=== PATIENT | female | born 1960 | race Caucasian/White ===

== ENCOUNTER 2018-11-21 12:00 | Outpatient (RCR) | payer OTHER, SELFPAY ==
[2018-11-08 09:42] VITALS: BP 115/72; PULSE 67; RESP 20; TEMP 36.6; BMI 47.3
--- NOTE | 2018-11-08 10:34 | PCM.WC.HP ---
(1) Surgical wound dehiscence Status: Chronic Current Visit: Yes Qualifiers: Encounter type: initial encounter Qualified Code(s): T81.31XA - Disruption of external operation (surgical) wound, not elsewhere classified, initial encounter Code(s): T81.31XA - Disruption of external operation (surgical) wound, not elsewhere classified, initial encounter (2) Surgical wound, non healing Status: Chronic Current Visit: Yes Qualifiers: Encounter type: initial encounter Qualified Code(s): T81.89XA - Other complications of procedures, not elsewhere classified, initial encounter Code(s): T81.89XA - Other complications of procedures, not elsewhere classified, initial encounter (3) Morbid obesity Status: Chronic Current Visit: Yes Code(s): E66.01 - Morbid (severe) obesity due to excess calories (4) CAD (coronary artery disease) Status: Chronic Current Visit: No Qualifiers: Coronary Disease-Associated Artery/Lesion type: [place] artery Code(s): I25.10 - Atherosclerotic heart disease of [place] coronary artery without angina pectoris (5) Left carotid bruit Status: Chronic Current Visit: Yes Code(s): R09.89 - Other specified symptoms and signs involving the circulatory and respiratory systems (6) Hypertension Status: Chronic Current Visit: No Code(s): I10 - Essential (primary) hypertension (7) Hyperlipidemia Status: Chronic Current Visit: No Code(s): E78.5 - Hyperlipidemia, unspecified (8) Chronic bronchitis Status: Chronic Current Visit: No Code(s): J42 - Unspecified chronic bronchitis (9) Smoking history Status: Chronic Current Visit: No Code(s): Z87.891 - Personal history of nicotine dependence (10) Alcoholism in remission Status: Chronic Current Visit: Yes Code(s): F10.21 - Alcohol dependence, in remission History of Present Illness Date of Service: 11/08/18 Chief Complaint: Chronic, nonhealing surgical wound of the right Achilles area/posterior heel History of Wound: This is a 58-year-old obese female who underwent right Achilles tendon debridement, resection of a retrocalcaneal spur, and tendon transfer on September 27, 2018, in [facility]. Since that time, she has been followed clinically by Dr. Thiago Vidal, her podiatric surgeon at the [facility]. The inferior portion of her surgical incision has failed to heal. She has had several courses of oral antibiotics. Offloading measures were implemented. Patient is using a Cam walker and surgical boot. Collagenase Santyl has been used topically in recent days. She has been referred to our wound care facility for consultation and management relative to the nonhealing portion of her incision. It appears as though the surgical sutures were removed approximately 10 days postoperatively, at which time they became evident that the inferior portion of the surgical incision was not healing appropriately, and as expected. 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 She has previously undergone placement of coronary artery stents in 1999, a procedure in which she suffered complications, requiring sternotomy and repair of a ventricular injury. Her history is negative for diabetes mellitus, myocardial infarction, congestive heart failure, cerebrovascular accident, renal disease, and thyroid disease. Surgical History: - - Patient underwent emergency cardiac surgery in 1999, in association with placement of coronary artery stents x2. She underwent cholecystectomy in 2000. She is also undergone tonsillectomy. A right carpal tunnel release was also performed in the past. Home Medications: Ambulatory Orders Medication Instructions Recorded Albuterol Inhaler [Ventolin Hfa 2 puff INHALATION Q4H PRN PRN 11/08/18 (SP)] Ascorbic Acid [Vitamin C] 1,000 mg PO DAILY 11/08/18 Aspirin 81 mg PO DAILY 11/08/18 Atorvastatin Calcium [Lipitor] 40 mg PO QHS 11/08/18 Ibuprofen [Motrin] 800 PO 4X/DAY PRN PRN 11/08/18 Lisinopril [Zestril] 10 mg PO DAILY 11/08/18 Meloxicam 15 mg PO DAILY 11/08/18 Multivitamins,Therapeutic 1 tablet PO DAILY 11/08/18 [Multivitamin] Omeprazole [Prilosec] 20 mg PO DAILY 11/08/18 Ranolazine [Ranexa] 500 mg PO BID 11/08/18 Sertraline HCl [Zoloft] 100 mg PO DAILY 11/08/18 buPROPion tablets [Wellbutrin 50 mg PO BID 11/08/18 tablets] - Family History Paternal - - Patient's father at the age of 83 with a history of coronary artery disease and cerebrovascular accident. Maternal - - The patient's mother at the age of 82 with a history of myocardial infarction. Social History: The patient is single. 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 She is a former smoker. She is also a recovering alcoholic. Smoking Status: Former smoker Tobacco Use: Non-smoker Alcohol: None Drugs: None Review of Systems Constitutional: Denies: Chills, Fever, Weight Change Eyes: Denies: Pain, Vision Change HEENT: Denies: Difficulty Hearing, Difficulty Swallowing, Sinus Congestion Cardiovascular: Denies: Chest Pain, Palpitations Respiratory: Denies: Cough, Shortness of Breath Gastrointestinal: Denies: Diarrhea, Nausea, Vomiting Genitourinary: Denies: Dysuria, Hematuria Endocrine: Denies: Heat/ Cold Intolerance, Polydipsia, Polyuria Hematologic/ Lymphatic: Denies: Easy Bruising, Easy Bleeding - Physical Exam Vital Signs Temp Pulse Resp BP 97.8 F 67 20 H 115/72 11/08/18 09:42 11/08/18 09:42 11/08/18 09:42 11/08/18 09:42 General: Alert, Oriented x3, Cooperative, No apparent distress, Well developed, Well nourished, - - The patient is obese. HEENT: Atraumatic, PERRLA, EOMI, Normocephalic Oral: Moist Mucosa, No Gingival or Mucosal Lesions/ Ulcerations Neck: Supple, No JVD, Negative Hepatojugular Reflux, No Nodes, No Nuchal Rigidity, Trachea Midline, Carotid Bruit, Left Lungs: Clear to auscultation, Normal air movement, No rhonchi, No wheeze, No rales Cardiovascular: Regular rate, Normal S1, Normal S2, No murmurs Abdomen: Soft, Non Tender, Non-Distended, Obese Extremities: No clubbing, No cyanosis, No edema, No Calf Tenderness, - - A vertical incision is noted in the left Achilles and left posterior heel area. The superior and midportion of the incision is well approximated and healing appropriately. The inferior portion of the incision is open and not approximated. There is an open wound at this site, the dimensions of which are documented elsewhere. The base of the open wound is frankly necrotic with evidence of nonviable tissue. There is no obvious sign of infection or cellulitis. There is a moderate amount of bioburden. Swab cultures have been obtained, for both aerobic and anaerobic bacterial growth. Skin: No rashes Wound Measurements and Assessment WC - Nurse 1 - General Ulcer Measurement Start: 11/08/18 09:42 Freq: Status: Active Protocol: Activity Type Activity Date Activity User E-Sign Co-Sign Detail Recorded Client Recorded Date Recorded By Document 11/08/18 09:42 MW [id number] 11/08/18 09:50 MW 11/08/18 09:42 Wound Center Nurse 1 [Ulcer Assessment] #1 RIGHT HEEL -Combined with other wound No -Current Size (cm) - Length 1.2 -Current Size (cm) - Width 1.5 -Current Size (cm) - Depth 0.2 -Total Square Cm 1.80 -Date of Last Picture (Recall this 11/08/18 field) -Photo Taken Yes -Epithelialization None Present -Tunneling No -Undermining/Tunneling No -Circular Undermining No -Exudate Amt Small (1-33%) -Exudate Type Serosanguineous -Wound Margin Distinct, Outline Attached -Granulation Amt None Present (0 %) -Granulation Quality N/A -Slough/Fibrin Yes -Necrosis Amt Large (67-100%) -Necrotic Tissue Type Adherent Slough -Structure Exposed N/A -Texture (Lynda-wound Skin Appearance) Assessed Localized Edema Scarring -Moisture (Lynda-wound Skin Appearance No Abnormality ) Assessed -Color (Lynda-wound Skin Appearance) No Abnormality Assessed -Temperature (Lynda-wound Skin No Abnormality Appearance) (Pt Warm) -Tenderness on Palpation (Lynda-wound No Skin Appearance) -Ulcer Cleansing Rinsed/ Irrigated with Saline -Foul Odor after Cleansing No -Anesthetic Used 5% Lidocaine Gel [Edema Assessment] -Lower Limb Edema Present Yes -Right Calf (cm) 45.0 -Right Ankle (cm) 23.5 -Left Calf (cm) 46.5 -Left Ankle (cm) 24.0 Musculoskeletal: No Muscle Wasting Neurological: Cranial nerves II-XII grossly intact, Neuro grossly intact Psych/Mental Status: Normal Affect, Appropriate, Alert and oriented to time, place, person, mood and affect Debridement Note Laterality: Left - Posterior heel Type of Debridement: Excisional debridement Anesthesia Used: 5% Lidocaine Gel Depth: Down to and including healthy tissue, in the subcutaneous layer Percentage of wound debrided: 100 Instrument Used: 7mm curette Severity: Fat Layer Exposed Amount of bleeding with debridement: Mild Bleeding Controlled with: Compression and gauze Patient tolerated procedure well Assessment/Plan Active Problems Surgical wound dehiscence (Chronic) Surgical wound, non healing (Chronic) Morbid obesity (Chronic) Left carotid bruit (Chronic) 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 The inferior portion of her surgical wound has failed to heal appropriately. Patient suffers from multiple other pre-existing medical problems, including coronary artery disease, hypertension, hyperlipidemia, chronic bronchitis, etc. By physical examination, she is also noted to have a left carotid artery bruit. Plan: Offloading measures have been recommended. It appears as though these measures have already been implemented. This issue has been discussed at length with the patient. Collagenase Santyl has been initiated topically only several days ago, and is to be continued. An excisional debridement was performed today, and will be continued on a serial basis, as the patient returns for weekly appointments. Swab cultures have been obtained for both aerobic and anaerobic growth, and we will await results. The patient is to return on a weekly basis, though the upcoming holidays may dictate otherwise. We are to request the results of an arterial study, which the patient indicates was performed recently at the [facility]. It should be ascertained that arterial perfusion is adequate for healing in the right lower extremity. If results cannot be obtained, it is anticipated that a noninvasive lower extremity arterial study will be scheduled. Routine laboratory studies will also be obtained, including a CBC, comprehensive metabolic profile, hemoglobin A1c, and a serum prealbumin. The patient has been made aware of the finding of left carotid artery bruit. She indicates that she will be seeing her circus performer, Dr. Onofre Landeros, this afternoon. She has been advised to mention this to Dr. Landeros, and that the recommendation has been made that she undergo carotid duplex examination. The patient is not a smoker. Influenza vaccine was not administered today. The patient weighs 280 pounds. She stands 5 feet 4 inches tall. Her BMI is 47.3. This places her in a class III obesity category. Weight loss has been recommended, in collaboration with her primary care physician has been advised.
[2018-11-08 16:59] LABS: M R Staph aureus DNA By PCR Negative (Negative); Probe Check PASS; Specimen Processing Control PASS; Staph aureus DNA By PCR NEGATIVE (Negative)
[2018-11-21 12:24] VITALS: BP 129/57; PULSE 76; RESP 18; TEMP 36.6; BMI 47.3
--- NOTE | 2018-11-21 12:44 | PCM.WC.HP ---
(1) Surgical wound dehiscence Status: Chronic Current Visit: Yes Qualifiers: Encounter type: subsequent encounter Qualified Code(s): T81.31XD - Disruption of external operation (surgical) wound, not elsewhere classified, subsequent encounter Code(s): T81.31XA - Disruption of external operation (surgical) wound, not elsewhere classified, initial encounter (2) Surgical wound, non healing Status: Chronic Current Visit: Yes Qualifiers: Encounter type: subsequent encounter Qualified Code(s): T81.89XD - Other complications of procedures, not elsewhere classified, subsequent encounter Code(s): T81.89XA - Other complications of procedures, not elsewhere classified, initial encounter (3) Morbid obesity Status: Chronic Current Visit: Yes Code(s): E66.01 - Morbid (severe) obesity due to excess calories (4) CAD (coronary artery disease) Status: Chronic Current Visit: No Qualifiers: Coronary Disease-Associated Artery/Lesion type: [place] artery Code(s): I25.10 - Atherosclerotic heart disease of [place] coronary artery without angina pectoris (5) Left carotid bruit Status: Chronic Current Visit: Yes Code(s): R09.89 - Other specified symptoms and signs involving the circulatory and respiratory systems (6) Hypertension Status: Chronic Current Visit: No Code(s): I10 - Essential (primary) hypertension (7) Hyperlipidemia Status: Chronic Current Visit: No Code(s): E78.5 - Hyperlipidemia, unspecified (8) Chronic bronchitis Status: Chronic Current Visit: No Code(s): J42 - Unspecified chronic bronchitis (9) Smoking history Status: Chronic Current Visit: No Code(s): Z87.891 - Personal history of nicotine dependence (10) Alcoholism in remission Status: Chronic Current Visit: Yes Code(s): F10.21 - Alcohol dependence, in remission History of Present Illness Chief Complaint: Chronic, nonhealing surgical wound of the right Achilles area/posterior heel History of Wound: This is a 58-year-old obese female who underwent right Achilles tendon debridement, resection of a retrocalcaneal spur, and tendon transfer on September 27, 2018, in [facility]. Since that time, she has been followed clinically by Dr. Thiago Vidal, her podiatric surgeon at the [facility]. The inferior portion of her surgical incision has failed to heal. She has had several courses of oral antibiotics. Offloading measures were implemented. Patient is using a Cam walker and surgical boot. Collagenase Santyl has been used topically in recent days. She has been referred to our wound care facility for consultation and management relative to the nonhealing portion of her incision. It appears as though the surgical sutures were removed approximately 10 days postoperatively, at which time they became evident that the inferior portion of the surgical incision was not healing appropriately, and as expected. Past Medical History Past Medical History: Chronic Problems Surgical wound dehiscence (Chronic) Surgical wound, non healing (Chronic) Morbid obesity (Chronic) CAD (coronary artery disease) (Chronic) Left carotid bruit (Chronic) Hypertension (Chronic) Hyperlipidemia (Chronic) Chronic bronchitis (Chronic) Smoking history (Chronic) Alcoholism in remission (Chronic) Surgical History: - - Patient underwent emergency cardiac surgery in 1999, in association with placement of coronary artery stents x2. She underwent cholecystectomy in 2000. She is also undergone tonsillectomy. A right carpal tunnel release was also performed in the past. Home Medications: Ambulatory Orders Medication Instructions Recorded Albuterol Inhaler [Ventolin Hfa 2 puff INHALATION Q4H PRN PRN 11/08/18 (SP)] Ascorbic Acid [Vitamin C] 1,000 mg PO DAILY 11/08/18 Aspirin 81 mg PO DAILY 11/08/18 Atorvastatin Calcium [Lipitor] 40 mg PO QHS 11/08/18 Ibuprofen [Motrin] 800 PO 4X/DAY PRN PRN 11/08/18 Lisinopril [Zestril] 10 mg PO DAILY 11/08/18 Meloxicam 15 mg PO DAILY 11/08/18 Multivitamins,Therapeutic 1 tablet PO DAILY 11/08/18 [Multivitamin] Omeprazole [Prilosec] 20 mg PO DAILY 11/08/18 Ranolazine [Ranexa] 500 mg PO BID 11/08/18 Sertraline HCl [Zoloft] 100 mg PO DAILY 11/08/18 buPROPion tablets [Wellbutrin 50 mg PO BID 11/08/18 tablets] - Family History Paternal - - Patient's father at the age of 83 with a history of coronary artery disease and cerebrovascular accident. Maternal - - The patient's mother at the age of 82 with a history of myocardial infarction. Smoking Status: Former smoker Tobacco Use: Non-smoker Alcohol: None Drugs: None Review of Systems Constitutional: Denies: Chills, Fever, Weight Change Eyes: Denies: Pain, Vision Change HEENT: Denies: Difficulty Hearing, Difficulty Swallowing, Sinus Congestion Cardiovascular: Denies: Chest Pain, Palpitations Respiratory: Denies: Cough, Shortness of Breath Gastrointestinal: Denies: Diarrhea, Nausea, Vomiting Genitourinary: Denies: Dysuria, Hematuria Endocrine: Denies: Heat/ Cold Intolerance, Polydipsia, Polyuria Hematologic/ Lymphatic: Denies: Easy Bruising, Easy Bleeding - Physical Exam Vital Signs Temp Pulse Resp BP 98 F 76 18 129/57 H 11/21/18 12:24 11/21/18 12:24 11/21/18 12:24 11/21/18 12:24 General: Alert, Oriented x3, Cooperative, No apparent distress, Well developed, Well nourished HEENT: Atraumatic, PERRLA, EOMI, Normocephalic Oral: Moist Mucosa Neck: No JVD Lungs: Normal air movement Abdomen: Non-Distended Extremities: No clubbing, No cyanosis, No edema, No Calf Tenderness, - - The wound on the right posterior heel/Achilles area appears slightly improved. There is no sign of infection or cellulitis. Dimensions are documented elsewhere. There is a small amount of bioburden. Skin: No rashes Wound Measurements and Assessment WC - Nurse 1 - General Ulcer Measurement Start: 11/08/18 09:42 Freq: Status: Active Protocol: Activity Type Activity Date Activity User E-Sign Co-Sign Detail Recorded Client Recorded Date Recorded By Document 11/21/18 12:24 [id number] 11/21/18 12:30 RB 11/21/18 12:24 Wound Center Nurse 1 [Ulcer Assessment] #1 RIGHT HEEL -Combined with other wound No -Current Size (cm) - Length 1 -Current Size (cm) - Width 0.7 -Current Size (cm) - Depth 0.1 -Total Square Cm 0.7 -Photo Taken No -Tunneling No -Undermining/Tunneling No -Circular Undermining No -Exudate Amt Small (1-33%) -Exudate Type Serosanguineous -Wound Margin Distinct, Outline Attached -Granulation Amt Medium (34-66%) -Granulation Quality [place] -Slough/Fibrin Yes -Necrosis Amt Small (1-33%) -Necrotic Tissue Type Adherent Slough -Structure Exposed N/A -Texture (Lynda-wound Skin Appearance) Assessed Scarring -Moisture (Lynda-wound Skin Appearance Assessed ) -Color (Lynda-wound Skin Appearance) Assessed -Temperature (Lynda-wound Skin No Abnormality Appearance) (Pt Warm) -Tenderness on Palpation (Lynda-wound No Skin Appearance) -Ulcer Cleansing Rinsed/ Irrigated with Saline -Foul Odor after Cleansing No -Anesthetic Used 5% Lidocaine Gel - Nurse 2 - General Ulcer CM Notes Start: 11/08/18 09:42 Freq: Status: Active Protocol: Activity Type Activity Date Activity User E-Sign Co-Sign Detail Recorded Client Recorded Date Recorded By Document 11/21/18 12:36 [email or web address] 11/21/18 12:40 [email or web address] 11/21/18 12:36 Wound Center Nurse 2 [Procedure/Treatment] -Time 12:36 -Correct Patient Yes -Correct Side, Site, Position Yes -Correct Procedure Yes -Procedure Performed Yes -Type of Procedure Debridement -Clinical Debridement Subcutaneous -Post Debridement Size (cm) - Length 1.2 -Post Debridement Size (cm) - Width 1.0 -Post Debridement Size (cm) - Depth 0.1 -Total Square Cm 1.20 -Wound/Ulcer Outcome Not Healed -Ulcer Cleansing Rinsed/ Irrigated with Saline -Foul Odor after Cleansing No -Bioengineered Tissue No -Topical Lidocaine (%) 4 -Lidocaine (ml) 5 -Bleeding Controlled with NA -Treatment Response Procedure Tolerated Well [See Physician Procedure note for Specifics] Pain Scale: 0-10 Numeric [Pain] -Is Patient Pain Free? Yes Musculoskeletal: No Muscle Wasting Neurological: Cranial nerves II-XII grossly intact, Neuro grossly intact Psych/Mental Status: Normal Affect, Appropriate, Alert and oriented to time, place, person, mood and affect Debridement Note Post-Debridement Measurements/Treatment WC - Nurse 2 - General Ulcer CM Notes Start: 11/08/18 09:42 Freq: Status: Active Protocol: Activity Type Activity Date Activity User E-Sign Co-Sign Detail Recorded Client Recorded Date Recorded By Document 11/08/18 10:13 DV [email or web address] 11/08/18 10:33 DV Document 11/21/18 12:36 [id number] 11/21/18 12:40 JS 11/08/18 11/21/18 10:13 12:36 Wound Center Nurse 2 #1 RIGHT HEEL -Time 10:17 12:36 -Correct Patient Yes Yes -Correct Side, Site, Position Yes Yes -Correct Procedure Yes Yes -Procedure Performed Yes Yes -Type of Procedure Debridement Debridement -Clinical Debridement Subcutaneous Subcutaneous -Post Debridement Size (cm) - Length 1.5 1.2 -Post Debridement Size (cm) - Width 1.8 1.0 -Post Debridement Size (cm) - Depth 0.3 0.1 -Total Square Cm 2.70 1.20 -Wound/Ulcer Outcome Not Healed Not Healed -Ulcer Cleansing Rinsed/ Rinsed/ Irrigated with Irrigated with Saline Saline -Foul Odor after Cleansing No No -Bioengineered Tissue No No -Topical Lidocaine (%) 4 -Lidocaine (ml) 5 -Bleeding Controlled with Pressure NA -Offloading No -Type of Offloading Knee Walker -Treatment Response Procedure Procedure Tolerated Well Tolerated Well Pain Scale: 0-10 Numeric Is Patient Pain Free? Yes Yes Laterality: Right - Heel Type of Debridement: Excisional debridement Anesthesia Used: 5% Lidocaine Gel Depth: Down to and including healthy tissue, in the subcutaneous layer Percentage of wound debrided: 100 Instrument Used: 3mm curette Severity: Fat Layer Exposed Amount of bleeding with debridement: Mild Bleeding Controlled with: Compression and gauze Patient tolerated procedure well Assessment/Plan Active Problems Surgical wound dehiscence (Chronic) Surgical wound, non healing (Chronic) Morbid obesity (Chronic) Left carotid bruit (Chronic) 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 The inferior portion of her surgical wound has failed to heal appropriately. Patient suffers from multiple other pre-existing medical problems, including coronary artery disease, hypertension, hyperlipidemia, chronic bronchitis, etc. By physical examination, she is also noted to have a left carotid artery bruit. Laboratory studies were ordered, but the patient has failed to submit. As result, laboratory results are not available. These are yet to be obtained. We have not yet received the results of the patient's lower extremity arterial study which was performed at the [facility]. We will make another request. The patient states that she underwent a carotid duplex examination as ordered by Dr. Landeros, though we do not yet have those results either. Results will be requested. According to the patient, her carotid study did not reveal any significant carotid artery disease. Plan: Offloading measures have been recommended. It appears as though these measures have already been implemented. This issue has been discussed at length with the patient. Collagenase Santyl has been initiated topically, and is to be continued. An excisional debridement was performed today, and will be continued on a serial basis, as the patient returns for weekly appointments. Swab cultures have been obtained for both aerobic and anaerobic growth, and results are negative. We are to again request the results of an arterial study, which the patient indicates was performed recently at the [facility]. It should be ascertained that arterial perfusion is adequate for healing in the right lower extremity. If results cannot be obtained, it is anticipated that a noninvasive lower extremity arterial study will be scheduled. Routine laboratory studies will also be obtained, including a CBC, comprehensive metabolic profile, hemoglobin A1c, and a serum prealbumin. The patient is not a smoker. Influenza vaccine was not administered today. The patient weighs 280 pounds. She stands 5 feet 4 inches tall. Her BMI is 47.3. This places her in a class III obesity category. Weight loss has been recommended, in collaboration with her primary care physician has been advised.
--- NOTE | 2018-11-21 12:49 | HP.PCM_ITS ---
(1) Surgical wound dehiscence Status: Chronic Current Visit: Yes Qualifiers: Encounter type: subsequent encounter Qualified Code(s): T81.31XD - Disruption of external operation (surgical) wound, not elsewhere classified, subsequent encounter Code(s): T81.31XA - Disruption of external operation (surgical) wound, not elsewhere classified, initial encounter (2) Surgical wound, non healing Status: Chronic Current Visit: Yes Qualifiers: Encounter type: subsequent encounter Qualified Code(s): T81.89XD - Other complications of procedures, not elsewhere classified, subsequent encounter Code(s): T81.89XA - Other complications of procedures, not elsewhere classified, initial encounter (3) Morbid obesity Status: Chronic Current Visit: Yes Code(s): E66.01 - Morbid (severe) obesity due to excess calories (4) CAD (coronary artery disease) Status: Chronic Current Visit: No Qualifiers: Coronary Disease-Associated Artery/Lesion type: [place] artery Code(s): I25.10 - Atherosclerotic heart disease of [place] coronary artery without angina pectoris (5) Left carotid bruit Status: Chronic Current Visit: Yes Code(s): R09.89 - Other specified symptoms and signs involving the circulatory and respiratory systems (6) Hypertension Status: Chronic Current Visit: No Code(s): I10 - Essential (primary) hypertension (7) Hyperlipidemia Status: Chronic Current Visit: No Code(s): E78.5 - Hyperlipidemia, unspecified (8) Chronic bronchitis Status: Chronic Current Visit: No Code(s): J42 - Unspecified chronic bronchitis (9) Smoking history Status: Chronic Current Visit: No Code(s): Z87.891 - Personal history of nicotine dependence (10) Alcoholism in remission Status: Chronic Current Visit: Yes Code(s): F10.21 - Alcohol dependence, in remission History of Present Illness Chief Complaint: Chronic, nonhealing surgical wound of the right Achilles area /posterior heel History of Wound: This is a 58-year-old obese female who underwent right Achilles tendon debridement, resection of a retrocalcaneal spur, and tendon transfer on September 27, 2018, in [facility]. Since that time, she has been followed clinically by Dr. Thiago Vidal, her podiatric surgeon at the [facility]. The inferior portion of her surgical incision has failed to heal. She has had several courses of oral antibiotics. Offloading measures were implemented. Patient is using a Cam walker and surgical boot. Collagenase Santyl has been used topically in recent days. She has been referred to our wound care facility for consultation and management relative to the nonhealing portion of her incision. It appears as though the surgical sutures were removed approximately 10 days postoperatively, at which time they became evident that the inferior portion of the surgical incision was not healing appropriately, and as expected. Past Medical History Past Medical History: Chronic Problems Surgical wound dehiscence (Chronic) Surgical wound, non healing (Chronic) Morbid obesity (Chronic) CAD (coronary artery disease) (Chronic) Left carotid bruit (Chronic) Hypertension (Chronic) Hyperlipidemia (Chronic) Chronic bronchitis (Chronic) Smoking history (Chronic) Alcoholism in remission (Chronic) Surgical History: - - Patient underwent emergency cardiac surgery in 1999, in association with placement of coronary artery stents x2. She underwent cholecystectomy in 2000. She is also undergone tonsillectomy. A right carpal tunnel release was also performed in the past. Home Medications: Ambulatory Orders Medication Instructions Recorded Albuterol Inhaler [Ventolin Hfa 2 puff INHALATION Q4H PRN PRN 11/08/18 (SP)] Ascorbic Acid [Vitamin C] 1,000 mg PO DAILY 11/08/18 Aspirin 81 mg PO DAILY 11/08/18 Atorvastatin Calcium [Lipitor] 40 mg PO QHS 11/08/18 Ibuprofen [Motrin] 800 PO 4X/DAY PRN PRN 11/08/18 Lisinopril [Zestril] 10 mg PO DAILY 11/08/18 Meloxicam 15 mg PO DAILY 11/08/18 Multivitamins,Therapeutic 1 tablet PO DAILY 11/08/18 [Multivitamin] Omeprazole [Prilosec] 20 mg PO DAILY 11/08/18 Ranolazine [Ranexa] 500 mg PO BID 11/08/18 Sertraline HCl [Zoloft] 100 mg PO DAILY 11/08/18 buPROPion tablets [Wellbutrin 50 mg PO BID 11/08/18 tablets] - Family History Paternal - - Patient's father at the age of 83 with a history of coronary artery disease and cerebrovascular accident. Maternal - - The patient's mother at the age of 82 with a history of myocardial infarction. Smoking Status: Former smoker Tobacco Use: Non-smoker Alcohol: None Drugs: None Review of Systems Constitutional: Denies: Chills, Fever, Weight Change Eyes: Denies: Pain, Vision Change HEENT: Denies: Difficulty Hearing, Difficulty Swallowing, Sinus Congestion Cardiovascular: Denies: Chest Pain, Palpitations Respiratory: Denies: Cough, Shortness of Breath Gastrointestinal: Denies: Diarrhea, Nausea, Vomiting Genitourinary: Denies: Dysuria, Hematuria Endocrine: Denies: Heat/ Cold Intolerance, Polydipsia, Polyuria Hematologic/ Lymphatic: Denies: Easy Bruising, Easy Bleeding - Physical Exam Vital Signs Temp Pulse Resp BP 98 F 76 18 129/57 H 11/21/18 12:24 11/21/18 12:24 11/21/18 12:24 11/21/18 12:24 General: Alert, Oriented x3, Cooperative, No apparent distress, Well developed, Well nourished HEENT: Atraumatic, PERRLA, EOMI, Normocephalic Oral: Moist Mucosa Neck: No JVD Lungs: Normal air movement Abdomen: Non-Distended Extremities: No clubbing, No cyanosis, No edema, No Calf Tenderness, - - The wound on the right posterior heel/Achilles area appears slightly improved. There is no sign of infection or cellulitis. Dimensions are documented elsewhere. There is a small amount of bioburden. Skin: No rashes Wound Measurements and Assessment WC - Nurse 1 - General Ulcer Measurement Start: 11/08/18 09:42 Freq: Status: Active Protocol: Activity Type Activity Date Activity User E-Sign Co-Sign Detail Recorded Client Recorded Date Recorded By Document 11/21/18 12:24 [id number] 11/21/18 12:30 RB 11/21/18 12:24 Wound Center Nurse 1 [Ulcer Assessment] #1 RIGHT HEEL -Combined with other wound No -Current Size (cm) - Length 1 -Current Size (cm) - Width 0.7 -Current Size (cm) - Depth 0.1 -Total Square Cm 0.7 -Photo Taken No -Tunneling No -Undermining/Tunneling No -Circular Undermining No -Exudate Amt Small (1-33%) -Exudate Type Serosanguineous -Wound Margin Distinct, Outline Attached -Granulation Amt Medium (34-66%) -Granulation Quality [place] -Slough/Fibrin Yes -Necrosis Amt Small (1-33%) -Necrotic Tissue Type Adherent Slough -Structure Exposed N/A -Texture (Lynda-wound Skin Appearance) Assessed Scarring -Moisture (Lynda-wound Skin Appearance Assessed ) -Color (Lynda-wound Skin Appearance) Assessed -Temperature (Lynda-wound Skin No Abnormality Appearance) (Pt Warm) -Tenderness on Palpation (Lynda-wound No Skin Appearance) -Ulcer Cleansing Rinsed/ Irrigated with Saline -Foul Odor after Cleansing No -Anesthetic Used 5% Lidocaine Gel - Nurse 2 - General Ulcer CM Notes Start: 11/08/18 09:42 Freq: Status: Active Protocol: Activity Type Activity Date Activity User E-Sign Co-Sign Detail Recorded Client Recorded Date Recorded By Document 11/21/18 12:36 [email or web address] [id number] 11/21/18 12:40 [email or web address] 11/21/18 12:36 Wound Center Nurse 2 [Procedure/Treatment] -Time 12:36 -Correct Patient Yes -Correct Side, Site, Position Yes -Correct Procedure Yes -Procedure Performed Yes -Type of Procedure Debridement -Clinical Debridement Subcutaneous -Post Debridement Size (cm) - Length 1.2 -Post Debridement Size (cm) - Width 1.0 -Post Debridement Size (cm) - Depth 0.1 -Total Square Cm 1.20 -Wound/Ulcer Outcome Not Healed -Ulcer Cleansing Rinsed/ Irrigated with Saline -Foul Odor after Cleansing No -Bioengineered Tissue No -Topical Lidocaine (%) 4 -Lidocaine (ml) 5 -Bleeding Controlled with NA -Treatment Response Procedure Tolerated Well [See Physician Procedure note for Specifics] Pain Scale: 0-10 Numeric [Pain] -Is Patient Pain Free? Yes Musculoskeletal: No Muscle Wasting Neurological: Cranial nerves II-XII grossly intact, Neuro grossly intact Psych/Mental Status: Normal Affect, Appropriate, Alert and oriented to time, place, person, mood and affect Debridement Note Post-Debridement Measurements/Treatment WC - Nurse 2 - General Ulcer CM Notes Start: 11/08/18 09:42 Freq: Status: Active Protocol: Activity Type Activity Date Activity User E-Sign Co-Sign Detail Recorded Client Recorded Date Recorded By Document 11/08/18 10:13 DV [id number] 11/08/18 10:33 DV Document 11/21/18 12:36 [email or web address] [id number] 11/21/18 12:40 JS 11/08/18 11/21/18 10:13 12:36 Wound Center Nurse 2 #1 RIGHT HEEL -Time 10:17 12:36 -Correct Patient Yes Yes -Correct Side, Site, Position Yes Yes -Correct Procedure Yes Yes -Procedure Performed Yes Yes -Type of Procedure Debridement Debridement -Clinical Debridement Subcutaneous Subcutaneous -Post Debridement Size (cm) - Length 1.5 1.2 -Post Debridement Size (cm) - Width 1.8 1.0 -Post Debridement Size (cm) - Depth 0.3 0.1 -Total Square Cm 2.70 1.20 -Wound/Ulcer Outcome Not Healed Not Healed -Ulcer Cleansing Rinsed/ Rinsed/ Irrigated with Irrigated with Saline Saline -Foul Odor after Cleansing No No -Bioengineered Tissue No No -Topical Lidocaine (%) 4 -Lidocaine (ml) 5 -Bleeding Controlled with Pressure NA -Offloading No -Type of Offloading Knee Walker -Treatment Response Procedure Procedure Tolerated Well Tolerated Well Pain Scale: 0-10 Numeric Is Patient Pain Free? Yes Yes Laterality: Right - Heel Type of Debridement: Excisional debridement Anesthesia Used: 5% Lidocaine Gel Depth: Down to and including healthy tissue, in the subcutaneous layer Percentage of wound debrided: 100 Instrument Used: 3mm curette Severity: Fat Layer Exposed Amount of bleeding with debridement: Mild Bleeding Controlled with: Compression and gauze Patient tolerated procedure well Assessment/Plan Active Problems Surgical wound dehiscence (Chronic) Surgical wound, non healing (Chronic) Morbid obesity (Chronic) Left carotid bruit (Chronic) 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 The inferior portion of her surgical wound has failed to heal appropriately. Patient suffers from multiple other pre-existing medical problems, including coronary artery disease, hypertension, hyperlipidemia, chronic bronchitis, etc. By physical examination, she is also noted to have a left carotid artery bruit. Laboratory studies were ordered, but the patient has failed to submit. As result, laboratory results are not available. These are yet to be obtained. We have not yet received the results of the patient's lower extremity arterial study which was performed at the [facility]. We will make another request. The patient states that she underwent a carotid duplex examination as ordered by Dr. Landeros, though we do not yet have those results either. Results will be requested. According to the patient, her carotid study did not reveal any significant carotid artery disease. Plan: Offloading measures have been recommended. It appears as though these measures have already been implemented. This issue has been discussed at length with the patient. Collagenase Santyl has been initiated topically, and is to be continued. An excisional debridement was performed today, and will be continued on a serial basis, as the patient returns for weekly appointments. Swab cultures have been obtained for both aerobic and anaerobic growth, and results are negative. We are to again request the results of an arterial study, which the patient indicates was performed recently at the [facility]. It should be ascertained that arterial perfusion is adequate for healing in the right lower extremity. If results cannot be obtained, it is anticipated that a noninvasive lower extremity arterial study will be scheduled. Routine laborat ory studies will also be obtained, including a CBC, comprehensive metabolic profile, hemoglobin A1c, and a serum prealbumin. The patient is not a smoker. Influenza vaccine was not administered today. The patient weighs 280 pounds. She stands 5 feet 4 inches tall. Her BMI is 47.3. This places her in a class III obesity category. Weight loss has been recommended, in collaboration with her primary care physician has been advised.
[2018-11-21 16:08] LABS: Hematocrit 39.9 % (37-47); Hemoglobin 13.2 g/dl (12.0-15.0); Mean Corp Hgb Conc 33.1 g/gl (32-36); Mean Corpuscular Volume 96.6 fL (81-99); Mean Platelet Vol. 11.4 fl (6.2-12.0); Platelet Count 277 K/mm3 (150-450); RBC Distribution Width CV 12.9 % (11.6-14.6); RBC Distribution Width SD 44.5 fl (35.1-43.9); Red Blood Count 4.13 M/mm3 (4.2-5.4); White Blood Count 5.8 K/mm3 (4.4-11.0)
[2018-11-21 16:11] LABS: Scan Indicated on CBC? Y/N NO
[2018-11-21 16:28] LABS: Anion Gap 12 (5-15); BUN 17 mg/dL (7-18); BUN/Creat Ratio 16.2 RATIO (10-20); Calcium,Total 9.1 mg/dL (8.5-10.1); Chloride 106 mmol/L (98-107); Creatinine, Serum 1.05 mg/dL (0.55-1.02); EST Glomerular Filtration Rate 57 mL/min (>60); Est Glom Filt Rate - Afr Amer 69 mL/min (>60); Estimated Creatinine Clearance 51.05 ml/min; Glucose 116 mg/dL (74-106); Sodium Level 142 mmol/L (136-145)
[2018-11-21 16:50] LABS: Hemoglobin A1c 5.5 % (4.2-6.3)
--- OUTSIDE RECORDS SUMMARY | 2019-02-09 16:01 | XMS RPT_ITS ---
:1960 Author Organization OHIP Care Team Providers Name Role Phone Dwain Stanley Attending Unavailable [facility] Unavailable Dwain Stanley Attending Unavailable [facility] Unavailable TESTRAKE, INDIA Attending Unavailable TESTRAKE, INDIA Referring Unavailable TESTRAKE, INDIA Referring Unavailable TESTRAKE, INDIA Attending Unavailable TESTRAKE, INDIA Referring Unavailable TESTRAKE, INDIA Referring Unavailable ANGELIKA VARMA (LIZBETH) Referring Unavailable RUSS, OWEN Cervantes Referring Unavailable RUSS, OWEN Cervantes Attending Unavailable RUSSOWEN Referring Unavailable RUSS, OWEN Cervantes Referring Unavailable TESTRAKE, INDIA Attending Unavailable TESTRAKE, INDIA Referring Unavailable RUSS, OWEN Cervantes Referring Unavailable RUSSOWEN Referring Unavailable TESTRAKE, INDIA Attending Unavailable LEANDRA GLEASON Attending Unavailable Zelalem RENO (PAChristianoC) Attending Unavailable LEANDRA GLEASON Referring Unavailable ANGELIKA VARMA (LIZBETH) Referring Unavailable TESTRAKE, INDIA Attending Unavailable LEANDRA GLEASON Referring Unavailable TESTRAKE, INDIA Referring Unavailable TESTRAKE, INDIA Attending Unavailable TESTRAKE, INDIA Referring Unavailable TESTRAKE, INDIA Attending Unavailable TESTRAKE, INDIA Referring Unavailable TESTRAKE, INDIA Referring Unavailable TESTRAKE, INDIA Attending Unavailable TESTRAKE, INDIA Referring Unavailable TESTRAKE, INDIA Attending Unavailable TESTRAKE, INDIA Referring Unavailable TESTRAKE, INDIA Referring Unavailable TESTRAKE, INDIA Attending Unavailable TESTRAKE, INDIA Referring Unavailable EDUARD ANDREWS E Attending Unavailable DARRYL, EDUARD E Referring Unavailable DARRYLEDUARD E Referring Unavailable TESTRAKE, INDIA Attending Unavailable TESTRAKE, INDIA Referring Unavailable TESTRAKE, INDIA Referring Unavailable LEMON, ANNA (PT) Attending Unavailable TESTRAKE, INDIA Referring Unavailable TESTRAKE, INDIA Admitting Unavailable TESTRAKE, INDIA Attending Unavailable LEANDRA GLEASON Admitting Unavailable LEANDRA GLEASON Attending Unavailable PROBLEMS PROBLEMS DATE TYPE CONDITION / CODE ATTENDING STATUS SOURCE 12/02/2018 Active Calcaneal spur, right NA Active [facility] foot / M77.31(ICD-10) [facility] [place] Repository 11/16/2018 Active Atherosclerotic heart NA Active [facility] disease of [place] [facility] coronary artery [place] without angina Repository pectoris / I25.10(ICD-10) 11/16/2018 Active Essential (primary) NA Active [facility] hypertension / [facility] I10(ICD-10) [place] Rep[facility] 11/16/2018 Active Dizziness and NA Active [facility] giddiness / [facility] R42(ICD-10) [place] Repository 09/29/2018 Active Other specified NA Active [facility] postprocedural states [facility] / Z98.890(ICD-10) [place] Rep[facility] 09/29/2018 Active Effusion, unspecified NA Active [facility] knee / [facility] M25.469(ICD-10) [place] Rep[facility] 09/29/2018 Active Pain in right lower NA Active [facility] leg / M79.661(ICD-10) [facility] [place] [facility] 07/13/2018 Active Achilles tendinitis, NA Active [facility] right leg / [facility] M76.61(ICD-10) [place] Rep[facility] 07/06/2018 Active Encounter for NA Active [facility] screening mammogram [facility] for malignant [place] neoplasm of breast / Repository Z12.31(ICD-10) 05/03/2018 Active Unspecified chronic NA Active [facility] bronchitis / [facility] J42(ICD-10) [place] [facility] 06/27/2018 Active Pure NA Active [facility] hypercholesterolemia, [facility] unspecified / [place] E78.00(ICD-10) Repository 05/11/2018 Active Disorder of kidney NA Active [facility] and ureter, [facility] Main unspecified / [place] N28.9(ICD-10) Repository 03/11/2018 Active Ganglion, left ankle [place]KE, Active [facility] foot / [place] [facility] Other M67.472(ICD-10) [place] Repository 05/02/2018 Active Encounter for other NA Active [facility] preprocedural [facility] examination / [place] Z01.818(ICD-10) Repository 01/24/2018 Active Ganglion, unspecified NA Active [facility] site / M67.40(ICD-10) Clinic Main [place] Repository PROCEDURES PROCEDURES No Procedure Records FoundRESULTS RESULTS WOUND CTR HISTORY Observed: 12/13/2018 Status: F Source: [facility] PHYSICAL 12:25 PM [facility] REPOSITORY [facility] [address] [place] [address] Wound Ctr History AND Physical 12/13/18 1221 MR#: [id number] Acct: [id number] Name: SHIRA CASTRO Rep #: [id number] : 1960 58 From: Dwain Stanley MD PCP: Owen Solano Status: REG RCR Y Location: (1) Surgical wound dehiscence Status: Chronic Current Visit: Yes Qualifiers: Encounter type: subsequent encounter Code(s): T81.31XA - Disruption of external operation (surgical) wound, not elsewhere classified, initial encounter (2) Surgical wound, non healing Status: Chronic Current Visit: Yes Qualifiers: Encounter type: subsequent encounter Code(s): T81.89XA - Other complications of procedures, not elsewhere classified, initial encounter (3) Morbid obesity Status: Chronic Current Visit: Yes Code(s): E66.01 - Morbid (severe) obesity due to excess calories (4) CAD (coronary artery disease) Status: Chronic Current Visit: No Qualifiers: Coronary Disease-Associated Artery/Lesion type: [place] artery [place] vs. transplanted heart: [place] heart Code(s): I25.10 - Atherosclerotic heart disease of [place] coronary artery without angina pectoris (5) Left carotid bruit Status: Chronic Current Visit: No Code(s): R09.89 - Other specified symptoms and signs involving the circulatory and respiratory systems (6) Hypertension Status: Chronic Current Visit: No Code(s): I10 - Essential (primary) hypertension (7) Hyperlipidemia Status: Chronic Current Visit: No Code(s): E78.5 - Hyperlipidemia, unspecified (8) Chronic bronchitis Status: Chronic Current Visit: No Code(s): J42 - Unspecified chronic bronchitis (9) Smoking history Status: Chronic Current Visit: No Code(s): Z87.891 - Personal history of nicotine dependence (10) Alcoholism in remission Status: Chronic Current Visit: No Code(s): F10.21 - Alcohol dependence, in remission History of Present Illness Chief Complaint: Chronic, nonhealing surgical wound of the right Achilles area/posterior heel History of Wound: This is a 58-year-old obese female who underwent right Achilles tendon debridement, resection of a retrocalcaneal spur, and tendon transfer on September 27, 2018, in [facility]. Since that time, she has been followed clinically by Dr. India Vidal, her podiatric surgeon at the [facility]. The inferior portion of her surgical incision has failed to heal. She has had several courses of oral antibiotics. Offloading measures were implemented. Patient is using a Cam walker and surgical boot. Collagenase Santyl has been used topically. She has been referred to our wound care facility for consultation and management relative to the nonhealing portion of her incision. The surgical sutures were removed approximately 10 days postoperatively, at which time it became evident that the inferior portion of the surgical incision was not healing appropriately, and as expected. Past Medical History Past Medical History: Chronic Problems Surgical wound dehiscence (Chronic) Surgical wound, non healing (Chronic) Morbid obesity (Chronic) CAD (coronary artery disease) (Chronic) Left carotid bruit (Chronic) Hypertension (Chronic) Hyperlipidemia (Chronic) Chronic bronchitis (Chronic) Smoking history (Chronic) Alcoholism in remission (Chronic) Surgical History: - - Patient underwent emergency cardiac surgery in 1999, in association with placement of coronary artery stents x2. She underwent cholecystectomy in 2000. She is also undergone tonsillectomy. A right carpal tunnel release was also performed in the past. Home Medications: Ambulatory Orders Medication Instructions Recorded Albuterol Inhaler [Ventolin Hfa 2 puff INHALATION Q4H PRN PRN 11/08/18 - Family History Paternal - - Patient's father at the age of 83 with a history of coronary artery disease and cerebrovascular accident. Maternal - - The patient's mother at the age of 82 with a history of myocardial infarction. Smoking Status: Former smoker Tobacco Use: Non-smoker Review of Systems Constitutional: Denies: Chills, Fever, Weight Change Eyes: Denies: Pain, Vision Change HEENT: Denies: Difficulty Hearing, Difficulty Swallowing, Sinus Congestion Cardiovascular: Denies: Chest Pain, Palpitations Respiratory: Denies: Cough, Shortness of Breath Gastrointestinal: Denies: Diarrhea, Nausea, Vomiting Genitourinary: Denies: Dysuria, Hematuria Endocrine: Denies: Heat/ Cold Intolerance, Polydipsia, Polyuria Hematologic/ Lymphatic: Denies: Easy Bruising, Easy Bleeding - Physical Exam Vital Signs Temp Pulse Resp BP 97.5 F L 70 18 118/77 12/13/18 11:08 12/13/18 11:08 12/13/18 11:08 12/13/18 11:08 General: Alert, Oriented x3, Cooperative, No apparent distress, Well developed, Well nourished HEENT: Atraumatic, PERRLA, EOMI, Normocephalic Oral: Moist Mucosa Neck: No JVD Lungs: Normal air movement Abdomen: Non-Distended Extremities: No clubbing, No cyanosis, No edema, No Calf Tenderness, - - The surgical wound on the right posterior heel/Achilles area is now completely healed and epithelialized. There is no sign of infection or cellulitis. Skin: No rashes, No breakdown Wound Measurements and Assessment WC - Nurse 1 - General Ulcer Measurement Start: 11/28/18 12:35 Freq: Status: Active Protocol: Activity Type Activity Date Activity User E-Sign Co-Sign Detail Recorded Client Recorded Date Recorded By Document 12/13/18 11:08 AN [id number] 12/13/18 11:12 AN Wound Center Nurse 1 [Ulcer Assessment] #1 RIGHT HEEL WC - Nurse 2 - General Ulcer CM Notes Start: 11/28/18 12:35 Freq: Status: Active Protocol: Activity Type Activity Date Activity User E-Sign Co-Sign Detail Recorded Client Recorded Date Recorded By Document 12/13/18 12:08 DV [id number] 12/13/18 12:10 DV Wound Center Nurse 2 [Procedure/Treatment] -Time 12:08 -Correct Patient Yes Musculoskeletal: No Muscle Wasting Neurological: Cranial nerves II-XII grossly intact, Neuro grossly intact Psych/Mental Status: Normal Affect, Appropriate, Alert and oriented to time, place, person, mood and affect Debridement Note Post-Debridement Measurements/Treatment WC - Nurse 2 - General Ulcer CM Notes Start: 11/28/18 12:35 Freq: Status: Active Protocol: Activity Type Activity Date Activity User E-Sign Co-Sign Detail Recorded Client Recorded Date Recorded By Wound Center Nurse 2 #1 RIGHT HEEL -Time 13:16 11:44 12:08 -Correct Patient Yes Yes Yes -Correct Side, Site, Position Yes Yes Yes No debridement was completed today Assessment/Plan Active Problems Surgical wound dehiscence (Chronic) Surgical wound, non healing (Chronic) Morbid obesity (Chronic) Assessment: This is a 58-year-old female who underwent a right Achilles tendon transfer with removal of bone spur on September 27, 2018. The inferior portion of her surgical wound has failed to heal appropriately. Conservative treatment measures have been implemented, and the patient's surgical wound continues to heal progressively. Patient suffers from multiple other pre-existing medical problems, including coronary artery disease, hypertension, hyperlipidemia, chronic bronchitis, etc. By physical examination, she was also noted to have a left carotid artery bruit. She underwent a carotid duplex examination as ordered by Dr. Landeros, which revealed mild bilateral carotid plaque, with no significant blockage. Plan: The patient is now completely healed and epithelialized. She is to be discharged from the Wound Center, with follow-up in the future as needed. She remains under the care of Dr. India Vidal, podiatric specialist. The patient is not a smoker. Influenza vaccine was not administered today. The patient weighs 280 pounds. She stands 5 feet 4 inches tall. Her BMI is 47.3. This places her in a class III obesity category. Weight loss has been recommended, in collaboration with her primary care physician has been advised. 12/13/18 1225 <Electronically signed by Dwain Stanley MD> Date Dwain Stanley MD CC: Signed WOUND CTR HISTORY Observed: 12/06/2018 Status: F Source: [facility] AND PHYSICAL 11:56 AM [facility] REPOSITORY [facility] [address] [place] [address] Wound Ctr History AND Physical 12/06/18 1151 MR#: [id number] Acct: [id number] Name: SHIRA CASTRO Rep #: [id number] : 1960 58 From: Dwain Stanley MD PCP: Owen Solano Status: REG RCR Y Location: (1) Surgical wound dehiscence Status: Chronic Current Visit: Yes Qualifiers: Encounter type: subsequent encounter Code(s): T81.31XA - Disruption of external operation (surgical) wound, not elsewhere classified, initial encounter (2) Surgical wound, non healing Status: Chronic Current Visit: Yes Qualifiers: Encounter type: subsequent encounter Code(s): T81.89XA - Other complications of procedures, not elsewhere classified, initial encounter (3) Morbid obesity Status: Chronic Current Visit: Yes Code(s): E66.01 - Morbid (severe) obesity due to excess calories (4) CAD (coronary artery disease) Status: Chronic Current Visit: No Qualifiers: Coronary Disease-Associated Artery/Lesion type: [place] artery [place] vs. transplanted heart: [place] heart Code(s): I25.10 - Atherosclerotic heart disease of [place] coronary artery without angina pectoris (5) Left carotid bruit Status: Chronic Current Visit: No Code(s): R09.89 - Other specified symptoms and signs involving the circulatory and respiratory systems (6) Hypertension Status: Chronic Current Visit: No Code(s): I10 - Essential (primary) hypertension (7) Hyperlipidemia Status: Chronic Current Visit: No Code(s): E78.5 - Hyperlipidemia, unspecified (8) Chronic bronchitis Status: Chronic Current Visit: No Code(s): J42 - Unspecified chronic bronchitis (9) Smoking history Status: Chronic Current Visit: No Code(s): Z87.891 - Personal history of nicotine dependence (10) Alcoholism in remission Status: Chronic Current Visit: No Code(s): F10.21 - Alcohol dependence, in remission History of Present Illness Chief Complaint: Chronic, nonhealing surgical wound of the right Achilles area/posterior heel History of Wound: This is a 58-year-old obese female who underwent right Achilles tendon debridement, resection of a retrocalcaneal spur, and tendon transfer on September 27, 2018, in [facility]. Since that time, she has been followed clinically by Dr. India Vidal, her podiatric surgeon at the [facility]. The inferior portion of her surgical incision has failed to heal. She has had several courses of oral antibiotics. Offloading measures were implemented. Patient is using a Cam walker and surgical boot. Collagenase Santyl has been used topically. She has been referred to our wound care facility for consultation and management relative to the nonhealing portion of her incision. The surgical sutures were removed approximately 10 days postoperatively, at which time it became evident that the inferior portion of the surgical incision was not healing appropriately, and as expected. Past Medical History Past Medical History: Chronic Problems Surgical wound dehiscence (Chronic) Surgical wound, non healing (Chronic) Morbid obesity (Chronic) CAD (coronary artery disease) (Chronic) Left carotid bruit (Chronic) Hypertension (Chronic) Hyperlipidemia (Chronic) Chronic bronchitis (Chronic) Smoking history (Chronic) Alcoholism in remission (Chronic) Surgical History: - - Patient underwent emergency cardiac surgery in 1999, in association with placement of coronary artery stents x2. She underwent cholecystectomy in 2000. She is also undergone tonsillectomy. A right carpal tunnel release was also performed in the past. Home Medications: Ambulatory Orders Medication Instructions Recorded Albuterol Inhaler [Ventolin Hfa 2 puff INHALATION Q4H PRN PRN 11/08/18 - Family History Paternal - - Patient's father at the age of 83 with a history of coronary artery disease and cerebrovascular accident. Maternal - - The patient's mother at the age of 82 with a history of myocardial infarction. Smoking Status: Former smoker Tobacco Use: Non-smoker Review of Systems Constitutional: Denies: Chills, Fever, Weight Change Eyes: Denies: Pain, Vision Change HEENT: Denies: Difficulty Hearing, Difficulty Swallowing, Sinus Congestion Cardiovascular: Denies: Chest Pain, Palpitations Respiratory: Denies: Cough, Shortness of Breath Gastrointestinal: Denies: Diarrhea, Nausea, Vomiting Genitourinary: Denies: Dysuria, Hematuria Endocrine: Denies: Heat/ Cold Intolerance, Polydipsia, Polyuria Hematologic/ Lymphatic: Denies: Easy Bruising, Easy Bleeding - Physical Exam Vital Signs Temp Pulse Resp BP 97.7 F L 58 L 18 122/67 H 12/06/18 11:07 12/06/18 11:07 12/06/18 11:07 12/06/18 11:07 General: Alert, Oriented x3, Cooperative, No apparent distress, Well developed, Well nourished HEENT: Atraumatic, PERRLA, EOMI, Normocephalic Oral: Moist Mucosa Neck: No JVD Lungs: Normal air movement Abdomen: Non-Distended Extremities: No clubbing, No cyanosis, No edema, No Calf Tenderness, - - There is no significant swelling or edema in the patient's lower extremities bilaterally. The surgical wound on the right posterior heel/Achilles area continues to decrease in size. Dimensions are documented elsewhere. There is no sign of infection or cellulitis. The surgical incision is otherwise healing appropriately. There is a small amount of bioburden. Skin: No rashes Wound Measurements and Assessment WC - Nurse 1 - General Ulcer Measurement Start: 11/28/18 12:35 Freq: Status: Active Protocol: Activity Type Activity Date Activity User E-Sign Co-Sign Detail Recorded Client Recorded Date Recorded By Document 12/06/18 11:07 AN [id number] 12/06/18 11:19 AN Wound Center Nurse 1 [Ulcer Assessment] #1 RIGHT HEEL -Current Size (cm) - Length 0.5 -Current Size (cm) - Width 0.2 -Current Size (cm) - Depth 0.1 -Total Square Cm 0.10 WC - Nurse 2 - General Ulcer CM Notes Start: 11/28/18 12:35 Freq: Status: Active Protocol: Activity Type Activity Date Activity User E-Sign Co-Sign Detail Recorded Client Recorded Date Recorded By Document 12/06/18 11:44 DV [id number] 12/06/18 11:50 DV Wound Center Nurse 2 Musculoskeletal: No Muscle Wasting Neurological: Cranial nerves II-XII grossly intact, Neuro grossly intact Psych/Mental Status: Normal Affect, Appropriate, Alert and oriented to time, place, person, mood and affect Debridement Note Post-Debridement Measurements/Treatment WC - Nurse 2 - General Ulcer CM Notes Start: 11/28/18 12:35 Freq: Status: Active Protocol: Activity Type Activity Date Activity User E-Sign Co-Sign Detail Wound Center Nurse 2 #1 RIGHT HEEL -Time 13:16 11:44 -Correct Patient Yes Yes Laterality: Right - Posterior heel Type of Debridement: Excisional debridement Anesthesia Used: 5% Lidocaine Gel Depth: Down to and including healthy tissue, in the subcutaneous layer Percentage of wound debrided: 100 Instrument Used: 3mm curette Severity: Fat Layer Exposed Amount of bleeding with debridement: Mild Bleeding Controlled with: Compression and gauze Patient tolerated procedure well Assessment/Plan Active Problems Surgical wound dehiscence (Chronic) Surgical wound, non healing (Chronic) Morbid obesity (Chronic) Assessment: This is a 58-year-old female who underwent a right Achilles tendon transfer with removal of bone spur on September 27, 2018. The inferior portion of her surgical wound has failed to heal appropriately. Conservative treatment measures have been implemented, and the patient's surgical wound continues to heal progressively. Patient suffers from multiple other pre-existing medical problems, including coronary artery disease, hypertension, hyperlipidemia, chronic bronchitis, etc. By physical examination, she was also noted to have a left carotid artery bruit. She underwent a carotid duplex examination as ordered by Dr. Landeros, which revealed mild bilateral carotid plaque, with no significant blockage. Plan: Offloading measures have been recommended. It appears as though these measures have already been implemented. This issue has been discussed at length with the patient. Collagenase Santyl has been initiated topically, though we are now to transition to the use of Promogran topically, which will be changed every other day. An excisional debridement was performed today, and will be continued on a serial basis, as the patient returns for weekly appointments. Swab cultures have been obtained for both aerobic and anaerobic growth, and results are negative. Recent laboratory studies have been reviewed, revealing no significant abnormalities. The patient is not a smoker. Influenza vaccine was not administered today. The patient weighs 280 pounds. She stands 5 feet 4 inches tall. Her BMI is 47.3. This places her in a class III obesity category. Weight loss has been recommended, in collaboration with her primary care physician has been advised. 12/06/18 1156 <Electronically signed by Dwain Stanley MD> Date Dwain Stanley MD CC: Signed PROGRESS Observed: 12/02/2018 Status: COMPLETED Source: [place] 11:02 AM [facility] REPOSITORY HNO ID: [id number] Author: Anna (Pt) Juvencio Service: (none) Author Type: Physical Therapist Type: Progress Notes Filed: 12/02/2018 3:47 PM Note Text: Episode Visit Count: 1 Therapist That Will Oversee The Plan Of Care: Anna Henning Start of Care Date: 12/02/18 Patient Identified by Name and Date of : Yes [facility]ER[facility] PHYSICAL THERAPY EVALUATION PLAN OF CARE: Assessment: Shira Castro presents with the diagnosis of R Achilles Tendonitis, calcaneal spur, s/p debridement and fhl tendon transfer. She presents with impairments of decreased AROM, weakness and abnormal gait. She may benefit from skilled therapy services to improve R ankle AROM and strength, and progression of gait and gait training when full weight bearing is prescribed including weaning from appropriate assistive device.. Prognosis: Excellent Excellent due to: current objective clinical presentation;good overall health status;within-session changes at evaluation;good support system/ coping skills Goals for Episode of Care: created on 12/02/18 through 01/30/19 [place] in home exercise program. Patient will decrease pain rating by 2 points to meet minimal clinical important difference for numeric pain rating scale. Patient will increase active ROM of R ankle to symmetrical for all planes to allow pt to to achieve neutral postural alignment, improved performance of ADLs and to normalize gait mechanics / gait pattern . Patient will increase strength of R LE to 5/5 to allow for return to prior functional status and normalized gait mechanics. Perform ambulation, stair negotiation and functional mobility to return to work with decreased report of symptoms/pain in 4-8 weeks. Demonstrate improvement on functional score: Patient will increase his/her score on the Lower Extremity Functional Scale by at least 9 points to indicate a Minimal Clinical Important Difference. Normal gait. Planned Interventions, Frequency, and Duration: Current Frequency: 1x/week (x 2 weeks then increase to 2x per week) Duration: 8 weeks Total Number of Visits Planned: 12 Planned Treatment Interventions: Therapeutic exercise;Neuromuscular re-education;Manual therapy;Gait Training;Patient/Family/Caregiver Education PLAN FOR NEXT VISIT: Assess symptom response to initial treatment and HEP. Review HEP to insure correct performance. Assess ankle AROM and gait. May address stairs with walker. Patient demonstrates good understanding of plan of care and treatment. The above goals and plan of care were discussed and agreed upon by patient/family. SUBJECTIVE: Shira Castro is a 58 year old female seen today for Pt reports undergoing surgery as noted above with difficulty healing of incision site. She was treated in wound healing and now is able to start therapy. She notes she has not achieved complete closure of incision, yet. She is currently ambulating with a kneeling scooter, and states her walker is ordered and she should recieve today (standard). She has stairs to enter home, but has been using a ramp and the kneeling scooter. Patient Goals: Return to normal and community ambulation, return to treadmill and elliptical use for exercise. Functional Limitations: walking;stair negotiation;weight bearing Prior Level of Function: Independent with restrictions Independent with the following restrictions: stairs d/t pain Intake Information: Prescription present Previous Treatment: Surgery? Pain Score: 12/01 (0/10 yesterday) Pain Location: Ankle - Right Description: (boot irritates the incision a little bit, increased activity) Frequency: Intermittent Post Treatment Pain Score: No Change OBJECTIVE MEASURES WITH LEVEL OF FUNCTION: Posture / Alignment LE Observations: Vertical incision line posterior Achilles tendon region with 1/4 diameter scab at inferior aspect. Ankle Observations Weight Bearing Status: PWB (50% R LE) R Ankle Presents with: Swelling;Incision R Incision: see Observations above R Ankle Girth - Figure 8 (cm): (2above mall24.5, B mall29, heel32, griiqlb09.5, MTP23.5(cm)) L Ankle Girth - Figure 8 (cm): (2above mall24.5, B mall28, heel32, qqrqtor37, MTP23 (cm)) LE AROM R Knee Extension: 0 Degrees R Knee Flexion: 130 Degrees R Ankle Dorsiflexion: 10 Degrees R Ankle Plantar Flexion: 52 Degrees R Ankle Inversion: 42 R Ankle Eversion: 12 L Knee Extension: 0 Degrees L Knee Flexion: 130 Degrees L Ankle Dorsiflexion: 13 Degrees L Ankle Plantar Flexion: 60 Degrees L Ankle Inversion: 46 L Ankle Eversion: 22 LE Strength R Ankle Dorsiflexion (L4): 4+/5 R Ankle Plantar Flexion: 3+/5 R Ankle Inversion: 4+/5 R Ankle Eversion: 4/5 L Ankle Dorsiflexion (L4): 5/5 L Ankle Plantar Flexion: 5/5 L Ankle Inversion: 5/5 L Ankle Eversion: 5/5 Gait Weight Bearing Status: PWB (50% R LE) Gait: Independent Gait Device: (kneeling scooter, states she is getting her walker today) Education: Education Learning Preferences: Demonstration;Explanation Barriers: None Learning/educational needs: Home exercise program;Plan of Care;Gait Training Education Provided: Yes, see treatment interventions for education provided Education Provided To: Patient Education Mode/Type: Demonstration;Explanation/Discussion;Literature/Printed Materials;Performance Response to Education/Teach Back: States/Identifies;Return Demonstration TREATMENT: Evaluation Therapeutic Exercise: 1: *R ankle DF with orange band resistance 3 x 10 reps 2: *R ankle PF with orange band resistance 3 x 10 reps 3: *R ankle inversion with orange band resistance 3 x 10 reps 4: * R ankle eversion with orange band resistance 3 x 10 reps 5: *ankle alphabet A-Z x 1 Skilled Intervention: Patient was educated in proper exercise technique and purpose for exercises. Skilled judgment was provided in selection of appropriate interventions. Provided written instruction for home exercise program to facilitate proper performance and compliance. Correct performance of therapeutic exercises was facilitated with verbal and visual cuing. Patient education as noted. Gait Trainin: Instructed in ambulation with standard walker 50% weight bearing R LE. Educated pt in sit to stand transfers, ambulation, turning and discussed particular strategies for maneuvering in her home. Pt verbalized good understanding and performed return demonstrations with correct form and technique. Skilled Intervention: Patient was provided stand by assist, supervision, independence during pre-gait/gait training to prevent falls and insure safety. Facilitated proper gait cycle with the use of verbal and visual cues for correction of gait deviations identified in the objective section above. Skilled judgment used to assess proper sizing and proper use of assistive device. Education provided to patient regarding the proper sequence for incline/decline and obstacle negotiation. Billing: [facility]: Evaluation - Low Complexity (36326) Therapeutic Exercise (97080): 1:1 time: 20 minutes (1 unit: 8-22 mins) Gait Training (95557): 1:1 time: 15 minutes (1 unit: 8-22 mins) Total time: 50 minutes Anna Henning PT CNTHERAPY Observed: 12/02/2018 Status: COMPLETED Source: [place] 11:00 AM [facility] REPOSITORY OT/PT/Speech Visit (PTWS) MATTHEWSHIRA Kimberley ([id number]) 1960 F Date Time Provider Department 12/02/18 11:00 AM ANNA HENNING (PT) PTWS Date Time Provider Department Center 12/02/2018 11:00 AM [id number] HENNING (PT) PTWS [facility] Reason for Visit: PT Eval [747] Primary Visit Diagnosis:Tendonitis, Achilles, right [M76.61] Other Visit Diagnosis:Calcaneal spur of right foot [M77.31] Allergies As of Date: 12/02/2018 (No Known Allergies) Date Reviewed: 12/01/2018 Reviewed by: Audra Fritz Ma - Fully Assessed Prescriptions as of 12/02/2018 Sig: SERTRALINE 100 MG TABLET Take 1 tablet by mouth once d* COLLAGENASE CLOSTRIDIUM HISTO* Apply 1 application to affect* CEPHALEXIN 500 MG CAPSULE Take 1 capsule by mouth four * Patient not taking: Reported on 11/08/2018 IBUPROFEN 800 MG TABLET Take 1 tablet by mouth every * RANOLAZINE ER 1,000 MG TABLET* Take 1 tablet by mouth twice * BUPROPION HCL 100 MG TABLET TAKE 0.5 TABLETS BY MOUTH TWI* OMEPRAZOLE 20 MG CAPSULE,ABHINAV* TAKE 1 CAPSULE BY MOUTH EVERY* LISINOPRIL 10 MG TABLET TAKE 1 TABLET BY MOUTH EVERY * ALBUTEROL SULFATE HFA 90 MCG/* Inhale 2 Puffs as instructed * ATORVASTATIN 40 MG TABLET TAKE 1 TABLET BY MOUTH DAILY * MELOXICAM 15 MG TABLET Take 1 tablet by mouth once d* ASCORBIC ACID (VITAMIN C) 1,0* Take 1,000 mg by mouth once d* MULTIVITAMIN CAPSULE Take 1 capsule by mouth once * ASPIRIN 81 MG TABLET Take 81 mg by mouth. Progress Notes: Annaelo Henning, PT 12/02/2018 3:47 PM Signed Episode Visit Count: 1 Therapist That Will Oversee The Plan Of Care: Anna Henning Start of Care Date: 12/02/18 Patient Identified by Name and Date of : Yes REHABIL[facility] SPORTS THERAPY PHYSICAL THERAPY EVALUATION PLAN OF CARE: Assessment: Shira Kimberley Castro presents with the diagnosis of R Achilles Tendonitis, calcaneal spur, s/p debridement and fhl tendon transfer. She presents with impairments of decreased AROM, weakness and abnormal gait. She may benefit from skilled therapy services to improve R ankle AROM and strength, and progression of gait and gait training when full weight bearing is prescribed including weaning from appropriate assistive device.. Prognosis: Excellent Excellent due to: current objective clinical presentation;good overall health status;within-session changes at evaluation;good support system/ coping skills Goals for Episode of Care: created on 12/02/18 through 01/30/19 [place] in home exercise program. Patient will decrease pain rating by 2 points to meet minimal clinical important difference for numeric pain rating scale. Patient will increase active ROM of R ankle to symmetrical for all planes to allow pt to to achieve neutral postural alignment, improved performance of ADLs and to normalize gait mechanics / gait pattern . Patient will increase strength of R LE to 5/5 to allow for return to prior functional status and normalized gait mechanics. Perform ambulation, stair negotiation and functional mobility to return to work with decreased report of symptoms/pain in 4-8 weeks. Demonstrate improvement on functional score: Patient will increase his/her score on the Lower Extremity Functional Scale by at least 9 points to indicate a Minimal Clinical Important Difference. Normal gait. Planned Interventions, Frequency, and Duration: Current Frequency: 1x/week (x 2 weeks then increase to 2x per week) Duration: 8 weeks Total Number of Visits Planned: 12 Planned Treatment Interventions: Therapeutic exercise;Neuromuscular re-education;Manual therapy;Gait Training;Patient/Family/Caregiver Education PLAN FOR NEXT VISIT: Assess symptom response to initial treatment and HEP. Review HEP to insure correct performance. Assess ankle AROM and gait. May address stairs with walker. Patient demonstrates good understanding of plan of care and treatment. The above goals and plan of care were discussed and agreed upon by patient/family. SUBJECTIVE: Shira Castro is a 58 year old female seen today for Pt reports undergoing surgery as noted above with difficulty healing of incision site. She was treated in wound healing and now is able to start therapy. She notes she has not achieved complete closure of incision, yet. She is currently ambulating with a kneeling scooter, and states her walker is ordered and she should recieve today (standard). She has stairs to enter home, but has been using a ramp and the kneeling scooter. Patient Goals: Return to normal and community ambulation, return to treadmill and elliptical use for exercise. Functional Limitations: walking;stair negotiation;weight bearing Prior Level of Function: Independent with restrictions Independent with the following restrictions: stairs d/t pain Intake Information: Prescription present Previous Treatment: Surgery? Pain Score: 10 (0/10 yesterday) Pain Location: Ankle - Right Description: (boot irritates the incision a little bit, increased activity) Frequency: Intermittent Post Treatment Pain Score: No Change OBJECTIVE MEASURES WITH LEVEL OF FUNCTION: Posture / Alignment LE Observations: Vertical incision line posterior Achilles tendon region with 1/4 diameter scab at inferior aspect. Ankle Observations Weight Bearing Status: PWB (50% R LE) R Ankle Presents with: Swelling;Incision R Incision: see Observations above R Ankle Girth - Figure 8 (cm): (2above mall24.5, B mall29, heel32, jtcexzd66.5, MTP23.5(cm)) L Ankle Girth - Figure 8 (cm): (2above mall24.5, B mall28, heel32, otcvbfp90, MTP23 (cm)) LE AROM R Knee Extension: 0 Degrees R Knee Flexion: 130 Degrees R Ankle Dorsiflexion: 10 Degrees R Ankle Plantar Flexion: 52 Degrees R Ankle Inversion: 42 R Ankle Eversion: 12 L Knee Extension: 0 Degrees L Knee Flexion: 130 Degrees L Ankle Dorsiflexion: 13 Degrees L Ankle Plantar Flexion: 60 Degrees L Ankle Inversion: 46 L Ankle Eversion: 22 LE Strength R Ankle Dorsiflexion (L4): 4+/5 R Ankle Plantar Flexion: 3+/5 R Ankle Inversion: 4+/5 R Ankle Eversion: 4/5 L Ankle Dorsiflexion (L4): 5/5 L Ankle Plantar Flexion: 5/5 L Ankle Inversion: 5/5 L Ankle Eversion: 5/5 Gait Weight Bearing Status: PWB (50% R LE) Gait: Independent Gait Device: (kneeling scooter, states she is getting her walker today) Education: Education Learning Preferences: Demonstration;Explanation Barriers: None Learning/educational needs: Home exercise program;Plan of Care;Gait Training Education Provided: Yes, see treatment interventions for education provided Education Provided To: Patient Education Mode/Type: Demonstration;Explanation/Discussion;Literature/Printed Materials;Performance Response to Education/Teach Back: States/Identifies;Return Demonstration TREATMENT: Evaluation Therapeutic Exercise: 1: *R ankle DF with orange band resistance 3 x 10 reps 2: *R ankle PF with orange band resistance 3 x 10 reps 3: *R ankle inversion with orange band resistance 3 x 10 reps 4: * R ankle eversion with orange band resistance 3 x 10 reps 5: *ankle alphabet A-Z x 1 Skilled Intervention: Patient was educated in proper exercise technique and purpose for exercises. Skilled judgment was provided in selection of appropriate interventions. Provided written instruction for home exercise program to facilitate proper performance and compliance. Correct performance of therapeutic exercises was facilitated with verbal and visual cuing. Patient education as noted. Gait Trainin: Instructed in ambulation with standard walker 50% weight bearing R LE. Educated pt in sit to stand transfers, ambulation, turning and discussed particular strategies for maneuvering in her home. Pt verbalized good understanding and performed return demonstrations with correct form and technique. Skilled Intervention: Patient was provided stand by assist, supervision, independence during pre-gait/gait training to prevent falls and insure safety. Facilitated proper gait cycle with the use of verbal and visual cues for correction of gait deviations identified in the objective section above. Skilled judgment used to assess proper sizing and proper use of assistive device. Education provided to patient regarding the proper sequence for incline/decline and obstacle negotiation. Billing: [facility]: Evaluation - Low Complexity (23449) Therapeutic Exercise (79642): 1:1 time: 20 minutes (1 unit: 8-22 mins) Gait Training (11484): 1:1 time: 15 minutes (1 unit: 8-22 mins) Total time: 50 minutes Anna Henning PT XR FOOT 3V AP/LAT/OBL Observed: 12/02/2018 Status: F Source: [facility] 10:11 AM [facility] REPOSITORY * * *Final Report* * * DATE OF EXAM: Dec 02 2018 10:11AM WRX [id number] - XR FOOT 3V AP/LAT/OBL RT / PROCEDURE REASON: multiple diagnoses * * * * Physician Interpretation * * * * HISTORY: 58-YEAR-OLD FEMALE WITH Tendonitis, Achilles, right Calcaneal spur of right foot . post - op recheck right achilles tendon repair TECHNIQUE: XR FOOT 3V AP/LAT/OBL RT Laterality: RIGHT Number of different views (projections): 3 COMPARISON: 11/01/2018 RESULT: Enthesophyte on the calcaneus at the insertion plantar fascia. Status post resection of the dorsal tubercle of the calcaneus with a phantom track from surgery in the calcaneus. Small amount of calcification Achilles tendon at the site of the surgery. Edema in Kager's fat pad IMPRESSION: POSTSURGICAL CHANGES IN THE CALCANEUS UNCHANGED COMPARED TO PREVIOUS EXAM. Uc Architect: MYAH Transcribe Date/Time: Dec 02 2018 5:26P Dictated by : TRAVIS LOPEZ MD This examination was interpreted and the report reviewed and electronically signed by: TRAVIS LOPEZ MD on Dec 02 2018 5:29PM EST [id number] [id number] Observed: 12/02/2018 Status: COMPLETED Source: [place] 10:02 AM [facility] REPOSITORY HNO ID: [id number] Author: Yvette Barron Service: (none) Author Type: (none) Type: Progress Notes Filed: 12/02/2018 10:12 AM Note Text: Radiology Service Progress Note PATIENT NAME: Shira Castro DATE OF SERVICE: December 02, 2018 TIME: 10:02 AM PATIENT IDENTITY VERIFICATION COMPLETED USING TWO (2) METHODS: Patient confirmed name verbally and Date of . PATIENT GENDER DATA: Female. status: : No status: NO. PATIENT RELEVANT IMPLANT DATA REVIEWED: Not Applicable RADIOLOGY DEPARTMENT: General X-ray: Exam(s) Completed: Lower Extremity X-Ray(s): Foot, Right and Wt. Bearing: PERIPHERAL IV DATA: Not applicable SIGNED BY: Yvette Barron December 02, 2018 10:02 AM PROGRESS Observed: 12/01/2018 Status: COMPLETED Source: [place] 8:19 PM [facility] REPOSITORY HNO ID: [id number] Author: India Vidal Service: (none) Author Type: Physician Type: Progress Notes Filed: 12/01/2018 8:25 PM Note Text: Follow up podiatric office visit for: Chief Complaint: This 58 year old who presents for follow up:right foot s/p achilles tendon debridement and fhl tendon transfer. Patient is just over 9 weeks s/p right ankle surgery. She is doing very well. She did experience slower wound healing and wound dehiscence for which she is applying santyl to her right heel. She is being followed by [facility]. Wound cultures have been performed and there was no bacterial growth. She states her wound is almost healed and she is doing quite well. She has no pain to her right heel. She denies n/v/f/c. She is very satisfied with progress. She is here to discuss transition to therapy. PAIN EVALUATION No data found. Hemoglobin A1C Date Value Ref Range Status 11/21/2018 5.5 Final PCP: Owen Solano MD PAST MEDICAL HISTORY Diagnosis Date - Adrenal adenoma repeat ct in 07/07 - Anxiety - Arthritis fingers - CAD (coronary artery disease) Dr. Schultz - Chronic bronchitis (HCC) 05/03/2018 - Depression - Heartburn - HTN (hypertension) - Hyperlipidemia - Migraine - Morbid obesity (HCC) 05/03/2018 - Seasonal allergies - Sleep apnea Current Outpatient Prescriptions: sertraline (ZOLOFT) 100 mg tablet Take 1 tablet by mouth once daily. collagenase (SANTYL) ointment Apply 1 application to affected area once daily. APPLY TO AFFECTED AREA ibuprofen (MOTRIN) 800 mg tablet Take 1 tablet by mouth every 6 hours as needed for Pain. Take with food. ranolazine SR (RANEXA) 1,000 mg Tb12 Take 1 tablet by mouth twice daily. buPROPion (WELLBUTRIN) 100 mg tablet TAKE 0.5 TABLETS BY MOUTH TWICE DAILY. omeprazole (PRILOSEC) 20 mg capsule TAKE 1 CAPSULE BY MOUTH EVERY DAY lisinopril (ZESTRIL, PRINIVIL) 10 mg tablet TAKE 1 TABLET BY MOUTH EVERY DAY albuterol HFA (VENTOLIN HFA) 90 mcg/actuation inhaler Inhale 2 Puffs as instructed every 4 hours as needed for Wheezing/Shortness of Breath. atorvastatin (LIPITOR) 40 mg tablet TAKE 1 TABLET BY MOUTH DAILY AT BEDTIME. FOR CHOLESTEROL. meloxicam (MOBIC) 15 mg tablet Take 1 tablet by mouth once daily. With food. Ascorbic Acid (VITAMIN C) 1,000 mg tablet Take 1,000 mg by mouth once daily. Multivitamin capsule Take 1 capsule by mouth once daily. Aspirin 81 mg Tab Take 81 mg by mouth. cephALEXin (KEFLEX) 500 mg capsule Take 1 capsule by mouth four times daily. (Patient not taking: Reported on 11/08/2018 ) No current facility-administered medications for this visit. ALLERGIES No Known Allergies PAST SURGICAL HISTORY Procedure Laterality Date - ACHILLES TENDON SURGERY HX Right 09/27/2018 - CABG (1) VEIN GRAFT AND ARTERIAL GRAFT 1999 - EXCIS TENDON SHEATH LESN,HAND/FINGR 07/04/2014 Right index finger digital muscous cyst excision - FOOT SURGERY HX Left excision ganglion cyst - REMOVAL GALLBLADDER 2000 Cholecystectomy - REMOVAL OF TONSILS,<12 Y/O 1965 Tonsillectomy alone - REVISE MEDIAN N/CARPAL TUNNEL SURG 07/04/2014 Carpal tunnel decomp right Physical Exam: Constitutional: Pt is a well developed 58 year old female who is alert, oriented, cooperative and in no apparent distress. OBJECTIVE: NVSI unchanged from previous visit. Dermatological: Nails 1-5 right are normal. Webspaces clean and dry 1-4 right. Skin appears well hydrated and supple. good color, texture, turgor. Right posterior heel has very superficial wound that does not appear to be infected. Wound is granular with less than 1 mm depth. No visible bone exposed. No tendon exposed. No drainage. Wound is less than 5 mm diameter. Musculoskeletal/Orthopaedic: Patient has no pain to palpation of right heel Fabian test produces plantarflexion to right lower extremity No calf pain present. ASSESSMENT: (M77.31) Calcaneal spur of right foot (primary encounter diagnosis) (Z98.890) Post-operative state (M76.61) Tendonitis, Achilles, right PLAN: 1. History and physical examination completed today. 2. Patient was examined and informed of current findings 3. Discussed right heel s/p achilles tendon debridement and fhl tendon transfer. At this time, she is greater than 9 weeks post- op. She has no pain and she has progressed well with strength. Further, her wound is very superficial and does not appear clinically infected. I want her to continue with karol and she can keep her appointments at wound center. 4. I am going to refer patient for physical therapy. She can begin appying ~50% weight to her right heel but is not to propulse at this time. I will have therapy increase her strength of right ankle with rom exercises. 5. F/u in 3 weeks. At 12 week post-op she can begin full weightbearing if asymptomatic. 6. As long as wound heals and she continues to progress, I expect return to work mid December. 7. While her wound does not appear infected, I discussed the risk of underlying bone infection given chronic nature of wound. Xray could be of benefit to assure no underlying osseous pathology. I suspect low risk of this as her wound does not appear infected, it appears to be healing and past wound culture was negative. Nevetheless, xrays were ordered today. 8. F/u in 3 weeks. Patient satisfied with care. India Vidal DPM PROGRESS Observed: 12/01/2018 Status: COMPLETED Source: [place] 11:44 AM [facility] REPOSITORY HNO ID: [id number] Author: Marely Valerio RN Service: (none) Author Type: (none) Type: Progress Notes Filed: 12/01/2018 8:25 PM Note Text: Santyl applied to R posterior heel. Covered with nonadherent dressing and ovidio. PROGRESS Observed: 12/01/2018 Status: COMPLETED Source: [place] 10:59 AM [facility] REPOSITORY HNO ID: [id number] Author: Audra Fritz Ma Service: (none) Author Type: (none) Type: Progress Notes Filed: 12/01/2018 8:25 PM Note Text: AMB ROOMING INTAKE FLOWSHEET DATA Risk Screening Do you have concerns about personal safety or safety in the home?: No Patient here for post op appointment. States she has no pain. CNOV Observed: 12/01/2018 Status: COMPLETED Source: [place] 10:40 AM [facility] REPOSITORY Office Visit (PODIWS) SHIRA CASTRO ([id number]) 1960 F Date Time Provider Department 12/01/18 10:40 AM [place] During your visit today, we recorded the following information about you: Audra Fritz Sascha 12/01/2018 8:25 PM Signed AMB ROOMING INTAKE FLOWSHEET DATA Risk Screening Do you have concerns about personal safety or safety in the home?: No Patient here for post op appointment. States she has no pain. Marely Valerio RN 12/01/2018 11:35 AM Signed Continue Santyl Marely Valerio RN 12/01/2018 8:25 PM Signed Santyl applied to R posterior heel. Covered with nonadherent dressing and ovidio. India Vidal DPM 12/01/2018 8:25 PM Signed Follow up podiatric office visit for: Chief Complaint: This 58 year old who presents for follow up:right foot s/p achilles tendon debridement and fhl tendon transfer. Patient is just over 9 weeks s/p right ankle surgery. She is doing very well. She did experience slower wound healing and wound dehiscence for which she is applying santyl to her right heel. She is being followed by [facility]. Wound cultures have been performed and there was no bacterial growth. She states her wound is almost healed and she is doing quite well. She has no pain to her right heel. She denies n/v/f/c. She is very satisfied with progress. She is here to discuss transition to therapy. PAIN EVALUATION No data found. Hemoglobin A1C Date Value Ref Range Status 11/21/2018 5.5 Final PCP: Owen Solano MD PAST MEDICAL HISTORY Diagnosis Date - Adrenal adenoma repeat ct in 07/07 - Anxiety - Arthritis fingers - CAD (coronary artery disease) Dr. Schultz - Chronic bronchitis (HCC) 05/03/2018 - Depression - Heartburn - HTN (hypertension) - Hyperlipidemia - Migraine - Morbid obesity (HCC) 05/03/2018 - Seasonal allergies - Sleep apnea Current Outpatient Prescriptions: sertraline (ZOLOFT) 100 mg tablet Take 1 tablet by mouth once daily. collagenase (SANTYL) ointment Apply 1 application to affected area once daily. APPLY TO AFFECTED AREA ibuprofen (MOTRIN) 800 mg tablet Take 1 tablet by mouth every 6 hours as needed for Pain. Take with food. ranolazine SR (RANEXA) 1,000 mg Tb12 Take 1 tablet by mouth twice daily. buPROPion (WELLBUTRIN) 100 mg tablet TAKE 0.5 TABLETS BY MOUTH TWICE DAILY. omeprazole (PRILOSEC) 20 mg capsule TAKE 1 CAPSULE BY MOUTH EVERY DAY lisinopril (ZESTRIL, PRINIVIL) 10 mg tablet TAKE 1 TABLET BY MOUTH EVERY DAY albuterol HFA (VENTOLIN HFA) 90 mcg/actuation inhaler Inhale 2 Puffs as instructed every 4 hours as needed for Wheezing/Shortness of Breath. atorvastatin (LIPITOR) 40 mg tablet TAKE 1 TABLET BY MOUTH DAILY AT BEDTIME. FOR CHOLESTEROL. meloxicam (MOBIC) 15 mg tablet Take 1 tablet by mouth once daily. With food. Ascorbic Acid (VITAMIN C) 1,000 mg tablet Take 1,000 mg by mouth once daily. Multivitamin capsule Take 1 capsule by mouth once daily. Aspirin 81 mg Tab Take 81 mg by mouth. cephALEXin (KEFLEX) 500 mg capsule Take 1 capsule by mouth four times daily. (Patient not taking: Reported on 11/08/2018 ) No current facility-administered medications for this visit. ALLERGIES No Known Allergies PAST SURGICAL HISTORY Procedure Laterality Date - ACHILLES TENDON SURGERY HX Right 09/27/2018 - CABG (1) VEIN GRAFT AND ARTERIAL GRAFT 1999 - EXCIS TENDON SHEATH VICTORIAHAND/FINGR 07/04/2014 Right index finger digital muscous cyst excision - FOOT SURGERY HX Left excision ganglion cyst - REMOVAL GALLBLADDER 2000 Cholecystectomy - REMOVAL OF TONSILS,<13 Y/O 1966 Tonsillectomy alone - REVISE MEDIAN N/CARPAL TUNNEL SURG 07/04/2014 Carpal tunnel decomp right Physical Exam: Constitutional: Pt is a well developed 58 year old female who is alert, oriented, cooperative and in no apparent distress. OBJECTIVE: NVSI unchanged from previous visit. Dermatological: Nails 1-5 right are normal. Webspaces clean and dry 1-4 right. Skin appears well hydrated and supple. good color, texture, turgor. Right posterior heel has very superficial wound that does not appear to be infected. Wound is granular with less than 1 mm depth. No visible bone exposed. No tendon exposed. No drainage. Wound is less than 5 mm diameter. Musculoskeletal/Orthopaedic: Patient has no pain to palpation of right heel Fabian test produces plantarflexion to right lower extremity No calf pain present. ASSESSMENT: (M77.31) Calcaneal spur of right foot (primary encounter diagnosis) (Z98.890) Post-operative state (M76.61) Tendonitis, Achilles, right PLAN: 1. History and physical examination completed today. 2. Patient was examined and informed of current findings 3. Discussed right heel s/p achilles tendon debridement and fhl tendon transfer. At this time, she is greater than 9 weeks post- op. She has no pain and she has progressed well with strength. Further, her wound is very superficial and does not appear clinically infected. I want her to continue with santyl and she can keep her appointments at wound center. 4. I am going to refer patient for physical therapy. She can begin appying ~50% weight to her right heel but is not to propulse at this time. I will have therapy increase her strength of right ankle with rom exercises. 5. F/u in 3 weeks. At 12 week post-op she can begin full weightbearing if asymptomatic. 6. As long as wound heals and she continues to progress, I expect return to work mid December. 7. While her wound does not appear infected, I discussed the risk of underlying bone infection given chronic nature of wound. Xray could be of benefit to assure no underlying osseous pathology. I suspect low risk of this as her wound does not appear infected, it appears to be healing and past wound culture was negative. Nevetheless, xrays were ordered today. 8. F/u in 3 weeks. Patient satisfied with care. India Vidal DPM Referring Provider: INDIA VIDAL [[id number]] Allergies As of Date: 12/01/2018 (No Known Allergies) Date Reviewed: 12/01/2018 Reviewed by: Audra Fritz Ma - Fully Assessed Reason for Visit: Established Patient [175] Primary Visit Diagnosis:Calcaneal spur of right foot [M77.31] Other Visit Diagnoses:Post-operative state [Z98.890] Tendonitis, Achilles, right [M76.61] Order(s):CONSULT TO PHYSICAL THERAPY [9032] Order #: [id number]: 1 XR FOOT GENERAL 3V AP/LAT/OBL RT [4362136] Order #: [id number] FUTURE Prescriptions as of 12/01/2018 Sig: SERTRALINE 100 MG TABLET Take 1 tablet by mouth once d* COLLAGENASE CLOSTRIDIUM HISTO* Apply 1 application to affect* IBUPROFEN 800 MG TABLET Take 1 tablet by mouth every * RANOLAZINE ER 1,000 MG TABLET* Take 1 tablet by mouth twice * BUPROPION HCL 100 MG TABLET TAKE 0.5 TABLETS BY MOUTH TWI* OMEPRAZOLE 20 MG CAPSULE,ABHINAV* TAKE 1 CAPSULE BY MOUTH EVERY* LISINOPRIL 10 MG TABLET TAKE 1 TABLET BY MOUTH EVERY * ALBUTEROL SULFATE HFA 90 MCG/* Inhale 2 Puffs as instructed * ATORVASTATIN 40 MG TABLET TAKE 1 TABLET BY MOUTH DAILY * MELOXICAM 15 MG TABLET Take 1 tablet by mouth once d* ASCORBIC ACID (VITAMIN C) 1,0* Take 1,000 mg by mouth once d* MULTIVITAMIN CAPSULE Take 1 capsule by mouth once * ASPIRIN 81 MG TABLET Take 81 mg by mouth. CEPHALEXIN 500 MG CAPSULE Take 1 capsule by mouth four * Patient not taking: Reported on 11/08/2018 Problem List As Of Date 12/01/2018 Noted Resolved Hyperlipidemia [E78.5] HTN (hypertension) [I10] Anxiety [F41.9] Depression [F32.9] Sleep apnea [G47.30] Carpal tunnel syndrome, right [G56.01] INVALID FOR*12/21/2016 Digital mucous cyst [M67.449] INVALID FOR*12/21/2016 Ganglion cyst of left foot [M67.472] INVALID FOR*09/23/2018 More... CAD (coronary artery disease) [I25.10] INVALID FOR* More... Heartburn [R12] INVALID FOR* Arthritis [M19.90] INVALID FOR* More... Chronic bronchitis (HCC) [J42] INVALID FOR* Morbid obesity (HCC) [E66.01] INVALID FOR* Achilles tendinitis of right lower extremity [M*INVALID FOR*09/27/2018 Calcaneal spur, right [M77.31] INVALID FOR*09/27/2018 Obesity, Class III, BMI >= 40 [E66.01] INVALID FOR* Other instructions from your clinician: Continue Santyl Letter Text Department of Podiatry Dr. India Glez [place], [place] [address] 12/01/2018 TO WHOM IT MAY CONCERN: This is to confirm that Shira Castro had an appointment and was seen at the [facility] in the Department of Podiatry by Dr. India Vidal on 12/01/2018 and may return to work on 01/09/19. Sincerely yours, Dr. India Vidal Encounter Status:Closed by INDIA VIDAL DPZelalem on 12/01/18 WOUND CTR HISTORY Observed: 11/28/2018 Status: F Source: ROSSI AND PHYSICAL 1:36 PM [facility] REPOSITORY [facility] [address] [place] [address] Wound Ctr History AND Physical 11/28/18 1326 MR#: [id number] Acct: [id number] Name: SHIRA CASTRO Rep #: [id number] : 1960 58 From: Dwain Stanley MD PCP: Owen Solano Status: REG RCR Y Location: (1) Surgical wound dehiscence Status: Chronic Current Visit: Yes Qualifiers: Encounter type: subsequent encounter Code(s): T81.31XA - Disruption of external operation (surgical) wound, not elsewhere classified, initial encounter (2) Surgical wound, non healing Status: Chronic Current Visit: Yes Qualifiers: Encounter type: subsequent encounter Code(s): T81.89XA - Other complications of procedures, not elsewhere classified, initial encounter (3) Morbid obesity Status: Chronic Current Visit: Yes Code(s): E66.01 - Morbid (severe) obesity due to excess calories (4) CAD (coronary artery disease) Status: Chronic Current Visit: No Qualifiers: Coronary Disease-Associated Artery/Lesion type: [place] artery [place] vs. transplanted heart: [place] heart Code(s): I25.10 - Atherosclerotic heart disease of [place] coronary artery without angina pectoris (5) Left carotid bruit Status: Chronic Current Visit: No Code(s): R09.89 - Other specified symptoms and signs involving the circulatory and respiratory systems (6) Hypertension Status: Chronic Current Visit: No Code(s): I10 - Essential (primary) hypertension (7) Hyperlipidemia Status: Chronic Current Visit: No Code(s): E78.5 - Hyperlipidemia, unspecified (8) Chronic bronchitis Status: Chronic Current Visit: No Code(s): J42 - Unspecified chronic bronchitis (9) Smoking history Status: Chronic Current Visit: No Code(s): Z87.891 - Personal history of nicotine dependence (10) Alcoholism in remission Status: Chronic Current Visit: No Code(s): F10.21 - Alcohol dependence, in remission History of Present Illness Chief Complaint: Chronic, nonhealing surgical wound of the right Achilles area/posterior heel History of Wound: This is a 58-year-old obese female who underwent right Achilles tendon debridement, resection of a retrocalcaneal spur, and tendon transfer on September 27, 2018, in [facility]. Since that time, she has been followed clinically by Dr. India Vidal, her podiatric surgeon at the [facility]. The inferior portion of her surgical incision has failed to heal. She has had several courses of oral antibiotics. Offloading measures were implemented. Patient is using a Cam walker and surgical boot. Collagenase Santyl has been used topically. She has been referred to our wound care facility for consultation and management relative to the nonhealing portion of her incision. The surgical sutures were removed approximately 10 days postoperatively, at which time it became evident that the inferior portion of the surgical incision was not healing appropriately, and as expected. Past Medical History Past Medical History: Chronic Problems Surgical wound dehiscence (Chronic) Surgical wound, non healing (Chronic) Morbid obesity (Chronic) CAD (coronary artery disease) (Chronic) Left carotid bruit (Chronic) Hypertension (Chronic) Hyperlipidemia (Chronic) Chronic bronchitis (Chronic) Smoking history (Chronic) Alcoholism in remission (Chronic) Surgical History: - - Patient underwent emergency cardiac surgery in 1999, in association with placement of coronary artery stents x2. She underwent cholecystectomy in 2000. She is also undergone tonsillectomy. A right carpal tunnel release was also performed in the past. Home Medications: Ambulatory Orders Medication Instructions Recorded Albuterol Inhaler [Ventolin Hfa 2 puff INHALATION Q4H PRN PRN 11/08/18 - Family History Paternal - - Patient's father at the age of 83 with a history of coronary artery disease and cerebrovascular accident. Maternal - - The patient's mother at the age of 82 with a history of myocardial infarction. Smoking Status: Former smoker Tobacco Use: Non-smoker Review of Systems Constitutional: Denies: Chills, Fever, Weight Change Eyes: Denies: Pain, Vision Change HEENT: Denies: Difficulty Hearing, Difficulty Swallowing, Sinus Congestion Cardiovascular: Denies: Chest Pain, Palpitations Respiratory: Denies: Cough, Shortness of Breath Gastrointestinal: Denies: Diarrhea, Nausea, Vomiting Genitourinary: Denies: Dysuria, Hematuria Endocrine: Denies: Heat/ Cold Intolerance, Polydipsia, Polyuria Hematologic/ Lymphatic: Denies: Easy Bruising, Easy Bleeding - Physical Exam Vital Signs Temp Pulse Resp BP 98 F 69 16 124/67 H 11/28/18 12:38 11/28/18 12:38 11/28/18 12:38 11/28/18 12:38 General: Alert, Oriented x3, Cooperative, No apparent distress, Well developed, Well nourished HEENT: Atraumatic, PERRLA, EOMI, Normocephalic Oral: Moist Mucosa Neck: No JVD Lungs: Normal air movement Abdomen: Non-Distended, Obese Extremities: No clubbing, No cyanosis, No edema, No Calf Tenderness, - - The surgical wound on the posterior right heel persists, but is smaller in size. Dimensions are documented elsewhere. There is no sign of infection or cellulitis. There is a small amount of bioburden. The base of the wound is generally pink and healthy in appearance. Skin: No rashes Wound Measurements and Assessment WC - Nurse 1 - General Ulcer Measurement Start: 11/28/18 12:35 Freq: Status: Active Protocol: Activity Type Activity Date Activity User E-Sign Co-Sign Detail Recorded Client Recorded Date Recorded By Document 11/28/18 12:38 [id number] 11/28/18 12:39 Wound Center Nurse 1 [Ulcer Assessment] #1 RIGHT HEEL -Combined with other wound No WC - Nurse 2 - General Ulcer CM Notes Start: 11/28/18 12:35 Freq: Status: Active Protocol: Activity Type Activity Date Activity User E-Sign Co-Sign Detail Recorded Client Recorded Date Recorded By Document 11/28/18 13:16 JS [id number] 11/28/18 13:24 JS Wound Center Nurse 2 Musculoskeletal: No Muscle Wasting Neurological: Cranial nerves II-XII grossly intact, Neuro grossly intact Psych/Mental Status: Normal Affect, Appropriate, Alert and oriented to time, place, person, mood and affect Debridement Note Post-Debridement Measurements/Treatment WC - Nurse 2 - General Ulcer CM Notes Start: 11/28/18 12:35 Freq: Status: Active Protocol: Activity Type Activity Date Activity User E-Sign Co-Sign Detail Recorded Client Recorded Date Recorded By Document 11/28/18 13:16 AKOSUA [id number] 11/28/18 13:24 AKOSUA Wound Center Nurse 2 #1 RIGHT HEEL -Time 13:16 -Correct Patient Yes -Correct Side, Site, Position Yes Laterality: Right - Heel Type of Debridement: Excisional debridement Anesthesia Used: 5% Lidocaine Gel Depth: Down to and including healthy tissue, in the subcutaneous layer Percentage of wound debrided: 100 Instrument Used: 3mm curette Severity: Fat Layer Exposed Amount of bleeding with debridement: Mild Bleeding Controlled with: Compression and gauze Patient tolerated procedure well Assessment/Plan Active Problems Surgical wound dehiscence (Chronic) Surgical wound, non healing (Chronic) Morbid obesity (Chronic) Assessment: This is a 58-year-old female who underwent a right Achilles tendon transfer with removal of bone spur on September 27, 2018. The inferior portion of her surgical wound has failed to heal appropriately. Patient suffers from multiple other pre-existing medical problems, including coronary artery disease, hypertension, hyperlipidemia, chronic bronchitis, etc. By physical examination, she was also noted to have a left carotid artery bruit. She underwent a carotid duplex examination as ordered by Dr. Landeros, which revealed mild bilateral carotid plaque, with no significant blockage. Plan: Offloading measures have been recommended. It appears as though these measures have already been implemented. This issue has been discussed at length with the patient. Collagenase Santyl has been initiated topically, and is to be continued. An excisional debridement was performed today, and will be continued on a serial basis, as the patient returns for weekly appointments. Swab cultures have been obtained for both aerobic and anaerobic growth, and results are negative. Recent laboratory studies have been reviewed, revealing no significant abnormalities. We have yet to receive the results of the patient's lower extremity arterial study, which was reportedly performed at the [facility]. The patient is not a smoker. Influenza vaccine was not administered today. The patient weighs 280 pounds. She stands 5 feet 4 inches tall. Her BMI is 47.3. This places her in a class III obesity category. Weight loss has been recommended, in collaboration with her primary care physician has been advised. 11/28/18 1336 <Electronically signed by Dwain Stanley MD> Date Dwain Stanley MD CC: Signed CNPN Observed: 11/28/2018 Status: COMPLETED Source: [place] 12:00 AM [facility] REPOSITORY Telephone (PODIWS) SHIRA CASTRO ([id number]) 1960 F Date Time Provider Department 11/28/18 INDIA VIDAL During your visit today, we recorded the following information about you: India Vidal DPM 11/28/2018 4:32 PM Signed Patient contacted me via text. States ankle is doing very well. She has been seen by wound clinic and her wound is progressing nicely. I would like to have her come in this week for evaluation and to possibly discuss referral to therapy. Can we get her in Wednesday or . She contacted the scheduling department and was given a 15th date. I would like to see her this week. Can you call her tomorrow to arrange follow-up. Thanks BRETT Narvaez RN 11/28/2018 4:46 PM Signed Called pt and scheduled her for , 12/01/18. Allergies As of Date: 11/28/2018 (No Known Allergies) Date Reviewed: 11/08/2018 Reviewed by: Anna Clifton MA - Fully Assessed Reason for Visit: Appointment [186] Prescriptions as of 11/28/2018 Sig: SERTRALINE 100 MG TABLET Take 1 tablet by mouth once d* COLLAGENASE CLOSTRIDIUM HISTO* Apply 1 application to affect* CEPHALEXIN 500 MG CAPSULE Take 1 capsule by mouth four * Patient not taking: Reported on 11/08/2018 IBUPROFEN 800 MG TABLET Take 1 tablet by mouth every * RANOLAZINE ER 1,000 MG TABLET* Take 1 tablet by mouth twice * BUPROPION HCL 100 MG TABLET TAKE 0.5 TABLETS BY MOUTH TWI* OMEPRAZOLE 20 MG CAPSULE,ABHINAV* TAKE 1 CAPSULE BY MOUTH EVERY* LISINOPRIL 10 MG TABLET TAKE 1 TABLET BY MOUTH EVERY * ALBUTEROL SULFATE HFA 90 MCG/* Inhale 2 Puffs as instructed * ATORVASTATIN 40 MG TABLET TAKE 1 TABLET BY MOUTH DAILY * MELOXICAM 15 MG TABLET Take 1 tablet by mouth once d* ASCORBIC ACID (VITAMIN C) 1,0* Take 1,000 mg by mouth once d* MULTIVITAMIN CAPSULE Take 1 capsule by mouth once * ASPIRIN 81 MG TABLET Take 81 mg by mouth. Problem List As Of Date 11/28/2018 Noted Resolved Hyperlipidemia [E78.5] HTN (hypertension) [I10] Anxiety [F41.9] Depression [F32.9] Sleep apnea [G47.30] Carpal tunnel syndrome, right [G56.01] INVALID FOR*12/21/2016 Digital mucous cyst [M67.449] INVALID FOR*12/21/2016 Ganglion cyst of left foot [M67.472] INVALID FOR*09/23/2018 More... CAD (coronary artery disease) [I25.10] INVALID FOR* More... Heartburn [R12] INVALID FOR* Arthritis [M19.90] INVALID FOR* More... Chronic bronchitis (HCC) [J42] INVALID FOR* Morbid obesity (HCC) [E66.01] INVALID FOR* Achilles tendinitis of right lower extremity [M*INVALID FOR*09/27/2018 Calcaneal spur, right [M77.31] INVALID FOR*09/27/2018 Obesity, Class III, BMI >= 40 [E66.01] INVALID FOR* Encounter Status:Closed by INDIA IVDAL DPM on 11/28/18 CBC-COMPLETE BLOOD CNT Collected: 11/21/2018 Status: F Source: ROSSI NO DIFF 1:00 PM [facility] REPOSITORY TYPE CODE TESTS RESULT OUT OF RANGE REFERENCE UNITS LAB L100.1000 4.4-11.0 K/mm3 Normal WBC 5.8 LAB L100.1200 4.2-5.4 M/mm3 Low RBC 4.13 LAB L100.1300 12.0-15.0 g/dl Normal HGB 13.2 LAB L100.1400 37-47 % Normal HCT 39.9 LAB L100.1500 81-99 fL Normal MCV 96.6 LAB L100.1600 27.0-32.0 pg Normal MCH 32.0 LAB L100.1700 32-36 g/gl Normal MCHC 33.1 LAB L100.1810 11.6-14.6 % Normal RDW CV 12.9 LAB L100.1820 35.1-43.9 fl High RDW SD 44.5 LAB L100.1900 150-450 K/mm3 Normal PLT 277 LAB L100.2000 6.2-12.0 fl Normal MPV 11.4 Performed By: #### L100.0500 #### [facility] [address] [place], [address] BASIC METABOLIC Collected: 11/21/2018 Status: F Source: RINGGOLD PROFILE (BMP) 1:00 PM [facility] REPOSITORY TYPE CODE TESTS RESULT OUT OF RANGE REFERENCE UNITS LAB L501.0100 74-106 mg/dL High GLU 116 Result Comment: Fasting Glucose result from 100 to 125 mg/dL suggests IMPAIRED HOMEOSTASIS per A.D.A. criteria. Please note revised GLUCOSE reference range effective 2017. LAB L501.1000 7-18 mg/dL Normal BUN 17 LAB L501.1100 0.55-1.02 mg/dL High CREAT,SERUM 1.05 Result Comment: The validity of the calculated GFR AND GFRAA in patients over 70 years has not been determined. Clinical correlation is essential. LAB L501.1110 >60 mL/min Low EST GFR 57 Result Comment: Non- GFR Calc LAB L501.1115 >60 mL/min Normal EST GFR - AA 69 Result Comment: GFR Calc LAB L501.1255 ml/min Normal Estimated CRCL 51.05 LAB L501.1300 10-20 RATIO Normal BUN/CRE 16.2 LAB L501.2200 8.5-10 mg/dL Normal .1 CA 9.1 LAB L501.5300 136-14 mmol/L Normal 5 NA 142 LAB L501.5600 3.5-5. mmol/L Normal 1 K 4.0 LAB L501.5900 98-107 mmol/L Normal CL 106 LAB L501.6100 21.0-3 mmol/L Normal 2.0 CO2 24.0 LAB L501.6200 5-15 Normal GAP 12 Performed By: #### L500.2500 #### [facility] [address] [place], [address] HEMOGLOBIN A1C Collected: 11/21/2018 Status: F Source: ROSSI 1:00 PM [facility] REPOSITORY TYPE CODE TESTS RESULT OUT OF RANGE REFERENCE UNITS LAB L501.9985 4.2-6.3 % Normal HGB A1C 5.5 Performed By: #### L501.9985 #### [facility] [address] [place], [address] WOUND CTR HISTORY Observed: 11/21/2018 Status: F Source: ROSSI AND PHYSICAL 12:52 PM [facility] REPOSITORY [facility] [address] [place] [address] Wound Ctr History AND Physical 11/21/18 1244 MR#: [id number] Acct: [id number] Name: SHIRA CASTRO Rep #: [id number] : 1960 58 From: Dwain Stanley MD PCP: Owen Solano Status: REG RCR Y Location: WC (1) Surgical wound dehiscence Status: Chronic Current Visit: Yes Qualifiers: Encounter type: subsequent encounter Qualified Code(s): T81.31XD - Disruption of external operation (surgical) wound, not elsewhere classified, subsequent encounter Code(s): T81.31XA - Disruption of external operation (surgical) wound, not elsewhere classified, initial encounter (2) Surgical wound, non healing Status: Chronic Current Visit: Yes Qualifiers: Encounter type: subsequent encounter Qualified Code(s): T81.89XD - Other complications of procedures, not elsewhere classified, subsequent encounter Code(s): T81.89XA - Other complications of procedures, not elsewhere classified, initial encounter (3) Morbid obesity Status: Chronic Current Visit: Yes Code(s): E66.01 - Morbid (severe) obesity due to excess calories (4) CAD (coronary artery disease) Status: Chronic Current Visit: No Qualifiers: Coronary Disease-Associated Artery/Lesion type: [place] artery Code(s): I25.10 - Atherosclerotic heart disease of [place] coronary artery without angina pectoris (5) Left carotid bruit Status: Chronic Current Visit: Yes Code(s): R09.89 - Other specified symptoms and signs involving the circulatory and respiratory systems (6) Hypertension Status: Chronic Current Visit: No Code(s): I10 - Essential (primary) hypertension (7) Hyperlipidemia Status: Chronic Current Visit: No Code(s): E78.5 - Hyperlipidemia, unspecified (8) Chronic bronchitis Status: Chronic Current Visit: No Code(s): J42 - Unspecified chronic bronchitis (9) Smoking history Status: Chronic Current Visit: No Code(s): Z87.891 - Personal history of nicotine dependence (10) Alcoholism in remission Status: Chronic Current Visit: Yes Code(s): F10.21 - Alcohol dependence, in remission History of Present Illness Chief Complaint: Chronic, nonhealing surgical wound of the right Achilles area/posterior heel History of Wound: This is a 58-year-old obese female who underwent right Achilles tendon debridement, resection of a retrocalcaneal spur, and tendon transfer on September 27, 2018, in [facility]. Since that time, she has been followed clinically by Dr. India Vidal, her podiatric surgeon at the [facility]. The inferior portion of her surgical incision has failed to heal. She has had several courses of oral antibiotics. Offloading measures were implemented. Patient is using a Cam walker and surgical boot. Collagenase Santyl has been used topically in recent days. She has been referred to our wound care facility for consultation and management relative to the nonhealing portion of her incision. It appears as though the surgical sutures were removed approximately 10 days postoperatively, at which time they became evident that the inferior portion of the surgical incision was not healing appropriately, and as expected. Past Medical History Past Medical History: Chronic Problems Surgical wound dehiscence (Chronic) Surgical wound, non healing (Chronic) Morbid obesity (Chronic) CAD (coronary artery disease) (Chronic) Left carotid bruit (Chronic) Hypertension (Chronic) Hyperlipidemia (Chronic) Chronic bronchitis (Chronic) Smoking history (Chronic) Alcoholism in remission (Chronic) Surgical History: - - Patient underwent emergency cardiac surgery in 1999, in association with placement of coronary artery stents x2. She underwent cholecystectomy in 2000. She is also undergone tonsillectomy. A right carpal tunnel release was also performed in the past. Home Medications: Ambulatory Orders Medication Instructions Recorded Albuterol Inhaler [Ventolin Hfa 2 puff INHALATION Q4H PRN PRN 11/08/18 - Family History Paternal - - Patient's father at the age of 83 with a history of coronary artery disease and cerebrovascular accident. Maternal - - The patient's mother at the age of 82 with a history of myocardial infarction. Smoking Status: Former smoker Tobacco Use: Non-smoker Alcohol: None Drugs: None Review of Systems Constitutional: Denies: Chills, Fever, Weight Change Eyes: Denies: Pain, Vision Change HEENT: Denies: Difficulty Hearing, Difficulty Swallowing, Sinus Congestion Cardiovascular: Denies: Chest Pain, Palpitations Respiratory: Denies: Cough, Shortness of Breath Gastrointestinal: Denies: Diarrhea, Nausea, Vomiting Genitourinary: Denies: Dysuria, Hematuria Endocrine: Denies: Heat/ Cold Intolerance, Polydipsia, Polyuria Hematologic/ Lymphatic: Denies: Easy Bruising, Easy Bleeding - Physical Exam Vital Signs Temp Pulse Resp BP 98 F 76 18 129/57 H 11/21/18 12:24 11/21/18 12:24 11/21/18 12:24 11/21/18 12:24 General: Alert, Oriented x3, Cooperative, No apparent distress, Well developed, Well nourished HEENT: Atraumatic, PERRLA, EOMI, Normocephalic Oral: Moist Mucosa Neck: No JVD Lungs: Normal air movement Abdomen: Non-Distended Extremities: No clubbing, No cyanosis, No edema, No Calf Tenderness, - - The wound on the right posterior heel/Achilles area appears slightly improved. There is no sign of infection or cellulitis. Dimensions are documented elsewhere. There is a small amount of bioburden. Skin: No rashes Wound Measurements and Assessment WC - Nurse 1 - General Ulcer Measurement Start: 11/08/18 09:42 Freq: Status: Active Protocol: Activity Type Activity Date Activity User E-Sign Co-Sign Detail Recorded Client Recorded Date Recorded By Document 11/21/18 12:24 RB [id number] 11/21/18 12:30 RB Wound Center Nurse 1 [Ulcer Assessment] #1 RIGHT HEEL WC - Nurse 2 - General Ulcer CM Notes Start: 11/08/18 09:42 Freq: Status: Active Protocol: Activity Type Activity Date Activity User E-Sign Co-Sign Detail Recorded Client Recorded Date Recorded By Document 11/21/18 12:36 [id number] 11/21/18 12:40 [facility] Wound Center Nurse 2 Musculoskeletal: No Muscle Wasting Neurological: Cranial nerves II-XII grossly intact, Neuro grossly intact Psych/Mental Status: Normal Affect, Appropriate, Alert and oriented to time, place, person, mood and affect Debridement Note Post-Debridement Measurements/Treatment WC - Nurse 2 - General Ulcer CM Notes Start: 11/08/18 09:42 Freq: Status: Active Protocol: Activity Type Activity Date Activity User E-Sign Co-Sign Detail Wound Center Nurse 2 #1 RIGHT HEEL -Time 10:17 12:36 -Correct Patient Yes Yes -Correct Side, Site, Position Yes Yes -Correct Procedure Yes Yes Laterality: Right - Heel Type of Debridement: Excisional debridement Anesthesia Used: 5% Lidocaine Gel Depth: Down to and including healthy tissue, in the subcutaneous layer Percentage of wound debrided: 100 Instrument Used: 3mm curette Severity: Fat Layer Exposed Amount of bleeding with debridement: Mild Bleeding Controlled with: Compression and gauze Patient tolerated procedure well Assessment/Plan Active Problems Surgical wound dehiscence (Chronic) Surgical wound, non healing (Chronic) Morbid obesity (Chronic) Left carotid bruit (Chronic) 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 The inferior portion of her surgical wound has failed to heal appropriately. Patient suffers from multiple other pre-existing medical problems, including coronary artery disease, hypertension, hyperlipidemia, chronic bronchitis, etc. By physical examination, she is also noted to have a left carotid artery bruit. Laboratory studies were ordered, but the patient has failed to submit. As result, laboratory results are not available. These are yet to be obtained. We have not yet received the results of the patient's lower extremity arterial study which was performed at the [facility]. We will make another request. The patient states that she underwent a carotid duplex examination as ordered by Dr. Landeros, though we do not yet have those results either. Results will be requested. According to the patient, her carotid study did not reveal any significant carotid artery disease. Plan: Offloading measures have been recommended. It appears as though these measures have already been implemented. This issue has been discussed at length with the patient. Collagenase Santyl has been initiated topically, and is to be continued. An excisional debridement was performed today, and will be continued on a serial basis, as the patient returns for weekly appointments. Swab cultures have been obtained for both aerobic and anaerobic growth, and results are negative. We are to again request the results of an arterial study, which the patient indicates was performed recently at the [facility]. It should be ascertained that arterial perfusion is adequate for healing in the right lower extremity. If results cannot be obtained, it is anticipated that a noninvasive lower extremity arterial study will be scheduled. Routine laboratory studies will also be obtained, including a CBC, comprehensive metabolic profile, hemoglobin A1c, and a serum prealbumin. The patient is not a smoker. Influenza vaccine was not administered today. The patient weighs 280 pounds. She stands 5 feet 4 inches tall. Her BMI is 47.3. This places her in a class III obesity category. Weight loss has been recommended, in collaboration with her primary care physician has been advised. 11/21/18 1252 <Electronically signed by Dwain Stanley MD> Date Dwain Stanley MD CC: Signed MRSA WOUND DNA BY Collected: 11/08/2018 Status: F Source: ROSSI PCR 4:00 PM [facility] REPOSITORY Order Comment: Comments: R HEEL ULCER Specimen Source? R HEEL ULCER TYPE CODE TESTS RESULT OUT OF RANGE REFERENCE UNITS LAB [id number] Negative Normal MRSA Negative RESULT LAB [id number] Negative Normal SA RESULT NEGATIVE Performed By: #### [id number] #### [facility] [address] [place], [place], [address] Observed: 11/08/2018 Status: F Source: ROSSI CULTURE, DEEP WOUND 4:00 PM [facility] REPOSITORY Comments: R HEEL ULCER Gram Stain Gram Stain No White Blood Cells No organisms seen Wound Culture No growth aerobically. Cult, Anaerobic No growth in 5 days. Performed By: #### M100.1500 #### [facility] [address] [place], [address] PROGRESS Observed: 11/08/2018 Status: COMPLETED Source: [place] 11:40 AM [facility] [place] REPOSITORY [facility] ID: [id number] Author: Eduard Andrews Service: (none) Author Type: Physician Type: Progress Notes Filed: 11/08/2018 6:11 PM Note Text: PERTINENT CARDIAC HISTORY ASHD - PCI with perforation RCA, emergency CABGx1 (SVG-RCA) 1999, patent on cath 2011 with normal left system and normal LVEF HTN HL Tobaccoism Palpitations - APDs TERESA - CPAP ADHERENCE TO GUIDELINES DAMION-I or ARB for HF with prior LVEF<40 (NQF 0081) - N/A ASA or Plavix for ASHD (NQF 0067) - met Beta fredy for ASHD with prior [place] or prior LVEF<40 (NQF 0070) - N/A Beta fredy for HF with prior LVEF<40 (NQF 0083) - N/A DAMION-I or ARB for ASHD with DM or prior LVEF<40 (NQF 0066) - N/A Statin therapy for ASHD or FHL or DM - met BMI documented and plan if >25 (NQF 0421) - lifestyle recommendation form Tobacco use screening and referral (NQF 0028) - lifestyle recommendation form Recommendation for whole food, plant based diet - lifestyle recommendation form CLINICAL IMPRESSION/PLAN: Shira Castro is doing well. Her coronary disease is stable. Lifestyle changes were reinforced. She will continue ranolazine for the time being. If she has difficulty getting this, I would switch to a combination of nitrates and beta fredy. She will have carotid Doppler examination done for evaluation of her carotid bruit. Blood pressure is adequately controlled at this time. I recommend that she be seen in 12 months or as needed. Written and verbal health teaching given to patient, patient verbalizes understanding and agrees with treatment plan. DIAGNOSIS FOR VISIT: ASHD Hypertension HISTORY OF PRESENT ILLNESS Shira Castro returns for follow-up of her coronary disease and hypertension. She reports stable exercise tolerance. She's had no recent chest discomfort and has used no nitroglycerin. She's had no orthopnea. She denies edema, syncope, palpitations, TIAs, amaurosis and claudication. ALLERGIES: ALLERGIES No Known Allergies CURRENT OUTPATIENT MEDICATIONS: albuterol HFA (VENTOLIN HFA) 90 mcg/actuation inhaler Inhale 2 Puffs as instructed every 4 hours as needed for Wheezing/Shortness of Breath. amoxicillin-clavulanic acid (AUGMENTIN) 875-125 mg per tablet Take 1 tablet by mouth twice daily for 7 days. FOR 7 DAYS. Ascorbic Acid (VITAMIN C) 1,000 mg tablet Take 1,000 mg by mouth once daily. Aspirin 81 mg Tab Take 81 mg by mouth. atorvastatin (LIPITOR) 40 mg tablet TAKE 1 TABLET BY MOUTH DAILY AT BEDTIME. FOR CHOLESTEROL. buPROPion (WELLBUTRIN) 100 mg tablet TAKE 0.5 TABLETS BY MOUTH TWICE DAILY. collagenase (SANTYL) ointment Apply 1 application to affected area once daily. APPLY TO AFFECTED AREA ibuprofen (MOTRIN) 800 mg tablet Take 1 tablet by mouth every 6 hours as needed for Pain. Take with food. lisinopril (ZESTRIL, PRINIVIL) 10 mg tablet TAKE 1 TABLET BY MOUTH EVERY DAY meloxicam (MOBIC) 15 mg tablet Take 1 tablet by mouth once daily. With food. Multivitamin capsule Take 1 capsule by mouth once daily. omeprazole (PRILOSEC) 20 mg capsule TAKE 1 CAPSULE BY MOUTH EVERY DAY ranolazine SR (RANEXA) 1,000 mg Tb12 Take 1 tablet by mouth twice daily. sertraline (ZOLOFT) 100 mg tablet TAKE 1 TABLET BY MOUTH EVERY DAY cephALEXin (KEFLEX) 500 mg capsule Take 1 capsule by mouth four times daily. PHYSICAL EXAMINATION: VITAL SIGNS: BP 95/64 Pulse 62 Ht 5' 4 (1.63m) Wt 286 lb (129.7kg) BMI 49.07 kg/(m2). Chest: Clear to auscultation. Trachea is midline. Air entry is equal. Cardiac: Regular rhythm. S1 and S2 are normal. PMI is nondisplaced. There is a soft systolic ejection murmur. Carotids are brisk with soft bilateral bruits. JVP is less than 10 cm. Abdomen: Soft and nontender. There are no pulsatile masses or bruits. No liver enlargement. Bowel sounds are active. Extremities: No edema. Pulses are intact and symmetrical. Recent labs were reviewed. Renal function is normal. LDL was 48. Electronically Signed: Eduard Andrews MD November 08, 2018 11:40 AM CC: Owen Solano MD CNOV Observed: 11/08/2018 Status: COMPLETED Source: [place] [address]:15 AM [facility] REPOSITORY Office Visit (CAWSTR) SHIRA CASTRO ([id number]) 1960 F Date Time Provider Department 11/08/18 11:15 AM EDUARD ANDREWS CAWSTR During your visit today, we recorded the following information about you: Pulse Blood pressure Weight Height 62/minute 95/64 129.7 kg 1.626 m Eduard Andrews MD 11/08/2018 6:11 PM Signed PERTINENT CARDIAC HISTORY ASHD - PCI with perforation RCA, emergency CABGx1 (SVG-RCA) 1999, patent on cath 2011 with normal left system and normal LVEF HTN HL Tobaccoism Palpitations - APDs TERESA - CPAP ADHERENCE TO GUIDELINES DAMION-I or ARB for HF with prior LVEF<40 (NQF 0081) - N/A ASA or Plavix for ASHD (NQF 0067) - met Beta fredy for ASHD with prior [place] or prior LVEF<40 (NQF 0070) - N/A Beta fredy for HF with prior LVEF<40 (NQF 0083) - N/A DAMION-I or ARB for ASHD with DM or prior LVEF<40 (NQF 0066) - N/A Statin therapy for ASHD or FHL or DM - met BMI documented and plan if >25 (NQF 0421) - lifestyle recommendation form Tobacco use screening and referral (NQF 0028) - lifestyle recommendation form Recommendation for whole food, plant based diet - lifestyle recommendation form CLINICAL IMPRESSION/PLAN: Shira Castro is doing well. Her coronary disease is stable. Lifestyle changes were reinforced. She will continue ranolazine for the time being. If she has difficulty getting this, I would switch to a combination of nitrates and beta fredy. She will have carotid Doppler examination done for evaluation of her carotid bruit. Blood pressure is adequately controlled at this time. I recommend that she be seen in 12 months or as needed. Written and verbal health teaching given to patient, patient verbalizes understanding and agrees with treatment plan. DIAGNOSIS FOR VISIT: ASHD Hypertension HISTORY OF PRESENT ILLNESS Shira Castro returns for follow-up of her coronary disease and hypertension. She reports stable exercise tolerance. She's had no recent chest discomfort and has used no nitroglycerin. She's had no orthopnea. She denies edema, syncope, palpitations, TIAs, amaurosis and claudication. ALLERGIES: ALLERGIES No Known Allergies CURRENT OUTPATIENT MEDICATIONS: albuterol HFA (VENTOLIN HFA) 90 mcg/actuation inhaler Inhale 2 Puffs as instructed every 4 hours as needed for Wheezing/Shortness of Breath. amoxicillin-clavulanic acid (AUGMENTIN) 875-125 mg per tablet Take 1 tablet by mouth twice daily for 7 days. FOR 7 DAYS. Ascorbic Acid (VITAMIN C) 1,000 mg tablet Take 1,000 mg by mouth once daily. Aspirin 81 mg Tab Take 81 mg by mouth. atorvastatin (LIPITOR) 40 mg tablet TAKE 1 TABLET BY MOUTH DAILY AT BEDTIME. FOR CHOLESTEROL. buPROPion (WELLBUTRIN) 100 mg tablet TAKE 0.5 TABLETS BY MOUTH TWICE DAILY. collagenase (SANTYL) ointment Apply 1 application to affected area once daily. APPLY TO AFFECTED AREA ibuprofen (MOTRIN) 800 mg tablet Take 1 tablet by mouth every 6 hours as needed for Pain. Take with food. lisinopril (ZESTRIL, PRINIVIL) 10 mg tablet TAKE 1 TABLET BY MOUTH EVERY DAY meloxicam (MOBIC) 15 mg tablet Take 1 tablet by mouth once daily. With food. Multivitamin capsule Take 1 capsule by mouth once daily. omeprazole (PRILOSEC) 20 mg capsule TAKE 1 CAPSULE BY MOUTH EVERY DAY ranolazine SR (RANEXA) 1,000 mg Tb12 Take 1 tablet by mouth twice daily. sertraline (ZOLOFT) 100 mg tablet TAKE 1 TABLET BY MOUTH EVERY DAY cephALEXin (KEFLEX) 500 mg capsule Take 1 capsule by mouth four times daily. PHYSICAL EXAMINATION: VITAL SIGNS: BP 95/64 Pulse 62 Ht 5' 4 (1.63m) Wt 286 lb (129.7kg) BMI 49.07 kg/(m2). Chest: Clear to auscultation. Trachea is midline. Air entry is equal. Cardiac: Regular rhythm. S1 and S2 are normal. PMI is nondisplaced. There is a soft systolic ejection murmur. Carotids are brisk with soft bilateral bruits. JVP is less than 10 cm. Abdomen: Soft and nontender. There are no pulsatile masses or bruits. No liver enlargement. Bowel sounds are active. Extremities: No edema. Pulses are intact and symmetrical. Recent labs were reviewed. Renal function is normal. LDL was 48. Electronically Signed: Eduard Andrews MD November 08, 2018 11:40 AM CC: MD Eduard Gill MD 11/08/2018 11:40 AM Signed LIFESTYLE CHANGE A healthy lifestyle is the most important component of your overall treatment plan. Please give serious thought to the following areas and commit to making seat cover cutter changes. EAT A WHOLE FOOD, PLANT BASED DIET The nutrition your body gets is more important than the medicine you take. What matters most is the overall way you eat. We encourage you to minimize the use of animal products (which include dairy and all meats except fatty fish) and use whole, unprocessed plant foods to provide your protein, vitamins and other nutrients. We have a lot of information to share with you on this topic. This is not a diet. It is a way of life that you will keep with you. EXERCISE REGULARLY It is not important to spend hours in the gym, lifting weights and perspiring heavily. A total of 2-3 hours per week of aerobic (causing you to be moderately short of breath) exercise is sufficient to improve your health. Talk to us before you begin a new exercise program, if you have heart disease or experience shortness of breath or chest pain. REDUCE STRESS Chronic emotional and physical stress leads to disease. Ways of reducing stress include meditation, visualization, prayer, yoga and other forms of relaxation therapy. Consistency is the gonzalez. Find a technique that works for you and do it every day. CULTIVATE RELATIONSHIPS Loneliness and isolation have a major negative impact on health. Seek out others who can love, care for and nurture you. Avoid hurtful relationships. MAINTAIN IDEAL BODY WEIGHT The best way to do this is to do all the things above. Our bodies naturally find the right weight if we keep moving and feed ourselves the right food. If your BMI is greater than 25, we strongly recommend a referral to a weight management program. Please speak to us or your family physician about available programs. AVOID NICOTINE IN ALL FORMS This includes all tobacco products, whether chewed, smoked, vaped, or rubbed on the skin. Smoking cessation programs, which can make use of tobacco substitutes, medications to suppress cravings and behavior management, are available. Please contact your family physician about programs in your area. Referring Provider: EDUARD ANDREWS [[id number]] Allergies As of Date: 11/08/2018 (No Known Allergies) Date Reviewed: 11/08/2018 Reviewed by: Anna Clifton MA - Fully Assessed Reason for Visit: Established Patient [175] Primary Visit Diagnosis:ASHD (arteriosclerotic heart disease) [I25.10] Other Visit Diagnoses:Essential hypertension [I10] Dizziness and giddiness [R42] Order(s): CAROTID ARTERIES [facility] [[id number]] Order #: [id number] FUTURE Prescriptions as of 11/08/2018 Sig: ALBUTEROL SULFATE HFA 90 MCG/* Inhale 2 Puffs as instructed * AMOXICILLIN 875 MG-POTASSIUM * Take 1 tablet by mouth twice * ASCORBIC ACID (VITAMIN C) 1,0* Take 1,000 mg by mouth once d* ASPIRIN 81 MG TABLET Take 81 mg by mouth. ATORVASTATIN 40 MG TABLET TAKE 1 TABLET BY MOUTH DAILY * BUPROPION HCL 100 MG TABLET TAKE 0.5 TABLETS BY MOUTH TWI* COLLAGENASE CLOSTRIDIUM HISTO* Apply 1 application to affect* IBUPROFEN 800 MG TABLET Take 1 tablet by mouth every * LISINOPRIL 10 MG TABLET TAKE 1 TABLET BY MOUTH EVERY * MELOXICAM 15 MG TABLET Take 1 tablet by mouth once d* MULTIVITAMIN CAPSULE Take 1 capsule by mouth once * OMEPRAZOLE 20 MG CAPSULE,ABHINAV* TAKE 1 CAPSULE BY MOUTH EVERY* RANOLAZINE ER 1,000 MG TABLET* Take 1 tablet by mouth twice * SERTRALINE 100 MG TABLET TAKE 1 TABLET BY MOUTH EVERY * CEPHALEXIN 500 MG CAPSULE Take 1 capsule by mouth four * Patient not taking: Reported on 11/08/2018 Problem List As Of Date 11/08/2018 Noted Resolved Hyperlipidemia [E78.5] HTN (hypertension) [I10] Anxiety [F41.9] Depression [F32.9] Sleep apnea [G47.30] Carpal tunnel syndrome, right [G56.01] INVALID FOR*12/21/2016 Digital mucous cyst [M67.449] INVALID FOR*12/21/2016 Ganglion cyst of left foot [M67.472] INVALID FOR*09/23/2018 More... CAD (coronary artery disease) [I25.10] INVALID FOR* More... Heartburn [R12] INVALID FOR* Arthritis [M19.90] INVALID FOR* More... Chronic bronchitis (HCC) [J42] INVALID FOR* Morbid obesity (HCC) [E66.01] INVALID FOR* Achilles tendinitis of right lower extremity [M*INVALID FOR*09/27/2018 Calcaneal spur, right [M77.31] INVALID FOR*09/27/2018 Obesity, Class III, BMI >= 40 [E66.01] INVALID FOR* Other instructions from your clinician: LIFESTYLE CHANGE A healthy lifestyle is the most important component of your overall treatment plan. Please give serious thought to the following areas and commit to making seat cover cutter changes. EAT A WHOLE FOOD, PLANT BASED DIET The nutrition your body gets is more important than the medicine you take. What matters most is the overall way you eat. We encourage you to minimize the use of animal products (which include dairy and all meats except fatty fish) and use whole, unprocessed plant foods to provide your protein, vitamins and other nutrients. We have a lot of information to share with you on this topic. This is not a diet. It is a way of life that you will keep with you. EXERCISE REGULARLY It is not important to spend hours in the gym, lifting weights and perspiring heavily. A total of 2-3 hours per week of aerobic (causing you to be moderately short of breath) exercise is sufficient to improve your health. Talk to us before you begin a new exercise program, if you have heart disease or experience shortness of breath or chest pain. REDUCE STRESS Chronic emotional and physical stress leads to disease. Ways of reducing stress include meditation, visualization, prayer, yoga and other forms of relaxation therapy. Consistency is the gonzalez. Find a technique that works for you and do it every day. CULTIVATE RELATIONSHIPS Loneliness and isolation have a major negative impact on health. Seek out others who can love, care for and nurture you. Avoid hurtful relationships. MAINTAIN IDEAL BODY WEIGHT The best way to do this is to do all the things above. Our bodies naturally find the right weight if we keep moving and feed ourselves the right food. If your BMI is greater than 25, we strongly recommend a referral to a weight management program. Please speak to us or your family physician about available programs. AVOID NICOTINE IN ALL FORMS This includes all tobacco products, whether chewed, smoked, vaped, or rubbed on the skin. Smoking cessation programs, which can make use of tobacco substitutes, medications to suppress cravings and behavior management, are available. Please contact your family physician about programs in your area. Encounter Status:Closed by EDUARD ANDREWS MD on 11/08/18 WOUND CTR HISTORY Observed: 11/08/2018 Status: F Source: ROSSI AND PHYSICAL 10:56 AM [facility] REPOSITORY [facility] [address] [place] [address] Wound Ctr History AND Physical 11/08/18 1034 MR#: [id number] Acct: [id number] Name: SHIRA CASTRO Rep #: [id number] : 1960 58 From: Dwain Stanley MD PCP: Owen Solano Status: REG RCR Y Location: WC (1) Surgical wound dehiscence Status: Chronic Current Visit: Yes Qualifiers: Encounter type: initial encounter Qualified Code(s): T81.31XA - Disruption of external operation (surgical) wound, not elsewhere classified, initial encounter Code(s): T81.31XA - Disruption of external operation (surgical) wound, not elsewhere classified, initial encounter (2) Surgical wound, non healing Status: Chronic Current Visit: Yes Qualifiers: Encounter type: initial encounter Qualified Code(s): T81.89XA - Other complications of procedures, not elsewhere classified, initial encounter Code(s): T81.89XA - Other complications of procedures, not elsewhere classified, initial encounter (3) Morbid obesity Status: Chronic Current Visit: Yes Code(s): E66.01 - Morbid (severe) obesity due to excess calories (4) CAD (coronary artery disease) Status: Chronic Current Visit: No Qualifiers: Coronary Disease-Associated Artery/Lesion type: [place] artery Code(s): I25.10 - Atherosclerotic heart disease of [place] coronary artery without angina pectoris (5) Left carotid bruit Status: Chronic Current Visit: Yes Code(s): R09.89 - Other specified symptoms and signs involving the circulatory and respiratory systems (6) Hypertension Status: Chronic Current Visit: No Code(s): I10 - Essential (primary) hypertension (7) Hyperlipidemia Status: Chronic Current Visit: No Code(s): E78.5 - Hyperlipidemia, unspecified (8) Chronic bronchitis Status: Chronic Current Visit: No Code(s): J42 - Unspecified chronic bronchitis (9) Smoking history Status: Chronic Current Visit: No Code(s): Z87.891 - Personal history of nicotine dependence (10) Alcoholism in remission Status: Chronic Current Visit: Yes Code(s): F10.21 - Alcohol dependence, in remission History of Present Illness Date of Service: 11/08/18 Chief Complaint: Chronic, nonhealing surgical wound of the right Achilles area/posterior heel History of Wound: This is a 58-year-old obese female who underwent right Achilles tendon debridement, resection of a retrocalcaneal spur, and tendon transfer on September 27, 2018, in [facility]. Since that time, she has been followed clinically by Dr. India Vidal, her podiatric surgeon at the [facility]. The inferior portion of her surgical incision has failed to heal. She has had several courses of oral antibiotics. Offloading measures were implemented. Patient is using a Cam walker and surgical boot. Collagenase Santyl has been used topically in recent days. She has been referred to our wound care facility for consultation and management relative to the nonhealing portion of her incision. It appears as though the surgical sutures were removed approximately 10 days postoperatively, at which time they became evident that the inferior portion of the surgical incision was not healing appropriately, and as expected. 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 She has previously undergone placement of coronary artery stents in 1999, a procedure in which she suffered complications, requiring sternotomy and repair of a ventricular injury. Her history is negative for diabetes mellitus, myocardial infarction, congestive heart failure, cerebrovascular accident, renal disease, and thyroid disease. Surgical History: - - Patient underwent emergency cardiac surgery in 1999, in association with placement of coronary artery stents x2. She underwent cholecystectomy in 2000. She is also undergone tonsillectomy. A right carpal tunnel release was also performed in the past. Home Medications: Ambulatory Orders Medication Instructions Recorded Albuterol Inhaler [Ventolin Hfa 2 puff INHALATION Q4H PRN PRN 11/08/18 - Family History Paternal - - Patient's father at the age of 83 with a history of coronary artery disease and cerebrovascular accident. Maternal - - The patient's mother at the age of 82 with a history of myocardial infarction. Social History: The patient is single. 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 She is a former smoker. She is also a recovering alcoholic. Smoking Status: Former smoker Tobacco Use: Non-smoker Alcohol: None Drugs: None Review of Systems Constitutional: Denies: Chills, Fever, Weight Change Eyes: Denies: Pain, Vision Change HEENT: Denies: Difficulty Hearing, Difficulty Swallowing, Sinus Congestion Cardiovascular: Denies: Chest Pain, Palpitations Respiratory: Denies: Cough, Shortness of Breath Gastrointestinal: Denies: Diarrhea, Nausea, Vomiting Genitourinary: Denies: Dysuria, Hematuria Endocrine: Denies: Heat/ Cold Intolerance, Polydipsia, Polyuria Hematologic/ Lymphatic: Denies: Easy Bruising, Easy Bleeding - Physical Exam Vital Signs Temp Pulse Resp BP 97.8 F 67 20 H 115/72 11/08/18 09:42 11/08/18 09:42 11/08/18 09:42 11/08/18 09:42 General: Alert, Oriented x3, Cooperative, No apparent distress, Well developed, Well nourished, - - The patient is obese. HEENT: Atraumatic, PERRLA, EOMI, Normocephalic Oral: Moist Mucosa, No Gingival or Mucosal Lesions/ Ulcerations Neck: Supple, No JVD, Negative Hepatojugular Reflux, No Nodes, No Nuchal Rigidity, Trachea Midline, Carotid Bruit, Left Lungs: Clear to auscultation, Normal air movement, No rhonchi, No wheeze, No rales Cardiovascular: Regular rate, Normal S1, Normal S2, No murmurs Abdomen: Soft, Non Tender, Non-Distended, Obese Extremities: No clubbing, No cyanosis, No edema, No Calf Tenderness, - - A vertical incision is noted in the left Achilles and left posterior heel area. The superior and midportion of the incision is well approximated and healing appropriately. The inferior portion of the incision is open and not approximated. There is an open wound at this site, the dimensions of which are documented elsewhere. The base of the open wound is frankly necrotic with evidence of nonviable tissue. There is no obvious sign of infection or cellulitis. There is a moderate amount of bioburden. Swab cultures have been obtained, for both aerobic and anaerobic bacterial growth. Skin: No rashes Wound Measurements and Assessment WC - Nurse 1 - General Ulcer Measurement Start: 11/08/18 09:42 Freq: Status: Active Protocol: Activity Type Activity Date Activity User E-Sign Co-Sign Detail Recorded Client Recorded Date Recorded By Document 11/08/18 09:42 MW [id number] 11/08/18 09:50 MW Wound Center Nurse 1 [Ulcer Assessment] #1 RIGHT HEEL -Combined with other wound No -Current Size (cm) - Length 1.2 -Current Size (cm) - Width 1.5 Musculoskeletal: No Muscle Wasting Neurological: Cranial nerves II-XII grossly intact, Neuro grossly intact Psych/Mental Status: Normal Affect, Appropriate, Alert and oriented to time, place, person, mood and affect Debridement Note Laterality: Left - Posterior heel Type of Debridement: Excisional debridement Anesthesia Used: 5% Lidocaine Gel Depth: Down to and including healthy tissue, in the subcutaneous layer Percentage of wound debrided: 100 Instrument Used: 7mm curette Severity: Fat Layer Exposed Amount of bleeding with debridement: Mild Bleeding Controlled with: Compression and gauze Patient tolerated procedure well Assessment/Plan Active Problems Surgical wound dehiscence (Chronic) Surgical wound, non healing (Chronic) Morbid obesity (Chronic) Left carotid bruit (Chronic) 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 The inferior portion of her surgical wound has failed to heal appropriately. Patient suffers from multiple other pre-existing medical problems, including coronary artery disease, hypertension, hyperlipidemia, chronic bronchitis, etc. By physical examination, she is also noted to have a left carotid artery bruit. Plan: Offloading measures have been recommended. It appears as though these measures have already been implemented. This issue has been discussed at length with the patient. Collagenase Santyl has been initiated topically only several days ago, and is to be continued. An excisional debridement was performed today, and will be continued on a serial basis, as the patient returns for weekly appointments. Swab cultures have been obtained for both aerobic and anaerobic growth, and we will await results. The patient is to return on a weekly basis, though the upcoming holidays may dictate otherwise. We are to request the results of an arterial study, which the patient indicates was performed recently at the [facility]. It should be ascertained that arterial perfusion is adequate for healing in the right lower extremity. If results cannot be obtained, it is anticipated that a noninvasive lower extremity arterial study will be scheduled. Routine laboratory studies will also be obtained, including a CBC, comprehensive metabolic profile, hemoglobin A1c, and a serum prealbumin. The patient has been made aware of the finding of left carotid artery bruit. She indicates that she will be seeing her fuel pilot engineer, Dr. Onofre Landeros, this afternoon. She has been advised to mention this to Dr. Landeros, and that the recommendation has been made that she undergo carotid duplex examination. The patient is not a smoker. Influenza vaccine was not administered today. The patient weighs 280 pounds. She stands 5 feet 4 inches tall. Her BMI is 47.3. This places her in a class III obesity category. Weight loss has been recommended, in collaboration with her primary care physician has been advised. 11/08/18 1056 <Electronically signed by Dwain Stanley MD> Date Dwain Stanley MD CC: Signed PROGRESS Observed: 11/03/2018 Status: COMPLETED Source: [place] 12:03 PM [facility] REPOSITORY HNO ID: [id number] Author: India Vidal Service: (none) Author Type: Physician Type: Progress Notes Filed: 11/03/2018 12:10 PM Note Text: Follow up podiatric office visit for: Chief Complaint: This 58 year old who presents for follow up:right lower extremity s/p achiles tendon debridement and fhl tendon transfer. Patient is doing well. She is nwb with boot. She has been applying betadine to her foot and she feels foot is doing very well. She had an appointment with wound clinic for opinion regarding slow healing but she had elected to cancel this as she felt she was doing well and that appointment was not necessary. PAIN EVALUATION No data found. No results found for: HBA1C PCP: Owen Solano MD PAST MEDICAL HISTORY Diagnosis Date - Adrenal adenoma repeat ct in 07/07 - Anxiety - Arthritis fingers - CAD (coronary artery disease) Dr. Schultz - Chronic bronchitis (HCC) 05/03/2018 - Depression - Heartburn - HTN (hypertension) - Hyperlipidemia - Migraine - Morbid obesity (HCC) 05/03/2018 - Seasonal allergies - Sleep apnea Current Outpatient Prescriptions: albuterol HFA (VENTOLIN HFA) 90 mcg/actuation inhaler Inhale 2 Puffs as instructed every 4 hours as needed for Wheezing/Shortness of Breath. Ascorbic Acid (VITAMIN C) 1,000 mg tablet Take 1,000 mg by mouth once daily. Aspirin 81 mg Tab Take 81 mg by mouth. atorvastatin (LIPITOR) 40 mg tablet TAKE 1 TABLET BY MOUTH DAILY AT BEDTIME. FOR CHOLESTEROL. buPROPion (WELLBUTRIN) 100 mg tablet TAKE 0.5 TABLETS BY MOUTH TWICE DAILY. cephALEXin (KEFLEX) 500 mg capsule Take 1 capsule by mouth four times daily. ibuprofen (MOTRIN) 800 mg tablet Take 1 tablet by mouth every 6 hours as needed for Pain. Take with food. lisinopril (ZESTRIL, PRINIVIL) 10 mg tablet TAKE 1 TABLET BY MOUTH EVERY DAY meloxicam (MOBIC) 15 mg tablet Take 1 tablet by mouth once daily. With food. Multivitamin capsule Take 1 capsule by mouth once daily. omeprazole (PRILOSEC) 20 mg capsule TAKE 1 CAPSULE BY MOUTH EVERY DAY ranolazine SR (RANEXA) 1,000 mg Tb12 Take 1 tablet by mouth twice daily. sertraline (ZOLOFT) 100 mg tablet TAKE 1 TABLET BY MOUTH EVERY DAY amoxicillin-clavulanic acid (AUGMENTIN) 875-125 mg per tablet Take 1 tablet by mouth twice daily for 7 days. FOR 7 DAYS. collagenase (SANTYL) ointment Apply 1 application to affected area once daily. APPLY TO AFFECTED AREA No current facility-administered medications for this visit. ALLERGIES No Known Allergies PAST SURGICAL HISTORY Procedure Laterality Date - ACHILLES TENDON SURGERY HX Right 09/27/2018 - CABG (1) VEIN GRAFT AND ARTERIAL GRAFT 1999 - EXCIS TENDON SHEATH VICTORIA,HAND/FINGR 07/04/2014 Right index finger digital muscous cyst excision - FOOT SURGERY HX Left excision ganglion cyst - REMOVAL GALLBLADDER 2000 Cholecystectomy - REMOVAL OF TONSILS,<12 Y/O 1966 Tonsillectomy alone - REVISE MEDIAN N/CARPAL TUNNEL SURG 07/04/2014 Carpal tunnel decomp right Physical Exam: Constitutional: Pt is a well developed 58 year old female who is alert, oriented, cooperative and in no apparent distress. OBJECTIVE: NVSI unchanged from previous visit. Dermatological: Posterior aspect of right heel has black eschar to lateral incision. There is no deep ulceration. There is no drainage, no redness or signs of infection. There is no pain or fluctuance noted Musculoskeletal/Orthopaedic: Patient has no pain to palpation of right heel Fabian test produces plantarflexion ASSESSMENT: (Z98.890) Post-operative state (primary encounter diagnosis) PLAN: 1. History and physical examination completed today. 2. Patient was examined and informed of current findings 3. Discussed appearance of foot today. The incision is completely healed with exception to slow healing to distal incision where there is black eschar. Informed patient that slow wound healing is potential risk of this procedure. There does not appear to be any signs of infection. Informed her that slow wound healing could be due to any rubbing in boot which she does not feel to be the case. 4. Today, I debrided the periphery of this eschar that was found to be very hyperkeratotic. Informed patient that healing may take several more weeks. 5. I am going to place her on augmentin as precaution although I do not suspect any infection present. 6. Reviewed xrays. xrays appear stable. 7. At this time, I want her to get an opinion from wound center regarding the appearance of this wound. She was informed that this is only for the sake of opinion due to slow healing and that she will likely f/u with us going forward. For now, I want her to apply light amounts of santyl to posterior Heel and continue with boot. 8. At 8 week post-op, I will allow her to start walking 50% in boot and will begin formal therapy. She can continue with light rom exercises at home. India Vidal DPM PROGRESS Observed: 11/03/2018 Status: COMPLETED Source: [place] 10:59 AM [facility] REPOSITORY HNO ID: [id number] Author: Mame Mosley Service: (none) Author Type: (none) Type: Progress Notes Filed: 11/03/2018 12:10 PM Note Text: AMB ROOMING INTAKE FLOWSHEET DATA Risk Screening Do you have concerns about personal safety or safety in the home?: No Patient presents for follow up for R achilles tendon debridement and FHL tendon transfer. No pain noted. Mame Melany CNOV Observed: 11/03/2018 Status: COMPLETED Source: [place] 10:55 AM [facility] REPOSITORY Office Visit (PODIWS) SHIRA CASTRO ([id number]) 1960 F Date Time Provider Department 11/03/18 10:55 AM [place] VIDAL PODIWS During your visit today, we recorded the following information about you: Mame Melany 11/03/2018 12:10 PM Signed AMB ROOMING INTAKE FLOWSHEET DATA Risk Screening Do you have concerns about personal safety or safety in the home?: No Patient presents for follow up for R achilles tendon debridement and FHL tendon transfer. No pain noted. Mame Valerio RN 11/03/2018 11:34 AM Signed Call [phone] to reschedule your appointment at [facility] Wound Center with Dr. Stanley. India Vidal DPM 11/03/2018 12:10 PM Signed Follow up podiatric office visit for: Chief Complaint: This 58 year old who presents for follow up:right lower extremity s/p achiles tendon debridement and fhl tendon transfer. Patient is doing well. She is nwb with boot. She has been applying betadine to her foot and she feels foot is doing very well. She had an appointment with wound clinic for opinion regarding slow healing but she had elected to cancel this as she felt she was doing well and that appointment was not necessary. PAIN EVALUATION No data found. No results found for: HBA1C PCP: Owen Solano MD PAST MEDICAL HISTORY Diagnosis Date - Adrenal adenoma repeat ct in 07/07 - Anxiety - Arthritis fingers - CAD (coronary artery disease) Dr. Schultz - Chronic bronchitis (HCC) 05/03/2018 - Depression - Heartburn - HTN (hypertension) - Hyperlipidemia - Migraine - Morbid obesity (HCC) 05/03/2018 - Seasonal allergies - Sleep apnea Current Outpatient Prescriptions: albuterol HFA (VENTOLIN HFA) 90 mcg/actuation inhaler Inhale 2 Puffs as instructed every 4 hours as needed for Wheezing/Shortness of Breath. Ascorbic Acid (VITAMIN C) 1,000 mg tablet Take 1,000 mg by mouth once daily. Aspirin 81 mg Tab Take 81 mg by mouth. atorvastatin (LIPITOR) 40 mg tablet TAKE 1 TABLET BY MOUTH DAILY AT BEDTIME. FOR CHOLESTEROL. buPROPion (WELLBUTRIN) 100 mg tablet TAKE 0.5 TABLETS BY MOUTH TWICE DAILY. cephALEXin (KEFLEX) 500 mg capsule Take 1 capsule by mouth four times daily. ibuprofen (MOTRIN) 800 mg tablet Take 1 tablet by mouth every 6 hours as needed for Pain. Take with food. lisinopril (ZESTRIL, PRINIVIL) 10 mg tablet TAKE 1 TABLET BY MOUTH EVERY DAY meloxicam (MOBIC) 15 mg tablet Take 1 tablet by mouth once daily. With food. Multivitamin capsule Take 1 capsule by mouth once daily. omeprazole (PRILOSEC) 20 mg capsule TAKE 1 CAPSULE BY MOUTH EVERY DAY ranolazine SR (RANEXA) 1,000 mg Tb12 Take 1 tablet by mouth twice daily. sertraline (ZOLOFT) 100 mg tablet TAKE 1 TABLET BY MOUTH EVERY DAY amoxicillin-clavulanic acid (AUGMENTIN) 875-125 mg per tablet Take 1 tablet by mouth twice daily for 7 days. FOR 7 DAYS. collagenase (SANTYL) ointment Apply 1 application to affected area once daily. APPLY TO AFFECTED AREA No current facility-administered medications for this visit. ALLERGIES No Known Allergies PAST SURGICAL HISTORY Procedure Laterality Date - ACHILLES TENDON SURGERY HX Right 09/27/2018 - CABG (1) VEIN GRAFT AND ARTERIAL GRAFT 1999 - EXCIS TENDON SHEATH VICTORIAHAND/FINGR 07/04/2014 Right index finger digital muscous cyst excision - FOOT SURGERY HX Left excision ganglion cyst - REMOVAL GALLBLADDER 2000 Cholecystectomy - REMOVAL OF TONSILS,<12 Y/O 1966 Tonsillectomy alone - REVISE MEDIAN N/CARPAL TUNNEL SURG 07/04/2014 Carpal tunnel decomp right Physical Exam: Constitutional: Pt is a well developed 58 year old female who is alert, oriented, cooperative and in no apparent distress. OBJECTIVE: NVSI unchanged from previous visit. Dermatological: Posterior aspect of right heel has black eschar to lateral incision. There is no deep ulceration. There is no drainage, no redness or signs of infection. There is no pain or fluctuance noted Musculoskeletal/Orthopaedic: Patient has no pain to palpation of right heel Fabian test produces plantarflexion ASSESSMENT: (Z98.890) Post-operative state (primary encounter diagnosis) PLAN: 1. History and physical examination completed today. 2. Patient was examined and informed of current findings 3. Discussed appearance of foot today. The incision is completely healed with exception to slow healing to distal incision where there is black eschar. Informed patient that slow wound healing is potential risk of this procedure. There does not appear to be any signs of infection. Informed her that slow wound healing could be due to any rubbing in boot which she does not feel to be the case. 4. Today, I debrided the periphery of this eschar that was found to be very hyperkeratotic. Informed patient that healing may take several more weeks. 5. I am going to place her on augmentin as precaution although I do not suspect any infection present. 6. Reviewed xrays. xrays appear stable. 7. At this time, I want her to get an opinion from wound center regarding the appearance of this wound. She was informed that this is only for the sake of opinion due to slow healing and that she will likely f/u with us going forward. For now, I want her to apply light amounts of santyl to posterior Heel and continue with boot. 8. At 8 week post-op, I will allow her to start walking 50% in boot and will begin formal therapy. She can continue with light rom exercises at home. India Vidal DPM Referring Provider: IND[place] VIDAL [[id number]] Allergies As of Date: 11/03/2018 (No Known Allergies) Date Reviewed: 11/03/2018 Reviewed by: Mame Mosley - Fully Assessed Reason for Visit: Recheck [92] Cmt: R achilles tendon debridement and FHL tendon transfer Primary Visit Diagnosis:Post-operative state [Z98.890] Order(s):amoxicillin-clavulanic acid (AUGMENTIN) 875-125 mg per tabletTake 1 tablet by mouth twice daily for 7 days. FOR 7 DAYS.Disp: 14 tabletRfl: 0 collagenase (SANTYL) ointmentApply 1 application to affected area once daily. APPLY TO AFFECTED AREADisp: 30 gRfl: 0 Prescriptions as of 11/03/2018 Sig: ALBUTEROL SULFATE HFA 90 MCG/* Inhale 2 Puffs as instructed * ASCORBIC ACID (VITAMIN C) 1,0* Take 1,000 mg by mouth once d* ASPIRIN 81 MG TABLET Take 81 mg by mouth. ATORVASTATIN 40 MG TABLET TAKE 1 TABLET BY MOUTH DAILY * BUPROPION HCL 100 MG TABLET TAKE 0.5 TABLETS BY MOUTH TWI* CEPHALEXIN 500 MG CAPSULE Take 1 capsule by mouth four * IBUPROFEN 800 MG TABLET Take 1 tablet by mouth every * LISINOPRIL 10 MG TABLET TAKE 1 TABLET BY MOUTH EVERY * MELOXICAM 15 MG TABLET Take 1 tablet by mouth once d* MULTIVITAMIN CAPSULE Take 1 capsule by mouth once * OMEPRAZOLE 20 MG CAPSULE,ABHINAV* TAKE 1 CAPSULE BY MOUTH EVERY* RANOLAZINE ER 1,000 MG TABLET* Take 1 tablet by mouth twice * SERTRALINE 100 MG TABLET TAKE 1 TABLET BY MOUTH EVERY * AMOXICILLIN 875 MG-POTASSIUM * Take 1 tablet by mouth twice * COLLAGENASE CLOSTRIDIUM HISTO* Apply 1 application to affect* Problem List As Of Date 11/03/2018 Noted Resolved Hyperlipidemia [E78.5] HTN (hypertension) [I10] Anxiety [F41.9] Depression [F32.9] Sleep apnea [G47.30] Carpal tunnel syndrome, right [G56.01] INVALID FOR*12/21/2016 Digital mucous cyst [M67.449] INVALID FOR*12/21/2016 Ganglion cyst of left foot [M67.472] INVALID FOR*09/23/2018 More... CAD (coronary artery disease) [I25.10] INVALID FOR* More... Heartburn [R12] INVALID FOR* Arthritis [M19.90] INVALID FOR* More... Chronic bronchitis (HCC) [J42] INVALID FOR* Morbid obesity (HCC) [E66.01] INVALID FOR* Achilles tendinitis of right lower extremity [M*INVALID FOR*09/27/2018 Calcaneal spur, right [M77.31] INVALID FOR*09/27/2018 Obesity, Class III, BMI >= 40 [E66.01] INVALID FOR* Other instructions from your clinician: Call [phone] to reschedule your appointment at [facility] Wound Center with Dr. Stanley. Prescriptions ordered this encounter Disp Refills Start End AMOXICILLIN 875 MG-POTASSIUM CLAVULA* 14 t* 0 11/03/2018 11/10/2018 Route: ORAL Sig: Take 1 tablet by mouth twice daily for 7 days. FOR 7 DAYS. COLLAGENASE CLOSTRIDIUM HISTOLYTICUM* 30 g 0 11/03/2018 12/03/2018 Route: TOPICAL Sig: Apply 1 application to affected area once daily. APPLY TO AFFECTED AREA Encounter Status:Closed by [place] V[place]AL DPM on 11/03/18 XR FOOT 3V AP/LAT/OBL Observed: 11/01/2018 Status: F Source: [facility] 12:48 PM [facility] REPOSITORY * * *Final Report* * * DATE OF EXAM: Nov 01 2018 12:48PM WRX [id number] - XR FOOT 3V AP/LAT/OBL RT / PROCEDURE REASON: Post-operative state * * * * Physician Interpretation * * * * HISTORY: 58-YEAR-OLD FEMALE WITH Post-operative state . pt states 5 week post op for achilles reroute and bone spurs TECHNIQUE: XR FOOT 3V AP/LAT/OBL RT Laterality: RIGHT Number of different views (projections): 3 COMPARISON: 10/11/2018 RESULT: Calcaneal enthesophyte insertion plantar fascia. Healed calcaneal osteotomy and there appears to been resection of the dorsal tubercle of the calcaneus. Calcification in the distal Achilles tendon and edema in Kager's fat pad. No acute fracture. IMPRESSION: HEALED CALCANEAL OSTEOTOMY. LARGE CALCANEAL SPUR. EVIDENCE FOR REMOTE ACHILLES TENDON INJURY Uc Architect: PSCB Transcribe Date/Time: Nov 01 2018 8:04P Dictated by : TRAVIS LOPEZ MD This examination was interpreted and the report reviewed and electronically signed by: TRAVIS LOPEZ MD on Nov 01 2018 8:07PM EST [id number] Observed: 11/01/2018 Status: COMPLETED Source: [place] 12:39 PM [facility] REPOSITORY HNO ID: [id number] Author: Kenya Gold (Rt) Ashly Mckee Service: (none) Author Type: Date Night Caregiver Type: Progress Notes Filed: 11/01/2018 12:47 PM Note Text: Radiology Service Progress Note PATIENT NAME: Shira Castro DATE OF SERVICE: November 01, 2018 TIME: 12:39 PM PATIENT IDENTITY VERIFICATION COMPLETED USING TWO (2) METHODS: Patient confirmed name verbally and Date of . PATIENT GENDER DATA: Female. status: : No status: NO. PATIENT RELEVANT IMPLANT DATA REVIEWED: Not Applicable RADIOLOGY DEPARTMENT: General X-ray: Exam(s) Completed: Lower Extremity X-Ray(s): Foot, Right: PERIPHERAL IV DATA: Not applicable SIGNED BY: RT Alex November 01, 2018 12:39 PM PROGRESS Observed: 10/26/2018 Status: COMPLETED Source: [place] 12:02 PM [facility] REPOSITORY HNO ID: [id number] Author: India Vidal Service: (none) Author Type: Physician Type: Progress Notes Filed: 10/26/2018 12:10 PM Note Text: This 58 year old presents post op right achilles tendon debridement with spur resection and fhl tendon transfer. Patient is 29 days post-op. She is wearing boot and is nwb. She has been applying betadine to her posterior heel incision. She feels that her foot is improving. She has no other complaints. Pain level: 0/10 Vomiting, fever, chills, shortness of breath: no Pain Control: n/a Weightbearing status: nwb with boot and knee scooter Objective: Incision site is healed proximally. Distally incision is approximated with very small area of eschar. No necrosis is noted. No signs of infection. There is significant julia-wound hyperkeratosis that was debrided. no evidence of dehiscence. No drainage. No lymphadenopathy. No lymphangitis. No surrounding cellulitis. Patient has no pain to palpation of right calf. Fabian test produces plantarflexion Assessment: (Z98.890) Post-operative state (primary encounter diagnosis) Plan: Patient was examined and informed of current findings She is 29 days post-op. Her proximal incision is healed. Distally there is small black eschar that appears stable and noninfected. I suspect this may be due to her rubbing in boot. Will continue to pad her so that she does not rub. Currently, the wound is approximated and mostly healed. I am going to have her apply betadine to the black eschar and she can lightly cleanse the periphery of her foot and apply lotion. Her incision does appear stable. I have informed patient risks of slow healing. I am going to have her referred to wound center for 2nd opinion and evaluation of posterior eschar. For now, I am going to have her apply betadine but alternative could be santyl. Patient will have post-op xray today. Will refer to wound center for evaluation. I am going to have patient remain nwb in boot. She can perform gentle dorsiflexion and plantarflexion exercises. F/u in 1 week with me. BRETT Narvaez DPM PROGRESS Observed: 10/26/2018 Status: COMPLETED Source: [place] 11:21 AM [facility] REPOSITORY HNO ID: [id number] Author: Mame Mosley Service: (none) Author Type: (none) Type: Progress Notes Filed: 10/26/2018 12:10 PM Note Text: AMB ROOMING INTAKE FLOWSHEET DATA Risk Screening Do you have concerns about personal safety or safety in the home?: No Patient presents for 29 days s/p R achilles tendon debridement + FHL tendon transfer. Mame Mosley CNOV Observed: 10/26/2018 Status: COMPLETED Source: [place] 11:10 AM [facility] REPOSITORY Office Visit (PODIWS) SHIRA CASTRO ([id number]) 1960 F Date Time Provider Department 10/26/18 11:10 AM [place] V[place] PODTHIERNO During your visit today, we recorded the following information about you: Mame Mosley 10/26/2018 12:10 PM Signed AMB ROOMING INTAKE FLOWSHEET DATA Risk Screening Do you have concerns about personal safety or safety in the home?: No Patient presents for 29 days s/p R achilles tendon debridement + FHL tendon transfer. Mame Valerio RN 10/26/2018 11:55 AM Signed Apply betadine and 4x4 to R heel. You have been referred to [facility]. They're office will contact you to schedule your appointment. [place] BRETT Vidal 10/26/2018 12:10 PM Signed This 58 year old presents post op right achilles tendon debridement with spur resection and fhl tendon transfer. Patient is 29 days post- op. She is wearing boot and is nwb. She has been applying betadine to her posterior heel incision. She feels that her foot is improving. She has no other complaints. Pain level: 0/10 Vomiting, fever, chills, shortness of breath: no Pain Control: n/a Weightbearing status: nwb with boot and knee scooter Objective: Incision site is healed proximally. Distally incision is approximated with very small area of eschar. No necrosis is noted. No signs of infection. There is significant julia-wound hyperkeratosis that was debrided. no evidence of dehiscence. No drainage. No lymphadenopathy. No lymphangitis. No surrounding cellulitis. Patient has no pain to palpation of right calf. Fabian test produces plantarflexion Assessment: (Z98.890) Post-operative state (primary encounter diagnosis) Plan: Patient was examined and informed of current findings She is 29 days post-op. Her proximal incision is healed. Distally there is small black eschar that appears stable and noninfected. I suspect this may be due to her rubbing in boot. Will continue to pad her so that she does not rub. Currently, the wound is approximated and mostly healed. I am going to have her apply betadine to the black eschar and she can lightly cleanse the periphery of her foot and apply lotion. Her incision does appear stable. I have informed patient risks of slow healing. I am going to have her referred to wound center for 2nd opinion and evaluation of posterior eschar. For now, I am going to have her apply betadine but alternative could be santyl. Patient will have post-op xray today. Will refer to wound center for evaluation. I am going to have patient remain nwb in boot. She can perform gentle dorsiflexion and plantarflexion exercises. F/u in 1 week with me. BRETT Narvaez DPM Referring Provider: [place] VIDAL [[id number]] Allergies As of Date: 10/26/2018 (No Known Allergies) Date Reviewed: 10/26/2018 Reviewed by: [place] Vidal - Fully Assessed Reason for Visit: Surgical Followup [104] Cmt: 29 days s/p R achilles tendon debridement + FHL tendon transfer Primary Visit Diagnosis:Post-operative state [Z98.890] Order(s):XR FOOT GENERAL 3V AP/LAT/OBL RT [[id number]] Order #: [id number] FUTURE Prescriptions as of 10/26/2018 Sig: ENOXAPARIN 40 MG/0.4 ML SUBCU* Inject 0.4 mL subcutaneously * IBUPROFEN 800 MG TABLET Take 1 tablet by mouth every * RANOLAZINE ER 1,000 MG TABLET* Take 1 tablet by mouth twice * BUPROPION HCL 100 MG TABLET TAKE 0.5 TABLETS BY MOUTH TWI* OMEPRAZOLE 20 MG CAPSULE,ABHINAV* TAKE 1 CAPSULE BY MOUTH EVERY* LISINOPRIL 10 MG TABLET TAKE 1 TABLET BY MOUTH EVERY * ALBUTEROL SULFATE HFA 90 MCG/* Inhale 2 Puffs as instructed * ATORVASTATIN 40 MG TABLET TAKE 1 TABLET BY MOUTH DAILY * SERTRALINE 100 MG TABLET TAKE 1 TABLET BY MOUTH EVERY * MELOXICAM 15 MG TABLET Take 1 tablet by mouth once d* ASCORBIC ACID (VITAMIN C) 1,0* Take 1,000 mg by mouth once d* MULTIVITAMIN CAPSULE Take 1 capsule by mouth once * ASPIRIN 81 MG TABLET Take 81 mg by mouth. CEPHALEXIN 500 MG CAPSULE Take 1 capsule by mouth four * Patient not taking: Reported on 10/26/2018 Problem List As Of Date 10/26/2018 Noted Resolved Hyperlipidemia [E78.5] HTN (hypertension) [I10] Anxiety [F41.9] Depression [F32.9] Sleep apnea [G47.30] Carpal tunnel syndrome, right [G56.01] INVALID FOR*12/21/2016 Digital mucous cyst [M67.449] INVALID FOR*12/21/2016 Ganglion cyst of left foot [M67.472] INVALID FOR*09/23/2018 More... CAD (coronary artery disease) [I25.10] INVALID FOR* More... Heartburn [R12] INVALID FOR* Arthritis [M19.90] INVALID FOR* More... Chronic bronchitis (HCC) [J42] INVALID FOR* Morbid obesity (HCC) [E66.01] INVALID FOR* Achilles tendinitis of right lower extremity [M*INVALID FOR*09/27/2018 Calcaneal spur, right [M77.31] INVALID FOR*09/27/2018 Obesity, Class III, BMI >= 40 [E66.01] INVALID FOR* Other instructions from your clinician: Apply betadine and 4x4 to R heel. You have been referred to [facility]. They're office will contact you to schedule your appointment. Encounter Status:Closed by [place] V[place] DPM on 10/26/18 PROGRESS Observed: 10/20/2018 Status: COMPLETED Source: [place] 10:59 PM [facility] [place] REPOSITORY HNO ID: [id number] Author: [place] Vidal Service: (none) Author Type: Physician Type: Progress Notes Filed: 10/20/2018 11:11 PM Note Text: This 58 year old presents post op right achilles tendon debridement and fhl tendon transfer. Pain level: 0/10 Vomiting, fever, chills, shortness of breath: no Pain Control: n/a Weightbearing status: nwb Patient reports that she has been doing well. Recently, she has noticed that the posterior heel has been rubbing. She states that she just noticed some bruising develop over the Past few days. She feels it is getting better. She is unsure if the heel is rubbing on her dressing. Objective: Incision site is well coapted with no evidence of dehiscence proximally . Distally the incision is approximated with superficial fissuring. There is no erythema. There is no drainage noted. there is blistering of lateral heel but beneath blister appears intact epithelium. Fabian test produces plantarflexion to right lower extremity. No calf pain is noted. Patient has no pain to palpation of right calf. Negative Fabian's test. Assessment: (Z98.890) Post-operative state (primary encounter diagnosis) Plan: Patients incision appears healed proximally. Suture removed without incident Distally, the incision is approximated with superficial fissuring. Just lateral to incision, there appears to be peeling epithelium from healed blister. Beneath blister, there is intact epithelium. I suspect patient is rubbing on dressing which is causing blistering. Recommend she protect her skin with either adaptic vs gel padding to prevent rubbing. The incision is mostly healed without signs of infection. Recommend she apply betadine to her posterior heel and steres strips. She can cleanse the skin with moist rag but she is not to bathe until fissure is completely healed. Patient questioning if she still needs lovenox. Discussed risks/benefits of lovenox. Patient would like to just monitor for now. She can take 325 mg of aspirin. If she develops any calf pain, she is to present to ed. F/u in 1 week [place] Vidal DPM PROGRESS Observed: 10/19/2018 Status: COMPLETED Source: [place] 10:32 AM [facility] REPOSITORY HNO ID: [id number] Author: Christine Mckoy RN Service: (none) Author Type: (none) Type: Progress Notes Filed: 10/20/2018 11:11 PM Note Text: This note was created using Microsaicriter. Subjective Shira Chu Matthew is a 58 year old female. Review of Systems Objective There were no vitals taken for this visit. Physical Exam Assessment and Plan AMB ROOMING INTAKE FLOWSHEET DATA Risk Screening Do you have concerns about personal safety or safety in the home?: No Wearing boot AND using lovenox - would like to know when she could stop this med. Using betadine bid. Admits to irritation to right side of heel from boot. Denies pain. Christine Mckoy RN CNOV Observed: 10/19/2018 Status: COMPLETED Source: [place] 10:25 AM [facility] REPOSITORY Office Visit (PODIWS) SHIRA CASTRO ([id number]) 1960 F Date Time Provider Department 10/19/18 10:25 AM [place] V[place] During your visit today, we recorded the following information about you: Christine Mckoy RN 10/20/2018 11:11 PM Signed This note was created using [employer]sa[employer]. Subjective Shira Castro is a 58 year old female. Review of Systems Objective There were no vitals taken for this visit. Physical Exam Assessment and Plan AMB ROOMING INTAKE FLOWSHEET DATA Risk Screening Do you have concerns about personal safety or safety in the home?: No Wearing boot AND using lovenox - would like to know when she could stop this med. Using betadine bid. Admits to irritation to right side of heel from boot. Denies pain. Christine Valerio RN 10/19/2018 11:08 AM Signed Continue boot Apply betadine daily to L heel. Leave steri strip in place. Cover with Adaptic or another nonadherent dressing. [place] Vidal DPM 10/20/2018 11:11 PM Signed This 58 year old presents post op right achilles tendon debridement and fhl tendon transfer. Pain level: 0/10 Vomiting, fever, chills, shortness of breath: no Pain Control: n/a Weightbearing status: nwb Patient reports that she has been doing well. Recently, she has noticed that the posterior heel has been rubbing. She states that she just noticed some bruising develop over the Past few days. She feels it is getting better. She is unsure if the heel is rubbing on her dressing. Objective: Incision site is well coapted with no evidence of dehiscence proximally . Distally the incision is approximated with superficial fissuring. There is no erythema. There is no drainage noted. there is blistering of lateral heel but beneath blister appears intact epithelium. Fabian test produces plantarflexion to right lower extremity. No calf pain is noted. Patient has no pain to palpation of right calf. Negative Fabian's test. Assessment: (Z98.890) Post-operative state (primary encounter diagnosis) Plan: Patients incision appears healed proximally. Suture removed without incident Distally, the incision is approximated with superficial fissuring. Just lateral to incision, there appears to be peeling epithelium from healed blister. Beneath blister, there is intact epithelium. I suspect patient is rubbing on dressing which is causing blistering. Recommend she protect her skin with either adaptic vs gel padding to prevent rubbing. The incision is mostly healed without signs of infection. Recommend she apply betadine to her posterior heel and steres strips. She can cleanse the skin with moist rag but she is not to bathe until fissure is completely healed. Patient questioning if she still needs lovenox. Discussed risks/benefits of lovenox. Patient would like to just monitor for now. She can take 325 mg of aspirin. If she develops any calf pain, she is to present to ed. F/u in 1 week [place] Vidal DPM Referring Provider: [place] V[place]AL [[id number]] Allergies As of Date: 10/19/2018 (No Known Allergies) Date Reviewed: 10/19/2018 Reviewed by: Chritsine Mckoy RN - Fully Assessed Reason for Visit: Established Patient [175] Cmt: 22 days s/p right achilles tendon debridement/FHL transfer with spur resection Primary Visit Diagnosis:Post-operative state [Z98.890] Prescriptions as of 10/19/2018 Sig: DOXYCYCLINE MONOHYDRATE 100 M* Take 1 capsule by mouth twice* ENOXAPARIN 40 MG/0.4 ML SUBCU* Inject 0.4 mL subcutaneously * CEPHALEXIN 500 MG CAPSULE Take 1 capsule by mouth four * IBUPROFEN 800 MG TABLET Take 1 tablet by mouth every * RANOLAZINE ER 1,000 MG TABLET* Take 1 tablet by mouth twice * BUPROPION HCL 100 MG TABLET TAKE 0.5 TABLETS BY MOUTH TWI* OMEPRAZOLE 20 MG CAPSULE,ABHINAV* TAKE 1 CAPSULE BY MOUTH EVERY* LISINOPRIL 10 MG TABLET TAKE 1 TABLET BY MOUTH EVERY * ALBUTEROL SULFATE HFA 90 MCG/* Inhale 2 Puffs as instructed * ATORVASTATIN 40 MG TABLET TAKE 1 TABLET BY MOUTH DAILY * SERTRALINE 100 MG TABLET TAKE 1 TABLET BY MOUTH EVERY * MELOXICAM 15 MG TABLET Take 1 tablet by mouth once d* ASCORBIC ACID (VITAMIN C) 1,0* Take 1,000 mg by mouth once d* MULTIVITAMIN CAPSULE Take 1 capsule by mouth once * ASPIRIN 81 MG TABLET Take 81 mg by mouth. Problem List As Of Date 10/19/2018 Noted Resolved Hyperlipidemia [E78.5] HTN (hypertension) [I10] Anxiety [F41.9] Depression [F32.9] Sleep apnea [G47.30] Carpal tunnel syndrome, right [G56.01] INVALID FOR*12/21/2016 Digital mucous cyst [M67.449] INVALID FOR*12/21/2016 Ganglion cyst of left foot [M67.472] INVALID FOR*09/23/2018 More... CAD (coronary artery disease) [I25.10] INVALID FOR* More... Heartburn [R12] INVALID FOR* Arthritis [M19.90] INVALID FOR* More... Chronic bronchitis (HCC) [J42] INVALID FOR* Morbid obesity (HCC) [E66.01] INVALID FOR* Achilles tendinitis of right lower extremity [M*INVALID FOR*09/27/2018 Calcaneal spur, right [M77.31] INVALID FOR*09/27/2018 Obesity, Class III, BMI >= 40 [E66.01] INVALID FOR* Other instructions from your clinician: Continue boot Apply betadine daily to L heel. Leave steri strip in place. Cover with Adaptic or another nonadherent dressing. Encounter Status:Closed by [place] V[place]AL DPM on 10/20/18 PROGRESS Observed: 10/11/2018 Status: COMPLETED Source: [place] 9:16 PM [facility] [place] REPOSITORY O ID: [id number] Author: [place] Vidal Service: (none) Author Type: Physician Type: Progress Notes Filed: 10/11/2018 9:21 PM Note Text: DOS: 09/27/18 POD: 14 Surgical side: right This 58 year old presents post op right achilles tendon debridement and fhl transfer with spur resection Pain level: 0/10 Vomiting, fever, chills, shortness of breath: no Weightbearing status: nwb Patient reports darkening of incision has improved. She does report increased moisture due to sweating. She denies any other issues Objective: Incision site is well coapted with no evidence of dehiscence. No erythema is present. No drainage is present. No local signs of infection. Posterior skin is slightly macerated. The prior darkening of incision appears to be improving. Fabian test produces plantarflexion to b/l lower extremity Patient has no pain to palpation of right calf. Assessment: (Z98.890) Post-operative state (primary encounter diagnosis) Plan: Patient was examined and informed of current findings On exam, the incision appears to be healing nicely without dehiscence. The prior darkening of incision appears to be improving. There are no signs of infection. There is slight maceration and this is likely because of her sweating. She has not been applying the betadine recently and I recommend she keep up with this. I am pleased with how her foot is looking. She will continue with boot and betadine daily. I am going to hold on cast as I do not want her to be in cast and have moisture risk wound complication. I am going to order post-op xray. Offered doxycline as prophylaxis but she would like to hold on antibiotics due to potential for upset stomach. She will continue with lovenox. F/u in1 Week [place] Vidal DPM XR ANKLE 3V AP/LAT/OBL Observed: 10/11/2018 Status: F Source: [facility] 12:55 PM [facility] REPOSITORY * * *Final Report* * * DATE OF EXAM: Oct 11 2018 12:55PM [id number] - XR ANKLE 3V AP/LAT/OBL RT / PROCEDURE REASON: Post-operative state * * * * Physician Interpretation * * * * RIGHT Ankle and foot HISTORY: 58 years old Clinical information: Post-operative state TECHNIQUE: Images: XR FOOT 3V AP/LAT/OBL RT, XR ANKLE 3V AP/LAT/OBL RT Comparison: None. RESULT: Findings: Ankle: Extremely large anterior heel spur No fractures or dislocations are seen. Foot: Mild narrowing of the interphalangeal joints. No fractures or dislocations are seen. IMPRESSION: Large anterior heel spur. Uc Architect: MYAH Transcribe Date/Time: Oct 11 2018 2:46P Dictated by : BONIFACIO GONZALEZ DO This examination was interpreted and the report reviewed and electronically signed by: BONIFACIO GONZALEZ DO on Oct 11 2018 2:50PM EST [id number] XR FOOT 3V AP/LAT/OBL Observed: 10/11/2018 Status: F Source: [place] 12:55 PM [facility] REPOSITORY * * *Final Report* * * DATE OF EXAM: Oct 11 2018 12:55PM [id number] - XR FOOT 3V AP/LAT/OBL RT / PROCEDURE REASON: Post-operative state * * * * Physician Interpretation * * * * RIGHT Ankle and foot HISTORY: 58 years old Clinical information: Post-operative state TECHNIQUE: Images: XR FOOT 3V AP/LAT/OBL RT, XR ANKLE 3V AP/LAT/OBL RT Comparison: None. RESULT: Findings: Ankle: Extremely large anterior heel spur No fractures or dislocations are seen. Foot: Mild narrowing of the interphalangeal joints. No fractures or dislocations are seen. IMPRESSION: Large anterior heel spur. Uc Architect: PSCB Transcribe Date/Time: Oct 11 2018 2:46P Dictated by : BONIFACIO GONZALEZ DO This examination was interpreted and the report reviewed and electronically signed by: BONIFACIO GONZALEZ DO on Oct 11 2018 2:50PM EST [id number] PROGRESS Observed: 10/11/2018 Status: COMPLETED Source: [place] 12:30 PM [facility] REPOSITORY HNO ID: [id number] Author: Radha Chu (Ashly) Ashly Almodovar Service: (none) Author Type: Date Night Caregiver Type: Progress Notes Filed: 10/11/2018 12:41 PM Note Text: Radiology Service Progress Note PATIENT NAME: Shira Castro DATE OF SERVICE: October 11, 2018 TIME: 12:30 PM PATIENT IDENTITY VERIFICATION COMPLETED USING TWO (2) METHODS: Patient confirmed name verbally and Date of . PATIENT GENDER DATA: Female. status: : No status: NO. PATIENT RELEVANT IMPLANT DATA REVIEWED: Not Applicable RADIOLOGY DEPARTMENT: General X-ray: Exam(s) Completed: Lower Extremity X-Ray(s): Ankle, Right and Foot, Right: PERIPHERAL IV DATA: Not applicable SIGNED BY: Ashly Mac October 11, 2018 12:30 PM CNOV Observed: 10/11/2018 Status: COMPLETED Source: [place] 11:25 AM [facility] REPOSITORY Office Visit (PODIWS) VENKATESHSHIRA Mason ([id number]) 1960 F Date Time Provider Department 10/11/18 11:25 AM [place] VIDAL During your visit today, we recorded the following information about you: [place] Vidal DPM 10/11/2018 9:21 PM Signed DOS: 09/27/18 POD: 14 Surgical side: right This 58 year old presents post op right achilles tendon debridement and fhl transfer with spur resection Pain level: 0/10 Vomiting, fever, chills, shortness of breath: no Weightbearing status: nwb Patient reports darkening of incision has improved. She does report increased moisture due to sweating. She denies any other issues Objective: Incision site is well coapted with no evidence of dehiscence. No erythema is present. No drainage is present. No local signs of infection. Posterior skin is slightly macerated. The prior darkening of incision appears to be improving. Fabian test produces plantarflexion to b/l lower extremity Patient has no pain to palpation of right calf. Assessment: (Z98.890) Post-operative state (primary encounter diagnosis) Plan: Patient was examined and informed of current findings On exam, the incision appears to be healing nicely without dehiscence. The prior darkening of incision appears to be improving. There are no signs of infection. There is slight maceration and this is likely because of her sweating. She has not been applying the betadine recently and I recommend she keep up with this. I am pleased with how her foot is looking. She will continue with boot and betadine daily. I am going to hold on cast as I do not want her to be in cast and have moisture risk wound complication. I am going to order post-op xray. Offered doxycline as prophylaxis but she would like to hold on antibiotics due to potential for upset stomach. She will continue with lovenox. F/u in1 Week [place] Vidal DPM Referring Provider: [place] V[place]AL [[id number]] Allergies As of Date: 10/11/2018 (No Known Allergies) Date Reviewed: 10/11/2018 Reviewed by: Shahrzad Fry LPN - Fully Assessed Reason for Visit: Surgical Followup [104] Primary Visit Diagnosis:Post-operative state [Z98.890] Order(s):XR FOOT GENERAL 3V AP/LAT/OBL RT [[id number]] Order #: [id number] FUTURE XR ANKLE GENERAL 3V AP/LAT/OBL RT [[id number]] Order #: [id number] FUTURE Prescriptions as of 10/11/2018 Sig: DOXYCYCLINE MONOHYDRATE 100 M* Take 1 capsule by mouth twice* ENOXAPARIN 40 MG/0.4 ML SUBCU* Inject 0.4 mL subcutaneously * CEPHALEXIN 500 MG CAPSULE Take 1 capsule by mouth four * IBUPROFEN 800 MG TABLET Take 1 tablet by mouth every * RANOLAZINE ER 1,000 MG TABLET* Take 1 tablet by mouth twice * BUPROPION HCL 100 MG TABLET TAKE 0.5 TABLETS BY MOUTH TWI* OMEPRAZOLE 20 MG CAPSULE,ABHINAV* TAKE 1 CAPSULE BY MOUTH EVERY* LISINOPRIL 10 MG TABLET TAKE 1 TABLET BY MOUTH EVERY * ALBUTEROL SULFATE HFA 90 MCG/* Inhale 2 Puffs as instructed * ATORVASTATIN 40 MG TABLET TAKE 1 TABLET BY MOUTH DAILY * SERTRALINE 100 MG TABLET TAKE 1 TABLET BY MOUTH EVERY * MELOXICAM 15 MG TABLET Take 1 tablet by mouth once d* ASCORBIC ACID (VITAMIN C) 1,0* Take 1,000 mg by mouth once d* MULTIVITAMIN CAPSULE Take 1 capsule by mouth once * ASPIRIN 81 MG TABLET Take 81 mg by mouth. Problem List As Of Date 10/11/2018 Noted Resolved Hyperlipidemia [E78.5] HTN (hypertension) [I10] Anxiety [F41.9] Depression [F32.9] Sleep apnea [G47.30] Carpal tunnel syndrome, right [G56.01] INVALID FOR*12/21/2016 Digital mucous cyst [M67.449] INVALID FOR*12/21/2016 Ganglion cyst of left foot [M67.472] INVALID FOR*09/23/2018 More... CAD (coronary artery disease) [I25.10] INVALID FOR* More... Heartburn [R12] INVALID FOR* Arthritis [M19.90] INVALID FOR* More... Chronic bronchitis (HCC) [J42] INVALID FOR* Morbid obesity (HCC) [E66.01] INVALID FOR* Achilles tendinitis of right lower extremity [M*INVALID FOR*09/27/2018 Calcaneal spur, right [M77.31] INVALID FOR*09/27/2018 Obesity, Class III, BMI >= 40 [E66.01] INVALID FOR* Encounter Status:Closed by [place] V[place]AL DPM on 10/11/18 PROGRESS Observed: 10/05/2018 Status: COMPLETED Source: [place] 10:04 PM [facility] [place] REPOSITORY HNO ID: [id number] Author: [place] Testpatria Service: (none) Author Type: Physician Type: Progress Notes Filed: 10/05/2018 10:12 PM Note Text: DOS: 09/27/18 POD: 8 POV: 2 Surgical side: right This 58 year old presents post op right achilles tendon debridement with fhl tendon transfer and spur resection Pain level: 0/10 Vomiting, fever, chills, shortness of breath: no Pain Control: No longer taking medication Weightbearing status: nwb Patient states she has no pain but at times, has been moving her foot up and down. Objective: Incision site is well coapted with no evidence of dehiscence. Good Color is noted to proximal and central incision. The distal incision has very small darkening but no necrosis is noted. No evidence of fluctuance or retained hematoma. No erythema is present to right foot. No drainage. No lymphadenopathy. No lymphangitis. No surrounding cellulitis. Pulses are palpable and audible to right lower extremity Patient has no pain to palpation of right calf. Fabian test produces plantarflexion to right lower extremity Assessment: (Z98.890) Post-operative state (primary encounter diagnosis) Plan: Patient was examined and informed of current findings On exam, her incision is healing nicely with no signs of infection . The distal incision shows very little darkening but no necrosis. I am going to watch this closely. Patient does have audible and palpable pulses. Informed patient this is certainly risk of this procedure especially given this area of skin and history of smoking. She does have palpable and audible pulses. Offered pvr but she declined. The incision is approximated but informed patient this could be area of slow healing. Will keep close watch on this. Offered wound center referral but she declined. Lastly, discussed treating temporarily with antibiotic given underlying hardware. Will place her on doxycline for one week. We could have her seen by ID but she elected to monitor. Today, applied betadine to area of incision. Will have her return to well padded splint. Informed patient to refrain from moving her foot up and down. Informed her that moving her foot up and down in splint could be causing this discoloration. I am going to have patient change dressing on Wednesday. She will apply betadine to incision and will be placed in boot. She is to keep boot on at all times. She will report to me on progress. She will return next week. Patient is satisfied with care. India Vidal DPM PROGRESS Observed: 10/05/2018 Status: COMPLETED Source: [place] 3:57 PM [facility] REPOSITORY HNO ID: [id number] Author: Marely Valerio RN Service: (none) Author Type: (none) Type: Progress Notes Filed: 10/05/2018 10:12 PM Note Text: Betadine and Adaptic applied to sutures of R posterior heel. Secured with 4x4, ovidio, kerlix. PT ASSESSMENT - CASTING ROOM Shira presents for Re-application of splint. Same splint that was applied at [facility] was used. Applied splint: to Right leg non-weight bearing Patient has been instructed in The patient and/or family member have been instructed in the following: Do not get splint wet, or place/stick anything inside the splint. The patient was instructed to be NWB. Instruction included keeping all pressure off the heel, and to place nothing under the heel.. Marely Valerio RN PROGRESS Observed: 10/05/2018 Status: COMPLETED Source: [place] 2:48 PM [facility] REPOSITORY HNO ID: [id number] Author: Marely Valerio RN Service: (none) Author Type: (none) Type: Progress Notes Filed: 10/05/2018 10:12 PM Note Text: AMB ROOMING INTAKE FLOWSHEET DATA Risk Screening Do you have concerns about personal safety or safety in the home?: No Patient presents 8 days s/p R achilles tendon debridement, FHL tendon transfer and sari resection. She presents with knee walker in splint. Exterior of splint appears clean, dry and intact. Upon removal of splint, no open wounds or visible skin irritation is noted. She denies any complaints regarding splint. She has not had pain and stopped taking Percocet on Wednesday. CNOV Observed: 10/05/2018 Status: COMPLETED Source: [place] 12:40 PM [facility] REPOSITORY Office Visit (PODIWS) LOISGEORGESHIRA Mason ([id number]) 1960 F Date Time Provider Department 10/05/18 12:40 PM [place] VIDAL During your visit today, we recorded the following information about you: Marely Valerio RN 10/05/2018 10:12 PM Signed AMB ROOMING INTAKE FLOWSHEET DATA Risk Screening Do you have concerns about personal safety or safety in the home?: No Patient presents 8 days s/p R achilles tendon debridement, FHL tendon transfer and sari resection. She presents with knee walker in splint. Exterior of splint appears clean, dry and intact. Upon removal of splint, no open wounds or visible skin irritation is noted. She denies any complaints regarding splint. She has not had pain and stopped taking Percocet on Wednesday. Marely Valerio RN 10/05/2018 3:44 PM Addendum Change dressing every other day starting on Wednesday. Apply betadine and Adaptic to sutures. Cover with 4x4, ovidio and kerlix. Begin to wear boot on Wednesday. Marely Valerio RN 10/05/2018 10:12 PM Signed Betadine and Adaptic applied to sutures of R posterior heel. Secured with 4x4, ovidio, kerlix. PT ASSESSMENT - CASTING ROOM Shira presents for Re-application of splint. Same splint that was applied at [facility] was used. Applied splint: to Right leg non-weight bearing Patient has been instructed in The patient and/or family member have been instructed in the following: Do not get splint wet, or place/stick anything inside the splint. The patient was instructed to be NWB. Instruction included keeping all pressure off the heel, and to place nothing under the heel.. Marely Vidal DPM 10/05/2018 10:12 PM Signed DOS: 09/27/18 POD: 8 POV: 2 Surgical side: right This 58 year old presents post op right achilles tendon debridement with fhl tendon transfer and spur resection Pain level: 0/10 Vomiting, fever, chills, shortness of breath: no Pain Control: No longer taking medication Weightbearing status: nwb Patient states she has no pain but at times, has been moving her foot up and down. Objective: Incision site is well coapted with no evidence of dehiscence. Good Color is noted to proximal and central incision. The distal incision has very small darkening but no necrosis is noted. No evidence of fluctuance or retained hematoma. No erythema is present to right foot. No drainage. No lymphadenopathy. No lymphangitis. No surrounding cellulitis. Pulses are palpable and audible to right lower extremity Patient has no pain to palpation of right calf. Fabian test produces plantarflexion to right lower extremity Assessment: (Z98.890) Post-operative state (primary encounter diagnosis) Plan: Patient was examined and informed of current findings On exam, her incision is healing nicely with no signs of infection . The distal incision shows very little darkening but no necrosis. I am going to watch this closely. Patient does have audible and palpable pulses. Informed patient this is certainly risk of this procedure especially given this area of skin and history of smoking. She does have palpable and audible pulses. Offered pvr but she declined. The incision is approximated but informed patient this could be area of slow healing. Will keep close watch on this. Offered wound center referral but she declined. Lastly, discussed treating temporarily with antibiotic given underlying hardware. Will place her on doxycline for one week. We could have her seen by ID but she elected to monitor. Today, applied betadine to area of incision. Will have her return to well padded splint. Informed patient to refrain from moving her foot up and down. Informed her that moving her foot up and down in splint could be causing this discoloration. I am going to have patient change dressing on Wednesday. She will apply betadine to incision and will be placed in boot. She is to keep boot on at all times. She will report to me on progress. She will return next week. Patient is satisfied with care. India Vidal DPM Referring Provider: INDIA VIDAL [[id number]] Allergies As of Date: 10/05/2018 (No Known Allergies) Date Reviewed: 10/05/2018 Reviewed by: Marely Valerio RN - Fully Assessed Reason for Visit: Surgical Followup [104] Primary Visit Diagnosis:Post-operative state [Z98.890] Order(s):doxycycline monohydrate (MONODOX) 100 mg capsuleTake 1 capsule by mouth twice daily for 7 days.Disp: 14 capsuleRfl: 0 Prescriptions as of 10/05/2018 Sig: ENOXAPARIN 40 MG/0.4 ML SUBCU* Inject 0.4 mL subcutaneously * CEPHALEXIN 500 MG CAPSULE Take 1 capsule by mouth four * IBUPROFEN 800 MG TABLET Take 1 tablet by mouth every * RANOLAZINE ER 1,000 MG TABLET* Take 1 tablet by mouth twice * BUPROPION HCL 100 MG TABLET TAKE 0.5 TABLETS BY MOUTH TWI* OMEPRAZOLE 20 MG CAPSULE,ABHINAV* TAKE 1 CAPSULE BY MOUTH EVERY* LISINOPRIL 10 MG TABLET TAKE 1 TABLET BY MOUTH EVERY * ALBUTEROL SULFATE HFA 90 MCG/* Inhale 2 Puffs as instructed * ATORVASTATIN 40 MG TABLET TAKE 1 TABLET BY MOUTH DAILY * SERTRALINE 100 MG TABLET TAKE 1 TABLET BY MOUTH EVERY * MELOXICAM 15 MG TABLET Take 1 tablet by mouth once d* ASCORBIC ACID (VITAMIN C) 1,0* Take 1,000 mg by mouth once d* MULTIVITAMIN CAPSULE Take 1 capsule by mouth once * ASPIRIN 81 MG TABLET Take 81 mg by mouth. DOXYCYCLINE MONOHYDRATE 100 M* Take 1 capsule by mouth twice* OXYCODONE-ACETAMINOPHEN 5 MG-* Take 1 tablet by mouth every * Patient not taking: Reported on 10/05/2018 Problem List As Of Date 10/05/2018 Noted Resolved Hyperlipidemia [E78.5] HTN (hypertension) [I10] Anxiety [F41.9] Depression [F32.9] Sleep apnea [G47.30] Carpal tunnel syndrome, right [G56.01] INVALID FOR*12/21/2016 Digital mucous cyst [M67.449] INVALID FOR*12/21/2016 Ganglion cyst of left foot [M67.472] INVALID FOR*09/23/2018 More... CAD (coronary artery disease) [I25.10] INVALID FOR* More... Heartburn [R12] INVALID FOR* Arthritis [M19.90] INVALID FOR* More... Chronic bronchitis (HCC) [J42] INVALID FOR* Morbid obesity (HCC) [E66.01] INVALID FOR* Achilles tendinitis of right lower extremity [M*INVALID FOR*09/27/2018 Calcaneal spur, right [M77.31] INVALID FOR*09/27/2018 Obesity, Class III, BMI >= 40 [E66.01] INVALID FOR* Other instructions from your clinician: Change dressing every other day starting on Wednesday. Apply betadine and Adaptic to sutures. Cover with 4x4, ovidio and kerlix. Begin to wear boot on Wednesday. Prescriptions ordered this encounter Disp Refills Start End DOXYCYCLINE MONOHYDRATE 100 MG CAPSU* 14 c* 0 10/05/2018 10/12/2018 Route: ORAL Sig: Take 1 capsule by mouth twice daily for 7 days. Encounter Status:Closed by INDIA VIDAL DPM on 10/05/18 PROGRESS Observed: 09/30/2018 Status: COMPLETED Source: [place] 9:37 PM [facility] REPOSITORY HNO ID: [id number] Author: India Vidal Service: (none) Author Type: Physician Type: Progress Notes Filed: 09/30/2018 9:41 PM Note Text: DOS: 09/27/18 POD: 2 POV: 1 Surgical side: right This 58 year old presents post op right achilles tendon debridement, fhl tendon transfer and sari resection Pain level: 8/10 Vomiting, fever, chills, shortness of breath: no Pain Control: percocet Weightbearing status: nwb Objective: Incision site is well coapted with no evidence of dehiscence. No erythema is noted. mild edema surrounding surgical site. No drainage. No lymphadenopathy. No lymphangitis. No surrounding cellulitis. Patient has pain to palpation of right calf. Fabian test reproduces plantarflexion Assessment: (Z98.890) Post-operative state (primary encounter diagnosis) (M25.469) Swelling of joint of lower leg (M79.661) Right calf pain Plan: Patient was examined and discussion regarding surgical findings was done We discussed risks associated with dvt following surgery. Initially discussed lovenox with family and patient but this was declined. Today, we again discussed risks of dvt. Discussed prophylaxis for dvt given patient weight, nwb and cast/splint immobilization. She is in agreement. lovenox prescribed Duplex doppler ordered and negative for acute dvt. F/u in 1 week for cast application Splint applied today. India Vidal DPM PROGRESS Observed: 09/29/2018 Status: COMPLETED Source: [place] 11:49 AM [facility] REPOSITORY HNO ID: [id number] Author: Marely Valerio RN Service: (none) Author Type: (none) Type: Progress Notes Filed: 09/30/2018 9:41 PM Note Text: PT ASSESSMENT - CASTING ROOM Shira presents for Application of splint. Applied splint: to Right leg non-weight bearing Patient has been instructed in The patient and/or family member have been instructed in the following: Do not get splint wet, or place/stick anything inside the splint. The patient was instructed to be NWB. Instruction included keeping all pressure off the heel, and to place nothing under the heel. Patient given both written and verbal instructions regarding care of splint. She verbalized understanding. LEARNING RESPONSE - SURVIVAL SKILLS PROCEDURE / SURGERY: Post-op Teaching: Med Administration EDUCATION TOPIC/TEACHING POINTS SURVIVAL SKILLS: Medication Administration: LOVENOX METHOD OF INSTRUCTION: Individual instruction, Written instruction - handouts and Verbal instruction PATIENT/FAMILY RESPONSE: Verbalizes understanding of: The importance of following prescribed medical regimen., The correct action to take if medication dose is missed, The side effects associated with the medication that warrant a call to the physician and The correct route for administration of the prescribed medication FOLLOW-UP PLAN: Patient instructed to call with any further issues SUPPLEMENTAL MATERIAL PROVIDED: Medication instruction material (LOVENOX KIT) Electronically Signed By: Marely Valerio RN. CNOV Observed: 09/29/2018 Status: COMPLETED Source: [place] 11:15 AM [facility] REPOSITORY Office Visit (PODIWS) SHIRA CASTRO ([id number]) 1960 F Date Time Provider Department 09/29/18 11:15 AM [place] [facility] PODIWS During your visit today, we recorded the following information about you: Amena Donnie JEAN 09/30/2018 9:41 PM Signed AMB ROOMING INTAKE FLOWSHEET DATA Risk Screening Do you have concerns about personal safety or safety in the home?: No Pain Pain Score: 9/10 Pain Location: Foot-Right Description: Burning, Sharp, Throbbing, Shooting, Numbness, Sore, Tingling Duration Amount of Time: 24 Duration Units: Hours Frequency: Continuous Patient is here for 2 day s/p achilles tendon repair. R foot. Patient states that she was in a lot of pain last night 08/01. Patient states the percocet is not working. Patient states she is icing and elevating foot and that is not helping. Marely Valerio RN 09/29/2018 11:35 AM Signed Cast Care Instructions Your New Cast It will take about 12-24 hours for the fiberglass cast to fully ?cure?. Do not rest your leg on any sharp surfaces that may dent the fiberglass and in turn put increased pressure on your skin. Elevate Some swelling is normal after an injury. This can make your cast feel tighter. Swelling is best relieved by elevating the cast above the level of your heart. Generally, you should lay down and use enough pillows to prop your leg higher than your heart. Keep the Cast Dry It is EXTREMELY important to keep your cast dry. Itching DO NOT INSERT ANY OBJECT INTO YOUR CAST! If you experience any itching, you can try taking a hair boiler operator and blow cool air into your cast. Do not pick at the padding on the edges. This will result in sharp edges that will irritate your skin. SEVERAL SIGNS THAT MAY REQUIRE IMMEDIATE MEDICAL ATTENTION, YOU SHOULD CALL THE OFFICE IMMEDIATELY IF YOU DEVELOP: - Severe pain not relieved by pain medication - Numbness/tingling not relieved by 15-30 minutes or proper elevation - Persistent burning or stinging underneath the cast - Excessive swelling - Loss of active movement of toes If you have any questions/concerns, please contact [phone] and ask for podiatry and a nurse. Marely Valerio RN 09/30/2018 9:41 PM Signed PT ASSESSMENT - CASTING ROOM Shira presents for Application of splint. Applied splint: to Right leg non-weight bearing Patient has been instructed in The patient and/or family member have been instructed in the following: Do not get splint wet, or place/stick anything inside the splint. The patient was instructed to be NWB. Instruction included keeping all pressure off the heel, and to place nothing under the heel. Patient given both written and verbal instructions regarding care of splint. She verbalized understanding. LEARNING RESPONSE - SURVIVAL SKILLS PROCEDURE / SURGERY: Post-op Teaching: Med Administration EDUCATION TOPIC/TEACHING POINTS SURVIVAL SKILLS: Medication Administration: LOVENOX METHOD OF INSTRUCTION: Individual instruction, Written instruction - handouts and Verbal instruction PATIENT/FAMILY RESPONSE: Verbalizes understanding of: The importance of following prescribed medical regimen., The correct action to take if medication dose is missed, The side effects associated with the medication that warrant a call to the physician and The correct route for administration of the prescribed medication FOLLOW-UP PLAN: Patient instructed to call with any further issues SUPPLEMENTAL MATERIAL PROVIDED: Medication instruction material (LOVENOX KIT) Electronically Signed By: Marely Valerio RN. [place] Vidal DPM 09/30/2018 9:41 PM Signed DOS: 09/27/18 POD: 2 POV: 1 Surgical side: right This 58 year old presents post op right achilles tendon debridement, fhl tendon transfer and sari resection Pain level: 8/10 Vomiting, fever, chills, shortness of breath: no Pain Control: percocet Weightbearing status: nwb Objective: Incision site is well coapted with no evidence of dehiscence. No erythema is noted. mild edema surrounding surgical site. No drainage. No lymphadenopathy. No lymphangitis. No surrounding cellulitis. Patient has pain to palpation of right calf. Fabian test reproduces plantarflexion Assessment: (Z98.890) Post-operative state (primary encounter diagnosis) (M25.469) Swelling of joint of lower leg (M79.661) Right calf pain Plan: Patient was examined and discussion regarding surgical findings was done We discussed risks associated with dvt following surgery. Initially discussed lovenox with family and patient but this was declined. Today, we again discussed risks of dvt. Discussed prophylaxis for dvt given patient weight, nwb and cast/splint immobilization. She is in agreement. lovenox prescribed Duplex doppler ordered and negative for acute dvt. F/u in 1 week for cast application Splint applied today. [place] Vidal DPM Referring Provider: LEANDRA GLEASON [[id number]] Allergies As of Date: 09/29/2018 (No Known Allergies) Date Reviewed: 09/29/2018 Reviewed by: Amena Fields MA - Fully Assessed Reason for Visit: Follow Up [171] Primary Visit Diagnosis:Post-operative state [Z98.890] Other Visit Diagnoses:Swelling of joint of lower leg [M25.469] Right calf pain [M79.661] Order(s):US LEG VEIN DVT [facility] [[id number]] Order #: [id number] FUTURE enoxaparin (LOVENOX) 40 mg/0.4 mL syrgInject 0.4 mL subcutaneously every 24 hours.Disp: 30 SyringeRfl: 1 [START ON 10/01/2018] oxyCODONE-acetaminophen (PERCOCET) 5-325 mg tabletTake 1 tablet by mouth every 4 hours as needed for up to 7 days. Earliest Fill Date: 10/01/18Disp: 28 tabletRfl: 0 Prescriptions as of 09/29/2018 Sig: OXYCODONE-ACETAMINOPHEN 5 MG-* Take 1 tablet by mouth every * CEPHALEXIN 500 MG CAPSULE Take 1 capsule by mouth four * IBUPROFEN 800 MG TABLET Take 1 tablet by mouth every * RANOLAZINE ER 1,000 MG TABLET* Take 1 tablet by mouth twice * BUPROPION HCL 100 MG TABLET TAKE 0.5 TABLETS BY MOUTH TWI* OMEPRAZOLE 20 MG CAPSULE,ABHINAV* TAKE 1 CAPSULE BY MOUTH EVERY* LISINOPRIL 10 MG TABLET TAKE 1 TABLET BY MOUTH EVERY * ALBUTEROL SULFATE HFA 90 MCG/* Inhale 2 Puffs as instructed * ATORVASTATIN 40 MG TABLET TAKE 1 TABLET BY MOUTH DAILY * SERTRALINE 100 MG TABLET TAKE 1 TABLET BY MOUTH EVERY * MELOXICAM 15 MG TABLET Take 1 tablet by mouth once d* ASCORBIC ACID (VITAMIN C) 1,0* Take 1,000 mg by mouth once d* MULTIVITAMIN CAPSULE Take 1 capsule by mouth once * ASPIRIN 81 MG TABLET Take 81 mg by mouth. ENOXAPARIN 40 MG/0.4 ML SUBCU* Inject 0.4 mL subcutaneously * OXYCODONE-ACETAMINOPHEN 5 MG-* Take 1 tablet by mouth every * Problem List As Of Date 09/29/2018 Noted Resolved Hyperlipidemia [E78.5] HTN (hypertension) [I10] Anxiety [F41.9] Depression [F32.9] Sleep apnea [G47.30] Carpal tunnel syndrome, right [G56.01] INVALID FOR*12/21/2016 Digital mucous cyst [M67.449] INVALID FOR*12/21/2016 Ganglion cyst of left foot [M67.472] INVALID FOR*09/23/2018 More... CAD (coronary artery disease) [I25.10] INVALID FOR* More... Heartburn [R12] INVALID FOR* Arthritis [M19.90] INVALID FOR* More... Chronic bronchitis (HCC) [J42] INVALID FOR* Morbid obesity (HCC) [E66.01] INVALID FOR* Achilles tendinitis of right lower extremity [M*INVALID FOR*09/27/2018 Calcaneal spur, right [M77.31] INVALID FOR*09/27/2018 Obesity, Class III, BMI >= 40 [E66.01] INVALID FOR* Other instructions from your clinician: Cast Care Instructions Your New Cast It will take about 12-24 hours for the fiberglass cast to fully ?cure?. Do not rest your leg on any sharp surfaces that may dent the fiberglass and in turn put increased pressure on your skin. Elevate Some swelling is normal after an injury. This can make your cast feel tighter. Swelling is best relieved by elevating the cast above the level of your heart. Generally, you should lay down and use enough pillows to prop your leg higher than your heart. Keep the Cast Dry It is EXTREMELY important to keep your cast dry. Itching DO NOT INSERT ANY OBJECT INTO YOUR CAST! If you experience any itching, you can try taking a hair boiler operator and blow cool air into your cast. Do not pick at the padding on the edges. This will result in sharp edges that will irritate your skin. SEVERAL SIGNS THAT MAY REQUIRE IMMEDIATE MEDICAL ATTENTION, YOU SHOULD CALL THE OFFICE IMMEDIATELY IF YOU DEVELOP: - Severe pain not relieved by pain medication - Numbness/tingling not relieved by 15-30 minutes or proper elevation - Persistent burning or stinging underneath the cast - Excessive swelling - Loss of active movement of toes If you have any questions/concerns, please contact [phone] and ask for podiatry and a nurse. Prescriptions ordered this encounter Disp Refills Start End ENOXAPARIN 40 MG/0.4 ML SUBCUTANEOUS* 30 S* 1 09/29/2018 10/29/2018 Route: SUBCUTANEOUS Sig: Inject 0.4 mL subcutaneously every 24 hours. OXYCODONE-ACETAMINOPHEN 5 MG-325 MG * 28 t* 0 10/01/2018 10/08/2018 Class: Print RX Cmt: Post-op pain Route: ORAL Sig: Take 1 tablet by mouth every 4 hours as needed for up to 7 days. Earliest Fill Date: 10/01/18 Encounter Status:Closed by [place] VIDAL DPM on 09/30/18 PROGRESS Observed: 09/29/2018 Status: COMPLETED Source: [place] 10:03 AM [facility] REPOSITORY HNO ID: [id number] Author: Amena Fields MA Service: (none) Author Type: (none) Type: Progress Notes Filed: 09/30/2018 9:41 PM Note Text: AMB ROOMING INTAKE FLOWSHEET DATA Risk Screening Do you have concerns about personal safety or safety in the home?: No Pain Pain Score: 08/01 Pain Location: Foot-Right Description: Burning, Sharp, Throbbing, Shooting, Numbness, Sore, Tingling Duration Amount of Time: 24 Duration Units: Hours Frequency: Continuous Patient is here for 2 day s/p achilles tendon repair. R foot. Patient states that she was in a lot of pain last night 08/01. Patient states the percocet is not working. Patient states she is icing and elevating foot and that is not helping. NURSING PROG Observed: 09/27/2018 Status: COMPLETED Source: [place] 3:12 PM [facility] REPOSITORY HNO ID: [id number] Author: Selena Barker (Rn) VANIA Serna Service: (none) Author Type: Registered Nurse Type: Nursing Progress Note Filed: 09/27/2018 4:13 PM Note Text: 1500 Carroting Machine Operator Juan Vidal stated to cancel home sequential stockings. Call placed to Dr. Gleason to clarify if needed home sequential stockings. Spoke with office. 1530 Orders cancelled for home stockings per Dr. Juan Eduardo. Spoke with patient. 1600 Dangled at bedside prior to getting up in wheelchair. Able to pivot into chair. Denies pain or nausea. Awake and oriented x3. Dr. Leblanc spoke with patient also. ANES POST Observed: 09/27/2018 Status: COMPLETED Source: [place] 3:11 PM [facility] REPOSITORY HNO ID: [id number] Author: Jet Leblanc Service: Anesthesiology Author Type: Anesthesiologist Type: Anesthesia PostOp Filed: 09/27/2018 3:12 PM Note Text: POST ANESTHESIA EVALUATION NOTE SERVICE DATE: 09/27/2018 SERVICE TIME: 1510 : 1960 Vitals: 09/27/18 1120 09/27/18 1445 Temp: 37.3 ?C (99.1 ?F) 36.8 ?C (98.2 ?F) 09/27/18 1120 09/27/18 1445 09/27/18 1500 BP: 105/62 140/64 140/64 09/27/18 1120 09/27/18 1445 09/27/18 1500 Pulse: 66 85 73 09/27/18 1120 09/27/18 1445 09/27/18 1500 Resp: 18 16 16 09/27/18 1120 09/27/18 1445 09/27/18 1500 SpO2: 99% 100% 98% Validated Vital Signs: Yes POST ANES STATUS: No apparent anesthetic complications. The patient is appropriately hydrated with stable respiratory and cardiovascular status. Patient has safe and adequate airway control. The patient has appropriate pain relief and no significant post operative nausea or vomiting. The patient has achieved baseline mental status. Intra-Operative Events: No Significant Anesthesia Events Further assessment by Anesthesia Service: None Other Remarks: SIGNATURE: Jet Leblanc MD PATIENT NAME: Shira Castro DATE: September 27, 2018 TIME: 3:11 PM PAGER/CONTACT #: OPERATIVE NO Observed: 09/27/2018 Status: COMPLETED Source: [place] 3:06 PM [facility] REPOSITORY O ID: [id number] Author: India Vidal Service: Podiatry Author Type: Physician Type: Operative Report Filed: 09/29/2018 7:27 AM Note Text: OPERATIVE/PROCEDURE REPORT LOG ID: [id number] SURGERY/PROCEDURE DATE: 09/27/2018 INCISION/PROCEDURE START TIME: 12:52 PM INCISION CLOSE/PROCEDURE END TIME: 2:29 PM SURGEON(S)/PROCEDURALIST(S) AND PSYCH TECH(S): India Vidal DPM (Primary) MD Himanshu Kendall MD SURGERY/PROCEDURE(S): Achilles tendon debridement right lower extremity Retrocalcaneal spur spur/sari resection FHL tendon transfer right Injection of flow graft ANESTHESIA: General SURGERY/PROCEDURE DETAILS: Patient is a very pleasant 58 year old female who complains of painful spurring and swelling of right posterior ankle. Patient complains that pain has been present for considerable duration. This patient has tried conservative care not limited to stretching, heel lifts, nsaids, and therapy. Despite conservative care, this patient continues to complain of pain. Xrays and MRI have been performed and they indicate posterior heel spur and thickening of right achilles tendon. We have discussed surgical options to include achilles tendon debridement, spur resection and possible tendon augmentation with fhl transfer. We have discussed risks of this procedure not limited to infection, pain, swelling, bleeding, hematoma, wound dehiscence, wound scarring, deep soft-tissue infection, bone infection, loss of leg, rupture of tendon, failure of implant, rsd, dvt, . We have discussed increased risks due to obesity. We have discussed continued conservative care vs surgical debridement. Patient wishes to pursue surgery. She has palpable and audible pulses. We have discussed post-op care to include nwb. Any weight to the lower extremity prematurely can result in complications noted above. All questions have been answered prior to surgery. No guarantees expressed. Consent has been signed by patient. ? ?Prior to operating room presentation, a popliteal block was administered to right lower extremity. She was identified by name and procedure at sign in. Patient was then transferred to operating room and placed under general anesthesia. Thigh tourniquent was applied and set for 350 mm hg. She was then carefully rotated to prone position and she was adequately protected to all bony prominences. Iv antibiotic had been given prior to incision. The right lower extremity was prepped and draped in usual aseptic technique. Timeout was perfomed making noted of procedure to be performed on right foot. The right lower extremity was then elevated and the tourniquet was inflated. A longitudinal incision was placed medial to achilles tendon. I carefully debrided thru subcutaneous tissue where all neurovascular structures were identified and retracted. The paratendon was incised and carefully retracted for planned closure later. The achilles tendon was inspected. The achilles was found to be degenerative just proximal to the insertion on the calcaneus. At this time, the achilles tendon was debrided with sharp instrumentation. The achilles tendon was freed laterally exposing the prominent sari and retrocalcaneal spur and bursitis. Debridement of prominent posterior calcaneal osteophyte and sari deformity was performed. Inflammatory tissue and bursitis was also debrided. The posterior and superior aspect of calcaneus was then smoothed with power rasp. The wound was then irrigated. xrays confirmed adequate resection. Dissection was then performed thru the posterior intermuscular septum. The fhl was identified by plantarflexing and dorsiflexing the great toe. We followed this distally beneath the sustentaculum. Once we had a good 3 cm of tendon identified it was incised and harvested appropriately. We then placed a 2-0 Maxon in the tendon. We sized it at a 7 mm. I then made a 7.5 mm mm socket in the calcaneus that was just longer than the length of our tendinous portion of the tendon. The FHL tendon transfer was then placed in the socket and fixed with appropriate tension with the foot and ankle in plantar flexion equal to the other side and fixed with a 7 x 23 mm Arthrex biointerference screw. We then also placed a 4.75 swivel lock anchor in the calcaneus. we then repaired the Achilles tendon to the posterior calcaneus tying down to these anchors. Following reattacment of achilles and fhl, a fabian test produced plantarflexion. The wound was then irrigated. Closure of paratenon was performed followed by subcutaneous tissue followed by skin. Flow graft was injected beneath paratenon at time of closure by way of 18 gauge needle. ? A post-op dressing was then applied consisting of xeroform,, 4x4, ovidio, olivier compression with posterior splint with foot in plantarflexed position.. Patient was awakened and found to be in stable condition. Patient was transferred to pacu in stable condition. Patient was given percocet for pain control post-op. She was given keflex for antibiotic prophylaxis. She was informed of risk of dvt following surgery. I suggested to patient the use of lovenox but she declined. She will take aspirin daily. Family was informed of risk of dvt but elected to hold on lovenox. PRE-OP/PRE-PROCEDURE DIAGNOSIS: sari/achilles tendonitis, right lower extremity POST-OP/POST-PROCEDURE DIAGNOSIS: Achilles tendinitis of right lower extremity [M76.61] ESTIMATED BLOOD LOSS: less than 5 mls mls SPECIMENS: None IMPLANTABLE DEVICES: 7 mm x 23 mm interference screw. 4.75 swivel lock anchor DRAINS: None COMPLICATIONS: None PARTICIPATION IN SURGERY/PROCEDURE: I performed the procedure with assistance. SIGNATURE: India Vidal DPM PATIENT NAME: Shira Castro DATE: September 27, 2018 TIME: 3:06 PM PAGER/CONTACT #: BRIEF OP NOT Observed: 09/27/2018 Status: COMPLETED Source: [place] 2:54 PM [facility] REPOSITORY HNO ID: [id number] Author: India Vidal Service: Podiatry Author Type: Physician Type: Brief Op Note Filed: 09/27/2018 2:57 PM Note Text: BRIEF OP NOTE LOG ID: [id number] Surgery/Procedure Date: 09/27/2018 Incision/Procedure Start Time: 12:52 PM Incision Close/Procedure End Time: 2:29 PM Surgeon(s)/Proceduralist(s) and Overhead Distribution Engineer(s): BRETT Bonner MD Prem Ramkuma, MD Procedure(s): 1. Achilles tendon debridement with resection of sari deformity and retrocalcaneal spur 2. FHL tendon transfer, right 3. Injection of flow graft Anesthesia: General Findings: moderate spur/sari to right heel. Moderate thickening of right achilles tendon Estimated Blood Loss: less than 5 mls mls Specimens: None Complications: None Pre-Op/Pre-Procedure Diagnosis: Achilles tendonitis of right lower extremity with sari deformity Post-Op/Post-Procedure Diagnosis: Achilles tendinitis of right lower extremity [M76.61] SIGNATURE: India Vidal DPM PATIENT NAME: Shira Castro DATE: September 27, 2018 TIME: 2:55 PM PAGER/CONTACT #: ANES PREOP Observed: 09/27/2018 Status: COMPLETED Source: [place] 12:32 PM [facility] REPOSITORY HNO ID: [id number] Author: Jet Leblanc Service: Anesthesiology Author Type: Anesthesiologist Type: Anesthesia PreOp Filed: 09/27/2018 12:33 PM Note Text: REGIONAL ANESTHESIOLOGY PREOPERATIVE ASSESSMENT Surgeon(s): Leandra Downs (Res) Getachew Procedure(s) (LRB): REPAIR ACHILLES TENDON SECONDARY (Right) OSTECTOMY CALCANEUS SPUR W/ OR W/O PLANTAR FASCIAL RELEASE (Right) TRANSFER TENDON EXTREMITY LOWER (Right) Vitals: 09/27/18 1120 BP: 105/62 Pulse: 66 Resp: 18 Temp: 37.3 ?C (99.1 ?F) TempSrc: Temporal Artery SpO2: 99% ACTIVE PROBLEM LIST Hyperlipidemia Htn (Hypertension) Anxiety Depression Sleep Apnea Cad (Coronary Artery Disease) Heartburn Arthritis Chronic Bronchitis (Hcc) Morbid Obesity (Hcc) Achilles Tendinitis of Right Lower Extremity Calcaneal Spur, Right Obesity, Class III, BMI >= 40 PAST MEDICAL HISTORY Diagnosis Date - Adrenal adenoma repeat ct in 07/07 - Anxiety - Arthritis fingers - CAD (coronary artery disease) Dr. Schultz - Chronic bronchitis (HCC) 05/03/2018 - Depression - Heartburn - HTN (hypertension) - Hyperlipidemia - Migraine - Morbid obesity (HCC) 05/03/2018 - Seasonal allergies - Sleep apnea PAST SURGICAL HISTORY Procedure Laterality Date - CABG (1) VEIN GRAFT AND ARTERIAL GRAFT 1999 - EXCIS TENDON SHEATH LESIsraHAND/FINGR 07/04/2014 Right index finger digital muscous cyst excision - FOOT SURGERY HX Left excision ganglion cyst - REMOVAL GALLBLADDER 2000 Cholecystectomy - REMOVAL OF TONSILS,<12 Y/O 1966 Tonsillectomy alone - REVISE MEDIAN N/CARPAL TUNNEL SURG 07/04/2014 Carpal tunnel decomp right FAMILY HISTORY Problem Relation Age of Onset - Alzheimer's Disease Mother heart attack, galcoma, htn - Glaucoma Mother - Ischemic Heart Disease Mother - Diabetes Father cad, prostate cancer - Stroke Father - Ischemic Heart Disease Father - Cervical Cancer Sister 35 cervical cancer, blood disease - other (Other) Sister 53 hemochromatosis Social History: Social History Substance Use Topics - Smoking status: Former Smoker Packs/day: 1.00 Years: 30.00 Types: Cigarettes Quit date: 09/07/2017 - Smokeless tobacco: Former User - Alcohol use No Comment: 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 Current Outpatient Prescriptions on File Prior to Encounter: ranolazine SR (RANEXA) 1,000 mg Tb12 Take 1 tablet by mouth twice daily. omeprazole (PRILOSEC) 20 mg capsule TAKE 1 CAPSULE BY MOUTH EVERY DAY lisinopril (ZESTRIL, PRINIVIL) 10 mg tablet TAKE 1 TABLET BY MOUTH EVERY DAY sertraline (ZOLOFT) 100 mg tablet TAKE 1 TABLET BY MOUTH EVERY DAY Aspirin 81 mg Tab Take 81 mg by mouth. buPROPion (WELLBUTRIN) 100 mg tablet TAKE 0.5 TABLETS BY MOUTH TWICE DAILY. albuterol HFA (VENTOLIN HFA) 90 mcg/actuation inhaler Inhale 2 Puffs as instructed every 4 hours as needed for Wheezing/Shortness of Breath. atorvastatin (LIPITOR) 40 mg tablet TAKE 1 TABLET BY MOUTH DAILY AT BEDTIME. FOR CHOLESTEROL. meloxicam (MOBIC) 15 mg tablet Take 1 tablet by mouth once daily. With food. Ascorbic Acid (VITAMIN C) 1,000 mg tablet Take 1,000 mg by mouth once daily. Multivitamin capsule Take 1 capsule by mouth once daily. Current Facility-Administered Medications: lactated ringers infusion 30 mL/hr INTRAVENOUS CONTINUOUS Jaun Garcia Last Rate: 30 mL/hr at 09/27/18 1132 30 mL/hr at 09/27/18 1132 lidocaine 10 mg/mL (1 %) 1-2 mg injection (XYLOCAINE) 0.1- 0.2 mL INTRADERMAL PRN Himanshu (Res) Getachew lactated ringers infusion 5-30 mL/hr INTRAVENOUS CONTINUOUS Himanshu (Res) Getachew Last Rate: 30 mL/hr at 09/27/18 1132 30 mL/hr at 09/27/18 1132 lidocaine 10 mg/mL (1 %) 1-2 mg injection (XYLOCAINE) 0.1- 0.2 mL INTRADERMAL PRN Leandra Gleason lactated ringers infusion 5-30 mL/hr INTRAVENOUS CONTINUOUS Leandra Gleason Last Rate: 30 mL/hr at 09/27/18 1132 30 mL/hr at 09/27/18 1132 ceFAZolin 3 g in D5W 100 mL (ANCEF) 3 g INTRAVENOUS Pre-Op Once Leandra Gleason Allergies: ALLERGIES No Known Allergies REVIEW OF SYSTEMS: As stated in Active Problem List/ Past Medical History Hemoglobin 13.8 12/21/2016 Hematocrit 41.1 12/21/2016 Sodium 140 05/11/2018 Glucose 91 05/11/2018 Potassium 4.5 05/11/2018 Platelet Count 263 12/21/2016 PT Sec 12.4 10/27/2011 PT INR 1.0 10/27/2011 Creatinine 0.92 05/11/2018 EKG RESULTS: NORMAL SINUS RHYTHM RSR' PATTERN IN V1 SUGGESTS INCOMPLETE RIGHT BUNDLE BRANCH BLOCK ANESTHESIOLOGY REVIEW: Airway Assessment: MP 1; Neck ROM: Full ROM without neurologic symptoms; Airway Evaluation: Thick neck Symptoms of Sleep Apnea: yes on CPAP Intubation History: No previous history of difficult intubation Dentition: Teeth intact ADVERSE ANESTHESIA EVENT: No history of adverse event FAMILY HIISTORY OF ANESTHESIA: No known issues Blood Products: Not anticipated for this procedure Other Medical Problems: None Additional Physical Exam: Lungs: Lungs clear to auscultation. Good diaphragmatic excursion. Cardiac: normal S1 and S2; no rubs, no murmurs, and no gallops Additional pertinent findings: N/A I have interviewed and examined the patient. I have reviewed the medical record and/or the pre-anesthesia evaluation, pertinent labs, and test results. Significant changes in the patient's condition since the History and Physical, not otherwise documented in primary service progress notes: No Anesthetic risks, benefits, alternatives, personnel and consent discussed. Yes ASA 3 NPO >8 hours PLAN: GETA, popliteal and saphenous nerve blocks for postop. Pain control R/B/A D/W patient and agreed to proceed This contains updated information obtained within 48 hours of Surgery/Procedure. SIGNATURE: Jet Leblanc MD PATIENT NAME: Shira Castro DATE: September 27, 2018 TIME: 12:32 PM PAGER/CONTACT #: HISTORY PHYSICAL Observed: 09/27/2018 Status: COMPLETED Source: [place] 10:47 AM [facility] REPOSITORY O ID: [id number] Author: India Vidal Service: Podiatry Author Type: Physician Type: HANDP Filed: 09/27/2018 11:50 AM Note Text: HISTORY AND PHYSICAL EXAMINATION SERVICE DATE: 09/27/2018 SERVICE TIME: 10:48 PRIMARY CARE PHYSICIAN: Owen Solano MD Subjective CHIEF COMPLAINT: right ankle pain HPI: This is a 58 year old female who presents with chronic right achilles tendon pain. Patient has tried stretching, icing, nsaids and therapy. Despite conservative care, she continues to have pain. MRI and xrays confirm presence of large posterior heel spur and presence of achilles tendinosis. Patient now interested in surgical intervention. She has been evaluated by pat and is cleared for right ankle surgery. FUNCTIONAL STATUS: Totally dependent PAST MEDICAL HISTORY Diagnosis Date - Adrenal adenoma repeat ct in 07/07 - Anxiety - Arthritis fingers - CAD (coronary artery disease) Dr. Schultz - Chronic bronchitis (HCC) 05/03/2018 - Depression - Heartburn - HTN (hypertension) - Hyperlipidemia - Migraine - Morbid obesity (HCC) 05/03/2018 - Seasonal allergies - Sleep apnea PAST SURGICAL HISTORY Procedure Laterality Date - CABG (1) VEIN GRAFT AND ARTERIAL GRAFT 1999 - EXCIS TENDON SHEATH LESN,HAND/FINGR 07/04/2014 Right index finger digital muscous cyst excision - FOOT SURGERY HX Left excision ganglion cyst - REMOVAL GALLBLADDER 2000 Cholecystectomy - REMOVAL OF TONSILS,<12 Y/O 1966 Tonsillectomy alone - REVISE MEDIAN N/CARPAL TUNNEL SURG 07/04/2014 Carpal tunnel decomp right FAMILY HISTORY Problem Relation Age of Onset - Alzheimer's Disease Mother heart attack, galcoma, htn - Glaucoma Mother - Ischemic Heart Disease Mother - Diabetes Father cad, prostate cancer - Stroke Father - Ischemic Heart Disease Father - Cervical Cancer Sister 35 cervical cancer, blood disease - other (Other) Sister 53 hemochromatosis Social History Substance Use Topics - Smoking status: Former Smoker Packs/day: 1.00 Years: 30.00 Types: Cigarettes Quit date: 09/07/2017 - Smokeless tobacco: Former User - Alcohol use No Comment: 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 ALLERGIES No Known Allergies COMPLETE REVIEW OF SYSTEMS: GENERAL: No weight loss, malaise or fevers RESPIRATORY: Negative for cough, hemoptysis, wheezing, COPD, dyspnea or shortness of breath CARDIOVASCULAR: Negative for chest pain, leg swelling, hypertension, CHF or palpitations MUSCULOSKELETAL: muscle pain Objective PHYSICAL EXAM: Patient is alert and orientated x 3 She has intact vascular supply to right lower extremity. Dorsalis pedis and posterior tibial pulses are palpable. cft is brisk. Skin temperature is warm to warm. Pulses are triphasic with doppler. There is pain to right posterior heel with palpable spurring and thickening of right achilles tendon. xrays and MRI reviewed. Moderate posterior heel spur and sari deformity with achilles tendinosis. There were no vitals taken for this visit. DATA: Assessment/Plan Active Problems: Achilles tendinitis of right lower extremity POA: Unknown Calcaneal spur, right POA: Unknown Obesity, Class III, BMI >= 40 POA: Unknown Resolved Problems: * No resolved hospital problems. * Patient scheduled for achilles tendon debridement with spur resection and possible tendon transfer. Reviewed all risks and benefits and alternatives to procedure. Patient agreeable and consents to proceed. SIGNATURE: India Vidal DPM PATIENT NAME: Shira Castro DATE: September 27, 2018 TIME: 10:48 AM PAGER/CONTACT #: [phone] NURSING PROG Observed: 09/26/2018 Status: COMPLETED Source: [place] 11:10 AM [facility] REPOSITORY HNO ID: [id number] Author: Chris (Rn) VANIA Pastor Service: (none) Author Type: Registered Nurse Type: Nursing Progress Note Filed: 09/26/2018 11:13 AM Note Text: PACC Nurse Progress Note History AND Physical: PACC Visit Date: 09/23 Original HANDP Date: N/A ED visit Date: N/A Outside HANDP Scanned Date: N/A Labs Within Last 6 Months: CBC: Date 05/02 BMP/CMP: Date 05/02 OTHER TEST: hepatic function panel, Date 06/27 All results within acceptable limits Imaging Within Last 12 Months: N/A Cardiac Testing: EKG in last 12 Months: Yes: Date: 09/23, Comment: needs confirmation Last Menstrual Period: LMP Date: unknown Postmenopausal >1yr: Yes, S/P Hysterectomy: N/A BMI Percentile (PEDS): N/A Risk Assessment: N/A Anesthesia Review: N/A Narrative: N/A Pre-op Considerations: N/A Chart Check: COMPLETED Chris Pastor RN September 26, 2018 11:10 AM ECG COMPLETE W Observed: 09/23/2018 Status: F Source: [place] INTERPRETATION 8:17 AM [facility] REPOSITORY NAME : SHIRA CASTRO PID : [id number] : 1960 Gender : Female Race : ORD : [id number] Procedure Date : Sep 23 2018 08:17:42 Edit Date : Sep 30 2018 15:22:41 Diagnosis:NORMAL SINUS RHYTHM RSR' PATTERN IN V1 SUGGESTS INCOMPLETE RIGHT BUNDLE BRANCH BLOCK NONSPECIFIC T WAVE ABNORMALITY ABNORMAL ECG Confirmed by DAVID DENIS D.O. ([id number]) on 09/30/2018 3:22:36 PM Ventricular Rate : 60 BPM Atrial Rate : 60 BPM P-R Interval : 150 ms QRS Duration : 88 ms Q-T Interval : 428 ms QTC Calculation(Bezet) : 428 ms P Quincy : 18 degrees R Quincy : 10 degrees T Quincy : 55 degrees Test Reason : pre op Location : 189 : [facility] Overread By : DAVID DENIS D.O. Edited By : DAVID DENIS D.O. Referred By : ANGELIKA VARMA Acquired by : dmitri, HISTORY PHYSICAL Observed: 09/23/2018 Status: COMPLETED Source: [place] 8:13 AM [facility] [place] REPOSITORY HNO ID: [id number] Author: Angelika Cole) Yefri Service: (none) Author Type: Physician Overhead Distribution Engineer Type: HANDP Filed: 09/23/2018 8:36 AM Note Text: HISTORY AND PHYSICAL EXAMINATION SERVICE DATE: 09/23/2018 SERVICE TIME: 8:13 AM PRIMARY CARE PHYSICIAN: Owen Solano MD REASON FOR VISIT: Shira Castro is a 58 year old female who is scheduled for repair right achilles tendon at the request of Dr. Leandra Gleason for consultation. My final recommendation will be communicated back to the requesting physician by way of shared medical record or letter. The patient has the following: ACTIVE PROBLEM LIST Hyperlipidemia Htn (Hypertension) Anxiety Depression Sleep Apnea Cad (Coronary Artery Disease) Heartburn Arthritis Chronic Bronchitis (Hcc) Morbid Obesity (Hcc) Achilles Tendinitis of Right Lower Extremity Calcaneal Spur, Right Subjective CHIEF COMPLAINT: right ankle pain HPI: Shira Castro is a 58 year old female that presents c/o a 1 year history of right ankle pain that has worsened with time. No injury and no previous surgery on right ankle. Pain is intermitttent and described as burning and shooting. in nature. Pain does not radiate. Aggravating factors include stairs and a lot of walking. Alleviated by rest. Previous treatments include icing, NSAID, brace. Scheduled for right achilles tendon repair on 09/27. Denies recent fever or chills. PAST MEDICAL HISTORY Diagnosis Date - Adrenal adenoma repeat ct in 07/07 - Anxiety - Arthritis fingers - CAD (coronary artery disease) Dr. Schultz - Chronic bronchitis (HCC) 05/03/2018 - Depression - Heartburn - HTN (hypertension) - Hyperlipidemia - Migraine - Morbid obesity (HCC) 05/03/2018 - Seasonal allergies - Sleep apnea PAST SURGICAL HISTORY Procedure Laterality Date - CABG (1) VEIN GRAFT AND ARTERIAL GRAFT 1999 - EXCIS TENDON SHEATH VICTORIAHAND/FINGR 07/04/2014 Right index finger digital muscous cyst excision - FOOT SURGERY HX Left excision ganglion cyst - REMOVAL GALLBLADDER 2000 Cholecystectomy - REMOVAL OF TONSILS,<12 Y/O 1966 Tonsillectomy alone - REVISE MEDIAN N/CARPAL TUNNEL SURG 07/04/2014 Carpal tunnel decomp right FAMILY HISTORY Problem Relation Age of Onset - Alzheimer's Disease Mother heart attack, galcoma, htn - Glaucoma Mother - Ischemic Heart Disease Mother - Diabetes Father cad, prostate cancer - Stroke Father - Ischemic Heart Disease Father - Cervical Cancer Sister 35 cervical cancer, blood disease - other (Other) Sister 53 hemochromatosis SOCIAL HISTORY: Social History Marital status: Single Spouse name: Years of education: Number of children: Social History Main Topics Smoking status: Former Smoker Packs/day: 1.00 Years: 30.00 Types: Cigarettes Quit date: 09/07/2017 Smokeless tobacco: Former User Alcohol use: No Comment: 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 Take with food. Yes ranolazine SR (RANEXA) 1,000 mg Tb12 Take 1 tablet by mouth twice daily. Yes buPROPion (WELLBUTRIN) 100 mg tablet TAKE 0.5 TABLETS BY MOUTH TWICE DAILY. Yes omeprazole (PRILOSEC) 20 mg capsule TAKE 1 CAPSULE BY MOUTH EVERY DAY Yes lisinopril (ZESTRIL, PRINIVIL) 10 mg tablet TAKE 1 TABLET BY MOUTH EVERY DAY Yes albuterol HFA (VENTOLIN HFA) 90 mcg/actuation inhaler Inhale 2 Puffs as instructed every 4 hours as needed for Wheezing/Shortness of Breath. Yes atorvastatin (LIPITOR) 40 mg tablet TAKE 1 TABLET BY MOUTH DAILY AT BEDTIME. FOR CHOLESTEROL. Yes sertraline (ZOLOFT) 100 mg tablet TAKE 1 TABLET BY MOUTH EVERY DAY Yes meloxicam (MOBIC) 15 mg tablet Take 1 tablet by mouth once daily. With food. Yes Ascorbic Acid (VITAMIN C) 1,000 mg tablet Take 1,000 mg by mouth once daily. Yes Multivitamin capsule Take 1 capsule by mouth once daily. Yes Aspirin 81 mg Tab Take 81 mg by mouth. Yes No medication comments found. ALLERGIES No Known Allergies REVIEW OF SYSTEMS: PAIN ASSESSMENT: General: No weight loss, malaise or fevers. Neuro: No history of TIA's, stroke, DORMITORY COUNSELOR tumor, impaired sensorium, hemiplegia, paraplegia or quadraplegia. No neurological symptoms or problems. Respiratory: Cough 6 weeks ago that has resolved. Former Smoker- quit 1 year. Has been dx'ed with chronic bronchitis and use inhaler when she is ill. TERESA on CPAP. No history of current cough, dyspnea, bronchitis or pneumonia in the last 6 weeks. Cardiovascular: HTN-treated; HLD-treated; Angina-uses Ranexa; +palpitations when she is tired; CAD s/p CABG x 1 vessel AND 1 stent in 1999; Followed by Dr. Andrews; OK to hold ASA. Negative for orthopnea, PND, dizziness, lightheadedness or syncope. Negative for heart murmur. Negative for h/o DVT/PE. Negative for LE edema. No [place]. GI: GERD on Omeprazole; No PUD or liver disease. 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 : Denies, No LMP recorded. Patient is postmenopausal. Endocrine: No history of diabetes. Has not taken steroids within the past 30 days. No history of endocrinological symptoms or problems. Hematology: Chronic anti-coagulation / platelet meds (Aspirin) Oncology: No history of CA metastasis, chemo within 30 days, or radiotherapy within 90 days. Has not lost 10% of body wt in 6 months. No history of oncological symptoms or problems. Psych: Anxiety, Depression-treated Musculoskeletal: Joint pain; No back pain Skin: Negative for lesions, rash and itching. Objective PHYSICAL EXAM: VITALS: BP 126/55 Pulse 61 Temp (Src) 97 (Temporal Artery) Ht 5' 4 (1.63m) Wt 281 lb 6.4 oz (127.6kg) SpO2 95% BMI 48.28 kg/(m2). General: Alert and oriented, No acute distress, Morbidly obese Skin: Normal color, no rash, no lesions. HEENT: EOM, pupils equal, round and reactive., No carotid bruits Cardiovascular: Normal S1 AND S2, no rubs, murmurs or gallops. No JVD. Pulse regular. Lungs: Normal breath sounds, no wheezes or crackles., No chest deformities or chest wall tenderness. Abdomen: Soft, non-tender, no rigidity., No masses or organomegaly. Extremities: BLE trace non-pitting edema Neurological: Normal cognition and motor skills. Gait normal. No weakness or sensory deficit. Pulses: Carotid and radial pulses normal +2. Diagnostic tests reviewed for today's visit: Lab Value Units Date High Low HB No results within date range. HCT No results within date range. WBC No results within date range. PLT No results within date range. NA 140 mmol/L 05/11/2018 144 136 K 4.5 mmol/L 05/11/2018 5.1 3.7 GLUC 91 mg/dL 05/11/2018 99 74 BUN 13 mg/dL 05/11/2018 21 7 CREAT 0.92 mg/dL 05/11/2018 0.96 0.58 PTSEC No results within date range. INR No results within date range. APTT No results within date range. ALT 19 U/L 06/27/2018 38 7 AST 24 U/L 06/27/2018 35 13 TBILI 0.5 mg/dL 06/27/2018 1.3 0.2 TSH No results within date range. Lab Value Units Date High Low HCGQT No results within date range. UHCG No results within date range. HCG, BODY* No results within date range. Lab Value Units Date High Low ABORHD No results within date range. ABSCREEN No results within date range. No results found for: HBA1C Most recent labs Most recent imaging Most recent EKG: Diagnosis:NORMAL SINUS RHYTHM POSSIBLE LEFT ATRIAL ENLARGEMENT INCOMPLETE RIGHT BUNDLE BRANCH BLOCK NON-SPECIFIC ST AND T WAVE CHANGES ABNORMAL ECG NO SIGNIFICANT CHANGE FROM PREVIOUS ECG , reviewed by fuel pilot engineer. All in Epic Assessment ASSESSMENT Patient has the following medical conditions: ? CAD s/p CABG x 1 vessel and stent to RCA (1999) on ASA-OK'ed to hold ASA by Dr. Andrews Morbidly obese-BMI 48.28 Slow Emergence Sleep Apnea on CPAP HTN-treated HLD-treated Angina controlled with Ranexa GERD-Omeprazole Chronic bronchitis-rare inhaler use Former Smoker Anxiety/Depression-RXs METS: Climb a flight of stairs or walk up a hill (5.50 METs) Patient denies any chest pain or undue shortness of breath with the above physical activity. ASA Class: 3 ANESTHESIA FINDINGS: Intubation History: No history of difficult intubation Significant Anesthesia Considerations: Slow emergence and Difficult IV/Vein Access: yes Airway Exam: General: Morbid obesity Mallampati Score is CLASS I ULBT: Class I - Lower incisors can bite the upper lip above the codi line Neck: Normal appearance and function, Distance from hyoid to mentum during neck extension is at least 3 finger breaths Mouth: Normal tongue size and Mouth opening greater than 2 finger breaths Dentition: Caps/crowns Airway History: No history of difficult intubation STOP BANG Score: TERESA uses CPAP/BiPAP PLAN This patient is optimally prepared for surgery pending EKG. CONSULTS: Patient does not require consults for optimization at this time. The Following Tests/Procedures Have Been Initiated: Orders Placed This Encounter EKG Planned Anesthetic: General Instructions Given to Patient: Patient given verbal and written preop instructions and voices comprehension and compliance. SIGNATURE: Angelika Varma PA-C PATIENT NAME: Shira Castro DATE: September 23, 2018 TIME: 8:13 AM PAGER/CONTACT #: [email or web address] Observed: 09/20/2018 Status: COMPLETED Source: [place] 12:00 AM [facility] REPOSITORY Telephone (PODIWS) VENKATESHSHIRA Mason ([id number]) 1960 F Date Time Provider Department 09/20/18 [place] PODIWS During your visit today, we recorded the following information about you: Nury Marquez Ma 09/20/2018 4:21 PM Signed Patient requesting handicap placecard for scheduled surgery. Nury Marquez Ma 09/21/2018 7:[address] Vidal, order pended for handicap place card. Please review and sign. Nury Vidal DPM 09/21/2018 7:52 AM Signed Parking for handicapped signed BRETT Narvaez RN 09/21/2018 8:43 AM Signed Left pt VM to contact office to inform that order for handicap is ready and signed by Dr. Vidal. It will be at Pul/General Surgery PSR desk for patient to hand picker. Allergies As of Date: 09/20/2018 (No Known Allergies) Date Reviewed: 08/23/2018 Reviewed by: Millie Marsh LPN - Fully Assessed Reason for Visit: handicap [Other] Primary Visit Diagnosis:Achilles tendinitis of right lower extremity [M76.61] Order(s):PARKING FOR HANDICAPPED [[id number]] Order #: [id number] Prescriptions as of 09/20/2018 Sig: IBUPROFEN 800 MG TABLET Take 1 tablet by mouth every * PREDNISONE 20 MG TABLET Take 2 tablets by mouth once * RANOLAZINE ER 1,000 MG TABLET* Take 1 tablet by mouth twice * BUPROPION HCL 100 MG TABLET TAKE 0.5 TABLETS BY MOUTH TWI* OMEPRAZOLE 20 MG CAPSULE,ABHINAV* TAKE 1 CAPSULE BY MOUTH EVERY* LISINOPRIL 10 MG TABLET TAKE 1 TABLET BY MOUTH EVERY * ALBUTEROL SULFATE HFA 90 MCG/* Inhale 2 Puffs as instructed * ATORVASTATIN 40 MG TABLET TAKE 1 TABLET BY MOUTH DAILY * SERTRALINE 100 MG TABLET TAKE 1 TABLET BY MOUTH EVERY * AMMONIUM LACTATE 12 % LOTION Apply 1 application to affect* MELOXICAM 15 MG TABLET Take 1 tablet by mouth once d* ASCORBIC ACID (VITAMIN C) 1,0* Take 1,000 mg by mouth once d* MULTIVITAMIN CAPSULE Take 1 capsule by mouth once * ASPIRIN 81 MG TABLET Take 81 mg by mouth. Problem List As Of Date 09/20/2018 Noted Resolved Hyperlipidemia [E78.5] HTN (hypertension) [I10] Anxiety [F41.9] Depression [F32.9] Sleep apnea [G47.30] Carpal tunnel syndrome, right [G56.01] INVALID FOR*12/21/2016 Digital mucous cyst [M67.449] INVALID FOR*12/21/2016 Ganglion cyst of left foot [M67.472] INVALID FOR* More... CAD (coronary artery disease) [I25.10] INVALID FOR* More... Heartburn [R12] INVALID FOR* Arthritis [M19.90] INVALID FOR* More... Chronic bronchitis (HCC) [J42] INVALID FOR* Morbid obesity (HCC) [E66.01] INVALID FOR* Achilles tendinitis of right lower extremity [M*INVALID FOR* Calcaneal spur, right [M77.31] INVALID FOR* Encounter Status:Closed by [place] V[place]AL DPM on 09/21/18 CNCO Observed: 09/19/2018 Status: COMPLETED Source: [place] 12:00 AM [facility] REPOSITORY Letter Text [facility] [place] [address] [address] 09/20/2018 To Whom it May Concern, My patient, Shira Castro, is scheduled for surgery on 09/27/18. She will need to remain off work for approximately 3 months (estimated RTW 12/2018). If you have any questions, please feel free to contact my office. Sincerely, India Vidal D.P.M. PROGRESS Observed: 08/23/2018 Status: COMPLETED Source: [place] 3:25 PM [facility] REPOSITORY HNO ID: [id number] Author: Zelalem Weston (Keegan) Rowdy Service: (none) Author Type: Physician Overhead Distribution Engineer Type: Progress Notes Filed: 08/23/2018 3:42 PM Note Text: 58 year old female with c/o URI sx with hoarseness, dry cough, feeling SOB. Occasional thick green sputum. No sinus congestion or headache. Advil cold and sinus this morning helped with cough. Wheezing. Hx seasonal allergies, bronchitis. Quit smoking a year ago. HISTORIES FAMILY HISTORY Problem Relation Age of Onset - Alzheimer's Disease Mother heart attack, galcoma, htn - Glaucoma Mother - Ischemic Heart Disease Mother - Diabetes Father cad, prostate cancer - Stroke Father - Ischemic Heart Disease Father - Cervical Cancer Sister 35 cervical cancer, blood disease - other (Other) Sister 53 hemochromatosis PAST MEDICAL HISTORY Diagnosis Date - Adrenal adenoma repeat ct in 07/07 - Anxiety - Arthritis fingers - CAD (coronary artery disease) Dr. Schultz - Chronic bronchitis (HCC) 05/03/2018 - Depression - Heartburn - HTN (hypertension) - Hyperlipidemia - Migraine - Morbid obesity (HCC) 05/03/2018 - Seasonal allergies - Sleep apnea PAST SURGICAL HISTORY Procedure Laterality Date - CABG (1) VEIN GRAFT AND ARTERIAL GRAFT 1999 - EXCIS TENDON SHEATH LESN,HAND/FINGR 07/04/2014 Right index finger digital muscous cyst excision - REMOVAL GALLBLADDER 2000 Cholecystectomy - REMOVAL OF TONSILS,<12 Y/O 1966 Tonsillectomy alone - REVISE MEDIAN N/CARPAL TUNNEL SURG 07/04/2014 Carpal tunnel decomp right Social History Marital status: Single Spouse name: Years of education: Number of children: Social History Main Topics Smoking status: Former Smoker Packs/day: 1.00 Years: 30.00 Types: Cigarettes Quit date: 09/07/2017 Smokeless tobacco: Former User Alcohol use: No Comment: 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 Disp: 60 tablet Rfl: 11 buPROPion (WELLBUTRIN) 100 mg tablet TAKE 0.5 TABLETS BY MOUTH TWICE DAILY. Disp: 30 tablet Rfl: 5 omeprazole (PRILOSEC) 20 mg capsule TAKE 1 CAPSULE BY MOUTH EVERY DAY Disp: 30 capsule Rfl: 11 lisinopril (ZESTRIL, PRINIVIL) 10 mg tablet TAKE 1 TABLET BY MOUTH EVERY DAY Disp: 30 tablet Rfl: 11 albuterol HFA (VENTOLIN HFA) 90 mcg/actuation inhaler Inhale 2 Puffs as instructed every 4 hours as needed for Wheezing/Shortness of Breath. Disp: 1 Inhaler Rfl: 0 atorvastatin (LIPITOR) 40 mg tablet TAKE 1 TABLET BY MOUTH DAILY AT BEDTIME. FOR CHOLESTEROL. Disp: 30 tablet Rfl: 10 sertraline (ZOLOFT) 100 mg tablet TAKE 1 TABLET BY MOUTH EVERY DAY Disp: 90 tablet Rfl: 3 ammonium lactate (AMLACTIN) 12 % lotion Apply 1 application to affected area twice daily as needed. Disp: 1 Bottle Rfl: 5 meloxicam (MOBIC) 15 mg tablet Take 1 tablet by mouth once daily. With food. Disp: 20 tablet Rfl: 0 ibuprofen (MOTRIN) 800 mg tablet Take 1 tablet by mouth every 6 hours as needed for Pain. Take with food. Disp: 40 tablet Rfl: 1 Ascorbic Acid (VITAMIN C) 1,000 mg tablet Take 1,000 mg by mouth once daily. Disp: Rfl: Multivitamin capsule Take 1 capsule by mouth once daily. Disp: Rfl: Aspirin 81 mg Tab Take 81 mg by mouth. Disp: Rfl: No current facility-administered medications for this visit. HEPATITIS C SCREENING due on 2005 PAP EVERY 5 YEARS due on 11/24/2017 HPV EVERY 5 YEARS due on 11/24/2017 INFLUENZA(1) due on 07/23/2018 EXAM: OBJECTIVE: BP 104/72 Pulse 64 Temp (!) 35.1 ?C (95.1 ?F) (Tympanic) Resp 16 Wt 129.3 kg (285 lb) BMI 47.43 kg/m? General appearance: Pleasant obese adult woman wiht hoarse voice and a rattly cough. Respirations: regular, unlabored Color: pink to lips and nailbeds, normal turgor Skin: warm, dry, no unusual rashes or lesions Head: Normocephalic Eyes: sclerae and conjunctivae without injection or exudate, PERRLA, EOMI, corneal light reflex symmetric bilaterally Ears: TM's are clear/ go bilaterally with normal landmarks, no swelling or deformity ear canal or external ear Nose/Sinuses: Nose patent. No turbinate swelling. Active exudate: non. Maxillary and frontal sinuses nontender to percussion. Oropharynx: oral membranes are moist. Lips, mucosa, and tongue free from lesions. Gums without inflammation. Posterior pharynx no injection, no exudate, no tonsillar hypertrophy. Neck: Neck supple, no lymphadenopathy; thyroid without mass or tenderness. Chest: normally shaped, equal expansion with breaths. Lungs: Lungs clear to auscultation and percussion. No crackles or wheezes. Heart: RRR without murmur, gallop, or rubs. S1 and S2 normal. ASSESSMENT/PLAN: 1. Tendonitis, Achilles, right - ICD9: 726.71, ICD10: M76.61 (primary diagnosis) Refill ibprofen 2. Tracheobronchitis - ICD9: 490, ICD10: J40 - Prednisone 20-40mg daily x 5 days for chest tightness and wheezing - Albuterol MDI prn - If fever, worse: Z-pack (printed): not to use unless fever, pneumonia sx. Zelalem Reno PA-C CNOV Observed: 08/23/2018 Status: COMPLETED Source: [place] 3:20 PM [facility] REPOSITORY Office Visit (FAMPWS) SHIRA CASTRO ([id number]) 1960 F Date Time Provider Department 08/23/18 3:20 PM Zelalem RENO) FAMPWS During your visit today, we recorded the following information about you: Temperature Pulse Respiration Blood pressure 95.1 degrees 64/minute 16/minute 104/72 Weight 129.3 kg Zelalem Reno PA-C 08/23/2018 3:42 PM Signed 58 year old female with c/o URI sx with hoarseness, dry cough, feeling SOB. Occasional thick green sputum. No sinus congestion or headache. Advil cold and sinus this morning helped with cough. Wheezing. Hx seasonal allergies, bronchitis. Quit smoking a year ago. HISTORIES FAMILY HISTORY Problem Relation Age of Onset - Alzheimer's Disease Mother heart attack, galcoma, htn - Glaucoma Mother - Ischemic Heart Disease Mother - Diabetes Father cad, prostate cancer - Stroke Father - Ischemic Heart Disease Father - Cervical Cancer Sister 35 cervical cancer, blood disease - other (Other) Sister 53 hemochromatosis PAST MEDICAL HISTORY Diagnosis Date - Adrenal adenoma repeat ct in 07/07 - Anxiety - Arthritis fingers - CAD (coronary artery disease) Dr. Schultz - Chronic bronchitis (HCC) 05/03/2018 - Depression - Heartburn - HTN (hypertension) - Hyperlipidemia - Migraine - Morbid obesity (HCC) 05/03/2018 - Seasonal allergies - Sleep apnea PAST SURGICAL HISTORY Procedure Laterality Date - CABG (1) VEIN GRAFT AND ARTERIAL GRAFT 1999 - EXCIS TENDON SHEATH KEN KESSLER/FINGR 07/04/2014 Right index finger digital muscous cyst excision - REMOVAL GALLBLADDER 2000 Cholecystectomy - REMOVAL OF TONSILS,<12 Y/O 1966 Tonsillectomy alone - REVISE MEDIAN N/CARPAL TUNNEL SURG 07/04/2014 Carpal tunnel decomp right Social History Marital status: Single Spouse name: Years of education: Number of children: Social History Main Topics Smoking status: Former Smoker Packs/day: 1.00 Years: 30.00 Types: Cigarettes Quit date: 09/07/2017 Smokeless tobacco: Former User Alcohol use: No Comment: 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 Disp: 60 tablet Rfl: 11 buPROPion (WELLBUTRIN) 100 mg tablet TAKE 0.5 TABLETS BY MOUTH TWICE DAILY. Disp: 30 tablet Rfl: 5 omeprazole (PRILOSEC) 20 mg capsule TAKE 1 CAPSULE BY MOUTH EVERY DAY Disp: 30 capsule Rfl: 11 lisinopril (ZESTRIL, PRINIVIL) 10 mg tablet TAKE 1 TABLET BY MOUTH EVERY DAY Disp: 30 tablet Rfl: 11 albuterol HFA (VENTOLIN HFA) 90 mcg/actuation inhaler Inhale 2 Puffs as instructed every 4 hours as needed for Wheezing/Shortness of Breath. Disp: 1 Inhaler Rfl: 0 atorvastatin (LIPITOR) 40 mg tablet TAKE 1 TABLET BY MOUTH DAILY AT BEDTIME. FOR CHOLESTEROL. Disp: 30 tablet Rfl: 10 sertraline (ZOLOFT) 100 mg tablet TAKE 1 TABLET BY MOUTH EVERY DAY Disp: 90 tablet Rfl: 3 ammonium lactate (AMLACTIN) 12 % lotion Apply 1 application to affected area twice daily as needed. Disp: 1 Bottle Rfl: 5 meloxicam (MOBIC) 15 mg tablet Take 1 tablet by mouth once daily. With food. Disp: 20 tablet Rfl: 0 ibuprofen (MOTRIN) 800 mg tablet Take 1 tablet by mouth every 6 hours as needed for Pain. Take with food. Disp: 40 tablet Rfl: 1 Ascorbic Acid (VITAMIN C) 1,000 mg tablet Take 1,000 mg by mouth once daily. Disp: Rfl: Multivitamin capsule Take 1 capsule by mouth once daily. Disp: Rfl: Aspirin 81 mg Tab Take 81 mg by mouth. Disp: Rfl: No current facility-administered medications for this visit. HEPATITIS C SCREENING due on 2005 PAP EVERY 5 YEARS due on 11/24/2017 HPV EVERY 5 YEARS due on 11/24/2017 INFLUENZA(1) due on 07/23/2018 EXAM: OBJECTIVE: BP 104/72 Pulse 64 Temp (!) 35.1 ?C (95.1 ?F) (Tympanic) Resp 16 Wt 129.3 kg (285 lb) BMI 47.43 kg/m? General appearance: Pleasant obese adult woman wiht hoarse voice and a rattly cough. Respirations: regular, unlabored Color: pink to lips and nailbeds, normal turgor Skin: warm, dry, no unusual rashes or lesions Head: Normocephalic Eyes: sclerae and conjunctivae without injection or exudate, PERRLA, EOMI, corneal light reflex symmetric bilaterally Ears: TM's are clear/ go bilaterally with normal landmarks, no swelling or deformity ear canal or external ear Nose/Sinuses: Nose patent. No turbinate swelling. Active exudate: non. Maxillary and frontal sinuses nontender to percussion. Oropharynx: oral membranes are moist. Lips, mucosa, and tongue free from lesions. Gums without inflammation. Posterior pharynx no injection, no exudate, no tonsillar hypertrophy. Neck: Neck supple, no lymphadenopathy; thyroid without mass or tenderness. Chest: normally shaped, equal expansion with breaths. Lungs: Lungs clear to auscultation and percussion. No crackles or wheezes. Heart: RRR without murmur, gallop, or rubs. S1 and S2 normal. ASSESSMENT/PLAN: 1. Tendonitis, Achilles, right - ICD9: 726.71, ICD10: M76.61 (primary diagnosis) Refill ibprofen 2. Tracheobronchitis - ICD9: 490, ICD10: J40 - Prednisone 20-40mg daily x 5 days for chest tightness and wheezing - Albuterol MDI prn - If fever, worse: Z-pack (printed): not to use unless fever, pneumonia sx. M KEEGAN Acuña PA-C 08/23/2018 3:41 PM Signed Laryngitis What is laryngitis? Laryngitis is inflammation of the vocal cords and the area around them (the larynx, or voice box). It causes hoarseness. Sometimes it's hard to speak at all. Laryngitis may be acute or chronic. Acute laryngitis occurs suddenly and lasts no more than a few days to a week. Laryngitis is chronic if the hoarseness in your throat lasts for a long time. How does it occur? Laryngitis can be a symptom of a cold, flu, bronchitis, sinusitis, and other respiratory infections or allergies. Acute laryngitis is usually caused by a virus, but it can also result from a bacterial infection. Chronic laryngitis can be caused by: heavy smoking shouting, singing, or excessive use of the voice, such as in teaching or public speaking coughing forcefully exposure to dust or chemicals. Things other than laryngitis that might cause a change in the voice over the course of a few weeks are: thyroid disease noncancerous growths on the vocal cords cancer of the vocal cords. What are the symptoms? Symptoms of both acute and chronic laryngitis may include: low, raspy voice and hoarseness a cough that is dry (meaning that you usually aren't coughing up mucus) a throat that feels dry a sore throat a voice that weakens as the day progresses. Sometimes you may lose your voice completely. How is it diagnosed? Your health care provider will ask about your symptoms and how long you have had them. Your provider will listen to your voice and examine you. Your provider will also examine your thyroid gland (the gland located near your voice box) and the lymph glands in your neck. Lab tests and x-rays may be done, but often they do not find a specific cause. If necessary, your health care provider will look at your voice box and surrounding area with a flexible laryngoscope (a special light to see past your tongue). How is it treated? The main treatment is resting your voice as much as you can. Your health care provider may recommend taking a nonprescription pain reliever, such as ibuprofen. He or she may also prescribe medicine. For example, your provider may prescribe a steroid spray for your throat. Or, if your laryngitis is caused by sinusitis or bronchitis, your treatment may include taking medicine for these conditions. How long will the effects last? When acute laryngitis is caused by a virus, it usually goes away in a few days without medicine. Laryngitis caused by bacteria should also be better in a few days with treatment. If you have chronic laryngitis, your condition should improve with a week of resting your voice. If your hoarseness lasts more than 3 weeks, see your health care provider. You may need more tests to check for other diseases. How can I take care of myself? Follow the treatment prescribed by your health care provider. Do not smoke. Avoid breathing irritating smoke, dust, and fumes. Rest your voice as much as possible. Drink extra fluids, such as water, fruit juice, and tea. Take hot, steamy showers and breathe in the moist air, or breathe through a hot, moist towel. Use a vaporizer or humidifier to add moisture to the air. See your provider if your laryngitis lasts more than 3 weeks. What can I do to help prevent laryngitis? Get plenty of rest when you have a viral or bacterial infection, such as a cold or sinusitis. Avoid vocal strain by not yelling, screaming, or talking loudly, especially when you have a cold or other throat or sinus infection. Don't smoke and avoid exposure to smoke. Keep your home well humidified. Published by [employer]. This content is reviewed periodically and is subject to change as new health information becomes available. The information is intended to inform and educate and is not a replacement for medical evaluation, advice, diagnosis or treatment by a healthcare professional. Developed by [employer]. Copyright ? 2004 [employer] and/or one of its subsidiaries. All Rights Reserved. Special Instructions: Voice rest until improving Prednisone as directed Albuterol MDI for wheezing if needed. Push fluids. Z-pack if pneumonia sx. Copyright ? [employer] 2005 [employer] Copyright ? 2006 [employer] All rights reserved. Referring Provider: SELF [200] Allergies As of Date: 08/23/2018 (No Known Allergies) Date Reviewed: 08/23/2018 Reviewed by: Millie Marsh LPN - Fully Assessed Reason for Visit: Cough [28] Cmt: productive at time with green sputum on going for about 4 days Chest Congestion [236] Difficulty Breathing [206] Primary Visit Diagnosis:Tendonitis, Achilles, right [M76.61] Other Visit Diagnosis:Tracheobronchitis [J40] Order(s):ibuprofen (MOTRIN) 800 mg tabletTake 1 tablet by mouth every 6 hours as needed for Pain. Take with food.Disp: 40 tabletRfl: 1 predniSONE (DELTASONE) 20 mg tabletTake 2 tablets by mouth once daily.Disp: 10 tabletRfl: 0 azithromycin (ZITHROMAX Z-ALYCE) 250 mg tabletTake 2 tablets day one, then, 1 tablet daily until gone.Disp: 1 PackageRfl: 0 Prescriptions as of 08/23/2018 Sig: IBUPROFEN 800 MG TABLET Take 1 tablet by mouth every * RANOLAZINE ER 1,000 MG TABLET* Take 1 tablet by mouth twice * BUPROPION HCL 100 MG TABLET TAKE 0.5 TABLETS BY MOUTH TWI* OMEPRAZOLE 20 MG CAPSULE,ABHINAV* TAKE 1 CAPSULE BY MOUTH EVERY* LISINOPRIL 10 MG TABLET TAKE 1 TABLET BY MOUTH EVERY * ALBUTEROL SULFATE HFA 90 MCG/* Inhale 2 Puffs as instructed * ATORVASTATIN 40 MG TABLET TAKE 1 TABLET BY MOUTH DAILY * SERTRALINE 100 MG TABLET TAKE 1 TABLET BY MOUTH EVERY * AMMONIUM LACTATE 12 % LOTION Apply 1 application to affect* MELOXICAM 15 MG TABLET Take 1 tablet by mouth once d* ASCORBIC ACID (VITAMIN C) 1,0* Take 1,000 mg by mouth once d* MULTIVITAMIN CAPSULE Take 1 capsule by mouth once * ASPIRIN 81 MG TABLET Take 81 mg by mouth. PREDNISONE 20 MG TABLET Take 2 tablets by mouth once * AZITHROMYCIN 250 MG TABLET Take 2 tablets day one, then,* Problem List As Of Date 08/23/2018 Noted Resolved Hyperlipidemia [E78.5] HTN (hypertension) [I10] Anxiety [F41.9] Depression [F32.9] Sleep apnea [G47.30] Carpal tunnel syndrome, right [G56.01] INVALID FOR*12/21/2016 Digital mucous cyst [M67.449] INVALID FOR*12/21/2016 Ganglion cyst of left foot [M67.472] INVALID FOR* More... CAD (coronary artery disease) [I25.10] INVALID FOR* More... Heartburn [R12] INVALID FOR* Arthritis [M19.90] INVALID FOR* More... Chronic bronchitis (HCC) [J42] INVALID FOR* Morbid obesity (HCC) [E66.01] INVALID FOR* Achilles tendinitis of right lower extremity [M*INVALID FOR* Calcaneal spur, right [M77.31] INVALID FOR* Other instructions from your clinician: Laryngitis What is laryngitis? Laryngitis is inflammation of the vocal cords and the area around them (the larynx, or voice box). It causes hoarseness. Sometimes it's hard to speak at all. Laryngitis may be acute or chronic. Acute laryngitis occurs suddenly and lasts no more than a few days to a week. Laryngitis is chronic if the hoarseness in your throat lasts for a long time. How does it occur? Laryngitis can be a symptom of a cold, flu, bronchitis, sinusitis, and other respiratory infections or allergies. Acute laryngitis is usually caused by a virus, but it can also result from a bacterial infection. Chronic laryngitis can be caused by: heavy smoking shouting, singing, or excessive use of the voice, such as in teaching or public speaking coughing forcefully exposure to dust or chemicals. Things other than laryngitis that might cause a change in the voice over the course of a few weeks are: thyroid disease noncancerous growths on the vocal cords cancer of the vocal cords. What are the symptoms? Symptoms of both acute and chronic laryngitis may include: low, raspy voice and hoarseness a cough that is dry (meaning that you usually aren't coughing up mucus) a throat that feels dry a sore throat a voice that weakens as the day progresses. Sometimes you may lose your voice completely. How is it diagnosed? Your health care provider will ask about your symptoms and how long you have had them. Your provider will listen to your voice and examine you. Your provider will also examine your thyroid gland (the gland located near your voice box) and the lymph glands in your neck. Lab tests and x-rays may be done, but often they do not find a specific cause. If necessary, your health care provider will look at your voice box and surrounding area with a flexible laryngoscope (a special light to see past your tongue). How is it treated? The main treatment is resting your voice as much as you can. Your health care provider may recommend taking a nonprescription pain reliever, such as ibuprofen. He or she may also prescribe medicine. For example, your provider may prescribe a steroid spray for your throat. Or, if your laryngitis is caused by sinusitis or bronchitis, your treatment may include taking medicine for these conditions. How long will the effects last? When acute laryngitis is caused by a virus, it usually goes away in a few days without medicine. Laryngitis caused by bacteria should also be better in a few days with treatment. If you have chronic laryngitis, your condition should improve with a week of resting your voice. If your hoarseness lasts more than 3 weeks, see your health care provider. You may need more tests to check for other diseases. How can I take care of myself? Follow the treatment prescribed by your health care provider. Do not smoke. Avoid breathing irritating smoke, dust, and fumes. Rest your voice as much as possible. Drink extra fluids, such as water, fruit juice, and tea. Take hot, steamy showers and breathe in the moist air, or breathe through a hot, moist towel. Use a vaporizer or humidifier to add moisture to the air. See your provider if your laryngitis lasts more than 3 weeks. What can I do to help prevent laryngitis? Get plenty of rest when you have a viral or bacterial infection, such as a cold or sinusitis. Avoid vocal strain by not yelling, screaming, or talking loudly, especially when you have a cold or other throat or sinus infection. Don't smoke and avoid exposure to smoke. Keep your home well humidified. ----- Published by [employer]. This content is reviewed periodically and is subject to change as new health information becomes available. The information is intended to inform and educate and is not a replacement for medical evaluation, advice, diagnosis or treatment by a healthcare professional. Developed by [employer]. Copyright ? 2004 [employer] and/or one of its subsidiaries. All Rights Reserved. Special Instructions: Voice rest until improving Prednisone as directed Albuterol MDI for wheezing if needed. Push fluids. Z-pack if pneumonia sx. Copyright ? [employer] 2004 [employer] Copyright ? 2005 [employer] All rights reserved. Prescriptions ordered this encounter Disp Refills Start End IBUPROFEN 800 MG TABLET 40 t* 1 08/23/2018 Route: ORAL Sig: Take 1 tablet by mouth every 6 hours as needed for Pain. Take with food. PREDNISONE 20 MG TABLET 10 t* 0 08/23/2018 Route: ORAL Sig: Take 2 tablets by mouth once daily. AZITHROMYCIN 250 MG TABLET 1 Pa* 0 08/23/2018 08/28/2018 Class: Print RX Sig: Take 2 tablets day one, then, 1 tablet daily until gone. Medications Discontinued During This Encounter ibuprofen (MOTRIN) 800 mg tablet 40 t* 1 04/29/2017 08/23/2018 Route: ORAL Sig: Take 1 tablet by mouth every 6 hours as needed for Pain. Take with food. Disc: Reason for discontinue is not on file. Encounter Status:Closed by Zelalem RENO PA-C on 08/23/18 HOSP Observed: 08/23/2018 Status: COMPLETED Source: [place] 12:00 AM [facility] REPOSITORY Patient:Shira Castro MRN: <[id number]> Height:5' 4(1.626 m) Weight:281 lb 6.4 oz (127.642 kg) Outpatient Medications as of 09/27/18: oxyCODONE-acetaminophen (PERCOCET) 5-325 mg tablet cephALEXin (KEFLEX) 500 mg capsule ibuprofen (MOTRIN) 800 mg tablet ranolazine SR (RANEXA) 1,000 mg Tb12 buPROPion (WELLBUTRIN) 100 mg tablet omeprazole (PRILOSEC) 20 mg capsule lisinopril (ZESTRIL, PRINIVIL) 10 mg tablet albuterol HFA (VENTOLIN HFA) 90 mcg/actuation inhaler atorvastatin (LIPITOR) 40 mg tablet sertraline (ZOLOFT) 100 mg tablet meloxicam (MOBIC) 15 mg tablet Ascorbic Acid (VITAMIN C) 1,000 mg tablet Multivitamin capsule Aspirin 81 mg Tab Admission/Clinic Administered Medications as of 09/27/18: lactated ringers infusion lidocaine 10 mg/mL (1 %) 1-2 mg injection (XYLOCAINE) lactated ringers infusion lidocaine 10 mg/mL (1 %) 1-2 mg injection (XYLOCAINE) lactated ringers infusion ceFAZolin 3 g in D5W 100 mL (ANCEF) Problem List: Hyperlipidemia [E78.5] HTN (hypertension) [I10] Anxiety [F41.9] Depression [F32.9] Sleep apnea [G47.30] CAD (coronary artery disease) [I25.10] Heartburn [R12] Arthritis [M19.90] Chronic bronchitis (HCC) [J42] Morbid obesity (HCC) [E66.01] Achilles tendinitis of right lower extremity [M76.61] Calcaneal spur, right [M77.31] Obesity, Class III, BMI >= 40 [E66.01] Allergies: No Known Allergies Date Verified:09/27/18 Lab Values No results within the last 30 days for the following basenames: K,HCT Progress Notes ([facility]): Jo House RN 09/26/2018 5:23 PM Signed I called and LM on VM informing the patient that Victorino Saldana sent an antibiotic to her [facility] pharmacy for her to hand picker and begin using tomorrow AFTER surgery. Also informed her that she will be provided with a script for pain meds tomorrow prior to being discharged. I left the return phone # should she need to contact us with any questions. Jo House RN Progress Notes ([facility]): Jo Whatley RN 09/26/2018 5:37 PM Signed Rx for Percocet for postop pain use will be given to patient at the surgery center on the day of surgery. Rx for Keflex was electronically sent to patient's pharmacy by Dr. Gleason. Patient was notified of the status of these medications and that these are for post-op use. Jo Whatley RN ONC PROGRESS Observed: 08/19/2018 Status: COMPLETED Source: [place] 2:22 PM [facility] RE[facility] HNO ID: [id number] Author: Leandra Gleason Service: (none) Author Type: Physician Type: Progress Notes Filed: 08/22/2018 7:10 AM Note Text: The patient is seen and examined by Dr. Leandra Gleason and the following reflects his service. Scribed by Zoila Conley Ma New Patient Referring Physician: Owen Solano MD Shira Castro is a 58 year old female referred by Owen Solano MD for an office consultation for problems related to Patient presents with: Right Ankle Pain: New Right Heel Pain . Do you have a metal allergy?: No Current Outpatient Prescriptions: ranolazine SR (RANEXA) 1,000 mg Tb12 Take 1 tablet by mouth twice daily. Disp: 60 tablet Rfl: 11 buPROPion (WELLBUTRIN) 100 mg tablet TAKE 0.5 TABLETS BY MOUTH TWICE DAILY. Disp: 30 tablet Rfl: 5 omeprazole (PRILOSEC) 20 mg capsule TAKE 1 CAPSULE BY MOUTH EVERY DAY Disp: 30 capsule Rfl: 11 lisinopril (ZESTRIL, PRINIVIL) 10 mg tablet TAKE 1 TABLET BY MOUTH EVERY DAY Disp: 30 tablet Rfl: 11 albuterol HFA (VENTOLIN HFA) 90 mcg/actuation inhaler Inhale 2 Puffs as instructed every 4 hours as needed for Wheezing/Shortness of Breath. Disp: 1 Inhaler Rfl: 0 atorvastatin (LIPITOR) 40 mg tablet TAKE 1 TABLET BY MOUTH DAILY AT BEDTIME. FOR CHOLESTEROL. Disp: 30 tablet Rfl: 10 sertraline (ZOLOFT) 100 mg tablet TAKE 1 TABLET BY MOUTH EVERY DAY Disp: 90 tablet Rfl: 3 ammonium lactate (AMLACTIN) 12 % lotion Apply 1 application to affected area twice daily as needed. Disp: 1 Bottle Rfl: 5 meloxicam (MOBIC) 15 mg tablet Take 1 tablet by mouth once daily. With food. Disp: 20 tablet Rfl: 0 ibuprofen (MOTRIN) 800 mg tablet Take 1 tablet by mouth every 6 hours as needed for Pain. Take with food. Disp: 40 tablet Rfl: 1 Ascorbic Acid (VITAMIN C) 1,000 mg tablet Take 1,000 mg by mouth once daily. Disp: Rfl: Multivitamin capsule Take 1 capsule by mouth once daily. Disp: Rfl: Aspirin 81 mg Tab Take 81 mg by mouth. Disp: Rfl: No current facility-administered medications for this visit. Allergies As of Date: 08/19/2018 (No Known Allergies) Fully Assessed 08/19/2018 PAST MEDICAL HISTORY Diagnosis Date - Adrenal adenoma repeat ct in 07/07 - Anxiety - Arthritis fingers - CAD (coronary artery disease) Dr. 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 Yes LOCATION: right ankle PAIN SCALE: 3 on a scale of 0-10 PAIN CHARACTER: burning and sharp DURATION: (How long have you had the pain?) 1 years FREQUENCY: (How often does the pain occur?) occurs intermittently AGGRAVATING FACTORS: activity, walking and shoes ALLEVIATING FACTORS: resting and no weight-bearing MEDICATIONS: none Have you ever seen a pain management physician: No Have you ever taken any pain medications (Narcotics): Yes Pain Onset:progressive Does the pain radiate? Yes: up lower leg Associated Factors: swelling and redness Precipitating Factors: Walking Relieving Factors: resting Progression: Worsening Previous Treatment as follows: Gel sock ROS: Have you had any problems or treatment of the following? If yes please describe. Head:No Eyes:No Ears, nose or throat: No Lungs: No Heart or blood pressure: Yes: Bypass Sept. 1999 Stomach or Bowels: Yes: gallbladder removed Kidney or Bladder: No Female organs: No Nerve or mental illness: Yes; depression DM: No Peripheral Vascular Disease: No Inflammatory Arthritis: Yes: Fingers Other: Bleeding Disorders: No FAMILY HISTORY: Has any member of your immediate family (parents or siblings) had this same problem? If so , who? and what? No SOCIAL HISTORY Marital Status: single (never ) Tobacco: Ex-smoker, quit 1 years ago Alcohol: No alcohol consumption WORKERS' COMPENSATION CLAIM Have you missed work for this problem? No If yes, what dates have you missed? Pending Litigation? No What tests have been done for this problem? X-Rays and MRI Scan The patient's pertinent medical history from [facility] has been reviewed. PFOMIS forms have been reviewed. The patient's history of present illness has been confirmed. PHYSICAL EXAM: right ankle, right heel Physical examination reveals an alert and oriented patient who is in no acute distress while sitting and is of normal mood and affect. Ht 165.1 cm (5' 5) Wt 129.3 kg (285 lb) BMI 47.43 kg/m? Gait Cycle: Normal No, Limp: antalgic:right. Inspection: Alignment: Posterior calcaneal prominence Symmetry: Swelling: yes. Redness: no. Ecchymosis: no Effusion: 0 Palpation: Warmth: no, Tenderness:Yes: Foot Achilles and Posterior Heel ROM: Ankle- Normal. Strength: 5 Stability: Ligamentous instability: no Specialized Tests: Fabian Test: Good plantar flexion Neurologic Status: normal. Vascular Status: normal Skin: Normal Xrays: Posterior calcification, calcaneal spur MRI: Achilles tendinosis Dx: (M76.61) Achilles tendinitis of right lower extremity (primary encounter diagnosis) (M77.31) Calcaneal spur, right Plan: Patient referred by Dr. India Vidal who has chronic Achilles tendinosis with partial tearing calcifications on the posterior calcaneus. I discussed at length with her today the surgical procedure of Achilles tendon debridement and calcaneal debridement, excision of Sari's deformity and FHL tendon transfer. She will very discuss this with Dr. Vidal. She will turn coordinated today with 2 of us can operate jointly. I have discussed surgical and non-surgical methods of treatment with the patient. The natural history and course were discussed in relation to the options. Surgical risks, benefits, algorythm, post-operative course, and all possible outcomes were discussed in great detail. The patient will decide how they want to proceed. Procedure: Right Achilles tendon debridement, excision of Sari's deformity and calcaneal spurs. FHL tendon transfer. The risks, benefits and anticipated outcomes of the procedure, the risks and benefits of the alternatives to the procedure, and the roles and tasks of the personnel to be involved, were discussed with the patient, and the patient consents to the procedure and agrees to proceed. Equipment needed for surgery: Arthrex tenodesis set, prone position, mini C-arm Time required for surgery: 90 minutes HPI explored in detail with patient and edited as necessary. This note was partially generated using [employer] voice recognition system, and there may be some incorrect words, spellings, and punctuation that were not noted in checking the note before saving. Leandra Gleason M.D. CNOV Observed: 08/19/2018 Status: COMPLETED Source: [place] 2:00 PM [facility] REPOSITORY Office Visit (ORTHIN) SHIRA CASTRO ([id number]) 1960 F Date Time Provider Department 08/19/18 2:00 PM LEANDRA GLEASON During your visit today, we recorded the following information about you: Weight Height 129.3 kg 1.651 m Leandra Gleason MD 08/22/2018 7:10 AM Signed The patient is seen and examined by Dr. Leandra Gleason and the following reflects his service. Scribed by Zoila Conley Ma New Patient Referring Physician: MD Shira Gill is a 58 year old female referred by Owen Solano MD for an office consultation for problems related to Patient presents with: Right Ankle Pain: New Right Heel Pain . Do you have a metal allergy?: No Current Outpatient Prescriptions: ranolazine SR (RANEXA) 1,000 mg Tb12 Take 1 tablet by mouth twice daily. Disp: 60 tablet Rfl: 11 buPROPion (WELLBUTRIN) 100 mg tablet TAKE 0.5 TABLETS BY MOUTH TWICE DAILY. Disp: 30 tablet Rfl: 5 omeprazole (PRILOSEC) 20 mg capsule TAKE 1 CAPSULE BY MOUTH EVERY DAY Disp: 30 capsule Rfl: 11 lisinopril (ZESTRIL, PRINIVIL) 10 mg tablet TAKE 1 TABLET BY MOUTH EVERY DAY Disp: 30 tablet Rfl: 11 albuterol HFA (VENTOLIN HFA) 90 mcg/actuation inhaler Inhale 2 Puffs as instructed every 4 hours as needed for Wheezing/Shortness of Breath. Disp: 1 Inhaler Rfl: 0 atorvastatin (LIPITOR) 40 mg tablet TAKE 1 TABLET BY MOUTH DAILY AT BEDTIME. FOR CHOLESTEROL. Disp: 30 tablet Rfl: 10 sertraline (ZOLOFT) 100 mg tablet TAKE 1 TABLET BY MOUTH EVERY DAY Disp: 90 tablet Rfl: 3 ammonium lactate (AMLACTIN) 12 % lotion Apply 1 application to affected area twice daily as needed. Disp: 1 Bottle Rfl: 5 meloxicam (MOBIC) 15 mg tablet Take 1 tablet by mouth once daily. With food. Disp: 20 tablet Rfl: 0 ibuprofen (MOTRIN) 800 mg tablet Take 1 tablet by mouth every 6 hours as needed for Pain. Take with food. Disp: 40 tablet Rfl: 1 Ascorbic Acid (VITAMIN C) 1,000 mg tablet Take 1,000 mg by mouth once daily. Disp: Rfl: Multivitamin capsule Take 1 capsule by mouth once daily. Disp: Rfl: Aspirin 81 mg Tab Take 81 mg by mouth. Disp: Rfl: No current facility-administered medications for this visit. Allergies As of Date: 08/19/2018 (No Known Allergies) Fully Assessed 08/19/2018 PAST MEDICAL HISTORY Diagnosis Date - Adrenal adenoma repeat ct in 07/07 - Anxiety - Arthritis fingers - CAD (coronary artery disease) Dr. 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 Yes LOCATION: right ankle PAIN SCALE: 3 on a scale of 0-10 PAIN CHARACTER: burning and sharp DURATION: (How long have you had the pain?) 1 years FREQUENCY: (How often does the pain occur?) occurs intermittently AGGRAVATING FACTORS: activity, walking and shoes ALLEVIATING FACTORS: resting and no weight-bearing MEDICATIONS: none Have you ever seen a pain management physician: No Have you ever taken any pain medications (Narcotics): Yes Pain Onset:progressive Does the pain radiate? Yes: up lower leg Associated Factors: swelling and redness Precipitating Factors: Walking Relieving Factors: resting Progression: Worsening Previous Treatment as follows: Gel sock ROS: Have you had any problems or treatment of the following? If yes please describe. Head:No Eyes:No Ears, nose or throat: No Lungs: No Heart or blood pressure: Yes: Bypass 1999 Stomach or Bowels: Yes: gallbladder removed Kidney or Bladder: No Female organs: No Nerve or mental illness: Yes; depression DM: No Peripheral Vascular Disease: No Inflammatory Arthritis: Yes: Fingers Other: Bleeding Disorders: No FAMILY HISTORY: Has any member of your immediate family (parents or siblings) had this same problem? If so , who? and what? No SOCIAL HISTORY Marital Status: single (never ) Tobacco: Ex-smoker, quit 1 years ago Alcohol: No alcohol consumption WORKERS' COMPENSATION CLAIM Have you missed work for this problem? No If yes, what dates have you missed? Pending Litigation? No What tests have been done for this problem? X-Rays and MRI Scan The patient's pertinent medical history from [facility] has been reviewed. PFOMIS forms have been reviewed. The patient's history of present illness has been confirmed. PHYSICAL EXAM: right ankle, right heel Physical examination reveals an alert and oriented patient who is in no acute distress while sitting and is of normal mood and affect. Ht 165.1 cm (5' 5) Wt 129.3 kg (285 lb) BMI 47.43 kg/m? Gait Cycle: Normal No, Limp: antalgic:right. Inspection: Alignment: Posterior calcaneal prominence Symmetry: Swelling: yes. Redness: no. Ecchymosis: no Effusion: 0 Palpation: Warmth: no, Tenderness:Yes: Foot Achilles and Posterior Heel ROM: Ankle- Normal. Strength: 5 Stability: Ligamentous instability: no Specialized Tests: Fabian Test: Good plantar flexion Neurologic Status: normal. Vascular Status: normal Skin: Normal Xrays: Posterior calcification, calcaneal spur MRI: Achilles tendinosis Dx: (M76.61) Achilles tendinitis of right lower extremity (primary encounter diagnosis) (M77.31) Calcaneal spur, right Plan: Patient referred by Dr. India Vidal who has chronic Achilles tendinosis with partial tearing calcifications on the posterior calcaneus. I discussed at length with her today the surgical procedure of Achilles tendon debridement and calcaneal debridement, excision of Sari's deformity and FHL tendon transfer. She will very discuss this with Dr. Vidal. She will turn coordinated today with 2 of us can operate jointly. I have discussed surgical and non-surgical methods of treatment with the patient. The natural history and course were discussed in relation to the options. Surgical risks, benefits, algorythm, post-operative course, and all possible outcomes were discussed in great detail. The patient will decide how they want to proceed. Procedure: Right Achilles tendon debridement, excision of Sari's deformity and calcaneal spurs. FHL tendon transfer. The risks, benefits and anticipated outcomes of the procedure, the risks and benefits of the alternatives to the procedure, and the roles and tasks of the personnel to be involved, were discussed with the patient, and the patient consents to the procedure and agrees to proceed. Equipment needed for surgery: Arthrex tenodesis set, prone position, mini C-arm Time required for surgery: 90 minutes HPI explored in detail with patient and edited as necessary. This note was partially generated using [employer] recognition system, and there may be some incorrect words, spellings, and punctuation that were not noted in checking the note before saving. Leandra Monge 08/23/2018 1:53 PM Signed Addended by: CAN MONGE on: 08/23/2018 01:53 PM Modules accepted: Orders Referring Provider: SELF [[id number]] Allergies As of Date: 08/19/2018 (No Known Allergies) Date Reviewed: 08/19/2018 Reviewed by: Zoila Conley Ma - Fully Assessed Reason for Visit: Right Ankle Pain [Other] Cmt: New Right Heel Pain [Other] Primary Visit Diagnosis:Achilles tendinitis of right lower extremity [M76.61] Other Visit Diagnosis:Calcaneal spur, right [M77.31] Order(s):SURGICAL REQUEST - ELECTIVE [[id number]] Order #: [id number]: 1 Prescriptions as of 08/19/2018 Sig: RANOLAZINE ER 1,000 MG TABLET* Take 1 tablet by mouth twice * BUPROPION HCL 100 MG TABLET TAKE 0.5 TABLETS BY MOUTH TWI* OMEPRAZOLE 20 MG CAPSULE,ABHINAV* TAKE 1 CAPSULE BY MOUTH EVERY* LISINOPRIL 10 MG TABLET TAKE 1 TABLET BY MOUTH EVERY * ALBUTEROL SULFATE HFA 90 MCG/* Inhale 2 Puffs as instructed * ATORVASTATIN 40 MG TABLET TAKE 1 TABLET BY MOUTH DAILY * SERTRALINE 100 MG TABLET TAKE 1 TABLET BY MOUTH EVERY * AMMONIUM LACTATE 12 % LOTION Apply 1 application to affect* MELOXICAM 15 MG TABLET Take 1 tablet by mouth once d* IBUPROFEN 800 MG TABLET Take 1 tablet by mouth every * ASCORBIC ACID (VITAMIN C) 1,0* Take 1,000 mg by mouth once d* MULTIVITAMIN CAPSULE Take 1 capsule by mouth once * ASPIRIN 81 MG TABLET Take 81 mg by mouth. Problem List As Of Date 08/19/2018 Noted Resolved Hyperlipidemia [E78.5] HTN (hypertension) [I10] Anxiety [F41.9] Depression [F32.9] Sleep apnea [G47.30] Carpal tunnel syndrome, right [G56.01] INVALID FOR*12/21/2016 Digital mucous cyst [M67.449] INVALID FOR*12/21/2016 Ganglion cyst of left foot [M67.472] INVALID FOR* More... CAD (coronary artery disease) [I25.10] INVALID FOR* More... Heartburn [R12] INVALID FOR* Arthritis [M19.90] INVALID FOR* More... Chronic bronchitis (HCC) [J42] INVALID FOR* Morbid obesity (HCC) [E66.01] INVALID FOR* Follow-up and Disposition History Recorded Encounter Status:Closed by LEANDRA GLEASON MD on 08/22/18 PROGRESS Observed: 07/19/2018 Status: COMPLETED Source: [place] 11:25 AM [facility] [place] REPOSITORY O ID: [id number] Author: India Vidal Service: (none) Author Type: Physician Type: Progress Notes Filed: 07/19/2018 11:40 AM Note Text: Follow up podiatric office visit for: Chief Complaint: This 58 year old who presents for follow up:right achilles tendonitis and posterior heel spur. Patient continues to complain of pain especially when any pressure rubs on posterior heel. She has mri to review. Of note, she does have ganglion of left foot that was aspirated. She states it may be slowly filling back up but there is not as much pain. She has no other complaints. PAIN EVALUATION 07/19/2018 07/19/2018 Pain Score: 5 - Pain Location: - Foot-Right Description: Burning - Duration Amount of Time: - - ongoing Frequency: Intermittent - Intervention: Medication - No results found for: HBA1C PCP: Owen Solano MD PAST MEDICAL HISTORY Diagnosis Date - Adrenal adenoma repeat ct in 07/07 - Anxiety - Arthritis fingers - CAD (coronary artery disease) Dr. Schultz - Chronic bronchitis (HCC) 05/03/2018 - Depression - Heartburn - HTN (hypertension) - Hyperlipidemia - Migraine - Morbid obesity (HCC) 05/03/2018 - Seasonal allergies - Sleep apnea Current Outpatient Prescriptions: buPROPion (WELLBUTRIN) 100 mg tablet TAKE 0.5 TABLETS BY MOUTH TWICE DAILY. omeprazole (PRILOSEC) 20 mg capsule TAKE 1 CAPSULE BY MOUTH EVERY DAY lisinopril (ZESTRIL, PRINIVIL) 10 mg tablet TAKE 1 TABLET BY MOUTH EVERY DAY albuterol HFA (VENTOLIN HFA) 90 mcg/actuation inhaler Inhale 2 Puffs as instructed every 4 hours as needed for Wheezing/Shortness of Breath. atorvastatin (LIPITOR) 40 mg tablet TAKE 1 TABLET BY MOUTH DAILY AT BEDTIME. FOR CHOLESTEROL. sertraline (ZOLOFT) 100 mg tablet TAKE 1 TABLET BY MOUTH EVERY DAY ammonium lactate (AMLACTIN) 12 % lotion Apply 1 application to affected area twice daily as needed. meloxicam (MOBIC) 15 mg tablet Take 1 tablet by mouth once daily. With food. ranolazine SR (RANEXA) 1,000 mg Tb12 Take 1 tablet by mouth twice daily. ibuprofen (MOTRIN) 800 mg tablet Take 1 tablet by mouth every 6 hours as needed for Pain. Take with food. Ascorbic Acid (VITAMIN C) 1,000 mg tablet Take 1,000 mg by mouth once daily. Multivitamin capsule Take 1 capsule by mouth once daily. Aspirin 81 mg Tab Take 81 mg by mouth. No current facility-administered medications for this visit. ALLERGIES No Known Allergies PAST SURGICAL HISTORY Procedure Laterality Date - CABG (1) VEIN GRAFT AND ARTERIAL GRAFT 1999 - EXCIS TENDON SHEATH LESN,HAND/FINGR 07/04/2014 Right index finger digital muscous cyst excision - REMOVAL GALLBLADDER 2000 Cholecystectomy - REMOVAL OF TONSILS,<12 Y/O 1966 Tonsillectomy alone - REVISE MEDIAN N/CARPAL TUNNEL SURG 07/04/2014 Carpal tunnel decomp right Physical Exam: Constitutional: Pt is a well developed 58 year old female who is alert, oriented, cooperative and in no apparent distress. OBJECTIVE: NVSI unchanged from previous visit. Dermatological: Nails 1-5 b/l are normal. Webspaces clean and dry 1-4 b/l. Skin appears well hydrated and supple. good color, texture, turgor. No open lesions present. No callosities present. Musculoskeletal/Orthopaedic: Patient has pain to palpation of right posterior heel and achilles insertion There is mild thickening of right achilles just proximal to achilles insertion. There is mild swelling of left dorsal midfoot. No pain with palpation. MRI of right foot reviewed. There is posterior spurring of right heel with mild thickening of achilles. There is presence of os trigonum ASSESSMENT: (M76.61) Tendonitis, Achilles, right (primary encounter diagnosis) (77.31) Calcaneal spur of foot, right PLAN: 1. History and physical examination completed today. 2. Discussed ongoing pain of right posterior heel. She has moderate posterior sari in presence of achilles tendinosis. She has tried stretching and gel padding but still has pain. Discussed continued conservative care not limited to padding vs physical therapy vs surgical intervention. Discussed surgical intervention to include achilles tendon debridement, calcaneal spur resection with possible os trigonum removal and repair of achilles with fhl tendon transfer if necessary. Discussed risks not limited to infection, pain, swelling, bleeding, wound dehiscence, hematoma, tendon rupture, need for revised procedure, rsd, dvt, cardiac arrest, . 3. Discussed post-op course to include cast x 4 weeks followed by boot for 8-12 weeks if not longer depending on progress. She will be nwb 100% for approximately 8 weeks. Pending healing, she may be weightbearing at 50% at 8 weeks and then 100% at 12 weeks. Patient informed this is all based on healing and may be modified if needed. 4. I discussed proceeding with surgery with assistance with Dr. Gleason. I will have patient seen by Dr. Gleason and will schedule thereafter. India Vidal DPM PROGRESS Observed: 07/19/2018 Status: COMPLETED Source: [place] 9:58 AM [facility] REPOSITORY HNO ID: [id number] Author: Ada Mcnally Ma Service: (none) Author Type: (none) Type: Progress Notes Filed: 07/19/2018 11:40 AM Note Text: AMB ROOMING INTAKE FLOWSHEET DATA Risk Screening Do you have concerns about personal safety or safety in the home?: No Pain Pain Score: 5/10 Pain Location: Foot-Right Description: Burning Duration Amount of Time: (ongoing) Frequency: Intermittent Intervention: Medication CNOV Observed: 07/19/2018 Status: COMPLETED Source: [place] 9:55 AM [facility] REPOSITORY Office Visit (PODIWS) SHIRA CASTRO ([id number]) 1960 F Date Time Provider Department 07/19/18 9:55 AM [place] During your visit today, we recorded the following information about you: Ada Mcnally Ma 07/19/2018 11:40 AM Signed AMB ROOMING INTAKE FLOWSHEET DATA Risk Screening Do you have concerns about personal safety or safety in the home?: No Pain Pain Score: 5/10 Pain Location: Foot-Right Description: Burning Duration Amount of Time: (ongoing) Frequency: Intermittent Intervention: Medication India VidalBRETT 07/19/2018 11:40 AM Signed Follow up podiatric office visit for: Chief Complaint: This 58 year old who presents for follow up:right achilles tendonitis and posterior heel spur. Patient continues to complain of pain especially when any pressure rubs on posterior heel. She has mri to review. Of note, she does have ganglion of left foot that was aspirated. She states it may be slowly filling back up but there is not as much pain. She has no other complaints. PAIN EVALUATION 07/19/2018 07/19/2018 Pain Score: 5 - Pain Location: - Foot-Right Description: Burning - Duration Amount of Time: - - ongoing Frequency: Intermittent - Intervention: Medication - No results found for: HBA1C PCP: Owen Solano MD PAST MEDICAL HISTORY Diagnosis Date - Adrenal adenoma repeat ct in 07/07 - Anxiety - Arthritis fingers - CAD (coronary artery disease) Dr. Schultz - Chronic bronchitis (HCC) 05/03/2018 - Depression - Heartburn - HTN (hypertension) - Hyperlipidemia - Migraine - Morbid obesity (HCC) 05/03/2018 - Seasonal allergies - Sleep apnea Current Outpatient Prescriptions: buPROPion (WELLBUTRIN) 100 mg tablet TAKE 0.5 TABLETS BY MOUTH TWICE DAILY. omeprazole (PRILOSEC) 20 mg capsule TAKE 1 CAPSULE BY MOUTH EVERY DAY lisinopril (ZESTRIL, PRINIVIL) 10 mg tablet TAKE 1 TABLET BY MOUTH EVERY DAY albuterol HFA (VENTOLIN HFA) 90 mcg/actuation inhaler Inhale 2 Puffs as instructed every 4 hours as needed for Wheezing/Shortness of Breath. atorvastatin (LIPITOR) 40 mg tablet TAKE 1 TABLET BY MOUTH DAILY AT BEDTIME. FOR CHOLESTEROL. sertraline (ZOLOFT) 100 mg tablet TAKE 1 TABLET BY MOUTH EVERY DAY ammonium lactate (AMLACTIN) 12 % lotion Apply 1 application to affected area twice daily as needed. meloxicam (MOBIC) 15 mg tablet Take 1 tablet by mouth once daily. With food. ranolazine SR (RANEXA) 1,000 mg Tb12 Take 1 tablet by mouth twice daily. ibuprofen (MOTRIN) 800 mg tablet Take 1 tablet by mouth every 6 hours as needed for Pain. Take with food. Ascorbic Acid (VITAMIN C) 1,000 mg tablet Take 1,000 mg by mouth once daily. Multivitamin capsule Take 1 capsule by mouth once daily. Aspirin 81 mg Tab Take 81 mg by mouth. No current facility-administered medications for this visit. ALLERGIES No Known Allergies PAST SURGICAL HISTORY Procedure Laterality Date - CABG (1) VEIN GRAFT AND ARTERIAL GRAFT 1999 - EXCIS TENDON SHEATH LESN,HAND/FINGR 07/04/2014 Right index finger digital muscous cyst excision - REMOVAL GALLBLADDER 2000 Cholecystectomy - REMOVAL OF TONSILS,<12 Y/O 1965 Tonsillectomy alone - REVISE MEDIAN N/CARPAL TUNNEL SURG 07/04/2014 Carpal tunnel decomp right Physical Exam: Constitutional: Pt is a well developed 58 year old female who is alert, oriented, cooperative and in no apparent distress. OBJECTIVE: NVSI unchanged from previous visit. Dermatological: Nails 1-5 b/l are normal. Webspaces clean and dry 1-4 b/l. Skin appears well hydrated and supple. good color, texture, turgor. No open lesions present. No callosities present. Musculoskeletal/Orthopaedic: Patient has pain to palpation of right posterior heel and achilles insertion There is mild thickening of right achilles just proximal to achilles insertion. There is mild swelling of left dorsal midfoot. No pain with palpation. MRI of right foot reviewed. There is posterior spurring of right heel with mild thickening of achilles. There is presence of os trigonum ASSESSMENT: (M76.61) Tendonitis, Achilles, right (primary encounter diagnosis) (77.31) Calcaneal spur of foot, right PLAN: 1. History and physical examination completed today. 2. Discussed ongoing pain of right posterior heel. She has moderate posterior sari in presence of achilles tendinosis. She has tried stretching and gel padding but still has pain. Discussed continued conservative care not limited to padding vs physical therapy vs surgical intervention. Discussed surgical intervention to include achilles tendon debridement, calcaneal spur resection with possible os trigonum removal and repair of achilles with fhl tendon transfer if necessary. Discussed risks not limited to infection, pain, swelling, bleeding, wound dehiscence, hematoma, tendon rupture, need for revised procedure, rsd, dvt, cardiac arrest, . 3. Discussed post-op course to include cast x 4 weeks followed by boot for 8-12 weeks if not longer depending on progress. She will be nwb 100% for approximately 8 weeks. Pending healing, she may be weightbearing at 50% at 8 weeks and then 100% at 12 weeks. Patient informed this is all based on healing and may be modified if needed. 4. I discussed proceeding with surgery with assistance with Dr. Gleason. I will have patient seen by Dr. Gleason and will schedule thereafter. India Vidal DPM Referring Provider: SELF [200] Allergies As of Date: 07/19/2018 (No Known Allergies) Date Reviewed: 07/19/2018 Reviewed by: Ada Mcnally Ma - Fully Assessed Reason for Visit: Established Patient [175] Cmt: MRI results, discuss options Primary Visit Diagnosis:Tendonitis, Achilles, right [M76.61] Other Visit Diagnosis:Calcaneal spur of foot, right [M77.31] Order(s):CONSULT TO ORTHOPAEDICS [9026] Order #: [id number]: 1 KNEE WALKER [[id number]] Order #: [id number] Prescriptions as of 07/19/2018 Sig: BUPROPION HCL 100 MG TABLET TAKE 0.5 TABLETS BY MOUTH TWI* OMEPRAZOLE 20 MG CAPSULE,ABHINAV* TAKE 1 CAPSULE BY MOUTH EVERY* LISINOPRIL 10 MG TABLET TAKE 1 TABLET BY MOUTH EVERY * ALBUTEROL SULFATE HFA 90 MCG/* Inhale 2 Puffs as instructed * ATORVASTATIN 40 MG TABLET TAKE 1 TABLET BY MOUTH DAILY * SERTRALINE 100 MG TABLET TAKE 1 TABLET BY MOUTH EVERY * AMMONIUM LACTATE 12 % LOTION Apply 1 application to affect* MELOXICAM 15 MG TABLET Take 1 tablet by mouth once d* RANOLAZINE ER 1,000 MG TABLET* Take 1 tablet by mouth twice * IBUPROFEN 800 MG TABLET Take 1 tablet by mouth every * ASCORBIC ACID (VITAMIN C) 1,0* Take 1,000 mg by mouth once d* MULTIVITAMIN CAPSULE Take 1 capsule by mouth once * ASPIRIN 81 MG TABLET Take 81 mg by mouth. Problem List As Of Date 07/19/2018 Noted Resolved Hyperlipidemia [E78.5] HTN (hypertension) [I10] Anxiety [F41.9] Depression [F32.9] Sleep apnea [G47.30] Carpal tunnel syndrome, right [G56.01] INVALID FOR*12/21/2016 Digital mucous cyst [M67.449] INVALID FOR*12/21/2016 Ganglion cyst of left foot [M67.472] INVALID FOR* More... CAD (coronary artery disease) [I25.10] INVALID FOR* More... Heartburn [R12] INVALID FOR* Arthritis [M19.90] INVALID FOR* More... Chronic bronchitis (HCC) [J42] INVALID FOR* Morbid obesity (HCC) [E66.01] INVALID FOR* Encounter Status:Closed by IND[place] VIDAL DPM on 07/19/18 PROGRESS Observed: 07/13/2018 Status: COMPLETED Source: [place] 2:59 PM [facility] REPOSITORY HNO ID: [id number] Author: Shira (Rt) Ashly Hernandez Service: (none) Author Type: Date Night Caregiver Type: Progress Notes Filed: 07/13/2018 2:59 PM Note Text: Radiology Service Progress Note PATIENT NAME: Shira Castro DATE OF SERVICE: July 13, 2018 TIME: 2:59 PM PATIENT IDENTITY VERIFICATION COMPLETED USING TWO (2) METHODS: Patient confirmed name verbally and Date of . PATIENT GENDER DATA: Female. status: : No status: NO. PATIENT RELEVANT IMPLANT DATA REVIEWED: Yes RADIOLOGY DEPARTMENT: MR; Exam(s) Completed: Lower MSK: Ankle/Hind Foot, right PERIPHERAL IV DATA: Not applicable SIGNED BY: RT Yanna July 13, 2018 2:59 PM MRI ANKLE WO IVCON Observed: 07/13/2018 Status: F Source: [facility] 2:15 PM [facility] REPOSITORY * * *Final Report* * * DATE OF EXAM: Jul 13 2018 2:15PM [facility] 0164 - MRI ANKLE WO IVCON RT / PROCEDURE REASON: Achilles tendinitis, right leg * * * * Physician Interpretation * * * * HISTORY: Achilles tendinitis, right leg TECHNIQUE: Routine MRI of the right ankle/hindfoot without contrast COMPARISON: Foot radiographs 11/19/2017. RESULT: Cartilage: Tibiotalar joint cartilage and subtalar joint cartilage appears to be preserved. Midfoot and forefoot articular cartilage appears to be preserved. Ligaments: Talofibular ligaments, tibiofibular ligaments, calcaneofibular ligament and deltoid ligament all appear to be intact. Lisfranc ligament and other ligaments also appear to be intact. Tendons: Thickening of the Achilles tendon measuring 1 cm with increased signal at calcaneal attachment and edema in the retrocalcaneal bursa. No Achilles tendon tear. Minimal fluid around the peroneal tendons. Medial flexor tendons, and extensor tendons are intact. Joint Fluid: Physiologic quantity of joint fluid. Bone Marrow: Bone marrow signal intensity is within normal limits without evidence of fracture, osteochondral lesion, osteomyelitis or other marrow replacing lesion. Small cleft in the proximal articular side of the medial cuneiform, a normal variant. Plantar Aponeurosis: Large enthesophyte at attachment, otherwise plantar aponeurosis in within normal limits. Sinus Tarsi: Sinus tarsi is within normal limits. Muscle: Muscle bulk and signal intensity is within normal limits. Tarsal Tunnel: Tarsal tunnel is within normal limits. Other: No other significant abnormality. IMPRESSION: MODERATE ACHILLES TENDINOSIS WITHOUT TEAR. Uc Architect: YMAH Transcribe Date/Time: Jul 13 2018 2:41P Dictated by : FRANDY GARNER MD This examination was interpreted and the report reviewed and electronically signed by: JOSE NAVA MD on Jul 13 2018 6:30PM EST [id number] CNCO Observed: 07/06/2018 Status: COMPLETED Source: [place] 2:39 PM [facility] [place] REPOSITORY [facility] ID: [id number] Author: Mammography Coordinator Service: (none) Author Type: Physician Type: Letter Filed: 07/07/2018 11:32 PM Note Text: July 06, 2018 PID: [id number] Shira Castro [address] [place] [address] Dear Ms. Castro, We are pleased to inform you that the results of your recent breast imaging exam on 07/06/2018 are normal. Early detection of cancer is very important. We also understand recommendations regarding breast cancer screening are controversial. Please discuss with your primary care provider which strategy is best for you and whether a mammogram is right for you. Your imaging studies and report will be kept on file at [facility] as part of your permanent medical record and are available for your continuing care. Thank you for allowing us to help in meeting your health care needs. Sincerely, Dr. rFausto Interpreting Radiologist [facility] (Normal over 40) [place] SCREENING Observed: 07/06/2018 Status: F Source: [place] 1:32 PM [facility] REPOSITORY * * *Final Report* * * DATE OF EXAM: Jul 06 2018 1:32PM [facility] 0581 - [place] SCREENING / PROCEDURE REASON: Encounter for screening mammogram for malignant neoplasm of breast * * * * Physician Interpretation * * * * RESULT: #[id number] - [place] SCREENING BILATERAL DIGITAL SCREENING MAMMOGRAM WITH CAD: 07/06/2018 HISTORY: Encounter For Screening Mammogram For Malignant Neoplasm Of Breast /patient reports no breast symptoms /priors available for comparison. RESULT: TECHNIQUE: The study was acquired using full field digital technology and interpreted from soft copy. Current study was also evaluated with a Computer Aided Detection (CAD). Comparison is made to exam dated: 02/27/2015 mammogram. There are scattered fibroglandular elements in both breasts. No significant masses, calcifications, or other findings are seen in either breast. There has been no significant interval change. IMPRESSION: NEGATIVE There is no mammographic evidence of malignancy.A 1 year screening mammogram is recommended. Randall duffy/liborio:07/06/2018 14:39:20 Hazmat Cdl Driver: Elizabeth RAINEY)([place]), [facility] letter sent: Normal over 40 Mammogram BI-RADS: 1 Negative Uc Architect: Liborio Transcribe Date/Time: Jul 06 2018 1:00P Dictated by: RANDALL FRAUSTO MD This examination was interpreted and the report reviewed and electronically signed by: RANDALL FRAUSTO MD on Jul 06 2018 2:39PM EST [id number] PROGRESS Observed: 07/06/2018 Status: COMPLETED Source: [place] 1:00 PM [facility] REPOSITORY HNO ID: [id number] Author: Melinda Barron Service: (none) Author Type: (none) Type: Progress Notes Filed: 07/06/2018 1:37 PM Note Text: Radiology Service Progress Note PATIENT NAME: Shira Castro DATE OF SERVICE: July 06, 2018 TIME: 1:00 PM PATIENT IDENTITY VERIFICATION COMPLETED USING TWO (2) METHODS: Patient confirmed name verbally and Date of . PATIENT GENDER DATA: Female. status: : No status: NO. PATIENT RELEVANT IMPLANT DATA REVIEWED: Not Applicable RADIOLOGY DEPARTMENT: [facility] mamm[facility] PERIPHERAL IV DATA: Not applicable SIGNED BY: Melinda Guzman Rt July 06, 2018 1:00 PM US ASP/INJ GANGLION Observed: 07/06/2018 Status: F Source: [facility] 10:37 AM [facility] REPOSITORY * * *Final Report* * * DATE OF EXAM: Jul 06 2018 10:37AM [facility] 1156 - US ASP/INJ GANGLION LT / PROCEDURE REASON: Ganglion, unspecified site * * * * Physician Interpretation * * * * ULTRASOUND GUIDED LEFT ANKLE ANTERIOR GANGLION CYST ASPIRATION AND INJECTION 1. INDICATION: The patient is a 58 year old Female who presented with recurrent left anterior ankle ganglion cyst after prior aspiration and injection. 2. CONSENT: The risks, benefits, treatment options, potential complications and personnel to be involved were discussed (including the instruments to be used, contrast and anesthesia administration) with the the patient. All questions were answered and consent was obtained. The the patient indicated willingness to proceed. 3. GENERAL: a) Medication Reconciliation: The patient's medications and allergies were reviewed in the electronic medical record and reconciled to the proposed procedure/treatment. Pre-procedure Sign-in: Safety Checklist Performed Yes c) Positioning: The patient was placed supine on the Ultrasound table. d) Ultrasound guidance was used to target the anterior left ankle which was then sterilely prepped and draped. Ultrasound images were saved and sent to a permanent archive. e) Time Out: A time out was performed immediately prior to procedure start with the nursing, anesthesia and interventional team, correctly identifying the patient name, date of , procedure, anatomy (including marking of site and side), patient position, procedure consent form, relevant diagnostic and radiology test results, antibiotic administration, safety precautions, and procedure-specific equipment needs. Procedure Start Time / Timeout Time: 1025; Timeout Affirmation (if attending not present): Attending present f) Anesthesia Type: Local anesthesia: 1% Lidocaine PRE-PROCEDURE IMAGING: Dorsal ankle ganglion identified as was the dorsalis pedis artery and the extensor tendons. 4. PROCEDURE: a) Procedure Details:A 18-gauge needle was inserted into the ganglion cyst using ultrasound guidance. 3 cc of yellow fluid aspirated. 1 mL of injectate placed into the ganglion under ultrasound observation. The needle was removed. Images were stored to the digital archive documenting needle position. b) Injectate Contents: 1 mL Dexamethasone Sodium Phosphate (4 mg/ml) c) Estimated Blood Loss: 0 mls d) Number and Type of Removed Specimens: 3 cc of yellow fluid POST PROCEDURE: b) Hemostasis: Hemostasis was achieved using light manual compression. c) Sign-out: Communication Performed Yes d) Procedure End Time: 10:30 e) Conclusion: The patient was discharged from the radiology department in stable condition. COMPLICATIONS: a) Significant Patient Complication: None If other, explain: b) Complications during the procedure: None If other, explain: 10. RESULTS: Decreased size of the ganglion following aspiration. IMPRESSION: SUCCESSFUL ULTRASOUND GUIDED ASPIRATION AND THERAPEUTIC INJECTION OF THE DORSAL LEFT ANKLE GANGLION CYST DESCRIBED ABOVE. Attending Radiologist: Dr. Rodney Godinez MD Overhead Distribution Engineer: Vikash Cameron MD The procedure was performed by the: the perioperative assistant, and the attending radiologist personally supervised the entire procedure. The attending radiologist performed the following procedural activities: None. Uc Architect: PSCB Transcribe Date/Time: Jul 06 2018 10:55A Dictated by : VIKASH CAMERON MD This examination was interpreted and the report reviewed and electronically signed by: RODNEY GODINEZ MD on Jul 06 2018 11:54AM EST [id number] Observed: 07/05/2018 Status: COMPLETED Source: [place] 12:00 AM [facility] REPOSITORY Telephone (PODIWS) SHIRA CASTRO ([id number]) 1960 F Date Time Provider Department 07/05/18 [place] During your visit today, we recorded the following information about you: Nury Marquez Ma 07/05/2018 12:04 PM Signed Patient wishes to scheduled MRI of R ankle that was discussed at [facility] on 06/29/18. Please file order for MRI. Once order filed, will contact patient to schedule. Nury Vidal DPM 07/05/2018 12:11 PM Signed Order filed BRETT Narvaez Ma 07/05/2018 1:06 PM Signed PSRs, please contact patient to schedule MRI. Thank you! Nury Marquez Ma Allergies As of Date: 07/05/2018 (No Known Allergies) Date Reviewed: 06/29/2018 Reviewed by: Marely Valerio RN - Fully Assessed Reason for Visit: Orders [681] Primary Visit Diagnosis:Calcaneal spur of foot, right [M77.31] Other Visit Diagnoses:Tendonitis, Achilles, right [M76.61] Pain in joint involving right ankle and foot [M25.571] Achilles tendinitis of right lower extremity [M76.61] Order(s):MRI ANKLE WO IVCON RT [[id number]] Order #: [id number] FUTURE Prescriptions as of 07/05/2018 Sig: ALBUTEROL SULFATE HFA 90 MCG/* Inhale 2 Puffs as instructed * OMEPRAZOLE 20 MG CAPSULE,ABHINAV* TAKE 1 CAPSULE BY MOUTH ONCE * LISINOPRIL 10 MG TABLET TAKE 1 TABLET BY MOUTH ONCE D* ATORVASTATIN 40 MG TABLET TAKE 1 TABLET BY MOUTH DAILY * BUPROPION HCL 100 MG TABLET TAKE 0.5 TABLETS BY MOUTH TWI* SERTRALINE 100 MG TABLET TAKE 1 TABLET BY MOUTH EVERY * AMMONIUM LACTATE 12 % LOTION Apply 1 application to affect* MELOXICAM 15 MG TABLET Take 1 tablet by mouth once d* RANOLAZINE ER 1,000 MG TABLET* Take 1 tablet by mouth twice * IBUPROFEN 800 MG TABLET Take 1 tablet by mouth every * ASCORBIC ACID (VITAMIN C) 1,0* Take 1,000 mg by mouth once d* MULTIVITAMIN CAPSULE Take 1 capsule by mouth once * ASPIRIN 81 MG TABLET Take 81 mg by mouth. Problem List As Of Date 07/05/2018 Noted Resolved Hyperlipidemia [E78.5] HTN (hypertension) [I10] Anxiety [F41.9] Depression [F32.9] Sleep apnea [G47.30] Carpal tunnel syndrome, right [G56.01] INVALID FOR*12/21/2016 Digital mucous cyst [M67.449] INVALID FOR*12/21/2016 Ganglion cyst of left foot [M67.472] INVALID FOR* More... CAD (coronary artery disease) [I25.10] INVALID FOR* More... Heartburn [R12] INVALID FOR* Arthritis [M19.90] INVALID FOR* More... Chronic bronchitis (HCC) [J42] INVALID FOR* Morbid obesity (HCC) [E66.01] INVALID FOR* Encounter Status:Closed by INDIA VIDAL DPM on 07/05/18 PROGRESS Observed: 06/29/2018 Status: COMPLETED Source: [place] 11:18 AM [facility] [place] REPOSITORY HNO ID: [id number] Author: India Vidal Service: (none) Author Type: Physician Type: Progress Notes Filed: 06/29/2018 11:48 AM Note Text: ? India Vidal DPM Department of Podiatry [address] [facility] [address] Dept: [phone] Dept 06/29/2018 Follow Up Podiatric Office Visit: HPI: Shira Castro is a 58 year old female. Patient presents to follow up on the following issues: Plantar fasciitis, R - She continues with 8/10 burning pain when walking or with activity. She has been icing, stretching, taking NSAIDs prn and wearing gel achilles sleeve. She did not get custom orthotics d/t cost. Ganglion cyst, L - Still painful. More bothersome than R foot. She states pain ranges from an 8-10 and will wake her up at night. Pain occurs with activity. She has spoken to her fuel pilot engineer in regards to having surgery and states he Ok'd holding aspirin for a week prior. She is still interested in pursuing surgery as cyst has been aspirated twice and keeps reoccurring. She has refrained from smoking. She quit 09/07/17. PCP: Owen Solano MD PAST MEDICAL HISTORY Diagnosis Date - Adrenal adenoma repeat ct in 07/07 - Anxiety - Arthritis fingers - CAD (coronary artery disease) Dr. Schultz - Chronic bronchitis (HCC) 05/03/2018 - Depression - Heartburn - HTN (hypertension) - Hyperlipidemia - Migraine - Morbid obesity (HCC) 05/03/2018 - Seasonal allergies - Sleep apnea Current Outpatient Prescriptions: albuterol HFA (VENTOLIN HFA) 90 mcg/actuation inhaler Inhale 2 Puffs as instructed every 4 hours as needed for Wheezing/Shortness of Breath. predniSONE (DELTASONE) 20 mg tablet Take 1 tablet by mouth once daily for 5 days. Take daily with food. omeprazole (PRILOSEC) 20 mg capsule TAKE 1 CAPSULE BY MOUTH ONCE DAILY. lisinopril (ZESTRIL, PRINIVIL) 10 mg tablet TAKE 1 TABLET BY MOUTH ONCE DAILY. atorvastatin (LIPITOR) 40 mg tablet TAKE 1 TABLET BY MOUTH DAILY AT BEDTIME. FOR CHOLESTEROL. buPROPion (WELLBUTRIN) 100 mg tablet TAKE 0.5 TABLETS BY MOUTH TWICE DAILY. sertraline (ZOLOFT) 100 mg tablet TAKE 1 TABLET BY MOUTH EVERY DAY ammonium lactate (AMLACTIN) 12 % lotion Apply 1 application to affected area twice daily as needed. meloxicam (MOBIC) 15 mg tablet Take 1 tablet by mouth once daily. With food. ranolazine SR (RANEXA) 1,000 mg Tb12 Take 1 tablet by mouth twice daily. ibuprofen (MOTRIN) 800 mg tablet Take 1 tablet by mouth every 6 hours as needed for Pain. Take with food. Ascorbic Acid (VITAMIN C) 1,000 mg tablet Take 1,000 mg by mouth once daily. Multivitamin capsule Take 1 capsule by mouth once daily. Aspirin 81 mg Tab Take 81 mg by mouth. No current facility-administered medications for this visit. ALLERGIES No Known Allergies PAST SURGICAL HISTORY Procedure Laterality Date - CABG (1) VEIN GRAFT AND ARTERIAL GRAFT 1999 - EXCIS TENDON SHEATH KEN KESSLER/FINGR 07/04/2014 Right index finger digital muscous cyst excision - REMOVAL GALLBLADDER 2000 Cholecystectomy - REMOVAL OF TONSILS,<12 Y/O 1966 Tonsillectomy alone - REVISE MEDIAN N/CARPAL TUNNEL SURG 07/04/2014 Carpal tunnel decomp right FAMILY HISTORY Problem Relation Age of Onset - Alzheimer's Disease Mother heart attack, galcoma, htn - Glaucoma Mother - Ischemic Heart Disease Mother - Diabetes Father cad, prostate cancer - Stroke Father - Ischemic Heart Disease Father - Cervical Cancer Sister 35 cervical cancer, blood disease - Other [OTHER] Sister 53 hemochromatosis Social History Marital status: Single Spouse name: Years of education: Number of children: Social History Main Topics Smoking status: Former Smoker Packs/day: 1.00 Years: 30.00 Types: Cigarettes Quit date: 09/07/2017 Smokeless tobacco: Current User Alcohol use: No Comment: 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 EYES: No diplopia or blurry vision. CARDIOVASCULAR: No chest pain, dyspnea, palpitations, orthopnea, PND, ankle edema. PULM: No dyspnea, unexplained cough. GI: No dysphagia/odynophagia, problematic reflux, constipation, diarrhea, changes in stool habits, hematochezia, melena. : No new urinary complaints, including dysuria, gross hematuria or pyuria. NEURO: No new balance problems, peripheral weakness/paresthesias or numbness of concern. MUSC-SKEL: Bilateral foot pain. PSY: No concerns regarding depression, anxiety or panic. INTEGUMENTARY: No new skin changes (rash, new or changing mole, new growth) Physical Exam: Constitutional: Pt is a well developed 58 year old female who is alert, oriented and cooperative Eyes: Following during examination. No redness or drainage. Respiratory: RR normal and nonlabored. Even breathing. No evidence of distress or shortness of breath. Psychology: Patient is engaged during conversation. Normal affect and mood. Does not appear depressed or anxious during encounter. Vascular: Dorsalis pedis and posterior tibial pulses palpable as b/l Capillary Fill time < 5 seconds to digits 1-5 b/l Skin temperature warm to warm proximal to distal b/l Hair growth present to digits Neurological: intact light touch/epicritic sensation Dermatological: Nails 1-5 b/l appear Normal. Webspaces clean and dry 1-4 b/l. Skin appears well hydrated and supple. good color, texture, turgor. Healed blister of right 1st metatarsal with no signs of infection. Callosities absent.Open lesions absent. Wound: Not present. Musculoskeletal/Orthopaedic: Patient has pain to palpation of right posterior heel and right achilles tendon. There is pain to left anterior ankle with palpable ganglion cyst. Foot type is neutral structurally AJ ROM is full with knee extended and flexed 1st MPJ is full when loaded and no pain or crepitus are noted with ROM. MTJ, STJ are full and free of pain and crepitus. +5/5 muscle strength dorsiflexion, plantarflexion, inversion, eversion b/l xrays reviewed from last year demonstrate posterior heel spur ASSESSMENT: (M67.40) Ganglion cyst (primary encounter diagnosis) (M77.31) Calcaneal spur of right foot PLAN: 1. History and physical examination performed. 2. Discussed ganglion of left ankle. It has been aspirated twice. It appears to have shifted proximally. Discussed aspiration vs excision. She would consider excision but not until [place]. She would like aspirated. Will send to ultrasound for aspiration given location relative to dorsalis pedis. 3. Discussed posterior heel spur and achilles tendonitis. Continue with heel spur padding. Discussed physical therapy vs surgical intervention. She is interested in surgery but wants to discuss with family. Would recommend mri prior to surgery of right ankle India Vidal DPM CNOV Observed: 06/29/2018 Status: COMPLETED Source: [place] 10:55 AM [facility] REPOSITORY Office Visit (PODIWS) SHIRA CASTRO ([id number]) 1960 F Date Time Provider Department 06/29/18 10:55 AM INDIA VIDAL During your visit today, we recorded the following information about you: India Vidal DPM 06/29/2018 11:48 AM Signed ? India Vidal DPM Department of Podiatry [address] [facility] [address] Dept: [phone] Dept 06/29/2018 Follow Up Podiatric Office Visit: HPI: Shira Castro is a 58 year old female. Patient presents to follow up on the following issues: Plantar fasciitis, R - She continues with 8/10 burning pain when walking or with activity. She has been icing, stretching, taking NSAIDs prn and wearing gel achilles sleeve. She did not get custom orthotics d/t cost. Ganglion cyst, L - Still painful. More bothersome than R foot. She states pain ranges from an 8-10 and will wake her up at night. Pain occurs with activity. She has spoken to her fuel pilot engineer in regards to having surgery and states he Ok'd holding aspirin for a week prior. She is still interested in pursuing surgery as cyst has been aspirated twice and keeps reoccurring. She has refrained from smoking. She quit 09/07/17. PCP: Owen Solano MD PAST MEDICAL HISTORY Diagnosis Date - Adrenal adenoma repeat ct in 07/07 - Anxiety - Arthritis fingers - CAD (coronary artery disease) Dr. Schultz - Chronic bronchitis ([facility]) 05/03/2018 - Depression - Heartburn - HTN (hypertension) - Hyperlipidemia - Migraine - Morbid obesity ([facility]) 05/03/2018 - Seasonal allergies - Sleep apnea Current Outpatient Prescriptions: albuterol HFA (VENTOLIN HFA) 90 mcg/actuation inhaler Inhale 2 Puffs as instructed every 4 hours as needed for Wheezing/Shortness of Breath. predniSONE (DELTASONE) 20 mg tablet Take 1 tablet by mouth once daily for 5 days. Take daily with food. omeprazole (PRILOSEC) 20 mg capsule TAKE 1 CAPSULE BY MOUTH ONCE DAILY. lisinopril (ZESTRIL, PRINIVIL) 10 mg tablet TAKE 1 TABLET BY MOUTH ONCE DAILY. atorvastatin (LIPITOR) 40 mg tablet TAKE 1 TABLET BY MOUTH DAILY AT BEDTIME. FOR CHOLESTEROL. buPROPion (WELLBUTRIN) 100 mg tablet TAKE 0.5 TABLETS BY MOUTH TWICE DAILY. sertraline (ZOLOFT) 100 mg tablet TAKE 1 TABLET BY MOUTH EVERY DAY ammonium lactate (AMLACTIN) 12 % lotion Apply 1 application to affected area twice daily as needed. meloxicam (MOBIC) 15 mg tablet Take 1 tablet by mouth once daily. With food. ranolazine SR (RANEXA) 1,000 mg Tb12 Take 1 tablet by mouth twice daily. ibuprofen (MOTRIN) 800 mg tablet Take 1 tablet by mouth every 6 hours as needed for Pain. Take with food. Ascorbic Acid (VITAMIN C) 1,000 mg tablet Take 1,000 mg by mouth once daily. Multivitamin capsule Take 1 capsule by mouth once daily. Aspirin 81 mg Tab Take 81 mg by mouth. No current facility-administered medications for this visit. ALLERGIES No Known Allergies PAST SURGICAL HISTORY Procedure Laterality Date - CABG (1) VEIN GRAFT AND ARTERIAL GRAFT 1999 - EXCIS TENDON SHEATH LESN,HAND/FINGR 07/04/2014 Right index finger digital muscous cyst excision - REMOVAL GALLBLADDER 2000 Cholecystectomy - REMOVAL OF TONSILS,<12 Y/O 1966 Tonsillectomy alone - REVISE MEDIAN N/CARPAL TUNNEL SURG 07/04/2014 Carpal tunnel decomp right FAMILY HISTORY Problem Relation Age of Onset - Alzheimer's Disease Mother heart attack, galcoma, htn - Glaucoma Mother - Ischemic Heart Disease Mother - Diabetes Father cad, prostate cancer - Stroke Father - Ischemic Heart Disease Father - Cervical Cancer Sister 35 cervical cancer, blood disease - Other [OTHER] Sister 53 hemochromatosis Social History Marital status: Single Spouse name: Years of education: Number of children: Social History Main Topics Smoking status: Former Smoker Packs/day: 1.00 Years: 30.00 Types: Cigarettes Quit date: 09/07/2017 Smokeless tobacco: Current User Alcohol use: No Comment: 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 EYES: No diplopia or blurry vision. CARDIOVASCULAR: No chest pain, dyspnea, palpitations, orthopnea, PND, ankle edema. PULM: No dyspnea, unexplained cough. GI: No dysphagia/odynophagia, problematic reflux, constipation, diarrhea, changes in stool habits, hematochezia, melena. : No new urinary complaints, including dysuria, gross hematuria or pyuria. NEURO: No new balance problems, peripheral weakness/paresthesias or numbness of concern. MUSC-SKEL: Bilateral foot pain. PSY: No concerns regarding depression, anxiety or panic. INTEGUMENTARY: No new skin changes (rash, new or changing mole, new growth) Physical Exam: Constitutional: Pt is a well developed 58 year old female who is alert, oriented and cooperative Eyes: Following during examination. No redness or drainage. Respiratory: RR normal and nonlabored. Even breathing. No evidence of distress or shortness of breath. Psychology: Patient is engaged during conversation. Normal affect and mood. Does not appear depressed or anxious during encounter. Vascular: Dorsalis pedis and posterior tibial pulses palpable as b/l Capillary Fill time < 5 seconds to digits 1-5 b/l Skin temperature warm to warm proximal to distal b/l Hair growth present to digits Neurological: intact light touch/epicritic sensation Dermatological: Nails 1-5 b/l appear Normal. Webspaces clean and dry 1-4 b/l. Skin appears well hydrated and supple. good color, texture, turgor. Healed blister of right 1st metatarsal with no signs of infection. Callosities absent.Open lesions absent. Wound: Not present. Musculoskeletal/Orthopaedic: Patient has pain to palpation of right posterior heel and right achilles tendon. There is pain to left anterior ankle with palpable ganglion cyst. Foot type is neutral structurally AJ ROM is full with knee extended and flexed 1st MPJ is full when loaded and no pain or crepitus are noted with ROM. MTJ, STJ are full and free of pain and crepitus. +5/5 muscle strength dorsiflexion, plantarflexion, inversion, eversion b/l xrays reviewed from last year demonstrate posterior heel spur ASSESSMENT: (M67.40) Ganglion cyst (primary encounter diagnosis) (M77.31) Calcaneal spur of right foot PLAN: 1. History and physical examination performed. 2. Discussed ganglion of left ankle. It has been aspirated twice. It appears to have shifted proximally. Discussed aspiration vs excision. She would consider excision but not until [place]. She would like aspirated. Will send to ultrasound for aspiration given location relative to dorsalis pedis. 3. Discussed posterior heel spur and achilles tendonitis. Continue with heel spur padding. Discussed physical therapy vs surgical intervention. She is interested in surgery but wants to discuss with family. Would recommend mri prior to surgery of right ankle BRETT Narvaez Ma 06/29/2018 11:53 AM Signed Addended by: NURY MARQUEZ MA on: 06/29/2018 11:53 AM Modules accepted: Orders India Vidal DPM 06/29/2018 12:15 PM Signed Addended by: IND[place] VIDAL DPM on: 06/29/2018 12:15 PM Modules accepted: Orders Referring Provider: SELF [200] Allergies As of Date: 06/29/2018 (No Known Allergies) Date Reviewed: 06/29/2018 Reviewed by: Marely Valerio RN - Fully Assessed Reason for Visit: Follow Up [171] Primary Visit Diagnosis:Ganglion cyst [M67.40] Other Visit Diagnosis:Calcaneal spur of right foot [M77.31] Order(s):US ASP/INJ HAND/FINGER/FOOT/TOE JT BURSA LT [[id number]] Order #: [id number] FUTURE US ASP/INJ GANGLION LT [[id number]] Order #: [id number] FUTURE Prescriptions as of 06/29/2018 Sig: ALBUTEROL SULFATE HFA 90 MCG/* Inhale 2 Puffs as instructed * PREDNISONE 20 MG TABLET Take 1 tablet by mouth once d* OMEPRAZOLE 20 MG CAPSULE,ABHINAV* TAKE 1 CAPSULE BY MOUTH ONCE * LISINOPRIL 10 MG TABLET TAKE 1 TABLET BY MOUTH ONCE D* ATORVASTATIN 40 MG TABLET TAKE 1 TABLET BY MOUTH DAILY * BUPROPION HCL 100 MG TABLET TAKE 0.5 TABLETS BY MOUTH TWI* SERTRALINE 100 MG TABLET TAKE 1 TABLET BY MOUTH EVERY * AMMONIUM LACTATE 12 % LOTION Apply 1 application to affect* MELOXICAM 15 MG TABLET Take 1 tablet by mouth once d* RANOLAZINE ER 1,000 MG TABLET* Take 1 tablet by mouth twice * IBUPROFEN 800 MG TABLET Take 1 tablet by mouth every * ASCORBIC ACID (VITAMIN C) 1,0* Take 1,000 mg by mouth once d* MULTIVITAMIN CAPSULE Take 1 capsule by mouth once * ASPIRIN 81 MG TABLET Take 81 mg by mouth. Problem List As Of Date 06/29/2018 Noted Resolved Hyperlipidemia [E78.5] HTN (hypertension) [I10] Anxiety [F41.9] Depression [F32.9] Sleep apnea [G47.30] Carpal tunnel syndrome, right [G56.01] INVALID FOR*12/21/2016 Digital mucous cyst [M67.449] INVALID FOR*12/21/2016 Ganglion cyst of left foot [M67.472] INVALID FOR* More... CAD (coronary artery disease) [I25.10] INVALID FOR* More... Heartburn [R12] INVALID FOR* Arthritis [M19.90] INVALID FOR* More... Chronic bronchitis (HCC) [J42] INVALID FOR* Morbid obesity (HCC) [E66.01] INVALID FOR* Encounter Status:Closed by IND[place] VIDAL BRETT on 06/29/18 XR CHEST 2V FRONTAL/LAT Observed: 06/27/2018 Status: F Source: [place] 2:18 PM [facility] REPOSITORY * * *Final Report* * * DATE OF EXAM: Jun 27 2018 2:18PM WOX [id number] - XR CHEST 2V FRONTAL/LAT / PROCEDURE REASON: Unspecified chronic bronchitis * * * * Physician Interpretation * * * * HISTORY: Chronic bronchitis PA and lateral views of the chest are reviewed without previous comparison films. The cardiac size is not enlarged. The lung taveras are clear. There is no evidence of pleural fluid. The bony thorax appears intact. Mediastinal clips and wires are in place. IMPRESSION: No acute process. Uc Architect: MYAH Transcribe Date/Time: Jun 27 2018 3:21P Dictated by : ELZA GODINEZ MD This examination was interpreted and the report reviewed and electronically signed by: ELZA GODINEZ MD on Jun 27 2018 3:22PM EST [id number] Observed: 06/27/2018 Status: COMPLETED Source: [place] 2:03 PM [facility] REPOSITORY HNO ID: [id number] Author: Kenya Gold (Rt) Ashly Mckee Service: (none) Author Type: Date Night Caregiver Type: Progress Notes Filed: 06/27/2018 2:18 PM Note Text: Radiology Service Progress Note PATIENT NAME: Shira Castro DATE OF SERVICE: June 27, 2018 TIME: 2:03 PM PATIENT IDENTITY VERIFICATION COMPLETED USING TWO (2) METHODS: Patient confirmed name verbally and Date of . PATIENT GENDER DATA: Female. status: : No status: NO. PATIENT RELEVANT IMPLANT DATA REVIEWED: Not Applicable RADIOLOGY DEPARTMENT: General X-ray: Exam(s) Completed: Chest X-Ray PERIPHERAL IV DATA: Not applicable SIGNED BY: RT Alex June 27, 2018 2:03 PM HEPATIC FUNCTN PANEL Collected: 06/27/2018 Status: F Source: [place] 1:23 PM [facility] REPOSITORY TYPE CODE TESTS RESULT OUT OF REFERENCE UNITS RANGE LAB ALB 3.9-4.9 g/dL Albumin 4.0 LAB TBIL 0.2-1.3 mg/dL Bilirubin, Total 0.5 LAB CBIL <0.2 mg/dL Bilirubin,Conjuga <0.2 demarco LAB ALKP 32-117 U/L Alkaline Phosphatase 66 LAB AST 13-35 U/L AST 24 LAB ALT 7-38 U/L ALT 19 LAB TP 6.3-8.0 g/dL Protein, Total 6.6 Performed By: #### HFP, LIPNF #### [facility] [address] [place], [place] [address] LIPID PANEL, NONFAST Collected: 06/27/2018 Status: F Source: [place] 1:23 PM [facility] REPOSITORY TYPE CODE TESTS RESULT OUT OF REFERENCE UNITS RANGE LAB CHOLNF <200 mg/dL Total Cholesterol NF 134 Result Comment: <200 mg/dL, Desirable 200-239 mg/dL, Borderline high >239 mg/dL, High LAB TRIGNF <150 mg/dL Triglycerides, NF 89 Result Comment: <150 mg/dL, Normal 150-199 mg/dL, Borderline high 200-499 mg/dL, High >499 mg/dL, Very high LAB HDLNF >39 mg/dL HDL Cholesterol, NF 68 Result Comment: 40-59 mg/dL, Acceptable >59 mg/dL, High: Negative risk factor for coronary heart disease <40 mg/dL, Low: Positive risk factor for coronary heart disease LAB LDLNF <100 mg/dL LDL Cholesterol, NF 48 Result Comment: <100 mg/dL, Optimal 100-129 mg/dL, Near optimal/above optimal 130-159 mg/dL, Borderline high 160-189 mg/dL, High >189 mg/dL, Very high Secondary prevention optimal LDL Cholesterol levels are recommended to be < 70 mg/dL LAB NOHDLN <130 mg/dL Non HDL Chol, 66 NF Result Comment: <130 mg/dL, Optimal 130-159 mg/dL, Near optimal/above optimal 160-189 mg/dL, Borderline high 190-219 mg/dL, High >219 mg/dL, Very high Secondary prevention optimal non HDL Cholesterol levels are recommended to be < 100 mg/dL LAB VLDLNF <30 mg/dL VLDL Cholesterol, NF 18 LAB TCHDLN <5.10 mg/dL T Chol/HDL Ratio NF 1.97 LAB LDLHDN <2.54 mg/dL LDL/HDL Ratio, NF 0.71 Result Comment: Reference: 1. National Cholesterol Education Program ATP III Guideline At-A-Glance Quick Desk Reference: National Heart, Lung, and Blood [place]. National Institutes of Health. 2001: NIH Publication No. 01-3305. 2. An International Atherosclerosis Society position paper: global recommendations for the management of dyslipidemia: executive summary, Atherosclerosis. 2014: 232(2):410-413. Performed By: #### HFP, LIPNF #### [facility] [address] [place], [place] [address] PROGRESS Observed: 06/27/2018 Status: COMPLETED Source: [place] 12:49 PM [facility] REPOSITORY HNO ID: [id number] Author: Owen Solano Service: (none) Author Type: Physician Type: Progress Notes Filed: 06/27/2018 1:00 PM Note Text: Patient presents with: Chest Congestion HPI: Patient presents today for office visit for follow up. Complains of noting chest congestion. Mainly on the left for two days. No chest pain with exertion. Did paint on Wednesday. No fever or chills. No ear pain or sore throat. Feels tired. Mild nausea but no vomiting. No worsening heartburn. Out of inhaler but feels like she could use it. No pleuritic chest pain. No edema. MEDICATIONS: Current Outpatient Prescriptions: omeprazole (PRILOSEC) 20 mg capsule TAKE 1 CAPSULE BY MOUTH ONCE DAILY. lisinopril (ZESTRIL, PRINIVIL) 10 mg tablet TAKE 1 TABLET BY MOUTH ONCE DAILY. atorvastatin (LIPITOR) 40 mg tablet TAKE 1 TABLET BY MOUTH DAILY AT BEDTIME. FOR CHOLESTEROL. buPROPion (WELLBUTRIN) 100 mg tablet TAKE 0.5 TABLETS BY MOUTH TWICE DAILY. sertraline (ZOLOFT) 100 mg tablet TAKE 1 TABLET BY MOUTH EVERY DAY ammonium lactate (AMLACTIN) 12 % lotion Apply 1 application to affected area twice daily as needed. meloxicam (MOBIC) 15 mg tablet Take 1 tablet by mouth once daily. With food. ranolazine SR (RANEXA) 1,000 mg Tb12 Take 1 tablet by mouth twice daily. ibuprofen (MOTRIN) 800 mg tablet Take 1 tablet by mouth every 6 hours as needed for Pain. Take with food. Ascorbic Acid (VITAMIN C) 1,000 mg tablet Take 1,000 mg by mouth once daily. Multivitamin capsule Take 1 capsule by mouth once daily. Aspirin 81 mg Tab Take 81 mg by mouth. No current facility-administered medications for this visit. ALLERGIES: ALLERGIES No Known Allergies PAST MEDICAL HISTORY Diagnosis Date - Adrenal adenoma repeat ct in 07/07 - Anxiety - Arthritis fingers - CAD (coronary artery disease) Dr. Schultz - Chronic bronchitis (HCC) 05/03/2018 - Depression - Heartburn - HTN (hypertension) - Hyperlipidemia - Migraine - Morbid obesity (HCC) 05/03/2018 - Seasonal allergies - Sleep apnea PAST SURGICAL HISTORY Procedure Laterality Date - CABG (1) VEIN GRAFT AND ARTERIAL GRAFT 1999 - EXCIS TENDON SHEATH LESN,HAND/FINGR 07/04/2014 Right index finger digital muscous cyst excision - REMOVAL GALLBLADDER 2000 Cholecystectomy - REMOVAL OF TONSILS,<12 Y/O 1966 Tonsillectomy alone - REVISE MEDIAN N/CARPAL TUNNEL SURG 07/04/2014 Carpal tunnel decomp right FAMILY HISTORY Problem Relation Age of Onset - Alzheimer's Disease Mother heart attack, galcoma, htn - Glaucoma Mother - Ischemic Heart Disease Mother - Diabetes Father cad, prostate cancer - Stroke Father - Ischemic Heart Disease Father - Cervical Cancer Sister 35 cervical cancer, blood disease - Other [OTHER] Sister 53 hemochromatosis Social History Marital status: Single Spouse name: Years of education: Number of children: Social History Main Topics Smoking status: Former Smoker Packs/day: 1.00 Years: 30.00 Types: Cigarettes Quit date: 09/07/2017 Smokeless tobacco: Current User Alcohol use: No Comment: 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 REVIEW OF SYSTEMS All other reviewed and negative other than HPI. HEALTH MAINTENANCE: Reviewed health maintenance issues today and recommended the following in detail. HEPATITIS C SCREENING due on 2005 MAMMOGRAM due on 02/28/2016 PAP EVERY 5 YEARS due on 11/24/2017 HPV EVERY 5 YEARS due on 11/24/2017 LDL CHOLESTEROL due on 12/21/2017 INFLUENZA(1) due on 07/23/2018 VITALS: BP 112/70 Pulse (!) 59 Temp 36.6 ?C (97.8 ?F) (Tympanic) Wt (!) 136.5 kg (301 lb) SpO2 94% BMI 51.67 kg/m? Last 4 Encounter Wt Readings: Date: Wt: 06/27/2018 136.5 kg (301 lb) 05/02/2018 136.5 kg (301 lb) 08/12/2017 128.4 kg (283 lb) 07/06/2017 131.5 kg (289 lb 12.8 oz) PHYSICAL EXAMINATION: General appearance: Well appearing, alert, in no acute distress, well-hydrated, well nourished. Skin: Skin color, texture, turgor normal, no suspicious rashes or lesions Head: Normocephalic, no masses, lesions, tenderness or abnormalities Eyes: Anicteric sclera. Pupils are equally round and reactive to light. Extraocular movements are intact. Ears: External ears normal, canals clear Nose/Sinuses: Nares normal, septum midline, mucosa normal, no drainage or sinus tenderness Oropharynx: Lips, mucosa, and tongue normal, teeth and gums normal, oropharynx normal Neck: Supple, no adenopathy Lungs: lungs show mild end exp wheeze in left. Moving air well. Heart: RRR without murmur, gallop, or rubs. No ectopy Abdomen: Normal abdominal exam, Abdomen soft, non-tender. Bowel sounds normal. No masses, organomegaly Extremities: No deformities, edema, skin discoloration, clubbing or cyanosis. Good capillary refill. , No cords. No calf tenderness. Cassie's sign negative. ASSESSMENT/PLAN: 1. Coronary artery disease involving match[place] heart without angina pectoris, unspecified vessel or lesion type - ICD9: 414.01, ICD10: I25.10 (primary diagnosis) - call if any issues. 2. Morbid obesity (HCC) - ICD9: 278.01, ICD10: E66.01 - discussed diet and weight. 3. Chronic bronchitis, unspecified chronic bronchitis type (HCC) - ICD9: 491.9, ICD10: J42 - Discussed risks and benefits of new medication with the patient. Advised them to call if any side effects or questions. - Red flags for re-assessment reviewed with patient in detail. - XR CHEST 2V FRONTAL/LAT - ALBUTEROL SULFATE HFA 90 MCG/ACTUATION AEROSOL INHALER - PREDNISONE 20 MG TABLET 4. Pure hypercholesterolemia - ICD9: 272.0, ICD10: E78.00 - to be determined upon return of lab results - Continue current medication. - LIPID PANEL, NONFASTING - HEPATIC FUNCTION PNL 5. Essential hypertension - ICD9: 401.9, ICD10: I10 - good control - Continue current medication(s) - Goal of BP <140/90 Owen Solano MD RTO in six months and prn. GARRIDO Observed: 06/27/2018 Status: COMPLETED Source: [place] 12:00 PM [facility] REPOSITORY [facility] SHIRA CASTRO ([id number]) 1960 F Date Time Provider Department 06/27/18 12:00 PM OWEN SOLANO [facility] During your visit today, we recorded the following information about you: Temperature Pulse Blood pressure Weight 97.8 degrees 59/minute 112/70 136.5 kg Owen Solano MD 06/27/2018 1:00 PM Signed Patient presents with: Chest Congestion HPI: Patient presents today for office visit for follow up. Complains of noting chest congestion. Mainly on the left for two days. No chest pain with exertion. Did paint on Wednesday. No fever or chills. No ear pain or sore throat. Feels tired. Mild nausea but no vomiting. No worsening heartburn. Out of inhaler but feels like she could use it. No pleuritic chest pain. No edema. MEDICATIONS: Current Outpatient Prescriptions: omeprazole (PRILOSEC) 20 mg capsule TAKE 1 CAPSULE BY MOUTH ONCE DAILY. lisinopril (ZESTRIL, PRINIVIL) 10 mg tablet TAKE 1 TABLET BY MOUTH ONCE DAILY. atorvastatin (LIPITOR) 40 mg tablet TAKE 1 TABLET BY MOUTH DAILY AT BEDTIME. FOR CHOLESTEROL. buPROPion (WELLBUTRIN) 100 mg tablet TAKE 0.5 TABLETS BY MOUTH TWICE DAILY. sertraline (ZOLOFT) 100 mg tablet TAKE 1 TABLET BY MOUTH EVERY DAY ammonium lactate (AMLACTIN) 12 % lotion Apply 1 application to affected area twice daily as needed. meloxicam (MOBIC) 15 mg tablet Take 1 tablet by mouth once daily. With food. ranolazine SR (RANEXA) 1,000 mg Tb12 Take 1 tablet by mouth twice daily. ibuprofen (MOTRIN) 800 mg tablet Take 1 tablet by mouth every 6 hours as needed for Pain. Take with food. Ascorbic Acid (VITAMIN C) 1,000 mg tablet Take 1,000 mg by mouth once daily. Multivitamin capsule Take 1 capsule by mouth once daily. Aspirin 81 mg Tab Take 81 mg by mouth. No current facility-administered medications for this visit. ALLERGIES: ALLERGIES No Known Allergies PAST MEDICAL HISTORY Diagnosis Date - Adrenal adenoma repeat ct in 07/07 - Anxiety - Arthritis fingers - CAD (coronary artery disease) Dr. Schultz - Chronic bronchitis (HCC) 05/03/2018 - Depression - Heartburn - HTN (hypertension) - Hyperlipidemia - Migraine - Morbid obesity (HCC) 05/03/2018 - Seasonal allergies - Sleep apnea PAST SURGICAL HISTORY Procedure Laterality Date - CABG (1) VEIN GRAFT AND ARTERIAL GRAFT 1999 - EXCIS TENDON SHEATH KEN KESSLER/FINGR 07/04/2014 Right index finger digital muscous cyst excision - REMOVAL GALLBLADDER 2000 Cholecystectomy - REMOVAL OF TONSILS,<13 Y/O 1966 Tonsillectomy alone - REVISE MEDIAN N/CARPAL TUNNEL SURG 07/04/2014 Carpal tunnel decomp right FAMILY HISTORY Problem Relation Age of Onset - Alzheimer's Disease Mother heart attack, galcoma, htn - Glaucoma Mother - Ischemic Heart Disease Mother - Diabetes Father cad, prostate cancer - Stroke Father - Ischemic Heart Disease Father - Cervical Cancer Sister 35 cervical cancer, blood disease - Other [OTHER] Sister 53 hemochromatosis Social History Marital status: Single Spouse name: Years of education: Number of children: Social History Main Topics Smoking status: Former Smoker Packs/day: 1.00 Years: 30.00 Types: Cigarettes Quit date: 09/07/2017 Smokeless tobacco: Current User Alcohol use: No Comment: 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 REVIEW OF SYSTEMS All other reviewed and negative other than HPI. HEALTH MAINTENANCE: Reviewed health maintenance issues today and recommended the following in detail. HEPATITIS C SCREENING due on 2005 MAMMOGRAM due on 02/28/2016 PAP EVERY 5 YEARS due on 11/24/2017 HPV EVERY 5 YEARS due on 11/24/2017 LDL CHOLESTEROL due on 12/21/2017 INFLUENZA(1) due on 07/23/2018 VITALS: BP 112/70 Pulse (!) 59 Temp 36.6 ?C (97.8 ?F) (Tympanic) Wt (!) 136.5 kg (301 lb) SpO2 94% BMI 51.67 kg/m? Last 4 Encounter Wt Readings: Date: Wt: 06/27/2018 136.5 kg (301 lb) 05/02/2018 136.5 kg (301 lb) 08/12/2017 128.4 kg (283 lb) 07/06/2017 131.5 kg (289 lb 12.8 oz) PHYSICAL EXAMINATION: General appearance: Well appearing, alert, in no acute distress, well-hydrated, well nourished. Skin: Skin color, texture, turgor normal, no suspicious rashes or lesions Head: Normocephalic, no masses, lesions, tenderness or abnormalities Eyes: Anicteric sclera. Pupils are equally round and reactive to light. Extraocular movements are intact. Ears: External ears normal, canals clear Nose/Sinuses: Nares normal, septum midline, mucosa normal, no drainage or sinus tenderness Oropharynx: Lips, mucosa, and tongue normal, teeth and gums normal, oropharynx normal Neck: Supple, no adenopathy Lungs: lungs show mild end exp wheeze in left. Moving air well. Heart: RRR without murmur, gallop, or rubs. No ectopy Abdomen: Normal abdominal exam, Abdomen soft, non-tender. Bowel sounds normal. No masses, organomegaly Extremities: No deformities, edema, skin discoloration, clubbing or cyanosis. Good capillary refill. , No cords. No calf tenderness. Cassie's sign negative. ASSESSMENT/PLAN: 1. Coronary artery disease involving [place] heart without angina pectoris, unspecified vessel or lesion type - ICD9: 414.01, ICD10: I25.10 (primary diagnosis) - call if any issues. 2. Morbid obesity (HCC) - ICD9: 278.01, ICD10: E66.01 - discussed diet and weight. 3. Chronic bronchitis, unspecified chronic bronchitis type (HCC) - ICD9: 491.9, ICD10: J42 - Discussed risks and benefits of new medication with the patient. Advised them to call if any side effects or questions. - Red flags for re-assessment reviewed with patient in detail. - XR CHEST 2V FRONTAL/LAT - ALBUTEROL SULFATE HFA 90 MCG/ACTUATION AEROSOL INHALER - PREDNISONE 20 MG TABLET 4. Pure hypercholesterolemia - ICD9: 272.0, ICD10: E78.00 - to be determined upon return of lab results - Continue current medication. - LIPID PANEL, NONFASTING - HEPATIC FUNCTION PNL 5. Essential hypertension - ICD9: 401.9, ICD10: I10 - good control - Continue current medication(s) - Goal of BP <140/90 Owen Solano MD RTO in six months and prn. Owen Solano MD 06/27/2018 1:01 PM Signed Addended by: OWEN SOLANO MD on: 06/27/2018 01:01 PM Modules accepted: Orders Referring Provider: SELF [200] Allergies As of Date: 06/27/2018 (No Known Allergies) Date Reviewed: 05/09/2018 Reviewed by: Curtis (Rn) VANIA Phillips - Fully Assessed Reason for Visit: Chest Congestion [236] Primary Visit Diagnosis:Coronary artery disease involving match[place] heart without angina pectoris, unspecified vessel or lesion type [I25.10] Other Visit Diagnoses:Morbid obesity (HCC) [E66.01] Chronic bronchitis, unspecified chronic bronchitis type (HCC) [J42] Pure hypercholesterolemia [E78.00] Essential hypertension [I10] Screening breast examination [Z12.31] Order(s):LIPID PANEL, NONFASTING [SQLIPNF] Order #: [id number] FUTURE HEPATIC FUNCTION PNL [SQHFP] Order #: [id number] FUTURE XR CHEST 2V FRONTAL/LAT [[id number]] Order #: [id number] FUTURE albuterol HFA (VENTOLIN HFA) 90 mcg/actuation inhalerInhale 2 Puffs as instructed every 4 hours as needed for Wheezing/Shortness of Breath.Disp: 1 InhalerRfl: 0 predniSONE (DELTASONE) 20 mg tabletTake 1 tablet by mouth once daily for 5 days. Take daily with food.Disp: 5 tabletRfl: 0 [place] SCREENING [[id number]] Order #: [id number] FUTURE Prescriptions as of 06/27/2018 Sig: ALBUTEROL SULFATE HFA 90 MCG/* Inhale 2 Puffs as instructed * PREDNISONE 20 MG TABLET Take 1 tablet by mouth once d* OMEPRAZOLE 20 MG CAPSULE,ABHINAV* TAKE 1 CAPSULE BY MOUTH ONCE * LISINOPRIL 10 MG TABLET TAKE 1 TABLET BY MOUTH ONCE D* ATORVASTATIN 40 MG TABLET TAKE 1 TABLET BY MOUTH DAILY * BUPROPION HCL 100 MG TABLET TAKE 0.5 TABLETS BY MOUTH TWI* SERTRALINE 100 MG TABLET TAKE 1 TABLET BY MOUTH EVERY * AMMONIUM LACTATE 12 % LOTION Apply 1 application to affect* MELOXICAM 15 MG TABLET Take 1 tablet by mouth once d* RANOLAZINE ER 1,000 MG TABLET* Take 1 tablet by mouth twice * IBUPROFEN 800 MG TABLET Take 1 tablet by mouth every * ASCORBIC ACID (VITAMIN C) 1,0* Take 1,000 mg by mouth once d* MULTIVITAMIN CAPSULE Take 1 capsule by mouth once * ASPIRIN 81 MG TABLET Take 81 mg by mouth. Problem List As Of Date 06/27/2018 Noted Resolved Hyperlipidemia [E78.5] HTN (hypertension) [I10] Anxiety [F41.9] Depression [F32.9] Sleep apnea [G47.30] Carpal tunnel syndrome, right [G56.01] INVALID FOR*12/21/2016 Digital mucous cyst [M67.449] INVALID FOR*12/21/2016 Ganglion cyst of left foot [M67.472] INVALID FOR* More... CAD (coronary artery disease) [I25.10] INVALID FOR* More... Heartburn [R12] INVALID FOR* Arthritis [M19.90] INVALID FOR* More... Chronic bronchitis (HCC) [J42] INVALID FOR* Morbid obesity (HCC) [E66.01] INVALID FOR* Prescriptions ordered this encounter Disp Refills Start End ALBUTEROL SULFATE HFA 90 MCG/ACTUATI* 1 In* 0 06/27/2018 Route: INHALATION Sig: Inhale 2 Puffs as instructed every 4 hours as needed for Wheezing/Shortness of Breath. PREDNISONE 20 MG TABLET 5 ta* 0 06/27/2018 07/02/2018 Route: ORAL Sig: Take 1 tablet by mouth once daily for 5 days. Take daily with food. Medications Discontinued During This Encounter albuterol HFA (VENTOLIN HFA) 90 mcg/* 1 In* 5 12/04/2016 06/27/2018 Route: INHALATION Sig: Inhale 2 Puffs as instructed every 4 hours as needed for Wheezing/Shortness of Breath. Disc: Reason for discontinue is not on file. Encounter Status:Closed by OWEN SOLANO MD on 06/27/18 URINALYSIS WITH Collected: 05/11/2018 Status: F [facility] 12:23 PM [facility] REPOSITORY TYPE CODE TESTS RESULT OUT OF RANGE REFERENCE UNITS LAB UCOL Yellow Color Yellow LAB [facility] Clear Clarity Abnormal Cloudy Alert LAB UGLUC Negative mg/dL Glucose, Urine Negative LAB UBIL Negative Bilirubin, Urine Negative LAB UKET Negative Ketones, Urine Negative LAB USPG 1.005-1.030 Specific [place], Ur 1.018 LAB UHGB Negative Hemoglobin/Blood, Negative Ur LAB UPH 4.5-8.0 pH 5.0 LAB UPROT Negative mg/dL Protein, Urine Negative LAB UUROB Normal Urobilinogen Normal LAB UNITR Negative Nitrites Negative LAB ULKEST Negative Leukest Negative LAB UCOM Comments SEE COMMENT Result Comment: N/A LAB UMCOM Urine SEE [place] Comment COMMENT Result Comment: N/A LAB UWBC 0-5 /HPF WBC 0-5 LAB URBC 0-3 /HPF RBC 0-3 LAB UEPI /HPF Epithelial SEE Cells COMMENT Result Comment: Few Squamous Epithelial Cells Performed By: #### UAWMIC #### [facility] [address], [place] [address] BASIC METABOLIC PANL Collected: 05/11/2018 Status: F Source: [place] 12:19 PM [facility] REPOSITORY TYPE CODE TESTS RESULT OUT OF REFERENCE UNITS RANGE LAB GLU 74-99 mg/dL Glucose 91 Result Comment: The [place] [employer] (ADA) provides guidance for cutoff values for fasting glucose and random glucose. The ADA defines fasting as no caloric intake for at least 8 hours. Fas ting plasma glucose results between 100 to 125 mg/dL indicate increased risk for diabetes (prediabetes). Fasting plasma glucose results greater than or equal to 126 mg/dL meet the criteria for diagnosis of diabetes. In the absence of unequivocal hyperglycemia, results should be confirmed by repeat testing. In a patient with classic symptoms of hyperglycemia or hyperglycemic crisis, random plasma glucose results greater than or equal to 200 mg/dL meet the criteria for diagnosis of diabetes. Reference: Standards of Medical Care in Diabetes 2016, [place] [employer]. Diabetes Care. 2016.39(Suppl 1). LAB BUN 7-21 mg/dL BUN 13 LAB CRET 0.58-0.96 mg/dL Creatinine 0.92 LAB NA 136-144 mmol/L Sodium 140 LAB K 3.7-5.1 mmol/L Potassium 4.5 LAB CL 97-105 mmol/L Chloride 101 LAB CO2 22-30 mmol/L CO2 27 LAB AGAP 9-18 mmol/L Anion Gap 12 LAB CA 8.5-10.2 mg/dL Calcium, Total 9.6 LAB GFRAA eGFR- Amer. >60 LAB GFRNAA . eGFR-All Other Races >60 Result Comment: eGFR (Estimated GFR) Units of measure: mL/min/1.73 meters squared eGFR is derived from the reexpressed MDRD Study equation using the following parameters: serum creatinine, age, gender and race. The creatinine assay has been calibrated to be traceable to IDMS. An eGFR <60 mL/min/1.73m2 for >3 months is consistent with chronic kidney disease. Refer to KDOQI guidelines for clinical interpretation. In patients with unstable renal function, e.g. those with acute kidney injury, the eGFR may not accurately reflect actual GFR. Performed By: #### BMP #### [facility] [address], [place] [address] PROGRESS Observed: 05/09/2018 Status: COMPLETED Source: [place] 9:06 AM [facility] REPOSITORY HNO ID: [id number] Author: India Vidal Service: Podiatry Author Type: Physician Type: Progress Notes Filed: 05/09/2018 9:07 AM Note Text: Patient scheduled for ganglion excision of right this morning. Unfortunately, has not discontinued aspirin. Given location of mass along anterior ankle/midfoot in relation to dorsal venous structures and dorsalis pedis, I would prefer and recommend postponing surgery until she is cleared by cardiology to come off of aspirin. Of note, this ganglion does appear to have shifted proximally to anterior ankle since having this aspirated twice under ultrasound. I would also recommend repeating mri. Will have my nursing arrange. Will give her ultram for pain. India Vidal DPM ANES PREOP Observed: 05/09/2018 Status: COMPLETED Source: [place] 8:19 AM [facility] OTHER [facility] REPOSITORY O ID: [id number] Author: Luciana Mcleod Service: Anesthesiology Author Type: Anesthesiologist Type: Anesthesia PreOp Filed: 05/09/2018 8:20 AM Note Text: ANESTHESIOLOGY DAY OF SURGERY NOTE SERVICE DATE: 05/09/2018 SERVICE TIME: 8:20 AM : 1960 Procedure(s) (LRB): EXCISION SUB-Q SOFT TISSUE TUMOR OF FOOT < 1.5CM (Left) Surgeon(s): India Vidal Estimated body mass index is 51.67 kg/m? as calculated from the following: Height as of 05/02/18: 162.6 cm (5' 4). Weight as of 05/02/18: 136.5 kg (301 lb). Most recent hematocrit and potassium results: Hematocrit 41.1 12/21/2016 Potassium 4.3 05/02/2018 ANES DOS/PREOP NOTE: Vitals: 05/09/18 0754 BP: 107/69 Pulse: 61 Resp: 16 Temp: 36.3 ?C (97.3 ?F) TempSrc: Temporal Artery SpO2: 94% ACTIVE PROBLEM LIST Hyperlipidemia Htn (Hypertension) Anxiety Depression Sleep Apnea Ganglion Cyst of Left Foot Cad (Coronary Artery Disease) Heartburn Arthritis Chronic Bronchitis (Hcc) Morbid Obesity (Hcc) PAST MEDICAL HISTORY Diagnosis Date - Adrenal adenoma repeat ct in 07/07 - Anxiety - Arthritis fingers - CAD (coronary artery disease) Dr. Schultz - Chronic bronchitis (HCC) 05/03/2018 - Depression - Heartburn - HTN (hypertension) - Hyperlipidemia - Migraine - Morbid obesity (HCC) 05/03/2018 - Seasonal allergies - Sleep apnea PAST SURGICAL HISTORY Procedure Laterality Date - CABG (1) VEIN GRAFT AND ARTERIAL GRAFT 1999 - EXCIS TENDON SHEATH LESN,HAND/FINGR 07/04/2014 Right index finger digital muscous cyst excision - REMOVAL GALLBLADDER 2000 Cholecystectomy - REMOVAL OF TONSILS,<13 Y/O 1966 Tonsillectomy alone - REVISE MEDIAN N/CARPAL TUNNEL SURG 07/04/2014 Carpal tunnel decomp right FAMILY HISTORY Problem Relation Age of Onset - Alzheimer's Disease Mother heart attack, galcoma, htn - Glaucoma Mother - Ischemic Heart Disease Mother - Diabetes Father cad, prostate cancer - Stroke Father - Ischemic Heart Disease Father - Cervical Cancer Sister 35 cervical cancer, blood disease - Other [OTHER] Sister 53 hemochromatosis Social History: Social History Substance Use Topics - Smoking status: Former Smoker Packs/day: 1.00 Years: 30.00 Types: Cigarettes Quit date: 09/07/2017 - Smokeless tobacco: Current User - Alcohol use No Comment: 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 Current Outpatient Prescriptions on File Prior to Encounter: buPROPion (WELLBUTRIN) 100 mg tablet TAKE 0.5 TABLETS BY MOUTH TWICE DAILY. sertraline (ZOLOFT) 100 mg tablet TAKE 1 TABLET BY MOUTH EVERY DAY ranolazine SR (RANEXA) 1,000 mg Tb12 Take 1 tablet by mouth twice daily. omeprazole (PRILOSEC) 20 mg capsule Take 1 capsule by mouth once daily. lisinopril (ZESTRIL, PRINIVIL) 10 mg tablet Take 1 tablet by mouth once daily. atorvastatin (LIPITOR) 40 mg tablet Take 1 tablet by mouth daily at bedtime. For cholesterol. ibuprofen (MOTRIN) 800 mg tablet Take 1 tablet by mouth every 6 hours as needed for Pain. Take with food. Ascorbic Acid (VITAMIN C) 1,000 mg tablet Take 1,000 mg by mouth once daily. Multivitamin capsule Take 1 capsule by mouth once daily. Aspirin 81 mg Tab Take 81 mg by mouth. ammonium lactate (AMLACTIN) 12 % lotion Apply 1 application to affected area twice daily as needed. meloxicam (MOBIC) 15 mg tablet Take 1 tablet by mouth once daily. With food. albuterol HFA (VENTOLIN HFA) 90 mcg/actuation inhaler Inhale 2 Puffs as instructed every 4 hours as needed for Wheezing/Shortness of Breath. Current Facility-Administered Medications: lidocaine 10 mg/mL (1 %) 1-2 mg injection (XYLOCAINE) 0.1- 0.2 mL INTRADERMAL PRN Hiro Lovelace lactated ringers infusion 5-30 mL/hr INTRAVENOUS CONTINUOUS Hiro Lovelace Last Rate: 30 mL/hr at 05/09/18 0758 30 mL/hr at 05/09/18 0758 ceFAZolin 3 g in D5W 100 mL (ANCEF) 3 g INTRAVENOUS Pre-Op Once Hiro Lovelace Allergies: ALLERGIES No Known Allergies DOS EXAM: Adequate NPO Status: Yes Anesthetic Risks, Benefits, Alternatives, Personnel and Consent Discussed: Yes Patient agrees to proceed: Yes Previous Anesthesia: No history of adverse event Airway Assessment: MP 1; Neck ROM: Full ROM without neurologic symptoms; Airway Evaluation: Short Neck Symptoms of Sleep Apnea: TERESA on CPAP Dentition: Multiple missing teeth Additional Physical Exam: Lungs: Patient health status unchanged since recent history and physical. See history and physical for exam findings. Cardiac: Patient health status unchanged since recent history and physical. See history and physical for exam findings. Additional Pertinent Findings: N/A Blood Products: Not anticipated for this procedure Anesthetic Plan: General Anesthetic Monitoring: Standard ASA Monitors Pain Management Plan: Parenteral or Oral ASA Class: 3 Other Medical Problems: None Chronic Beta Fredy medication administered within 24 hours: N/A I have interviewed and examined the patient. I have reviewed the medical record and/or the pre-anesthesia evaluation, pertinent labs, and test results. Significant changes in the patient's condition since the History and Physical, not otherwise documented in primary service progress notes: No This contains updated information obtained within 48 hours of Surgery/Procedure. SIGNATURE: Luciana Mcleod MD PATIENT NAME: Shira Castro DATE: May 09, 2018 TIME: 8:19 AM CSN: [id number] PT ED Observed: 05/09/2018 Status: COMPLETED Source: [place] 7:57 AM [facility] REPOSITORY HNO ID: [id number] Author: Curtis Phillips RN Service: Nursing Author Type: Registered Nurse Type: Patient Education Filed: 05/09/2018 7:58 AM Note Text: PRE OP LEARNING ASSESSMENT PROCEDURE/SURGERY: SURGERY: Ganglion cyst removal of left foot READINESS TO LEARN COGNITIVE ABILITY: Alert and oriented MOTIVATION TO LEARN: Eager FAMILY SUPPORT: High - Very involved in pt care PATIENT LEARNS BEST BY: Individual Instruction Verbal Instruction FACTORS AFFECTING LEARNING: None PHYSICAL LIMITATIONS AFFECTING LEARNING: None Electronically Signed By: Curtis Phillips RN In Department: [facility] SURGERY PROGRESS Observed: 05/09/2018 Status: COMPLETED Source: [place] 7:28 AM [facility] REPOSITORY HNO ID: [id number] Author: Hiro Lovelace Service: Podiatry Author Type: Resident Type: Progress Notes Filed: 05/09/2018 9:01 AM Note Text: PODIATRIC PRE-OPERATIVE NOTE SERVICE DATE: 05/09/2018 SERVICE TIME: 9:00 AM The patient did not discontinue ASA. Procedure will thus be postponed until a later date per Dr. Vidal. SIGNATURE: Hiro Lovelace DPM PGY-II PATIENT NAME: Shira Csatro DATE: May 09, 2018 TIME: 9:00 AM HISTORY PHYSICAL Observed: 05/09/2018 Status: COMPLETED Source: [place] 7:27 AM [facility] [place] REPOSITORY HNO ID: [id number] Author: Hiro Lovelace Service: Podiatry Author Type: Resident Type: HANDP Filed: 05/09/2018 9:01 AM Note Text: PODIATRIC HISTORY AND PHYSICAL UPDATE EVALUATION DATE: 05/09/2018 EVALUATION TIME: 7:27 AM The documented History and Physical (completed in the past 30 days) has been reviewed and the patient had a confirmatory musculoskeletal exam performed. The contents of the pre-operative assesment accurately reflect the patient's condition with the following additions or revisions since the HANDP was completed: No changes. This HANDP can be found in the record dated 05/03/18. SIGNATURE: Hiro Lovelace DPM PGY-II PATIENT NAME: Shira Castro DATE: May 09, 2018 TIME: 7:27 AM NURSING PROG Observed: 05/06/2018 Status: COMPLETED Source: [place] 8:21 AM [facility] REPOSITORY HNO ID: [id number] Author: Luciana Traore RN Service: (none) Author Type: Registered Nurse Type: Nursing Progress Note Filed: 05/06/2018 8:26 AM Note Text: PACC Nurse Progress Note History AND Physical: PACC Visit Date: 05/02/18 Original HANDP Date: 05/02/18 ED visit Date: N/A Outside HANDP Scanned Date: N/A Labs Within Last 6 Months: BMP/CMP: Date 05/02/18 creatinine 1.26, FYI sent to PCP Dr. Solano via phone encounter Imaging Within Last 12 Months: US guided aspiration 01/24/18, Rt. Foot XR 11/19/17 Cardiac Testing: EKG in last 12 Months: Yes: Date: 08/12/17, Comment: NORMAL SINUS RHYTHM POSSIBLE LEFT ATRIAL ENLARGEMENT INCOMPLETE RIGHT BUNDLE BRANCH BLOCK NON-SPECIFIC ST AND T WAVE CHANGES ABNORMAL ECG NO SIGNIFICANT CHANGE FROM PREVIOUS ECG Stress Test Date: 01/16/15 , Comment: scanned in EPIC Last Menstrual Period: LMP Date: none recorded Postmenopausal >1yr: Yes, S/P Hysterectomy: Yes BMI Percentile (PEDS): N/A Risk Assessment: N/A Anesthesia Review: N/A Narrative: N/A Pre-op Considerations: BMI 51 TERESA wears CPAP. Per HANDP: Significant Anesthesia Considerations: Slow emergence and Difficult IV/Vein Access: yes Chart Check: COMPLETED Luciana Traore RN May 06, 2018 8:21 AM COMP METABOLIC PANEL Collected: 05/02/2018 Status: F Source: [place] 4:27 PM [facility] REPOSITORY TYPE CODE TESTS RESULT OUT OF REFERENCE UNITS RANGE LAB TP 6.3-8.0 g/dL Protein, Total 7.0 LAB ALB 3.9-4.9 g/dL Albumin 4.4 LAB CA 8.5-10.2 mg/dL Calcium, Total 9.3 LAB TBIL 0.2-1.3 mg/dL Bilirubin, Total 0.3 LAB ALKP 32-117 U/L Alkaline Phosphatase 74 LAB AST 13-35 U/L AST 18 LAB GLU 74-99 mg/dL Glucose 89 Result Comment: The [place] [employer] (ADA) provides guidance for cutoff values for fasting glucose and random glucose. The ADA defines fasting as no caloric intake for at least 8 hours. Fas ting plasma glucose results between 100 to 125 mg/dL indicate increased risk for diabetes (prediabetes). Fasting plasma glucose results greater than or equal to 126 mg/dL meet the criteria for diagnosis of diabetes. In the absence of unequivocal hyperglycemia, results should be confirmed by repeat testing. In a patient with classic symptoms of hyperglycemia or hyperglycemic crisis, random plasma glucose results greater than or equal to 200 mg/dL meet the criteria for diagnosis of diabetes. Reference: Standards of Medical Care in Diabetes 2016, [place] [employer]. Diabetes Care. 2016.39(Suppl 1). LAB BUN 7-21 mg/dL BUN 16 LAB CRET 0.58-0.96 mg/dL Creatinine High 1.26 LAB NA 136-144 mmol/L Sodium 139 LAB K 3.7-5.1 mmol/L Potassium 4.3 LAB CL 97-105 mmol/L Chloride 100 LAB CO2 22-30 mmol/L CO2 26 LAB AGAP 9-18 mmol/L Anion Gap 13 LAB ALT 7-38 U/L ALT 17 LAB GFRAA eGFR- Amer. 53 LAB GFRNAA . eGFR-All Other Races 44 Result Comment: eGFR (Estimated GFR) Units of measure: mL/min/1.73 meters squared eGFR is derived from the reexpressed MDRD Study equation using the following parameters: serum creatinine, age, gender and race. The creatinine assay has been calibrated to be traceable to IDMS. An eGFR <60 mL/min/1.73m2 for >3 months is consistent with chronic kidney disease. Refer to KDOQI guidelines for clinical interpretation. In patients with unstable renal function, e.g. those with acute kidney injury, the eGFR may not accurately reflect actual GFR. Performed By: #### CMP #### [facility] [address], [place] [address] HISTORY PHYSICAL Observed: 05/02/2018 Status: COMPLETED Source: [place] 4:00 PM [facility] REPOSITORY HNO ID: [id number] Author: Angelika Varma (Pa) Service: (none) Author Type: Physician Overhead Distribution Engineer Type: HANDP Filed: 05/03/2018 9:00 AM Note Text: HISTORY AND PHYSICAL EXAMINATION SERVICE DATE: 05/02/2018 SERVICE TIME: 4:00 PM PRIMARY CARE PHYSICIAN: Owen Solano MD REASON FOR VISIT: Shira Castro is a 57 year old female who is scheduled for excision cyst on left foot at the request of Dr. India Vidal for consultation. My final recommendation will be communicated back to the requesting physician by way of shared medical record or letter. The patient has the following: ACTIVE PROBLEM LIST Hyperlipidemia Htn (Hypertension) Anxiety Depression Sleep Apnea Ganglion Cyst of Left Foot Cad (Coronary Artery Disease) Heartburn Arthritis Chronic Bronchitis (Hcc) Morbid Obesity (Hcc) Subjective CHIEF COMPLAINT: left foot pain HPI: Shira Castro is a 57 year old female that presents c/o a 1 year history of cyst on left foot that has worsened with time. Has undergone aspiration AND injection x 2.. Pain is constant and described as aching, sharp and stabbing in nature. Pain does not radiate. Aggravating factors include pressure on cyst, wearing shoes and sleeping on stomach. Alleviated by icing and removing shoes. Previous treatments include as above. Denies recent illness, fever or chills. PAST MEDICAL HISTORY Diagnosis Date - Adrenal adenoma repeat ct in 07/07 - Anxiety - Arthritis fingers - CAD (coronary artery disease) Dr. Schultz - Chronic bronchitis (HCC) 05/03/2018 - Depression - Heartburn - HTN (hypertension) - Hyperlipidemia - Migraine - Morbid obesity (HCC) 05/03/2018 - Seasonal allergies - Sleep apnea PAST SURGICAL HISTORY Procedure Laterality Date - CABG (1) VEIN GRAFT AND ARTERIAL GRAFT 1999 - EXCIS TENDON SHEATH LESN,HAND/FINGR 07/04/2014 Right index finger digital muscous cyst excision - REMOVAL GALLBLADDER 2000 Cholecystectomy - REMOVAL OF TONSILS,<12 Y/O 1966 Tonsillectomy alone - REVISE MEDIAN N/CARPAL TUNNEL SURG 07/04/2014 Carpal tunnel decomp right FAMILY HISTORY Problem Relation Age of Onset - Alzheimer's Disease Mother heart attack, galcoma, htn - Glaucoma Mother - Ischemic Heart Disease Mother - Diabetes Father cad, prostate cancer - Stroke Father - Ischemic Heart Disease Father - Cervical Cancer Sister 35 cervical cancer, blood disease - Other [OTHER] Sister 53 hemochromatosis SOCIAL HISTORY: Social History Marital status: Single Spouse name: Years of education: Number of children: Social History Main Topics Smoking status: Former Smoker Packs/day: 1.00 Years: 30.00 Types: Cigarettes Quit date: 09/07/2017 Smokeless tobacco: Current User Alcohol use: No Comment: 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 Yes sertraline (ZOLOFT) 100 mg tablet TAKE 1 TABLET BY MOUTH EVERY DAY Yes ammonium lactate (AMLACTIN) 12 % lotion Apply 1 application to affected area twice daily as needed. Yes meloxicam (MOBIC) 15 mg tablet Take 1 tablet by mouth once daily. With food. Yes ranolazine SR (RANEXA) 1,000 mg Tb12 Take 1 tablet by mouth twice daily. Yes omeprazole (PRILOSEC) 20 mg capsule Take 1 capsule by mouth once daily. Yes lisinopril (ZESTRIL, PRINIVIL) 10 mg tablet Take 1 tablet by mouth once daily. Yes atorvastatin (LIPITOR) 40 mg tablet Take 1 tablet by mouth daily at bedtime. For cholesterol. Yes ibuprofen (MOTRIN) 800 mg tablet Take 1 tablet by mouth every 6 hours as needed for Pain. Take with food. Yes albuterol HFA (VENTOLIN HFA) 90 mcg/actuation inhaler Inhale 2 Puffs as instructed every 4 hours as needed for Wheezing/Shortness of Breath. Yes Ascorbic Acid (VITAMIN C) 1,000 mg tablet Take 1,000 mg by mouth once daily. Yes Multivitamin capsule Take 1 capsule by mouth once daily. Yes Aspirin 81 mg Tab Take 81 mg by mouth. Yes No medication comments found. ALLERGIES No Known Allergies REVIEW OF SYSTEMS: PAIN ASSESSMENT: General: No weight loss, malaise or fevers. Neuro: Postive for Impaired Sensorium in hands and feet; No history of TIAs, stroke, headaches, tremors, DORMITORY COUNSELOR tumor, hemiplegia, paraplegia, quadriplegia. Respiratory: TERESA on CPAP; Former Smoker-quit 08/2017; +chronic bronchitis-rarely needs inhaler; No history of current cough, dyspnea, bronchitis or pneumonia in the last 6 weeks. Cardiovascular: HTN-treated; HLD-treated; Angina-uses Ranexa; +palpitations when she is tired; CAD s/p CABG x 1 vessel AND 1 stent in 1999; Followed by Dr. Andrews; Negative for orthopnea, PND, dizziness, lightheadedness or syncope. Negative for heart murmur. Negative for h/o DVT/PE. Negative for LE edema. No [place]. GI: GERD on Omeprazole; No PUD or liver disease. 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 : Denies, No LMP recorded. Patient is postmenopausal. Endocrine: No history of diabetes. Has not taken steroids within the past 30 days. No history of endocrinological symptoms or problems. Hematology: Chronic anti-coagulation / platelet meds (Aspirin) Oncology: No history of CA metastasis, chemo within 30 days, or radiotherapy within 90 days. Has not lost 10% of body wt in 6 months. No history of oncological symptoms or problems. Psych: Anxiety, Depression-treated Musculoskeletal: Joint pain; No back pain Skin: Negative for lesions, rash and itching. Objective PHYSICAL EXAM: VITALS: BP 118/76 Pulse 74 Temp (Src) 98.4 (Temporal Artery) Ht 5' 4 (1.63m) Wt 301 lb (136.5kg) SpO2 97% BMI 51.64 kg/(m2). General: Alert and oriented, No acute distress, Morbidly obese Skin: Normal color, no rash, no lesions. HEENT: EOM, pupils equal, round and reactive., No carotid bruits Cardiovascular: Normal S1 AND S2, no rubs, murmurs or gallops. No JVD. Pulse regular. Lungs: Normal breath sounds, no wheezes or crackles., No chest deformities or chest wall tenderness. Abdomen: Soft, non-tender, no rigidity., No masses or organomegaly. Extremities: BLE trace non-pitting edema Neurological: Normal cognition and motor skills. Gait normal. No weakness or sensory deficit. Pulses: Carotid and radial pulses normal +2. Diagnostic tests reviewed for today's visit: Lab Value Units Date High Low HB No results within date range. HCT No results within date range. WBC No results within date range. PLT No results within date range. NA No results within date range. K No results within date range. GLUC No results within date range. BUN No results within date range. CREAT No results within date range. PTSEC No results within date range. INR No results within date range. APTT No results within date range. ALT No results within date range. AST No results within date range. TBILI No results within date range. TSH No results within date range. Lab Value Units Date High Low HCGQT No results within date range. UHCG No results within date range. HCG, BODY* No results within date range. Lab Value Units Date High Low ABORHD No results within date range. ABSCREEN No results within date range. No results found for: HBA1C Most recent labs Most recent imaging Most recent EKG: Diagnosis:NORMAL SINUS RHYTHM POSSIBLE LEFT ATRIAL ENLARGEMENT INCOMPLETE RIGHT BUNDLE BRANCH BLOCK NON-SPECIFIC ST AND T WAVE CHANGES ABNORMAL ECG NO SIGNIFICANT CHANGE FROM PREVIOUS ECG , reviewed by fuel pilot engineer. Most recent stress test Most recent cardiac cath All in Epic Assessment ASSESSMENT Patient has the following medical conditions: CAD s/p CABG x 1 vessel and stent to RCA (1999) on ASA Morbidly obese-BMI 51.67 Slow Emergence Sleep Apnea on CPAP HTN-treated with Lisinopril HLD-treated with statin Angina controlled with Ranexa GERD-Omeprazole Chronic bronchitis-rare inhaler use Recently stopped smoking Anxiety/Depression-RXs METS: Climb a flight of stairs or walk up a hill (5.50 METs) Patient denies any chest pain or undue shortness of breath with the above physical activity. ASA Class: 3 ANESTHESIA FINDINGS: Intubation History: No history of difficult intubation Significant Anesthesia Considerations: Slow emergence and Difficult IV/Vein Access: yes Airway Exam: General: Morbid obesity Mallampati Score is CLASS I ULBT: Class I - Lower incisors can bite the upper lip above the codi line Neck: Normal appearance and function, Distance from hyoid to mentum during neck extension is at least 3 finger breaths, Short neck, obese neck Mouth: Normal tongue size and Mouth opening greater than 2 finger breaths Dentition: Caps/crowns Airway History: No history of difficult intubation STOP BANG Score: TERESA uses CPAP/BiPAP PLAN This patient is optimally prepared for surgery pending LABS. CONSULTS: Patient does not require consults for optimization at this time. The Following Tests/Procedures Have Been Initiated: Orders Placed This Encounter COMP METABOLIC PANEL Planned Anesthetic: General Instructions Given to Patient: Patient given verbal and written preop instructions and voices comprehension and compliance. SIGNATURE: Angelika Varma PA-C PATIENT NAME: Shira Castro DATE: May 02, 2018 TIME: 4:00 PM PAGER/CONTACT #: [id number] Observed: 03/11/2018 Status: COMPLETED Source: [place] 12:00 AM [facility]INIC OTHER CAMPUS REPOSITORY Patient:Shira Castro MRN: <[id number]> Height:5' 4(1.626 m) Weight:301 lb (136.533 kg) Outpatient Medications as of 05/09/18: buPROPion (WELLBUTRIN) 100 mg tablet sertraline (ZOLOFT) 100 mg tablet ammonium lactate (AMLACTIN) 12 % lotion meloxicam (MOBIC) 15 mg tablet ranolazine SR (RANEXA) 1,000 mg Tb12 omeprazole (PRILOSEC) 20 mg capsule lisinopril (ZESTRIL, PRINIVIL) 10 mg tablet atorvastatin (LIPITOR) 40 mg tablet ibuprofen (MOTRIN) 800 mg tablet albuterol HFA (VENTOLIN HFA) 90 mcg/actuation inhaler Ascorbic Acid (VITAMIN C) 1,000 mg tablet Multivitamin capsule Aspirin 81 mg Tab Admission/Clinic Administered Medications as of 05/09/18: lidocaine 10 mg/mL (1 %) 1-2 mg injection (XYLOCAINE) lactated ringers infusion ceFAZolin 3 g in D5W 100 mL (ANCEF) Problem List: Hyperlipidemia [E78.5] HTN (hypertension) [I10] Anxiety [F41.9] Depression [F32.9] Sleep apnea [G47.30] Ganglion cyst of left foot [M67.472] CAD (coronary artery disease) [I25.10] Heartburn [R12] Arthritis [M19.90] Chronic bronchitis (HCC) [J42] Morbid obesity (HCC) [E66.01] Allergies: No Known Allergies Date Verified:05/09/18 Lab Values Lab Value Units Date High Low POTA* 4.3 mmol/L 05/02/2018 5.1 3.7 Progress Notes ([facility]): Owen Solano MD 05/06/2018 2:38 PM Signed Her kidney function is reduced on recent labs. Avoid advil or aleve. Recheck bmp and urine in next week or so. Push fluids Shira Cummings Ma 05/06/2018 2:48 PM Signed Patient made aware and verbalizes understanding. Shira Cummings Ma Progress Notes ([facility]): Luciana Traore RN, RN 05/06/2018 8:21 AM Signed LEWIS Cedeno re: abnormal CMP done 05/02/18 at [facility] visit. Creatinine of 1.26, elevated from previous results in [facility]. Thank you Luciana Traore RN [place] [facility] (Pre-Anesthesia Testing) PROGRESS Observed: 03/10/2018 Status: COMPLETED Source: [place] 7:52 AM [facility] REPOSITORY HNO ID: [id number] Author: India Vidal Service: (none) Author Type: Physician Type: Progress Notes Filed: 03/11/2018 9:01 PM Note Text: ? India Vidal DPM Department [facility] Podiatry [address] [facility] [facility] [address] Dept: [phone] Dept 03/10/2018 Follow Up Podiatric Office Visit: HPI: Shira Castro is a 57 year old female. Patient presents to discuss options for excision of Ganglion cyst of L foot. Patient currently does not have any pain. Reports intermittent pain that comes and goes. When painful, pain is rated at a 4-5/10 that is described as stabbing that radiates numbness into toes. Pain has woken patient up at night, in which, at that point pain reaches an 8/10. Patient has underwent ultrasound guided aspiration/injection at main campus twice with minimal relief time. Reports that last injection on 01/24/18 only provided relief for roughly 3 1/2 - 4 weeks. Patient reports slight discomfort to R heel/ankle at times, but is not as pressing as issues with L foot. Patient would like to proceed with scheduling surgery for Ganglion cyst, L foot. Patient previous smoker. Stopped smoking September 07, 2017. Physical Exam: Constitutional: Pt is a well developed 57 year old female who is alert, oriented and cooperative Eyes: Following during examination. No redness or drainage. Respiratory: RR normal and nonlabored. Even breathing. No evidence of distress or shortness of breath. Psychology: Patient is engaged during conversation. Normal affect and mood. Does not appear depressed or anxious during encounter. Vascular: Dorsalis pedis and posterior tibial pulses palpable as b/l Capillary Fill time < 5 seconds to digits 1-5 b/l Skin temperature warm to proximal to distal b/l Hair growth present to digits Neurological: intact light touch/epicritic sensation intact protective sensation, insignificant neurological deficits. Dermatological: Skin appears well hydrated and supple. good color, texture, turgor. Callosities absent.Open lesions absent. Wound: Not present. Musculoskeletal/Orthopaedic: Patient has pain to palpation of left midfoot with ganglion present Foot type is neutral structurally AJ ROM is full with knee extended and flexed 1st MPJ is full when loaded and no pain or crepitus are noted with ROM. MTJ, STJ are full and free of pain and crepitus. +5/5 muscle strength dorsiflexion, plantarflexion, inversion, eversion b/l ASSESSMENT: (M67.472) Ganglion cyst of left foot (primary encounter diagnosis) Patient continues to have pain of left foot. She has visible ganglion and also has this confirmed with mri and has had two attempted aspiration but only to have recurrence. She would like to pursue surgical excision. I have discussed surgical options to remove ganglion. I have informed patient risks of this procedure not limited to infection, pain, swelling, bleeding, recurrent ganglion, hematoma, numbness both temporary or permanent, loss of function of toes, toe deformity, rupture of tendon, loss of foot, rsd, dvt, . Patient understands this ganglion is located between vital nerve and artery. She understand this increases risk of procedure. She understands risk and consents to proceed. Patient understands she will need to limit walking post-op. Any excessive walking does place her at increased risk of complication. Discussed risk of dvt. She is going to consider prophylaxis Consent has been signed for ganglion excision of left foot. India Vidal DPM CNOV Observed: 03/10/2018 Status: COMPLETED Source: [place] 7:40 AM [facility] REPOSITORY Office Visit (PODIWS) SHIRA CASTRO ([id number]) 1960 F Date Time Provider Department 03/10/18 7:40 AM INDIA VIDAL During your visit today, we recorded the following information about you: India Vidal DPM 03/11/2018 9:01 PM Signed ? India Vidal DPM Department of Podiatry [address] [place] [address] Dept: [phone] Dept 03/10/2018 Follow Up Podiatric Office Visit: HPI: Shira Castro is a 57 year old female. Patient presents to discuss options for excision of Ganglion cyst of L foot. Patient currently does not have any pain. Reports intermittent pain that comes and goes. When painful, pain is rated at a 4-5/10 that is described as stabbing that radiates numbness into toes. Pain has woken patient up at night, in which, at that point pain reaches an 8/10. Patient has underwent ultrasound guided aspiration/injection at [facility] twice with minimal relief time. Reports that last injection on 01/24/18 only provided relief for roughly 3 1/2 - 4 weeks. Patient reports slight discomfort to R heel/ankle at times, but is not as pressing as issues with L foot. Patient would like to proceed with scheduling surgery for Ganglion cyst, L foot. Patient previous smoker. Stopped smoking September 07, 2017. Physical Exam: Constitutional: Pt is a well developed 57 year old female who is alert, oriented and cooperative Eyes: Following during examination. No redness or drainage. Respiratory: RR normal and nonlabored. Even breathing. No evidence of distress or shortness of breath. Psychology: Patient is engaged during conversation. Normal affect and mood. Does not appear depressed or anxious during encounter. Vascular: Dorsalis pedis and posterior tibial pulses palpable as b/l Capillary Fill time ANDlt; 5 seconds to digits 1-5 b/l Skin temperature warm to proximal to distal b/l Hair growth present to digits Neurological: intact light touch/epicritic sensation intact protective sensation, insignificant neurological deficits. Dermatological: Skin appears well hydrated and supple. good color, texture, turgor. Callosities absent.Open lesions absent. Wound: Not present. Musculoskeletal/Orthopaedic: Patient has pain to palpation of left midfoot with ganglion present Foot type is neutral structurally AJ ROM is full with knee extended and flexed 1st MPJ is full when loaded and no pain or crepitus are noted with ROM. MTJ, STJ are full and free of pain and crepitus. +5/5 muscle strength dorsiflexion, plantarflexion, inversion, eversion b/l ASSESSMENT: (M67.472) Ganglion cyst of left foot (primary encounter diagnosis) Patient continues to have pain of left foot. She has visible ganglion and also has this confirmed with mri and has had two attempted aspiration but only to have recurrence. She would like to pursue surgical excision. I have discussed surgical options to remove ganglion. I have informed patient risks of this procedure not limited to infection, pain, swelling, bleeding, recurrent ganglion, hematoma, numbness both temporary or permanent, loss of function of toes, toe deformity, rupture of tendon, loss of foot, rsd, dvt, . Patient understands this ganglion is located between vital nerve and artery. She understand this increases risk of procedure. She understands risk and consents to proceed. Patient understands she will need to limit walking post-op. Any excessive walking does place her at increased risk of complication. Discussed risk of dvt. She is going to consider prophylaxis Consent has been signed for ganglion excision of left foot. India Vidal DPM Referring Provider: INDIA VIDAL [[id number]] Allergies As of Date: 03/10/2018 (No Known Allergies) Date Reviewed: 03/10/2018 Reviewed by: Nury Marquez Ma - Fully Assessed Reason for Visit: Pre-Op Exam [87] Primary Visit Diagnosis:Ganglion cyst of left foot [M67.472] Prescriptions as of 03/10/2018 Sig: BUPROPION HCL 100 MG TABLET TAKE 0.5 TABLETS BY MOUTH TWI* SERTRALINE 100 MG TABLET TAKE 1 TABLET BY MOUTH EVERY * AMMONIUM LACTATE 12 % LOTION Apply 1 application to affect* MELOXICAM 15 MG TABLET Take 1 tablet by mouth once d* RANOLAZINE ER 1,000 MG TABLET* Take 1 tablet by mouth twice * CLOBETASOL 0.05 % TOPICAL CRE* Apply 1 application to affect* OMEPRAZOLE 20 MG CAPSULE,ABHINAV* Take 1 capsule by mouth once * LISINOPRIL 10 MG TABLET Take 1 tablet by mouth once d* ATORVASTATIN 40 MG TABLET Take 1 tablet by mouth daily * IBUPROFEN 800 MG TABLET Take 1 tablet by mouth every * ALBUTEROL SULFATE HFA 90 MCG/* Inhale 2 Puffs as instructed * ASCORBIC ACID (VITAMIN C) 1,0* Take 1,000 mg by mouth once d* MULTIVITAMIN CAPSULE Take 1 capsule by mouth once * ASPIRIN 81 MG TABLET Take 81 mg by mouth. Problem List As Of Date 03/10/2018 Noted Resolved Hyperlipidemia [E78.5] HTN (hypertension) [I10] Anxiety [F41.9] Depression [F32.9] Sleep apnea [G47.30] Carpal tunnel syndrome, right [G56.01] INVALID FOR*12/21/2016 Digital mucous cyst [M67.449] INVALID FOR*12/21/2016 Encounter Status:Closed by INDIA VIDAL DPM on 03/11/18 CNPN Observed: 03/10/2018 Status: COMPLETED Source: [place] 12:00 AM [facility] REPOSITORY Telephone (PODIWS) SHIRA CASTRO ([id number]) 1960 F Date Time Provider Department 03/10/18 INDIA VIDAL During your visit today, we recorded the following information about you: Nury Marquez Ma 03/11/2018 3:17 PM Signed Patient scheduled for STM excision, L dorsal foot at [place] on 05/09/2018. Patient was informed at that surgical packet, orders, and post op appointments will be mailed to house. Post op appointments scheduled. Left message for patient to inquire if she has crutches and/or has used in the past. If she needs them, we can order crutch training and she can call to schedule. She will need to be NWB post op. Surgical request filed. Will mail packet and appointments once we hear back from patient regarding crutches. Nury Valerio RN 03/11/2018 3:46 PM Signed Patient returned phone call. She states she has used crutches in the past and did ANDquot;horribleANDquot; with them so patient does not want to use crutches post operatively. Patient would like to try knee walker. Explained that once order was filed we would mail surgery packet and order to her home. She also states her family history is negative for DVT. Dr. Vidal please file order for knee walker. India Vidal DPM 03/13/2018 8:05 PM Signed Order filed BRETT Narvaez Ma 03/14/2018 11:01 AM Signed Surgical pack along with appointments and order mailed to patient. Nury Marquez Ma Allergies As of Date: 03/10/2018 (No Known Allergies) Date Reviewed: 03/10/2018 Reviewed by: Nury Marquez Ma - Fully Assessed Reason for Visit: Schedule Surgery [1330] Primary Visit Diagnosis:Ganglion cyst of left foot [M67.472] Order(s):SURGICAL REQUEST - ELECTIVE [[id number]] Order #: [id number]: 1 KNEE WALKER [[id number]] Order #: [id number] Prescriptions as of 03/10/2018 Sig: BUPROPION HCL 100 MG TABLET TAKE 0.5 TABLETS BY MOUTH TWI* SERTRALINE 100 MG TABLET TAKE 1 TABLET BY MOUTH EVERY * AMMONIUM LACTATE 12 % LOTION Apply 1 application to affect* MELOXICAM 15 MG TABLET Take 1 tablet by mouth once d* RANOLAZINE ER 1,000 MG TABLET* Take 1 tablet by mouth twice * CLOBETASOL 0.05 % TOPICAL CRE* Apply 1 application to affect* OMEPRAZOLE 20 MG CAPSULE,ABHINAV* Take 1 capsule by mouth once * LISINOPRIL 10 MG TABLET Take 1 tablet by mouth once d* ATORVASTATIN 40 MG TABLET Take 1 tablet by mouth daily * IBUPROFEN 800 MG TABLET Take 1 tablet by mouth every * ALBUTEROL SULFATE HFA 90 MCG/* Inhale 2 Puffs as instructed * ASCORBIC ACID (VITAMIN C) 1,0* Take 1,000 mg by mouth once d* MULTIVITAMIN CAPSULE Take 1 capsule by mouth once * ASPIRIN 81 MG TABLET Take 81 mg by mouth. Problem List As Of Date 03/10/2018 Noted Resolved Hyperlipidemia [E78.5] HTN (hypertension) [I10] Anxiety [F41.9] Depression [F32.9] Sleep apnea [G47.30] Carpal tunnel syndrome, right [G56.01] INVALID FOR*12/21/2016 Digital mucous cyst [M67.449] INVALID FOR*12/21/2016 Letter Text Podiatric Medicine and Surgery India Vidal DPM [facility] [address] [address] SURGERY CONFIRMATION FORM Your surgery is scheduled for: 05/09/2018 at the [facility]. You will be contacted by 3pm the day prior (Wednesday) to your surgery to review pre-operative instructions and confirm your arrival time. If you have not received a telephone call by 3pm, please contact [facility] at [phone]. Use Entrance A near the back of the hospital, where there is a covered patient drop off area. Take the elevator to the 1st floor and report to the Surgery Information Desk for check in. You will need to make sure that you have a responsible adult to drive you home the day of surgery. Plan to rest at home, same day surgery does not mean same day recovery. Proper rest helps you recover sooner. You will also need to bring a copy of your living will and/or health care power of securities attorney, provided you have one. Hold all NSAIDS 7 days prior to surgical date. Hold all anticoagulants 5 days prior to surgical date, with permission of prescribing physician. The night before: Nothing to eat or drink after midnight. The day of: Take prescribed medications as approved by physician with small sips of water. Please do not wear any forms of jewelry, make up, or nail faroese/toenail faroese. Make sure to leave all valuables at home. Your post-op appointments with Dr. Vidal are scheduled for: 05/13/18 at 9:55am; 05/20/18 at 9:55am; and 05/27/18 at 9:55am. You will receive a phone call to schedule an appointment in Pre-Anesthesia Consultation Clinic prior to your surgical date. This appointment will help determine if you have any risk factors for undergoing anesthesia. If you have any further questions, please do not hesitate to contact our office. Encounter Status:Closed by INDIA VIDAL DPM on 03/13/18 ASP/INJ GANGLION Observed: 01/24/2018 Status: F Source: [facility] 1:49 PM [facility] REPOSITORY * * *Final Report* * * DATE OF EXAM: Jan 24 2018 1:49PM ABIMBOLA 1156 - US ASP/INJ GANGLION LT / PROCEDURE REASON: Ganglion, unspecified site * * * * Physician Interpretation * * * * ULTRASOUND GUIDED LEFT ANKLE ANTERIOR GANGLION CYST ASPIRATION AND THERAPEUTIC INJECTION INDICATION: The patient is a 57 years year old Female who presented with recurrent left anterior ankle ganglion cyst after aspiration and injection for repeat aspiration and injection.. CONSENT: The risks, benefits, treatment options, potential complications and personnel to be involved were discussed with the patient. All questions were answered and consent was obtained. The patient indicated willingness to proceed. GENERAL: a) Positioning: The patient was placed Supine on the Ultrasound table. b) Ultrasound guidance was used to target the left anterior ankle ganglion cyst. The anterior left ankle was then sterilely prepped and draped. Ultrasound images were saved and sent to a permanent archive. c) Time Out: A time out was performed immediately prior to procedure start. Procedure Start Time / Timeout Time: 1337; d) Anesthesia Type: Local anesthesia: 1 mL 1% Lidocaine PRE-PROCEDURE IMAGING: Preprocedure imaging demonstrates an anterior ankle ganglion cyst, similar to prior examination. PROCEDURE: a) Procedure Details: An 18g spinal needle was inserted into the ganglion cyst using ultrasound guidance. Note was made to avoid the dorsalis pedis artery. 4 cc of clear yellow aspirate was obtained. 1 mL of injectate was administered into the joint. The cyst was mildly fenestrated after the injection. The needle was removed. Images were stored to the digital archive documenting needle position. b) Injectate Contents: 1 mL Dexamethasone Sodium Phosphate (4 mg/ml) c) Estimated Blood Loss: 0 mls POST PROCEDURE: a) Hemostasis: Hemostasis was achieved using light manual compression. b) Procedure End Time: 1343 c) Conclusion: 1. Post-Procedure instructions:Verbal instructions were given. 2. The patient was discharged from the radiology department in stable condition. COMPLICATIONS: a) Significant Patient Complication: None b) Complications during the procedure: None: RESULTS: ULTRASOUND-GUIDED ASPIRATION, FENESTRATION AND THERAPEUTIC INJECTION OF GANGLION CYST DESCRIBED The left anterior ankle ganglion cyst was fully aspirated followed by therapeutic injection. Some fenestration was performed after the injection. IMPRESSION: SUCCESSFUL ULTRASOUND GUIDED ASPIRATION, INJECTION, AND FENESTRATION OF THE LEFT ANKLE ANTERIOR GANGLION CYST, DESCRIBED ABOVE. Attending Radiologist: Dr. Herberth Andrews MD Overhead Distribution Engineer: Oliver Hodgson MD The procedure was performed by the: the perioperative assistant, and the attending radiologist personally supervised the entire procedure. The attending radiologist performed the following procedural activities: Supervised the entire procedure [facility]c [facility] Transcribe Date/Time: Jan 24 2018 2:10P Dictated by : OLIVER HODGSON MD This examination was interpreted and the report reviewed and electronically signed by: HERBERTH ANDREWS MD on Jan 24 2018 4:25PM EST [id number] PROGRESS Observed: 01/07/2018 Status: COMPLETED Source: [place] 9:55 AM [facility] REPOSITORY HNO ID: [id number] Author: India Vidal Service: (none) Author Type: Physician Type: Progress Notes Filed: 01/07/2018 11:37 AM Note Text: Follow up podiatric office visit for: Chief Complaint: This 57 year old who presents for follow up:b/l heel pain and ganglion of left foot. Patient states the heel pain is better with stretching and icing and use of night splint. She did have order for custom orthotics but is unsure if she wishes to pursue this option. She does have on occasion burning pain in achilles but does get better with stretching. Patient does have the ganglion of left foot that she has scheduled aspiration at main campus on January 17. Patient states that within one week, it came back. She is starting to get pain again. Patient no longer smokes. PAIN EVALUATION No data found. No results found for: HBA1C PCP: Owen Solano MD PAST MEDICAL HISTORY Diagnosis Date - Adrenal adenoma repeat ct in 07/07 - Anxiety - Arthritis fingers - CAD (coronary artery disease) Dr. Schultz - Depression - Heartburn - HTN (hypertension) - Hyperlipidemia - Migraine - Seasonal allergies - Sleep apnea Current Outpatient Prescriptions: buPROPion (WELLBUTRIN) 100 mg tablet TAKE 0.5 TABLETS BY MOUTH TWICE DAILY. sertraline (ZOLOFT) 100 mg tablet TAKE 1 TABLET BY MOUTH EVERY DAY ammonium lactate (AMLACTIN) 12 % lotion Apply 1 application to affected area twice daily as needed. meloxicam (MOBIC) 15 mg tablet Take 1 tablet by mouth once daily. With food. ranolazine SR (RANEXA) 1,000 mg Tb12 Take 1 tablet by mouth twice daily. omeprazole (PRILOSEC) 20 mg capsule Take 1 capsule by mouth once daily. lisinopril (ZESTRIL, PRINIVIL) 10 mg tablet Take 1 tablet by mouth once daily. atorvastatin (LIPITOR) 40 mg tablet Take 1 tablet by mouth daily at bedtime. For cholesterol. albuterol HFA (VENTOLIN HFA) 90 mcg/actuation inhaler Inhale 2 Puffs as instructed every 4 hours as needed for Wheezing/Shortness of Breath. Ascorbic Acid (VITAMIN C) 1,000 mg tablet Take 1,000 mg by mouth once daily. Multivitamin capsule Take 1 capsule by mouth once daily. Aspirin 81 mg Tab Take 81 mg by mouth. clobetasol (TEMOVATE) 0.05 % cream Apply 1 application to affected area twice daily. ibuprofen (MOTRIN) 800 mg tablet Take 1 tablet by mouth every 6 hours as needed for Pain. Take with food. No current facility-administered medications for this visit. ALLERGIES No Known Allergies PAST SURGICAL HISTORY Procedure Laterality Date - CABG (1) VEIN GRAFT AND ARTERIAL GRAFT 1999 - EXCIS TENDON SHEATH KEN KESSLER/FINGR 07/04/2014 Right index finger digital muscous cyst excision - REMOVAL GALLBLADDER 2000 Cholecystectomy - REMOVAL OF TONSILS,<12 Y/O 1966 Tonsillectomy alone - REVISE MEDIAN N/CARPAL TUNNEL SURG 07/04/2014 Carpal tunnel decomp right Physical Exam: Constitutional: Pt is a well developed 57 year old female who is alert, oriented, cooperative and in no apparent distress. OBJECTIVE: NVSI unchanged from previous visit. Dermatological: Nails 1-5 b/l are normal. Webspaces clean and dry 1-4 b/l. Skin appears well hydrated and supple. good color, texture, turgor. No open lesions present. No callosities present. Musculoskeletal/Orthopaedic: Patient has no pain to palpation of b/l plantar medial calcaneal tubercle - tinel b/l There is palpable calcaneal spur b/l but no pain There is palpable ganglion of left foot ASSESSMENT: (M72.2) Plantar fasciitis of left foot (primary encounter diagnosis) (M67.40) Ganglion cyst (M77.31, M77.32) Calcaneal spur of both feet PLAN: 1. History and physical examination completed today. 2. Discussed plantar fasciitis. Pain has improved. Continue with stretching and icing prn. Discussed inserts. She did not pursue and lost her rx. She would rather try shoe gear first. If pain returns, she can elect to pursue insert. 3. Discussed heel spur. Avoid shoes that cause rubbing. Patient states the pain is minimal 4. Discussed ganglion of left foot. She has tried aspiration and it helped for one week. She has aspiration scheduled on January 17. If this fails to eliminate the pain or recurrence develops, we can discuss removal. I did inform her the location of ganglion is along the dorsalis pedis artery and certainly her largest issue would be bleeding or hematoma. If pain returns, consider removal. 5. F/u prn. India Vidal DPM ALLERGIES ALLERGIES DATE TYPE / CODE NAME / CODE REACTION SEVERITY SOURCE Drug NO KNOWN [facility] Class/40796 ALLERGIES [place] 1003(SNOMED Repository CT) ENCOUNTERS ENCOUNTERS ADMIT/DISCHARGE ACCOUNT ADMITTING ENCOUNTER LOCATION SOURCE NUMBER CLASS 12/13/2018 [id number] Ambulatory [facility] ing: Repository 12/02/2018/12/05/19 [id number] Ambulatory [address] [place] Repository 12/02/2018/12/02/19 [id number] Ambulatory [address] [place] Repository 12/01/2018/12/01/19 [id number] Ambulatory [place] [facility] [place] Repository 11/21/2018/11/21/20 [id number] Ambulatory [address] ing:[place] Repository 11/16/2018/11/16/20 [id number] Ambulatory [address] [place] Repository 11/08/2018/11/09/20 [id number] Ambulatory [address] [place] Repository 11/03/2018/11/03/20 [id number] Ambulatory [address] [place] Repository 11/01/2018/11/01/20 [id number] Ambulatory [address] [place] Repository 10/26/2018/10/26/20 [id number] Ambulatory [place] [facility] [place] Repository 10/19/2018/10/19/20 [id number] Ambulatory [place] [facility] [place] Repository 10/11/2018/10/11/20 [id number] Ambulatory [place] [facility] [place] Repository 10/11/2018/10/11/20 [id number] Ambulatory [place] [facility] [place] Repository 10/05/2018/10/06/20 [id number] Ambulatory [place] [facility] [place] Repository 09/29/2018/09/29/20 [id number] Ambulatory [place] [facility] [place] Repository 09/29/2018/10/03/20 [id number] Ambulatory [facility] [place] Repository 09/27/2018/09/27/20 [id number] LEANDRA GLEASON Ambulatory [place] [facility] [place] Repository 09/23/2018/09/23/20 [id number] Ambulatory [place] [facility] [place] Repository 09/23/2018/09/23/20 [id number] Ambulatory [place] [facility] [place] Repository 08/23/2018/08/24/20 [id number] Ambulatory [place] [facility] [place] Repository 08/19/2018/08/23/20 [id number] Ambulatory [place] [facility] [place] Repository 07/19/2018/07/19/20 [id number] Ambulatory [address] [place] Repository 07/13/2018/07/13/20 [id number] Ambulatory [place] [facility] [place] Repository 07/06/2018/07/06/20 [id number] Ambulatory [address] [place] Repository 07/06/2018/07/15/20 [id number] Ambulatory [address] [place] Repository 06/29/2018/06/29/20 [id number] Ambulatory [address] [place] Repository 06/27/2018/06/27/20 [id number] Ambulatory [address] [place] Repository 06/27/2018/06/27/20 [id number] Ambulatory [address] [place] Repository 06/27/2018/06/29/20 [id number] Ambulatory [address] [place] Repository 05/11/2018/05/11/20 [id number] Ambulatory [address] [place] Repository 05/09/2018/05/09/20 [id number] SASHA, [address] [place] Repository 05/02/2018/05/02/20 [id number] Ambulatory [address] [place] Repository 05/02/2018/05/02/20 [id number] Ambulatory [address] [place] Repository 03/10/2018/03/14/20 [id number] Ambulatory [address] [place] Repository 01/24/2018/01/25/20 [id number] Ambulatory [address] [place] Repository 01/07/2018/01/07/20 [id number] Ambulatory [address] [place] Repository PAYERS PAYERS ENCOUNTER GUARANTOR PAYER SUBSCRIBER SOURCE 12/13/2018 SHIRA Chu Primary SHIRA Richey [id number] Insurance:MEDICAL HOOBLERDOB: [facility] [id number] Number: Repository [id number]: [phone] [id number] [phone] () Date:[id number] [address] [place] [phone]: 12/13/2018 Secondary NOT GIVENUNK [place] Insurance:SELF PAY [facility] Number: Effective Repository Date:2018-11-22 11/21/2018 SHIRA Chu Primary SHIRA Chu Rossi [id number] Insurance:MEDICAL HOOBLERDOB: [facility] [id number] Number: Repository [id number]: [phone] [id number] [phone] () Date:[id number] [address] [place] [phone]: 11/21/2018 Secondary NOT GIVENUNK [place] Insurance:SELF PAY [facility] Number: Effective Repository Date:2018-10-26
== END 2018-11-21 23:59 ==
LOC: WC 12:00
PROVIDERS: Family Provider Family Medicine; Visit Provider Surgery
DX: T81.30XA Disruption of wound, unspecified, initial encounter (principal); Y83.9 Surgical procedure, unspecified as the cause of abnormal reaction of the patient, or of later complication, without mention of misadventure at the time of the procedure; E66.01 Morbid (severe) obesity due to excess calories; Z68.42 Body mass index [BMI] 45.0-49.9, adult; Z71.3 Dietary counseling and surveillance; I25.10 Atherosclerotic heart disease of native coronary artery without angina pectoris; R09.89 Other specified symptoms and signs involving the circulatory and respiratory systems; I10 Essential (primary) hypertension; E78.5 Hyperlipidemia, unspecified; F10.21 Alcohol dependence, in remission; Z87.891 Personal history of nicotine dependence; Z79.899 Other long term (current) drug therapy
CPT/HCPCS: 11042; 80048; 83036; 85027; 87070; 87075; 87205; 87640; 99213; G0463

== ENCOUNTER 2018-12-13 11:00 | Outpatient (RCR) | payer OTHER, SELFPAY ==
[2018-11-22 01:29] VITALS: BP 129/57; PULSE 76; RESP 18; TEMP 36.6
[2018-11-28 12:38] VITALS: BP 124/67; PULSE 69; RESP 16; TEMP 36.6; BMI 47.3
--- NOTE | 2018-11-28 13:26 | PCM.WC.HP ---
(1) Surgical wound dehiscence Status: Chronic Current Visit: Yes Qualifiers: Encounter type: subsequent encounter Code(s): T81.31XA - Disruption of external operation (surgical) wound, not elsewhere classified, initial encounter (2) Surgical wound, non healing Status: Chronic Current Visit: Yes Qualifiers: Encounter type: subsequent encounter Code(s): T81.89XA - Other complications of procedures, not elsewhere classified, initial encounter (3) Morbid obesity Status: Chronic Current Visit: Yes Code(s): E66.01 - Morbid (severe) obesity due to excess calories (4) CAD (coronary artery disease) Status: Chronic Current Visit: No Qualifiers: Coronary Disease-Associated Artery/Lesion type: [place] artery [place] vs. transplanted heart: [place] heart Code(s): I25.10 - Atherosclerotic heart disease of [place] coronary artery without angina pectoris (5) Left carotid bruit Status: Chronic Current Visit: No Code(s): R09.89 - Other specified symptoms and signs involving the circulatory and respiratory systems (6) Hypertension Status: Chronic Current Visit: No Code(s): I10 - Essential (primary) hypertension (7) Hyperlipidemia Status: Chronic Current Visit: No Code(s): E78.5 - Hyperlipidemia, unspecified (8) Chronic bronchitis Status: Chronic Current Visit: No Code(s): J42 - Unspecified chronic bronchitis (9) Smoking history Status: Chronic Current Visit: No Code(s): Z87.891 - Personal history of nicotine dependence (10) Alcoholism in remission Status: Chronic Current Visit: No Code(s): F10.21 - Alcohol dependence, in remission History of Present Illness Chief Complaint: Chronic, nonhealing surgical wound of the right Achilles area/posterior heel History of Wound: This is a 58-year-old obese female who underwent right Achilles tendon debridement, resection of a retrocalcaneal spur, and tendon transfer on September 27, 2018, in [facility]. Since that time, she has been followed clinically by Dr. Thiago Vidal, her podiatric surgeon at the [facility]. The inferior portion of her surgical incision has failed to heal. She has had several courses of oral antibiotics. Offloading measures were implemented. Patient is using a Cam walker and surgical boot. Collagenase Santyl has been used topically. She has been referred to our wound care facility for consultation and management relative to the nonhealing portion of her incision. The surgical sutures were removed approximately 10 days postoperatively, at which time it became evident that the inferior portion of the surgical incision was not healing appropriately, and as expected. Past Medical History Past Medical History: Chronic Problems Surgical wound dehiscence (Chronic) Surgical wound, non healing (Chronic) Morbid obesity (Chronic) CAD (coronary artery disease) (Chronic) Left carotid bruit (Chronic) Hypertension (Chronic) Hyperlipidemia (Chronic) Chronic bronchitis (Chronic) Smoking history (Chronic) Alcoholism in remission (Chronic) Surgical History: - - Patient underwent emergency cardiac surgery in 1999, in association with placement of coronary artery stents x2. She underwent cholecystectomy in 2000. She is also undergone tonsillectomy. A right carpal tunnel release was also performed in the past. Home Medications: Ambulatory Orders Medication Instructions Recorded Albuterol Inhaler [Ventolin Hfa 2 puff INHALATION Q4H PRN PRN 11/08/18 (SP)] Ascorbic Acid [Vitamin C] 1,000 mg PO DAILY 11/08/18 Aspirin 81 mg PO DAILY 11/08/18 Atorvastatin Calcium [Lipitor] 40 mg PO QHS 11/08/18 Ibuprofen [Motrin] 800 PO 4X/DAY PRN PRN 11/08/18 Lisinopril [Zestril] 10 mg PO DAILY 11/08/18 Meloxicam 15 mg PO DAILY 11/08/18 Multivitamins,Therapeutic 1 tablet PO DAILY 11/08/18 [Multivitamin] Omeprazole [Prilosec] 20 mg PO DAILY 11/08/18 Ranolazine [Ranexa] 500 mg PO BID 11/08/18 Sertraline HCl [Zoloft] 100 mg PO DAILY 11/08/18 buPROPion tablets [Wellbutrin 50 mg PO BID 11/08/18 tablets] - Family History Paternal - - Patient's father at the age of 83 with a history of coronary artery disease and cerebrovascular accident. Maternal - - The patient's mother at the age of 82 with a history of myocardial infarction. Smoking Status: Former smoker Tobacco Use: Non-smoker Review of Systems Constitutional: Denies: Chills, Fever, Weight Change Eyes: Denies: Pain, Vision Change HEENT: Denies: Difficulty Hearing, Difficulty Swallowing, Sinus Congestion Cardiovascular: Denies: Chest Pain, Palpitations Respiratory: Denies: Cough, Shortness of Breath Gastrointestinal: Denies: Diarrhea, Nausea, Vomiting Genitourinary: Denies: Dysuria, Hematuria Endocrine: Denies: Heat/ Cold Intolerance, Polydipsia, Polyuria Hematologic/ Lymphatic: Denies: Easy Bruising, Easy Bleeding - Physical Exam Vital Signs Temp Pulse Resp BP 98 F 69 16 124/67 H 11/28/18 12:38 11/28/18 12:38 11/28/18 12:38 11/28/18 12:38 General: Alert, Oriented x3, Cooperative, No apparent distress, Well developed, Well nourished HEENT: Atraumatic, PERRLA, EOMI, Normocephalic Oral: Moist Mucosa Neck: No JVD Lungs: Normal air movement Abdomen: Non-Distended, Obese Extremities: No clubbing, No cyanosis, No edema, No Calf Tenderness, - - The surgical wound on the posterior right heel persists, but is smaller in size. Dimensions are documented elsewhere. There is no sign of infection or cellulitis. There is a small amount of bioburden. The base of the wound is generally pink and healthy in appearance. Skin: No rashes Wound Measurements and Assessment WC - Nurse 1 - General Ulcer Measurement Start: 11/28/18 12:35 Freq: Status: Active Protocol: Activity Type Activity Date Activity User E-Sign Co-Sign Detail Recorded Client Recorded Date Recorded By Document 11/28/18 12:38 [id number] 11/28/18 12:39 11/28/18 12:38 Wound Center Nurse 1 [Ulcer Assessment] #1 RIGHT HEEL -Combined with other wound No -Current Size (cm) - Length 0.8 -Current Size (cm) - Width 0.6 -Current Size (cm) - Depth 0.1 -Total Square Cm 0.48 -Photo Taken No -Epithelialization Small 1-33% -Tunneling No -Undermining/Tunneling No -Circular Undermining No -Granulation Amt Medium (34-66%) -Granulation Quality Pale -Slough/Fibrin Yes -Necrosis Amt Medium (34-66%) -Necrotic Tissue Type Adherent Slough -Structure Exposed None/Limited to Skin Breakdown -Texture (Lynda-wound Skin Appearance) Scarring -Moisture (Lynda-wound Skin Appearance No Abnormality ) Assessed -Color (Lynda-wound Skin Appearance) No Abnormality Assessed -Temperature (Lynda-wound Skin No Abnormality Appearance) (Pt Warm) -Tenderness on Palpation (Lynda-wound No Skin Appearance) -Ulcer Cleansing Rinsed/ Irrigated with Saline -Foul Odor after Cleansing No -Anesthetic Used 4% Lidocaine Solution [Edema Assessment] -Lower Limb Edema Present NA - Nurse 2 - General Ulcer CM Notes Start: 11/28/18 12:35 Freq: Status: Active Protocol: Activity Type Activity Date Activity User E-Sign Co-Sign Detail Recorded Client Recorded Date Recorded By Document 11/28/18 13:16 [id number] 11/28/18 13:24 11/28/18 13:16 Wound Center Nurse 2 [Procedure/Treatment] #1 RIGHT HEEL -Time 13:16 -Correct Patient Yes -Correct Side, Site, Position Yes -Correct Procedure Yes -Procedure Performed Yes -Type of Procedure Debridement -Clinical Debridement Subcutaneous -Post Debridement Size (cm) - Length 0.7 -Post Debridement Size (cm) - Width 0.4 -Post Debridement Size (cm) - Depth 0.2 -Total Square Cm 0.28 -Wound/Ulcer Outcome Not Healed -Ulcer Cleansing Rinsed/ Irrigated with Saline -Foul Odor after Cleansing No -Bioengineered Tissue No -Bleeding Controlled with Pressure -Offloading No -Treatment Response Procedure Tolerated Well [See Physician Procedure note for Specifics] Pain Scale: 0-10 Numeric [Pain] -Is Patient Pain Free? Yes Musculoskeletal: No Muscle Wasting Neurological: Cranial nerves II-XII grossly intact, Neuro grossly intact Psych/Mental Status: Normal Affect, Appropriate, Alert and oriented to time, place, person, mood and affect Debridement Note Post-Debridement Measurements/Treatment - Nurse 2 - General Ulcer CM Notes Start: 11/28/18 12:35 Freq: Status: Active Protocol: Activity Type Activity Date Activity User E-Sign Co-Sign Detail Recorded Client Recorded Date Recorded By Document 11/28/18 13:16 JS [id number] 11/28/18 13:24 11/28/18 13:16 Wound Center Nurse 2 #1 RIGHT HEEL -Time 13:16 -Correct Patient Yes -Correct Side, Site, Position Yes -Correct Procedure Yes -Procedure Performed Yes -Type of Procedure Debridement -Clinical Debridement Subcutaneous -Post Debridement Size (cm) - Length 0.7 -Post Debridement Size (cm) - Width 0.4 -Post Debridement Size (cm) - Depth 0.2 -Total Square Cm 0.28 -Wound/Ulcer Outcome Not Healed -Ulcer Cleansing Rinsed/ Irrigated with Saline -Foul Odor after Cleansing No -Bioengineered Tissue No -Bleeding Controlled with Pressure -Offloading No -Treatment Response Procedure Tolerated Well Pain Scale: 0-10 Numeric Is Patient Pain Free? Yes Laterality: Right - Heel Type of Debridement: Excisional debridement Anesthesia Used: 5% Lidocaine Gel Depth: Down to and including healthy tissue, in the subcutaneous layer Percentage of wound debrided: 100 Instrument Used: 3mm curette Severity: Fat Layer Exposed Amount of bleeding with debridement: Mild Bleeding Controlled with: Compression and gauze Patient tolerated procedure well Assessment/Plan Active Problems Surgical wound dehiscence (Chronic) Surgical wound, non healing (Chronic) Morbid obesity (Chronic) Assessment: This is a 58-year-old female who underwent a right Achilles tendon transfer with removal of bone spur on September 27, 2018. The inferior portion of her surgical wound has failed to heal appropriately. Patient suffers from multiple other pre-existing medical problems, including coronary artery disease, hypertension, hyperlipidemia, chronic bronchitis, etc. By physical examination, she was also noted to have a left carotid artery bruit. She underwent a carotid duplex examination as ordered by Dr. Landeros, which revealed mild bilateral carotid plaque, with no significant blockage. Plan: Offloading measures have been recommended. It appears as though these measures have already been implemented. This issue has been discussed at length with the patient. Collagenase Santyl has been initiated topically, and is to be continued. An excisional debridement was performed today, and will be continued on a serial basis, as the patient returns for weekly appointments. Swab cultures have been obtained for both aerobic and anaerobic growth, and results are negative. Recent laboratory studies have been reviewed, revealing no significant abnormalities. We have yet to receive the results of the patient's lower extremity arterial study, which was reportedly performed at the [facility]. The patient is not a smoker. Influenza vaccine was not administered today. The patient weighs 280 pounds. She stands 5 feet 4 inches tall. Her BMI is 47.3. This places her in a class III obesity category. Weight loss has been recommended, in collaboration with her primary care physician has been advised.
--- NOTE | 2018-11-28 13:33 | HP.PCM_ITS ---
(1) Surgical wound dehiscence Status: Chronic Current Visit: Yes Qualifiers: Encounter type: subsequent encounter Code(s): T81.31XA - Disruption of external operation (surgical) wound, not elsewhere classified, initial encounter (2) Surgical wound, non healing Status: Chronic Current Visit: Yes Qualifiers: Encounter type: subsequent encounter Code(s): T81.89XA - Other complications of procedures, not elsewhere classified, initial encounter (3) Morbid obesity Status: Chronic Current Visit: Yes Code(s): E66.01 - Morbid (severe) obesity due to excess calories (4) CAD (coronary artery disease) Status: Chronic Current Visit: No Qualifiers: Coronary Disease-Associated Artery/Lesion type: [place] artery [place] vs. transplanted heart: [place] heart Code(s): I25.10 - Atherosclerotic heart disease of [place] coronary artery without angina pectoris (5) Left carotid bruit Status: Chronic Current Visit: No Code(s): R09.89 - Other specified symptoms and signs involving the circulatory and respiratory systems (6) Hypertension Status: Chronic Current Visit: No Code(s): I10 - Essential (primary) hy pertension (7) Hyperlipidemia Status: Chronic Current Visit: No Code(s): E78.5 - Hyperlipidemia, unspeci fied (8) Chronic bronchitis Status: Chronic Current Visit: No Code(s): J42 - Unspecified chronic bronchi tis (9) Smoking history Status: Chronic Current Visit: No Code(s): Z87.891 - Personal history of nicotine dependence (10) Alcoholism in remission Status: Chronic Current Visit: No Code(s): F10.21 - Alcohol dependence, in remission History of Present Illness Chief Complaint: Chronic, nonhealing surgical wound of the right Achilles area/posterior heel History of Wound: This is a 58-year-old obese female who underwent right Achilles tendon debridement, resection of a retrocalcaneal spur, and tendon transfer on September 27, 2018, in [facility]. Since that time, she has been followed clinically by Dr. Thiago Vidal, her podiatric surgeon at the [facility]. The inferior portion of her surgical incision has failed to heal. She has had several courses of oral antibiotics. Offloading measures were implemented. Patient is using a Cam walker and surgical boot. Collagenase Santyl has been used topically. She has been referred to our wound care facility for consultation and management relative to the nonhealing portion of her incision. The surgical sutures were removed approximately 10 days postoperatively, at which time it became evident that the inferior portion of the surgical incision was not healing appropriately, and as expected. Past Medical History Past Medical History: Chronic Problems Surgical wound dehiscence (Chronic) Surgical wound, non healing (Chronic) Morbid obesity (Chronic) CAD (coronary artery disease) (Chronic) Left carotid bruit (Chronic) Hypertension (Chronic) Hyperlipidemia (Chronic) Chronic bronchitis (Chronic) Smoking history (Chronic) Alcoholism in remission (Chronic) Surgical History: - - Patient underwent emergency cardiac surgery in 1999, in association with placement of coronary artery stents x2. She underwent cholecystectomy in 2000. She is also undergone tonsillectomy. A right carpal tunnel release was also performed in the past. Home Medications: Ambulatory Orders Medication Instructions Recorded Albuterol Inhaler [Ventolin Hfa 2 puff INHALATION Q4H PRN PRN 11/08/18 (SP)] Ascorbic Acid [Vitamin C] 1,000 mg PO DAILY 11/08/18 Aspirin 81 mg PO DAILY 11/08/18 Atorvastatin Calcium [Lipitor] 40 mg PO QHS 11/08/18 Ibuprofen [Motrin] 800 PO 4X/DAY PRN PRN 11/08/18 Lisinopril [Zestril] 10 mg PO DAILY 11/08/18 Meloxicam 15 mg PO DAILY 11/08/18 Multivitamins,Therapeutic 1 tablet PO DAILY 11/08/18 [Multivitamin] Omeprazole [Prilosec] 20 mg PO DAILY 11/08/18 Ranolazine [Ranexa] 500 mg PO BID 11/08/18 Sertraline HCl [Zoloft] 100 mg PO DAILY 11/08/18 buPROPion tablets [Wellbutrin 50 mg PO BID 11/08/18 tablets] - Family History Paternal - - Patient's father at the age of 83 with a history of coronary artery disease and cerebrovascular accident. Maternal - - The patient's mother at the age of 82 with a history of myocardial infarction. Smoking Status: Former smoker Tobacco Use: Non-smoker Review of Systems Constitutional: Denies: Chills, Fever, Weight Change Eyes: Denies: Pain, Vision Change HEENT: Denies: Difficulty Hearing, Difficulty Swallowing, Sinus Congestion Cardiovascular: Denies: Chest Pain, Palpitations Respiratory: Denies: Cough, Shortness of Breath Gastrointestinal: Denies: Diarrhea, Nausea, Vomiting Genitourinary: Denies: Dysuria, Hematuria Endocrine: Denies: Heat/ Cold Intolerance, Polydipsia, Polyuria Hematologic/ Lymphatic: Denies: Easy Bruising, Easy Bleeding - Physical Exam Vital Signs Temp Pulse Resp BP 98 F 69 16 124/67 H 11/28/18 12:38 11/28/18 12:38 11/28/18 12:38 11/28/18 12:38 General: Alert, Oriented x3, Cooperative, No apparent distress, Well developed, Well nourished HEENT: Atraumatic, PERRLA, EOMI, Normocephalic Oral: Moist Mucosa Neck: No JVD Lungs: Normal air movement Abdomen: Non-Distended, Obese Extremities: No clubbing, No cyanosis, No edema, No Calf Tenderness, - - The surgical wound on the posterior right heel persists, but is smaller in size. Dimensions are documented elsewhere. There is no sign of infection or cellulitis. There is a small amount of bioburden. The base of the wound is g enerally pink and healthy in appearance. Skin: No rashes Wound Measurements and Assessment WC - Nurse 1 - General Ulcer Measurement Start: 11/28/18 12:35 Freq: Status: Active Protocol: Activity Type Activity Date Activity User E-Sign Co-Sign Detail Recorded Client Recorded Date Recorded By Document 11/28/18 12:38 [id number] 11/28/18 12:39 11/28/18 12:38 Wound Center Nurse 1 [Ulcer Assessment] #1 RIGHT HEEL -Combined with other wound No -Current Size (cm) - Length 0.8 -Current Size (cm) - Width 0.6 -Current Size (cm) - Depth 0.1 -Total Square Cm 0.48 -Photo Taken No -Epithelialization Small 1-33% -Tunneling No -Undermining/Tunneling No -Circular Undermining No -Granulation Amt Medium (34-66%) -Granulation Quality Pale -Slough/Fibrin Yes -Necrosis Amt Medium (34-66%) -Necrotic Tissue Type Adherent Slough -Structure Exposed None/Limited to Skin Breakdown -Texture (Lynda-wound Skin Appearance) Scarring -Moisture (Lynda-wound Skin Appearance No Abnormality ) Assessed -Color (Lynda-wound Skin Appearance) No Abnormality Assessed -Temperature (Lynda-wound Skin No Abnormality Appearance) (Pt Warm) -Tenderness on Palpation (Lynda-wound No Skin Appearance) -Ulcer Cleansing Rinsed/ Irrigated with Saline -Foul Odor after Cleansing No -Anesthetic Used 4% Lidocaine Solution [Edema Assessment] -Lower Limb Edema Present NA - Nurse 2 - General Ulcer CM Notes Start: 11/28/18 12:35 Freq: Status: Active Protocol: Activity Type Activity Date Activity User E-Sign Co-Sign Detail Recorded Client Recorded Date Recorded By Document 11/28/18 13:16 [id number] 11/28/18 13:24 11/28/18 13:16 Wound Center Nurse 2 [Procedure/Treatment] #1 RIGHT HEEL -Time 13:16 -Correct Patient Yes -Correct Side, Site, Position Yes -Correct Procedure Yes -Procedure Performed Yes -Type of Procedure Debridement -Clinical Debridement Subcutaneous -Post Debridement Size (cm) - Length 0.7 -Post Debridement Size (cm) - Width 0.4 -Post Debridement Size (cm) - Depth 0.2 -Total Square Cm 0.28 -Wound/Ulcer Outcome Not Healed -Ulcer Cleansing Rinsed/ Irrigated with Saline -Foul Odor after Cleansing No -Bioengineered Tissue No -Bleeding Controlled with Pressure -Offloading No -Treatment Response Procedure Tolerated Well [See Physician Procedure note for Specifics] Pain Scale: 0-10 Numeric [Pain] -Is Patient Pain Free? Yes Musculoskeletal: No Muscle Wasting Neurological: Cranial nerves II-XII grossly intact, Neuro grossly intact Psych/Mental Status: Normal Affect, Appropriate, Alert and oriented to time, place, person, mood and affect Debridement Note Post-Debridement Measurements/Treatment - Nurse 2 - General Ulcer CM Notes Start: 11/28/18 12:35 Freq: Status: Active Protocol: Activity Type Activity Date Activity User E-Sign Co-Sign Detail Recorded Client Recorded Date Recorded By Document 11/28/18 13:16 [id number] 11/28/18 13:24 11/28/18 13:16 Wound Center Nurse 2 #1 RIGHT HEEL -Time 13:16 -Correct Patient Yes -Correct Side, Site, Position Yes -Correct Procedure Yes -Procedure Performed Yes -Type of Procedure Debridement -Clinical Debridement Subcutaneous -Post Debridement Size (cm) - Length 0.7 -Post Debridement Size (cm) - Width 0.4 -Post Debridement Size (cm) - Depth 0.2 -Total Square Cm 0.28 -Wound/Ulcer Outcome Not Healed -Ulcer Cleansing Rinsed/ Irrigated with Saline -Foul Odor after Cleansing No -Bioengineered Tissue No -Bleeding Controlled with Pressure -Offloading No -Treatment Response Procedure Tolerated Well Pain Scale: 0-10 Numeric Is Patient Pain Free? Yes Laterality: Right - Heel Type of Debridement: Excisional debridement Anesthesia Used: 5% Lidocaine Gel Depth: Down to and including healthy tissue, in the subcutaneous layer Percentage of wound debrided: 100 Instrument Used: 3mm curette Severity: Fat Layer Exposed Amount of bleeding with debridement: Mild Bleeding Controlled with: Compression and gauze Patient tolerated procedure well Assessment/Plan Active Problems Surgical wound dehiscence (Chronic) Surgical wound, non healing (Chronic) Morbid obesity (Chronic) Assessment: This is a 58-year-old female who underwent a right Achilles tendon transfer with removal of bone spur on September 27, 2018. The inferior portion of her surgical wound has failed to heal appropriately. Patient suffers from multiple other pre-existing medical problems, including coronary artery disease, hypertension, hyperlipidemia, chronic bronchitis, etc. By physical examination, she was also noted to have a left carotid artery bruit. She underwent a carotid duplex examination as ordered by Dr. Landeros, which revealed mild bilateral carotid plaque, with no significant blockage. Plan: Offloading measures have been recommended. It appears as though these measures have already been implemented. This issue has been discussed at length with the patient. Collagenase Santyl has been initiated topically, and is to be continued. An excisional debridement was performed today, and will be c ontinued on a serial basis, as the patient returns for weekly appointments. Swab cultures have been obtained for both aerobic and anaerobic growth, and results are negative. Recent laboratory studies have been reviewed, revealing no significant abnormalities. We have yet to receive the results of the patient's lower extremity arterial study, which was reportedly performed at the [facility]. The patient is not a smoker. Influenza vaccine was not administered today. The patient weighs 280 pounds. She stands 5 feet 4 inches tall. Her BMI is 47.3. This places her in a class III obesity category. Weight loss has been recommended, in collaboration with her primary care physician has been advised.
[2018-12-06 11:07] VITALS: BP 122/67; PULSE 58; RESP 18; TEMP 36.5; BMI 47.3
--- NOTE | 2018-12-06 11:51 | PCM.WC.HP ---
(1) Surgical wound dehiscence Status: Chronic Current Visit: Yes Qualifiers: Encounter type: subsequent encounter Code(s): T81.31XA - Disruption of external operation (surgical) wound, not elsewhere classified, initial encounter (2) Surgical wound, non healing Status: Chronic Current Visit: Yes Qualifiers: Encounter type: subsequent encounter Code(s): T81.89XA - Other complications of procedures, not elsewhere classified, initial encounter (3) Morbid obesity Status: Chronic Current Visit: Yes Code(s): E66.01 - Morbid (severe) obesity due to excess calories (4) CAD (coronary artery disease) Status: Chronic Current Visit: No Qualifiers: Coronary Disease-Associated Artery/Lesion type: [place] artery [place] vs. transplanted heart: [place] heart Code(s): I25.10 - Atherosclerotic heart disease of [place] coronary artery without angina pectoris (5) Left carotid bruit Status: Chronic Current Visit: No Code(s): R09.89 - Other specified symptoms and signs involving the circulatory and respiratory systems (6) Hypertension Status: Chronic Current Visit: No Code(s): I10 - Essential (primary) hypertension (7) Hyperlipidemia Status: Chronic Current Visit: No Code(s): E78.5 - Hyperlipidemia, unspecified (8) Chronic bronchitis Status: Chronic Current Visit: No Code(s): J42 - Unspecified chronic bronchitis (9) Smoking history Status: Chronic Current Visit: No Code(s): Z87.891 - Personal history of nicotine dependence (10) Alcoholism in remission Status: Chronic Current Visit: No Code(s): F10.21 - Alcohol dependence, in remission History of Present Illness Chief Complaint: Chronic, nonhealing surgical wound of the right Achilles area/posterior heel History of Wound: This is a 58-year-old obese female who underwent right Achilles tendon debridement, resection of a retrocalcaneal spur, and tendon transfer on September 27, 2018, in [facility]. Since that time, she has been followed clinically by Dr. Thiago Vidal, her podiatric surgeon at the [facility]. The inferior portion of her surgical incision has failed to heal. She has had several courses of oral antibiotics. Offloading measures were implemented. Patient is using a Cam walker and surgical boot. Collagenase Santyl has been used topically. She has been referred to our wound care facility for consultation and management relative to the nonhealing portion of her incision. The surgical sutures were removed approximately 10 days postoperatively, at which time it became evident that the inferior portion of the surgical incision was not healing appropriately, and as expected. Past Medical History Past Medical History: Chronic Problems Surgical wound dehiscence (Chronic) Surgical wound, non healing (Chronic) Morbid obesity (Chronic) CAD (coronary artery disease) (Chronic) Left carotid bruit (Chronic) Hypertension (Chronic) Hyperlipidemia (Chronic) Chronic bronchitis (Chronic) Smoking history (Chronic) Alcoholism in remission (Chronic) Surgical History: - - Patient underwent emergency cardiac surgery in 1999, in association with placement of coronary artery stents x2. She underwent cholecystectomy in 2000. She is also undergone tonsillectomy. A right carpal tunnel release was also performed in the past. Home Medications: Ambulatory Orders Medication Instructions Recorded Albuterol Inhaler [Ventolin Hfa 2 puff INHALATION Q4H PRN PRN 11/08/18 (SP)] Ascorbic Acid [Vitamin C] 1,000 mg PO DAILY 11/08/18 Aspirin 81 mg PO DAILY 11/08/18 Atorvastatin Calcium [Lipitor] 40 mg PO QHS 11/08/18 Ibuprofen [Motrin] 800 PO 4X/DAY PRN PRN 11/08/18 Lisinopril [Zestril] 10 mg PO DAILY 11/08/18 Meloxicam 15 mg PO DAILY 11/08/18 Multivitamins,Therapeutic 1 tablet PO DAILY 11/08/18 [Multivitamin] Omeprazole [Prilosec] 20 mg PO DAILY 11/08/18 Ranolazine [Ranexa] 500 mg PO BID 11/08/18 Sertraline HCl [Zoloft] 100 mg PO DAILY 11/08/18 buPROPion tablets [Wellbutrin 50 mg PO BID 11/08/18 tablets] - Family History Paternal - - Patient's father at the age of 83 with a history of coronary artery disease and cerebrovascular accident. Maternal - - The patient's mother at the age of 82 with a history of myocardial infarction. Smoking Status: Former smoker Tobacco Use: Non-smoker Review of Systems Constitutional: Denies: Chills, Fever, Weight Change Eyes: Denies: Pain, Vision Change HEENT: Denies: Difficulty Hearing, Difficulty Swallowing, Sinus Congestion Cardiovascular: Denies: Chest Pain, Palpitations Respiratory: Denies: Cough, Shortness of Breath Gastrointestinal: Denies: Diarrhea, Nausea, Vomiting Genitourinary: Denies: Dysuria, Hematuria Endocrine: Denies: Heat/ Cold Intolerance, Polydipsia, Polyuria Hematologic/ Lymphatic: Denies: Easy Bruising, Easy Bleeding - Physical Exam Vital Signs Temp Pulse Resp BP 97.7 F L 58 L 18 122/67 H 12/06/18 11:07 12/06/18 11:07 12/06/18 11:07 12/06/18 11:07 General: Alert, Oriented x3, Cooperative, No apparent distress, Well developed, Well nourished HEENT: Atraumatic, PERRLA, EOMI, Normocephalic Oral: Moist Mucosa Neck: No JVD Lungs: Normal air movement Abdomen: Non-Distended Extremities: No clubbing, No cyanosis, No edema, No Calf Tenderness, - - There is no significant swelling or edema in the patient's lower extremities bilaterally. The surgical wound on the right posterior heel/Achilles area continues to decrease in size. Dimensions are documented elsewhere. There is no sign of infection or cellulitis. The surgical incision is otherwise healing appropriately. There is a small amount of bioburden. Skin: No rashes Wound Measurements and Assessment WC - Nurse 1 - General Ulcer Measurement Start: 11/28/18 12:35 Freq: Status: Active Protocol: Activity Type Activity Date Activity User E-Sign Co-Sign Detail Recorded Client Recorded Date Recorded By Document 12/06/18 11:07 AN [id number] 12/06/18 11:19 AN 12/06/18 11:07 Wound Center Nurse 1 [Ulcer Assessment] #1 RIGHT HEEL -Current Size (cm) - Length 0.5 -Current Size (cm) - Width 0.2 -Current Size (cm) - Depth 0.1 -Total Square Cm 0.10 -Epithelialization None Present -Tunneling No -Undermining/Tunneling No -Classification - Thickness Full Thickness without Exposed Support Structure -Exudate Amt Small -Exudate Type Serous -Wound Margin Distinct, Outline Attached -Granulation Amt Small (1-33%) -Granulation Quality Red -Slough/Fibrin Yes -Necrosis Amt Large (67-100%) -Necrotic Tissue Type Adherent Slough -Texture (Lynda-wound Skin Appearance) No Abnormality Assessed -Moisture (Lynda-wound Skin Appearance No Abnormality ) Assessed -Color (Lynda-wound Skin Appearance) No Abnormality Assessed -Temperature (Lynda-wound Skin No Abnormality Appearance) (Pt Warm) -Tenderness on Palpation (Lydna-wound Yes Skin Appearance) -Ulcer Cleansing Rinsed/ Irrigated with Saline -Foul Odor after Cleansing No -Anesthetic Used 4% Lidocaine Solution [Edema Assessment] -Right Calf (cm) 44.5 -Right Ankle (cm) 26 WC - Nurse 2 - General Ulcer CM Notes Start: 11/28/18 12:35 Freq: Status: Active Protocol: Activity Type Activity Date Activity User E-Sign Co-Sign Detail Recorded Client Recorded Date Recorded By Document 12/06/18 11:44 DV [email or web address] 12/06/18 11:50 DV 12/06/18 11:44 Wound Center Nurse 2 [Procedure/Treatment] #1 RIGHT HEEL -Time 11:44 -Correct Patient Yes -Correct Side, Site, Position Yes -Correct Procedure Yes -Procedure Performed Yes -Type of Procedure Debridement -Clinical Debridement Subcutaneous -Post Debridement Size (cm) - Length 0.5 -Post Debridement Size (cm) - Width 0.5 -Post Debridement Size (cm) - Depth 0.2 -Total Square Cm 0.25 -Wound/Ulcer Outcome Not Healed -Ulcer Cleansing Rinsed/ Irrigated with Saline -Foul Odor after Cleansing No -Bioengineered Tissue No -Bleeding Controlled with Pressure -Offloading No -Treatment Response Procedure Tolerated Well [See Physician Procedure note for Specifics] Pain Scale: 0-10 Numeric [Pain] -Is Patient Pain Free? Yes Musculoskeletal: No Muscle Wasting Neurological: Cranial nerves II-XII grossly intact, Neuro grossly intact Psych/Mental Status: Normal Affect, Appropriate, Alert and oriented to time, place, person, mood and affect Debridement Note Post-Debridement Measurements/Treatment - Nurse 2 - General Ulcer CM Notes Start: 11/28/18 12:35 Freq: Status: Active Protocol: Activity Type Activity Date Activity User E-Sign Co-Sign Detail Recorded Client Recorded Date Recorded By Document 11/28/18 13:16 JS [id number] 11/28/18 13:24 JS Document 12/06/18 11:44 DV [id number] 12/06/18 11:50 DV 11/28/18 12/06/18 13:16 11:44 Wound Center Nurse 2 #1 RIGHT HEEL -Time 13:16 11:44 -Correct Patient Yes Yes -Correct Side, Site, Position Yes Yes -Correct Procedure Yes Yes -Procedure Performed Yes Yes -Type of Procedure Debridement Debridement -Clinical Debridement Subcutaneous Subcutaneous -Post Debridement Size (cm) - Length 0.7 0.5 -Post Debridement Size (cm) - Width 0.4 0.5 -Post Debridement Size (cm) - Depth 0.2 0.2 -Total Square Cm 0.28 0.25 -Wound/Ulcer Outcome Not Healed Not Healed -Ulcer Cleansing Rinsed/ Rinsed/ Irrigated with Irrigated with Saline Saline -Foul Odor after Cleansing No No -Bioengineered Tissue No No -Bleeding Controlled with Pressure Pressure -Offloading No No -Treatment Response Procedure Procedure Tolerated Well Tolerated Well Pain Scale: 0-10 Numeric Is Patient Pain Free? Yes Yes Laterality: Right - Posterior heel Type of Debridement: Excisional debridement Anesthesia Used: 5% Lidocaine Gel Depth: Down to and including healthy tissue, in the subcutaneous layer Percentage of wound debrided: 100 Instrument Used: 3mm curette Severity: Fat Layer Exposed Amount of bleeding with debridement: Mild Bleeding Controlled with: Compression and gauze Patient tolerated procedure well Assessment/Plan Active Problems Surgical wound dehiscence (Chronic) Surgical wound, non healing (Chronic) Morbid obesity (Chronic) Assessment: This is a 58-year-old female who underwent a right Achilles tendon transfer with removal of bone spur on September 27, 2018. The inferior portion of her surgical wound has failed to heal appropriately. Conservative treatment measures have been implemented, and the patient's surgical wound continues to heal progressively. Patient suffers from multiple other pre-existing medical problems, including coronary artery disease, hypertension, hyperlipidemia, chronic bronchitis, etc. By physical examination, she was also noted to have a left carotid artery bruit. She underwent a carotid duplex examination as ordered by Dr. Landeros, which revealed mild bilateral carotid plaque, with no significant blockage. Plan: Offloading measures have been recommended. It appears as though these measures have already been implemented. This issue has been discussed at length with the patient. Collagenase Santyl has been initiated topically, though we are now to transition to the use of Promogran topically, which will be changed every other day. An excisional debridement was performed today, and will be continued on a serial basis, as the patient returns for weekly appointments. Swab cultures have been obtained for both aerobic and anaerobic growth, and results are negative. Recent laboratory studies have been reviewed, revealing no significant abnormalities. The patient is not a smoker. Influenza vaccine was not administered today. The patient weighs 280 pounds. She stands 5 feet 4 inches tall. Her BMI is 47.3. This places her in a class III obesity category. Weight loss has been recommended, in collaboration with her primary care physician has been advised.
--- NOTE | 2018-12-06 11:56 | HP.PCM_ITS ---
(1) Surgical wound dehiscence Status: Chronic Current Visit: Yes Qualifiers: Encounter type: subsequent encounter Code(s): T81.31XA - Disruption of external operation (surgical) wound, not elsewhere classified, initial encounter (2) Surgical wound, non healing Status: Chronic Current Visit: Yes Qualifiers: Encounter type: subsequent encounter Code(s): T81.89XA - Other complications of procedures, not elsewhere classified, initial encounter (3) Morbid obesity Status: Chronic Current Visit: Yes Code(s): E66.01 - Morbid (severe) obesity due to excess calories (4) CAD (coronary artery disease) Status: Chronic Current Visit: No Qualifiers: Coronary Disease-Associated Artery/Lesion type: [place] artery [place] vs. transplanted heart: [place] heart Code(s): I25.10 - Atherosclerotic heart disease of [place] coronary artery without angina pectoris (5) Left carotid bruit Status: Chronic Current Visit: No Code(s): R09.89 - Other specified symptoms and signs involving the circulatory and respiratory systems (6) Hypertension Status: Chronic Current Visit: No Code(s): I10 - Essential (primary) hy pertension (7) Hyperlipidemia Status: Chronic Current Visit: No Code(s): E78.5 - Hyperlipidemia, unspeci fied (8) Chronic bronchitis Status: Chronic Current Visit: No Code(s): J42 - Unspecified chronic bronchi tis (9) Smoking history Status: Chronic Current Visit: No Code(s): Z87.891 - Personal history of nicotine dependence (10) Alcoholism in remission Status: Chronic Current Visit: No Code(s): F10.21 - Alcohol dependence, in remission History of Present Illness Chief Complaint: Chronic, nonhealing surgical wound of the right Achilles area/posterior heel History of Wound: This is a 58-year-old obese female who underwent right Achilles tendon debridement, resection of a retrocalcaneal spur, and tendon transfer on September 27, 2018, in [facility]. Since that time, she has been followed clinically by Dr. Thiago Vidal, her podiatric surgeon at the [facility]. The inferior portion of her surgical incision has failed to heal. She has had several courses of oral antibiotics. Offloading measures were implemented. Patient is using a Cam walker and surgical boot. Collagenase Santyl has been used topically. She has been referred to our wound care facility for consultation and management relative to the nonhealing portion of her incision. The surgical sutures were removed approximately 10 days postoperatively, at which time it became evident that the inferior portion of the surgical incision was not healing appropriately, and as expected. Past Medical History Past Medical History: Chronic Problems Surgical wound dehiscence (Chronic) Surgical wound, non healing (Chronic) Morbid obesity (Chronic) CAD (coronary artery disease) (Chronic) Left carotid bruit (Chronic) Hypertension (Chronic) Hyperlipidemia (Chronic) Chronic bronchitis (Chronic) Smoking history (Chronic) Alcoholism in remission (Chronic) Surgical History: - - Patient underwent emergency cardiac surgery in 1999, in association with placement of coronary artery stents x2. She underwent cholecystectomy in 2000. She is also undergone tonsillectomy. A right carpal tunnel release was also performed in the past. Home Medications: Ambulatory Orders Medication Instructions Recorded Albuterol Inhaler [Ventolin Hfa 2 puff INHALATION Q4H PRN PRN 11/08/18 (SP)] Ascorbic Acid [Vitamin C] 1,000 mg PO DAILY 11/08/18 Aspirin 81 mg PO DAILY 11/08/18 Atorvastatin Calcium [Lipitor] 40 mg PO QHS 11/08/18 Ibuprofen [Motrin] 800 PO 4X/DAY PRN PRN 11/08/18 Lisinopril [Zestril] 10 mg PO DAILY 11/08/18 Meloxicam 15 mg PO DAILY 11/08/18 Multivitamins,Therapeutic 1 tablet PO DAILY 11/08/18 [Multivitamin] Omeprazole [Prilosec] 20 mg PO DAILY 11/08/18 Ranolazine [Ranexa] 500 mg PO BID 11/08/18 Sertraline HCl [Zoloft] 100 mg PO DAILY 11/08/18 buPROPion tablets [Wellbutrin 50 mg PO BID 11/08/18 tablets] - Family History Paternal - - Patient's father at the age of 83 with a history of coronary artery disease and cerebrovascular accident. Maternal - - The patient's mother at the age of 82 with a history of myocardial infarction. Smoking Status: Former smoker Tobacco Use: Non-smoker Review of Systems Constitutional: Denies: Chills, Fever, Weight Change Eyes: Denies: Pain, Vision Change HEENT: Denies: Difficulty Hearing, Difficulty Swallowing, Sinus Congestion Cardiovascular: Denies: Chest Pain, Palpitations Respiratory: Denies: Cough, Shortness of Breath Gastrointestinal: Denies: Diarrhea, Nausea, Vomiting Genitourinary: Denies: Dysuria, Hematuria Endocrine: Denies: Heat/ Cold Intolerance, Polydipsia, Polyuria Hematologic/ Lymphatic: Denies: Easy Bruising, Easy Bleeding - Physical Exam Vital Signs Temp Pulse Resp BP 97.7 F L 58 L 18 122/67 H 12/06/18 11:07 12/06/18 11:07 12/06/18 11:07 12/06/18 11:07 General: Alert, Oriented x3, Cooperative, No apparent distress, Well developed, Well nourished HEENT: Atraumatic, PERRLA, EOMI, Normocephalic Oral: Moist Mucosa Neck: No JVD Lungs: Normal air movement Abdomen: Non-Distended Extremities: No clubbing, No cyanosis, No edema, No Calf Tenderness, - - There is no significant swelling or edema in the patient's lower extremities bilaterally. The surgical wound on the right posterior heel/Achilles area continues to decrease in size. Dimensions are documented elsewhere. There is no sign of infection or cellulitis. The surgical incision is otherwise healing appropriately. There is a small amount of bioburden. Skin: No rashes Wound Measurements and Assessment WC - Nurse 1 - General Ulcer Measurement Start: 11/28/18 12:35 Freq: Status: Active Protocol: Activity Type Activity Date Activity User E-Sign Co-Sign Detail Recorded Client Recorded Date Recorded By Document 12/06/18 11:07 [id number] 12/06/18 11:19 AN 12/06/18 11:07 Wound Center Nurse 1 [Ulcer Assessment] #1 RIGHT HEEL -Current Size (cm) - Length 0.5 -Current Size (cm) - Width 0.2 -Current Size (cm) - Depth 0.1 -Total Square Cm 0.10 -Epithelialization None Present -Tunneling No -Undermining/Tunneling No -Classification - Thickness Full Thickness without Exposed Support Structure -Exudate Amt Small -Exudate Type Serous -Wound Margin Distinct, Outline Attached -Granulation Amt Small (1-33%) -Granulation Quality Red -Slough/Fibrin Yes -Necrosis Amt Large (67-100%) -Necrotic Tissue Type Adherent Slough -Texture (Lynda-wound Skin Appearance) No Abnormality Assessed -Moisture (Lynda-wound Skin Appearance No Abnormality ) Assessed -Color (Lynda-wound Skin Appearance) No Abnormality Assessed -Temperature (Lynda-wound Skin No Abnormality Appearance) (Pt Warm) -Tenderness on Palpation (Lynda-wound Yes Skin Appearance) -Ulcer Cleansing Rinsed/ Irrigated with Saline -Foul Odor after Cleansing No -Anesthetic Used 4% Lidocaine Solution [Edema Assessment] -Right Calf (cm) 44.5 -Right Ankle (cm) 26 WC - Nurse 2 - General Ulcer CM Notes Start: 11/28/18 12:35 Freq: Status: Active Protocol: Activity Type Activity Date Activity User E-Sign Co-Sign Detail Recorded Client Recorded Date Recorded By Document 12/06/18 11:44 DV [id number] 12/06/18 11:50 DV 12/06/18 11:44 Wound Center Nurse 2 [Procedure/Treatment] #1 RIGHT HEEL -Time 11:44 -Correct Patient Yes -Correct Side, Site, Position Yes -Correct Procedure Yes -Procedure Performed Yes -Type of Procedure Debridement -Clinical Debridement Subcutaneous -Post Debridement Size (cm) - Length 0.5 -Post Debridement Size (cm) - Width 0.5 -Post Debridement Size (cm) - Depth 0.2 -Total Square Cm 0.25 -Wound/Ulcer Outcome Not Healed -Ulcer Cleansing Rinsed/ Irrigated with Saline -Foul Odor after Cleansing No -Bioengineered Tissue No -Bleeding Controlled with Pressure -Offloading No -Treatment Response Procedure Tolerated Well [See Physician Procedure note for Specifics] Pain Scale: 0-10 Numeric [Pain] -Is Patient Pain Free? Yes Musculoskeletal: No Muscle Wasting Neurological: Cranial nerves II-XII grossly intact, Neuro grossly intact Psych/Mental Status: Normal Affect, Appropriate, Alert and oriented to time, place, person, mood and affect Debridement Note Post-Debridement Measurements/Treatment - Nurse 2 - General Ulcer CM Notes Start: 11/28/18 12:35 Freq: Status: Active Protocol: Activity Type Activity Date Activity User E-Sign Co-Sign Detail Recorded Client Recorded Date Recorded By Document 11/28/18 13:16 JS [id number] 11/28/18 13:24 JS Document 12/06/18 11:44 DV [id number] 12/06/18 11:50 DV 11/28/18 12/06/18 13:16 11:44 Wound Center Nurse 2 #1 RIGHT HEEL -Time 13:16 11:44 -Correct Patient Yes Yes -Correct Side, Site, Position Yes Yes -Correct Procedure Yes Yes -Procedure Performed Yes Yes -Type of Procedure Debridement Debridement -Clinical Debridement Subcutaneous Subcutaneous -Post Debridement Size (cm) - Length 0.7 0.5 -Post Debridement Size (cm) - Width 0.4 0.5 -Post Debridement Size (cm) - Depth 0.2 0.2 -Total Square Cm 0.28 0.25 -Wound/Ulcer Outcome Not Healed Not Healed -Ulcer Cleansing Rinsed/ Rinsed/ Irrigated with Irrigated with Saline Saline -Foul Odor after Cleansing No No -Bioengineered Tissue No No -Bleeding Controlled with Pressure Pressure -Offloading No No -Treatment Response Procedure Procedure Tolerated Well Tolerated Well Pain Scale: 0-10 Numeric Is Patient Pain Free? Yes Yes Laterality: Right - Posterior heel Type of Debridement: Excisional debridement Anesthesia Used: 5% Lidocaine Gel Depth: Down to and including healthy tissue, in the subcutaneous layer Percentage of wound debrided: 100 Instrument Used: 3mm curette Severity: Fat Layer Exposed Amount of bleeding with debridement: Mild Bleeding Controlled with: Compression and gauze Patient tolerated procedure well Assessment/Plan Active Problems Surgical wound dehiscence (Chronic) Surgical wound, non healing (Chronic) Morbid obesity (Chronic) Assessment: This is a 58-year-old female who underwent a right Achilles tendon transfer with removal of bone spur on September 27, 2018. The inferior portion of her surgical wound has failed to heal appropriately. Conservative treatment measures have been implemented, and the patient's surgical wound continues to heal progressively. Patient suffers from multiple other pre-existing medical problems, including coronary artery disease, hypertension, hyperlipidemia, chronic bronchitis, etc. By physical examination, she was also noted to have a left carotid artery bruit. She underwent a carotid duplex examination as ordered by Dr. Landeros, which revealed mild bilateral carotid plaque, with no significant blockage. Plan: Offloading measures have been recommended. It appears as though these measures have already been implemented. This issue has been discussed at length with the patient. Collagenase Santyl has been initiated topically, though we are now to transition to the use of Promogran topically, which will be changed every other day. An excisional debridement was performed today, and will be continued on a serial basis, as the patient returns for weekly appointments. Swab cultures have been obtained for both aerobic and anaerobic growth, and results are negative. Recent laboratory studies have been reviewed, revealing no significant abnormalities. The patient is not a smoker. Influenza vaccine was not administered today. The patient weighs 280 pounds. She stands 5 feet 4 inches tall. Her BMI is 47.3. This places her in a class III obesity category. Weight loss has been recommended, in collaboration with her primary care physician has been advised.
[2018-12-13 11:08] VITALS: BP 118/77; PULSE 70; RESP 18; TEMP 36.4; BMI 47.3
--- NOTE | 2018-12-13 12:21 | PCM.WC.HP ---
(1) Surgical wound dehiscence Status: Chronic Current Visit: Yes Qualifiers: Encounter type: subsequent encounter Code(s): T81.31XA - Disruption of external operation (surgical) wound, not elsewhere classified, initial encounter (2) Surgical wound, non healing Status: Chronic Current Visit: Yes Qualifiers: Encounter type: subsequent encounter Code(s): T81.89XA - Other complications of procedures, not elsewhere classified, initial encounter (3) Morbid obesity Status: Chronic Current Visit: Yes Code(s): E66.01 - Morbid (severe) obesity due to excess calories (4) CAD (coronary artery disease) Status: Chronic Current Visit: No Qualifiers: Coronary Disease-Associated Artery/Lesion type: [place] artery [place] vs. transplanted heart: [place] heart Code(s): I25.10 - Atherosclerotic heart disease of [place] coronary artery without angina pectoris (5) Left carotid bruit Status: Chronic Current Visit: No Code(s): R09.89 - Other specified symptoms and signs involving the circulatory and respiratory systems (6) Hypertension Status: Chronic Current Visit: No Code(s): I10 - Essential (primary) hypertension (7) Hyperlipidemia Status: Chronic Current Visit: No Code(s): E78.5 - Hyperlipidemia, unspecified (8) Chronic bronchitis Status: Chronic Current Visit: No Code(s): J42 - Unspecified chronic bronchitis (9) Smoking history Status: Chronic Current Visit: No Code(s): Z87.891 - Personal history of nicotine dependence (10) Alcoholism in remission Status: Chronic Current Visit: No Code(s): F10.21 - Alcohol dependence, in remission History of Present Illness Chief Complaint: Chronic, nonhealing surgical wound of the right Achilles area/posterior heel History of Wound: This is a 58-year-old obese female who underwent right Achilles tendon debridement, resection of a retrocalcaneal spur, and tendon transfer on September 27, 2018, in [facility]. Since that time, she has been followed clinically by Dr. Thiago Vidal, her podiatric surgeon at the [facility]. The inferior portion of her surgical incision has failed to heal. She has had several courses of oral antibiotics. Offloading measures were implemented. Patient is using a Cam walker and surgical boot. Collagenase Santyl has been used topically. She has been referred to our wound care facility for consultation and management relative to the nonhealing portion of her incision. The surgical sutures were removed approximately 10 days postoperatively, at which time it became evident that the inferior portion of the surgical incision was not healing appropriately, and as expected. Past Medical History Past Medical History: Chronic Problems Surgical wound dehiscence (Chronic) Surgical wound, non healing (Chronic) Morbid obesity (Chronic) CAD (coronary artery disease) (Chronic) Left carotid bruit (Chronic) Hypertension (Chronic) Hyperlipidemia (Chronic) Chronic bronchitis (Chronic) Smoking history (Chronic) Alcoholism in remission (Chronic) Surgical History: - - Patient underwent emergency cardiac surgery in 1999, in association with placement of coronary artery stents x2. She underwent cholecystectomy in 2000. She is also undergone tonsillectomy. A right carpal tunnel release was also performed in the past. Home Medications: Ambulatory Orders Medication Instructions Recorded Albuterol Inhaler [Ventolin Hfa 2 puff INHALATION Q4H PRN PRN 11/08/18 (SP)] Ascorbic Acid [Vitamin C] 1,000 mg PO DAILY 11/08/18 Aspirin 81 mg PO DAILY 11/08/18 Atorvastatin Calcium [Lipitor] 40 mg PO QHS 11/08/18 Ibuprofen [Motrin] 800 PO 4X/DAY PRN PRN 11/08/18 Lisinopril [Zestril] 10 mg PO DAILY 11/08/18 Meloxicam 15 mg PO DAILY 11/08/18 Multivitamins,Therapeutic 1 tablet PO DAILY 11/08/18 [Multivitamin] Omeprazole [Prilosec] 20 mg PO DAILY 11/08/18 Ranolazine [Ranexa] 500 mg PO BID 11/08/18 Sertraline HCl [Zoloft] 100 mg PO DAILY 11/08/18 buPROPion tablets [Wellbutrin 50 mg PO BID 11/08/18 tablets] - Family History Paternal - - Patient's father at the age of 83 with a history of coronary artery disease and cerebrovascular accident. Maternal - - The patient's mother at the age of 82 with a history of myocardial infarction. Smoking Status: Former smoker Tobacco Use: Non-smoker Review of Systems Constitutional: Denies: Chills, Fever, Weight Change Eyes: Denies: Pain, Vision Change HEENT: Denies: Difficulty Hearing, Difficulty Swallowing, Sinus Congestion Cardiovascular: Denies: Chest Pain, Palpitations Respiratory: Denies: Cough, Shortness of Breath Gastrointestinal: Denies: Diarrhea, Nausea, Vomiting Genitourinary: Denies: Dysuria, Hematuria Endocrine: Denies: Heat/ Cold Intolerance, Polydipsia, Polyuria Hematologic/ Lymphatic: Denies: Easy Bruising, Easy Bleeding - Physical Exam Vital Signs Temp Pulse Resp BP 97.5 F L 70 18 118/77 12/13/18 11:08 12/13/18 11:08 12/13/18 11:08 12/13/18 11:08 General: Alert, Oriented x3, Cooperative, No apparent distress, Well developed, Well nourished HEENT: Atraumatic, PERRLA, EOMI, Normocephalic Oral: Moist Mucosa Neck: No JVD Lungs: Normal air movement Abdomen: Non-Distended Extremities: No clubbing, No cyanosis, No edema, No Calf Tenderness, - - The surgical wound on the right posterior heel/Achilles area is now completely healed and epithelialized. There is no sign of infection or cellulitis. Skin: No rashes, No breakdown Wound Measurements and Assessment WC - Nurse 1 - General Ulcer Measurement Start: 11/28/18 12:35 Freq: Status: Active Protocol: Activity Type Activity Date Activity User E-Sign Co-Sign Detail Recorded Client Recorded Date Recorded By Document 12/13/18 11:08 AN [id number] 12/13/18 11:12 AN 12/13/18 11:08 Wound Center Nurse 1 [Ulcer Assessment] #1 RIGHT HEEL -Current Size (cm) - Length 0.1 -Current Size (cm) - Width 0.1 -Current Size (cm) - Depth 0.1 -Total Square Cm 0.01 -Date of Last Picture (Recall this 12/13/18 field) -Photo Taken Yes -Epithelialization None Present -Tunneling No -Undermining/Tunneling No -Slough/Fibrin Yes -Necrosis Amt Large (67-100%) -Necrotic Tissue Type Eschar WC - Nurse 2 - General Ulcer CM Notes Start: 11/28/18 12:35 Freq: Status: Active Protocol: Activity Type Activity Date Activity User E-Sign Co-Sign Detail Recorded Client Recorded Date Recorded By Document 12/13/18 12:08 DV [id number] 12/13/18 12:10 DV 12/13/18 12:08 Wound Center Nurse 2 [Procedure/Treatment] -Time 12:08 -Correct Patient Yes -Correct Side, Site, Position Yes -Procedure Performed No -Post Debridement Size (cm) - Length 0 -Post Debridement Size (cm) - Width 0 -Post Debridement Size (cm) - Depth 0 -Total Square Cm 0 -Wound/Ulcer Outcome Healed- Epithelialized [See Physician Procedure note for Specifics] Pain Scale: 0-10 Numeric [Pain] -Is Patient Pain Free? Yes Musculoskeletal: No Muscle Wasting Neurological: Cranial nerves II-XII grossly intact, Neuro grossly intact Psych/Mental Status: Normal Affect, Appropriate, Alert and oriented to time, place, person, mood and affect Debridement Note Post-Debridement Measurements/Treatment WC - Nurse 2 - General Ulcer CM Notes Start: 11/28/18 12:35 Freq: Status: Active Protocol: Activity Type Activity Date Activity User E-Sign Co-Sign Detail Recorded Client Recorded Date Recorded By Document 11/28/18 13:16 JS [id number] 11/28/18 13:24 JS Document 12/06/18 11:44 DV [id number] 12/06/18 11:50 DV Document 12/13/18 12:08 DV [id number] 12/13/18 12:10 DV 11/28/18 12/06/18 12/13/18 13:16 11:44 12:08 Wound Center Nurse 2 #1 RIGHT HEEL -Time 13:16 11:44 12:08 -Correct Patient Yes Yes Yes -Correct Side, Site, Position Yes Yes Yes -Correct Procedure Yes Yes -Procedure Performed Yes Yes No -Type of Procedure Debridement Debridement -Clinical Debridement Subcutaneous Subcutaneous -Post Debridement Size (cm) - Length 0.7 0.5 0 -Post Debridement Size (cm) - Width 0.4 0.5 0 -Post Debridement Size (cm) - Depth 0.2 0.2 0 -Total Square Cm 0.28 0.25 0 -Wound/Ulcer Outcome Not Healed Not Healed Healed- Epithelialized -Ulcer Cleansing Rinsed/ Rinsed/ Irrigated with Irrigated with Saline Saline -Foul Odor after Cleansing No No -Bioengineered Tissue No No -Bleeding Controlled with Pressure Pressure -Offloading No No -Treatment Response Procedure Procedure Tolerated Well Tolerated Well Pain Scale: 0-10 Numeric Is Patient Pain Free? Yes Yes Yes No debridement was completed today Assessment/Plan Active Problems Surgical wound dehiscence (Chronic) Surgical wound, non healing (Chronic) Morbid obesity (Chronic) Assessment: This is a 58-year-old female who underwent a right Achilles tendon transfer with removal of bone spur on September 27, 2018. The inferior portion of her surgical wound has failed to heal appropriately. Conservative treatment measures have been implemented, and the patient's surgical wound continues to heal progressively. Patient suffers from multiple other pre-existing medical problems, including coronary artery disease, hypertension, hyperlipidemia, chronic bronchitis, etc. By physical examination, she was also noted to have a left carotid artery bruit. She underwent a carotid duplex examination as ordered by Dr. Landeros, which revealed mild bilateral carotid plaque, with no significant blockage. Plan: The patient is now completely healed and epithelialized. She is to be discharged from the Wound Center, with follow-up in the future as needed. She remains under the care of Dr. Thiago Vidal, podiatric specialist. The patient is not a smoker. Influenza vaccine was not administered today. The patient weighs 280 pounds. She stands 5 feet 4 inches tall. Her BMI is 47.3. This places her in a class III obesity category. Weight loss has been recommended, in collaboration with her primary care physician has been advised.
--- NOTE | 2018-12-13 12:25 | HP.PCM_ITS ---
(1) Surgical wound dehiscence Status: Chronic Current Visit: Yes Qualifiers: Encounter type: subsequent encounter Code(s): T81.31XA - Disruption of external operation (surgical) wound, not elsewhere classified, initial encounter (2) Surgical wound, non healing Status: Chronic Current Visit: Yes Qualifiers: Encounter type: subsequent encounter Code(s): T81.89XA - Other complications of procedures, not elsewhere classified, initial encounter (3) Morbid obesity Status: Chronic Current Visit: Yes Code(s): E66.01 - Morbid (severe) obesity due to excess calories (4) CAD (coronary artery disease) Status: Chronic Current Visit: No Qualifiers: Coronary Disease-Associated Artery/Lesion type: [place] artery [place] vs. transplanted heart: [place] heart Code(s): I25.10 - Atherosclerotic heart disease of [place] coronary artery without angina pectoris (5) Left carotid bruit Status: Chronic Current Visit: No Code(s): R09.89 - Other specified symptoms and signs involving the circulatory and respiratory systems (6) Hypertension Status: Chronic Current Visit: No Code(s): I10 - Essential (primary) hy pertension (7) Hyperlipidemia Status: Chronic Current Visit: No Code(s): E78.5 - Hyperlipidemia, unspeci fied (8) Chronic bronchitis Status: Chronic Current Visit: No Code(s): J42 - Unspecified chronic bronchi tis (9) Smoking history Status: Chronic Current Visit: No Code(s): Z87.891 - Personal history of nicotine dependence (10) Alcoholism in remission Status: Chronic Current Visit: No Code(s): F10.21 - Alcohol dependence, in remission History of Present Illness Chief Complaint: Chronic, nonhealing surgical wound of the right Achilles area/posterior heel History of Wound: This is a 58-year-old obese female who underwent right Achilles tendon debridement, resection of a retrocalcaneal spur, and tendon transfer on September 27, 2018, in [facility]. Since that time, she has been followed clinically by Dr. Thiago Vidal, her podiatric surgeon at the [facility]. The inferior portion of her surgical incision has failed to heal. She has had several courses of oral antibiotics. Offloading measures were implemented. Patient is using a Cam walker and surgical boot. Collagenase Santyl has been used topically. She has been referred to our wound care facility for consultation and management relative to the nonhealing portion of her incision. The surgical sutures were removed approximately 10 days postoperatively, at which time it became evident that the inferior portion of the surgical incision was not healing appropriately, and as expected. Past Medical History Past Medical History: Chronic Problems Surgical wound dehiscence (Chronic) Surgical wound, non healing (Chronic) Morbid obesity (Chronic) CAD (coronary artery disease) (Chronic) Left carotid bruit (Chronic) Hypertension (Chronic) Hyperlipidemia (Chronic) Chronic bronchitis (Chronic) Smoking history (Chronic) Alcoholism in remission (Chronic) Surgical History: - - Patient underwent emergency cardiac surgery in 1999, in association with placement of coronary artery stents x2. She underwent cholecystectomy in 2000. She is also undergone tonsillectomy. A right carpal tunnel release was also performed in the past. Home Medications: Ambulatory Orders Medication Instructions Recorded Albuterol Inhaler [Ventolin Hfa 2 puff INHALATION Q4H PRN PRN 11/08/18 (SP)] Ascorbic Acid [Vitamin C] 1,000 mg PO DAILY 11/08/18 Aspirin 81 mg PO DAILY 11/08/18 Atorvastatin Calcium [Lipitor] 40 mg PO QHS 11/08/18 Ibuprofen [Motrin] 800 PO 4X/DAY PRN PRN 11/08/18 Lisinopril [Zestril] 10 mg PO DAILY 11/08/18 Meloxicam 15 mg PO DAILY 11/08/18 Multivitamins,Therapeutic 1 tablet PO DAILY 11/08/18 [Multivitamin] Omeprazole [Prilosec] 20 mg PO DAILY 11/08/18 Ranolazine [Ranexa] 500 mg PO BID 11/08/18 Sertraline HCl [Zoloft] 100 mg PO DAILY 11/08/18 buPROPion tablets [Wellbutrin 50 mg PO BID 11/08/18 tablets] - Family History Paternal - - Patient's father at the age of 83 with a history of coronary artery disease and cerebrovascular accident. Maternal - - The patient's mother at the age of 82 with a history of myocardial infarction. Smoking Status: Former smoker Tobacco Use: Non-smoker Review of Systems Constitutional: Denies: Chills, Fever, Weight Change Eyes: Denies: Pain, Vision Change HEENT: Denies: Difficulty Hearing, Difficulty Swallowing, Sinus Congestion Cardiovascular: Denies: Chest Pain, Palpitations Respiratory: Denies: Cough, Shortness of Breath Gastrointestinal: Denies: Diarrhea, Nausea, Vomiting Genitourinary: Denies: Dysuria, Hematuria Endocrine: Denies: Heat/ Cold Intolerance, Polydipsia, Polyuria Hematologic/ Lymphatic: Denies: Easy Bruising, Easy Bleeding - Physical Exam Vital Signs Temp Pulse Resp BP 97.5 F L 70 18 118/77 12/13/18 11:08 12/13/18 11:08 12/13/18 11:08 12/13/18 11:08 General: Alert, Oriented x3, Cooperative, No apparent distress, Well developed, Well nourished HEENT: Atraumatic, PERRLA, EOMI, Normocephalic Oral: Moist Mucosa Neck: No JVD Lungs: Normal air movement Abdomen: Non-Distended Extremities: No clubbing, No cyanosis, No edema, No Calf Tenderness, - - The surgical wound on the right posterior heel/Achilles area is now completely healed and epithelialized. There is no sign of infection or cellulitis. Skin: No rashes, No breakdown Wound Measurements and Assessment WC - Nurse 1 - General Ulcer Measurement Start: 11/28/18 12:35 Freq: Status: Active Protocol: Activity Type Activity Date Activity User E-Sign Co-Sign Detail Recorded Client Recorded Date Recorded By Document 12/13/18 11:08 [email or web address] [id number] 12/13/18 11:12 AN 12/13/18 11:08 Wound Center Nurse 1 [Ulcer Assessment] #1 RIGHT HEEL -Current Size (cm) - Length 0.1 -Current Size (cm) - Width 0.1 -Current Size (cm) - Depth 0.1 -Total Square Cm 0.01 -Date of Last Picture (Recall this 12/13/18 field) -Photo Taken Yes -Epithelialization None Present -Tunneling No -Undermining/Tunneling No -Slough/Fibrin Yes -Necrosis Amt Large (67-100%) -Necrotic Tissue Type Eschar WC - Nurse 2 - General Ulcer CM Notes Start: 11/28/18 12:35 Freq: Status: Active Protocol: Activity Type Activity Date Activity User E-Sign Co-Sign Detail Recorded Client Recorded Date Recorded By Document 12/13/18 12:08 [email or web address] [id number] 12/13/18 12:10 DV 12/13/18 12:08 Wound Center Nurse 2 [Procedure/Treatment] -Time 12:08 -Correct Patient Yes -Correct Side, Site, Position Yes -Procedure Performed No -Post Debridement Size (cm) - Length 0 -Post Debridement Size (cm) - Width 0 -Post Debridement Size (cm) - Depth 0 -Total Square Cm 0 -Wound/Ulcer Outcome Healed- Epithelialized [See Physician Procedure note for Specifics] Pain Scale: 0-10 Numeric [Pain] -Is Patient Pain Free? Yes Musculoskeletal: No Muscle Wasting Neurological: Cranial nerves II-XII grossly intact, Neuro grossly intact Psych/Mental Status: Normal Affect, Appropriate, Alert and oriented to time, place, person, mood and affect Debridement Note Post-Debridement Measurements/Treatment WC - Nurse 2 - General Ulcer CM Notes Start: 11/28/18 12:35 Freq: Status: Active Protocol: Activity Type Activity Date Activity User E-Sign Co-Sign Detail Recorded Client Recorded Date Recorded By Document 11/28/18 13:16 JS [id number] 11/28/18 13:24 JS Document 12/06/18 11:44 DV [id number] 12/06/18 11:50 DV Document 12/13/18 12:08 DV [id number] 12/13/18 12:10 DV 11/28/18 12/06/18 12/13/18 13:16 11:44 12:08 Wound Center Nurse 2 #1 RIGHT HEEL -Time 13:16 11:44 12:08 -Correct Patient Yes Yes Yes -Correct Side, Site, Position Yes Yes Yes -Correct Procedure Yes Yes -Procedure Performed Yes Yes No -Type of Procedure Debridement Debridement -Clinical Debridement Subcutaneous Subcutaneous -Post Debridement Size (cm) - Length 0.7 0.5 0 -Post Debridement Size (cm) - Width 0.4 0.5 0 -Post Debridement Size (cm) - Depth 0.2 0.2 0 -Total Square Cm 0.28 0.25 0 -Wound/Ulcer Outcome Not Healed Not Healed Healed- Epithelialized -Ulcer Cleansing Rinsed/ Rinsed/ Irrigated with Irrigated with Saline Saline -Foul Odor after Cleansing No No -Bioengineered Tissue No No -Bleeding Controlled with Pressure Pressure -Offloading No No -Treatment Response Procedure Procedure Tolerated Well Tolerated Well Pain Scale: 0-10 Numeric Is Patient Pain Free? Yes Yes Yes No debridement was completed today Assessment/Plan Active Problems Surgical wound dehiscence (Chronic) Surgical wound, non healing (Chronic) Morbid obesity (Chronic) Assessment: This is a 58-year-old female who underwent a right Achilles tendon transfer with removal of bone spur on September 27, 2018. The inferior portion of her surgical wound has failed to heal appropriately. Conservative treatment measures have been implemented, and the patient's surgical wound continues to heal progressively. Patient suffers from multiple other pre-existing medical problems, including coronary artery disease, hypertension, hyperlipidemia, chronic bronchitis, etc. By physical examination, she was also noted to have a left carotid artery bruit. She underwent a carotid duplex examination as ordered by Dr. Landeros, which revealed mild bilateral carotid plaque, with no significant blockage. Plan: The patient is now completely healed and epithelialized. She is to be discharged from the Wound Center, with follow-up in the future as needed. She remains under the care of Dr. Thiago Vidal, podiatric specialist. The patient is not a smoker. Influenza vaccine was not administered today. The patient weighs 280 pounds. She stands 5 feet 4 inches tall. Her BMI is 47.3. This places her in a class III obesity category. Weight loss has been recommended, in collaboration with her primary care physician has been advised.
== END 2018-12-22 23:59 ==
LOC: WC 11:00
PROVIDERS: Family Provider Family Medicine; Visit Provider Surgery
DX: T81.31XA Disruption of external operation (surgical) wound, not elsewhere classified, initial encounter (principal); Y83.9 Surgical procedure, unspecified as the cause of abnormal reaction of the patient, or of later complication, without mention of misadventure at the time of the procedure; I25.10 Atherosclerotic heart disease of native coronary artery without angina pectoris; E66.01 Morbid (severe) obesity due to excess calories; Z68.42 Body mass index [BMI] 45.0-49.9, adult; Z71.3 Dietary counseling and surveillance; R09.89 Other specified symptoms and signs involving the circulatory and respiratory systems; I10 Essential (primary) hypertension; E78.5 Hyperlipidemia, unspecified; F10.21 Alcohol dependence, in remission; Z87.891 Personal history of nicotine dependence; Z79.899 Other long term (current) drug therapy
CPT/HCPCS: 11042; 99213; G0463

== ENCOUNTER 2019-05-22 11:30 | Emergency (ER) | payer OTHER, SELFPAY ==
[2019-05-22 11:31] VITALS: BP 138/87; PULSE 76; RESP 18; TEMP 35.9; O2SAT 97; BMI 49.4
--- NOTE | 2019-05-22 11:40 | RAD_ITS ---
STUDY: X-RAY - LEFT KNEE REASON FOR EXAM: Female, 58 years old. Pain x1 month TECHNIQUE: 4 view(s) of the knee. COMPARISON: None. FINDINGS: Normal visualized distal femur. Normal visualized proximal tibia and fibula. Normal proximal tibiofibular articulation. Normal medial femorotibial compartment. Normal lateral femorotibial compartment. Normal patellofemoral articulation. The soft tissue structures are unremarkable. RAD/Knee 4 or More Views IMPRESSION: Normal x-ray examination of the knee. Electronically Signed: Rory Martin MD at 12:26 EDT , Service support ,
--- NOTE | 2019-05-22 11:41 | VDLE_ITS ---
Reason For Study: Lt knee pain Procedure LEFT Exam performed portable in ED. GSV is normal. A preliminary report was called and/or faxed CFV is compressible, spontaneous, phasic, to Mari. competent, and demonstrates normal augmentation. FV is compressible, spontaneous, phasic, competent and demonstrates normal augmentation. POP V is compressible, spontaneous, phasic, competent and demonstrates normal augmentation. T/P Trunk is compressible. PTV is compressible. LT PerV is compressible. Interpretation Summary There is no evidence of left lower extremity deep vein thrombosis. Ordering Physician: Josse Guerra Referring Physician: Owen Cardenas Performed By: Yin Byrne RVT
--- NOTE | 2019-05-22 11:42 | ED.DCSUM_ITS ---
History of Present Illness Chief Complaint: Lower Extremity Injury Informant: Patient Onset: Month(s) Current Severity: Mild Narrative: Patient complains of pain over the left lateral and left posterior knee for about a month or 2 no injury she is scheduled to undergo ganglion cyst removal by [facility] podiatry in a few weeks indicates the discomfort persisted. She is had no trauma no history of DVT no fever cough shortness of breath or chest pain, she has history of CABG her cardiovascular status is stable Past Medical History - Allergies and Home Meds Allergies/Adverse Reactions: Allergies No Known Allergies Allergy (Verified 05/22/19 11:33) Primary Care Physician: Owen Cardenas [Primary Care Provider] - Past Medical History: - - See above also has history of right Achilles tendon tear Surgical History: - - Patient underwent emergency cardiac surgery in 1999, in association with placement of coronary artery stents x2. She underwent cholecystectomy in 2000. She is also undergone tonsillectomy. A right carpal tunnel release was also performed in the past. Smoking Status: Former smoker - Family History Paternal Family History: Reports: - - Patient's father at the age of 83 with a history of coronary artery disease and cerebrovascular accident. Maternal Family History: Reports: - - The patient's mother at the age of 82 with a history of myocardial infarction. Review of Systems General: Denies: Chills, Fever, Sweats Eyes: Denies: Visual changes - bilaterally, Diplopia ENT: Denies: Rhinorrhea, Sore throat Cardiovascular: Denies: Chest pain, Palpitations Respiratory: Denies: Dyspnea, Cough, Dyspnea on exertion Gastrointestinal: Denies: Abdominal pain, Nausea, Vomiting, Diarrhea, Melena, Hematochezia Genitourinary: Denies: Dysuria, Hematuria, Frequency Musculoskeletal: Denies: Back pain, Extremity Pain Skin: Denies: Rash, Wounds Neurological: Denies: Headache, Weakness, Numbness Physical Exam Vital Signs/Narrative: Vital Signs Temp Pulse Resp BP Pulse Ox 05/22/19 11:31 96.7 F L 76 18 138/87 H 97 General: Well nourished, Well developed, No Acute Distress Head: Normocephalic, Atraumatic Eyes: Perrl, EOMI ENT: Moist mucous membranes, No rhinorrhea Neck: Supple, Nontender Cardiovascular: Regular rate, Regular rhythm, No murmurs Respiratory: No distress, CTA bilaterally, Chest nontender Abdomen: Soft, Nontender, Nondistended, Normal bowel sounds Back: Nontender, Normal Inspection Extremities: Nontender, No edema, - - Left lower extremity has full range of motion she has no pain in her thigh no pain around the knee full range of motion most of her pain is lateral to the knee the popliteal fossa is unremarkable distal neurovascular function is normal knee flexion extension fully intact the calf is unremarkable nontender Skin: Normal color, No rash Neurological: Alert, Oriented x3, Cranial nerves II-XII grossly intact, Normal Strength, Normal Sensation Psychological: Normal affect, Normal Mood Diagnostic/Tx/Re-eval - Medical Decision Making At this time given all of the above x-ray and duplex scan is obtained she had no trauma she has had no history of DVT but given her complaints She is duplex scan shows no DVT the left knee x-rays unremarkable explain the above the patient at this time she is discharged home to follow-up with her outpatient providers for further management return for change in symptoms Home stable Final impression Of knee pain etiology unclear ED Disposition - Plan for ED Patient: Diagnosis: Knee injuries Instructions: Knee Sprain Referrals: Owen Cardenas [Primary Care Provider] -
== END 2019-05-22 13:45 | disposition home or self-care (01) ==
PROVIDERS: Emergency Provider Emergency Medicine; Family Provider Family Medicine
DX: S89.92XA Unspecified injury of left lower leg, initial encounter (principal); Z95.1 Presence of aortocoronary bypass graft; Z87.891 Personal history of nicotine dependence; X58.XXXA Exposure to other specified factors, initial encounter; Y93.89 Activity, other specified; Y92.89 Other specified places as the place of occurrence of the external cause; Y99.8 Other external cause status
CPT/HCPCS: 73564; 93971; 99282

== ENCOUNTER → 2019-07-13 | Outpatient (CLI) | payer OTHER, SELFPAY ==
--- NOTE | 2019-07-13 16:14 | US_ITS ---
STUDY: SUPERFICIAL ULTRASOUND - LEFT FOOT REASON FOR EXAM: Female, 59 years old. Hematoma/abscess in the area of recent surgery TECHNIQUE: A superficial ultrasound was performed with real-time and static go-scale imaging. COMPARISON: None. FINDINGS: Multiple ultrasound images of the dorsal lateral left foot were obtained in region of recent surgery. No abscesses, seromas, or hematomas are identified in the region of interest. The visualized tendons and muscles are sonographically normal. US/Ext Non Vasc Limited/Soft Tiss IMPRESSION: No ultrasound evidence of hematoma or abscess in the region of interest. Electronically Signed: Owen Oliver MD at 16:55 EDT Tel , Service support ,
== END | disposition home or self-care (01) ==
LOC: US 16:10
PROVIDERS: Family Provider Family Medicine; Referring Provider Podiatrist Foot & Ankle Surgery; Visit Provider Podiatrist Foot & Ankle Surgery
DX: T81.31XA Disruption of external operation (surgical) wound, not elsewhere classified, initial encounter (principal); T14.8XXA Other injury of unspecified body region, initial encounter
CPT/HCPCS: 76882

== ENCOUNTER → 2019-09-01 | Outpatient (CLI) | payer OTHER, SELFPAY ==
[2019-08-15 15:04] VITALS: BMI 50.9
--- NOTE | 2019-09-01 13:55 | ECHOCS_ITS ---
Reason For Study: CHEST PAIN Procedure This was a 2D Doppler, Color Flow transthoracic echocardiogram. The study was technically difficult. Contrast injection was performed. Exam performed in department. Left Ventricle Normal size and thickness. The estimated ejection fraction is 65 %. Normal diastology for age. No regional wall motion abnormalities noted. Right Ventricle Mildly dilated right ventricle. Normal systolic function. Atria Normal left atrium. Normal right atrium. Normal atrial septum. Mitral Valve The mitral valve is structurally normal. No prolapse or stenosis seen. Trivial mitral valve insufficiency. Tricuspid Valve Normal tricuspid valve. Mild (1+) tricuspid valve insufficiency. Right ventricular systolic pressure estimated to be 34 mmHg. Aortic Valve Trisinus/trileaflet aortic valve. Pulmonic Valve Normal pulmonic valve. Great Vessels Normal aortic root. Normal arch. Normal inferior vena cava. Inferior vena cava collapse with sniff. Pericardium/Pleural No pericardial effusion. Medication 22 gauge I.V. with prn adaptor inserted into right arm. Diluted definity 3.0ml given slow IV push to enhance endocardial definition. MMode/2D Measurements & Calculations LVIDd: 4.9 cm IVSd: 0.83 cm Ao root diam: 3.0 cm LVIDs: 3.1 cm LVPWd: 1.1 cm RVDd: 3.9 cm FS: 37.4 % LAV(MOD-bp): 44.8 ml EDV(MOD-sp4): 91.0 ml SV(MOD-sp4): 70.3 ml LAV(MOD-bp) Indexed: 19.0 ml/m2 ESV(MOD-sp4): 20.7 ml LAV(MOD-sp2): 41.0 ml EF(MOD-sp4): 77.3 % LAV(MOD-sp4): 48.0 ml LA dimension(2D): 4.0 cm LA A4 area: 18.6 cm2 RA A4 area: 18.1 cm2 Time Measurements MV dec time: 0.22 sec Doppler Measurements & Calculations MV E max hernan: 98.0 cm/sec Lat Peak E' Hernan: 11.9 cm/sec Med Peak E' Hernan: 8.8 cm/sec MV A max hernan: 84.6 cm/sec E/E' lat: 8.2 E/E' med: 11.1 MV E/A: 1.2 Ao V2 max: 205.6 cm/sec LV V1 max: 128.6 cm/sec PA V2 max: 138.9 cm/sec Ao max P.9 mmHg LV V1 max P.6 mmHg TR max hernan: 268.6 cm/sec TR max P.9 mmHg Interpretation Summary The estimated ejection fraction is 65 %. Normal diastology for age. Mildly dilated right ventricle. Trivial mitral valve insufficiency. Mild (1+) tricuspid valve insufficiency. Right ventricular systolic pressure estimated to be 34 mmHg. The study was technically difficult. Contrast injection was performed. There is no comparison study available. Ordering Physician: Casey Flores Referring Physician: SILVIO SOLANO Performed By: Sandra Pa, PAULINO, RVT
== END | disposition home or self-care (01) ==
LOC: CVS 13:55
PROVIDERS: Family Provider Family Medicine; Referring Provider Internal Medicine Cardiovascular Disease; Visit Provider Internal Medicine Cardiovascular Disease
DX: R07.9 Chest pain, unspecified (principal); I25.118 Atherosclerotic heart disease of native coronary artery with other forms of angina pectoris; Z95.1 Presence of aortocoronary bypass graft; Z95.5 Presence of coronary angioplasty implant and graft; Z98.890 Other specified postprocedural states
CPT/HCPCS: 93306; Q9957; A4216; C8929

== ENCOUNTER → 2019-09-07 | Outpatient (CLI) | payer OTHER, SELFPAY ==
[2019-08-15 15:04] VITALS: BMI 50.9
--- NOTE | 2019-09-07 09:42 | STEWCON_ITS ---
Reason For Study: CAD, Chest Pain, Dyspnea Stress Results Protocol: Ayden Protocol Maximum Predicted HR: 162 bpm Target HR: 138 bpm % Maximum Predicted HR: 96 % DurationHeart Rate Stage (mm:ss) (bpm) BP Comment Baseline 67 108/70No Chest Pain; 3 ML Diluted Definity Given Ayden Protocol Stage I 3:00 136 146/72No Chest Pain; Moderate Dyspnea Ayden Protocol Stage II 1:30 155 / No Chest Pain; Moderate to Severe Dyspnea Recovery 78 112/64No Chest Pain Stress Duration: 4:30 mm:ss Maximum Stress HR: 155 bpm METS: 7 Baseline Echocardiogram Findings The estimated ejection fraction is 60 %. Stress Echo Wall motion Data Resting WM Intermediate WM Stress WM Resting Wall Motion Wall Motion Stress No regional wall motion Infero-Basal: Mildly hypokinetic. abnormalities noted. Posterior-Basal: Mildly hypokinetic. EKG Data The baseline ECG displays normal sinus rhythm. The patient exercised according to the regular Ayden protocol for a total duration of 4:30. The maximum heart rate attained was 157 beats per minute. This was 96% of maximum predicted heart rate. The patient exercised into stage 2 of the Ayden protocol. During stress, there were no ST or T wave changes noted to suggest ischemia. No clinical angina was noted. Interpretation Summary The estimated ejection fraction is 60 %. Infero-Basal: Mildly hypokinetic Posterior-Basal: Mildly hypokinetic Abnormal, adequate, treadmill echocardiogram. Positive for ischemia by echocardiographic criteria with evidence of possible inferior basal and posterior basal hypokinesis at peak exercise. No anginal symptoms noted. Rare PVC noted. Below average exercise capacity for age. Final LVEF of 55%. Poor echo windows requiring Definity agent makes echo interpretation less than optimal. Test terminated due to severe dyspnea which may be an anginal equivalent. No complications. The study was technically difficult. Contrast injection was performed. Ordering Physician: Casey Flores Referring Physician: Owen Cardenas Performed By: Brodwolf, Alan, RCS
[2019-09-07 11:58] LABS: AST(SGOT) 12 U/L (15-37); Alanine Aminotransfer ALT/SGPT 21 U/L (13-56); Albumin, Serum 3.6 g/dL (3.2-5.0); Alkaline Phosphatase 115 U/L (45-117); Bilirubin, Direct 0.15 mg/dL (0.00-0.30); Cholesterol 151 mg/dL (200); Globulin 3.7 g/dL (2.2-4.2); High Density Lipoprotein 81 mg/dL; Protein, Total 7.3 g/dL (6.4-8.2); Triglycerides 101 mg/dL; Very Low Density Lipoprotein 20 mg/dL (5-40)
== END | disposition home or self-care (01) ==
PROVIDERS: Family Provider Family Medicine; Referring Provider Internal Medicine Cardiovascular Disease; Visit Provider Internal Medicine Cardiovascular Disease
DX: I25.118 Atherosclerotic heart disease of native coronary artery with other forms of angina pectoris (principal); R07.9 Chest pain, unspecified; E78.5 Hyperlipidemia, unspecified; Z95.5 Presence of coronary angioplasty implant and graft; Z98.890 Other specified postprocedural states
CPT/HCPCS: 36415; 80061; 80076; 93017; 93350; Q9957; A4216; C8928

== ENCOUNTER 2019-09-19 06:52 | Day surgery (SDC) | payer OTHER, SELFPAY ==
[2019-08-15 15:04] VITALS: BMI 50.9
--- NOTE | 2019-09-08 14:02 | RAD_ITS ---
HISTORY: chest pain, pre heart cath for [id number] heart surgery 1999, stopped smoking 2 years ago EXAM: XR Chest 2 Views: COMPARISON: None FINDINGS: # of images incl. paperwork: 2 Sternal wires are present. The most inferior sternal wire is fractured. A 1 cm fragment of the fractured sternal wire has migrated cranially and left laterally. Lungs are clear. Heart is not enlarged. Mild thoracic spondylosis. Pulmonary vascularity is distinct. No effusions. RAD/Chest PA and Lateral IMPRESSION: No acute cardiopulmonary disease. at 2221 Reported and signed by: Reagan Altamirano MD Electronically Signed: Reagan Altamirano MD at 22:20 EDT Tel , Service support ,
[2019-09-08 14:08] LABS: Absolute Lymphocyte Count 3.04 X10^3/uL (0.83-4.51); Basophil# 0.03 X10^3/uL; Basophil% 0.4 % (0-1); Eosinophil# 0.23 X10^3/uL; Eosinophils% 2.9 % (0-5); Hematocrit 40.7 % (37-47); Hemoglobin 13.3 g/dL (12.0-15.0); Lymphocyte # 3.04 X10^3/ul (4.0); Lymphocyte % 38.4 % (19-41); Mean Corp Hgb Conc 32.7 g/dL (32-36); Mean Corpuscular Hgb 31.4 pg (27.0-32.0); Mean Platelet Vol. 9.9 fl (6.2-12.0); Monocyte# 0.61 X10^3/uL; Monocyte% 7.7 % (0-10); NRBC Flagged by Analyzer 0 % (0-5); Neutrophil # 3.98 X10^3/uL (2.7-7.7); Neutrophil % 50.3 % (47-70); Platelet Count 296 K/mm3 (150-450); RBC Distribution Width CV 12.3 % (11.6-14.6); RBC Distribution Width SD 42.9 fl (35.1-43.9); Red Blood Count 4.24 M/mm3 (4.2-5.4); White Blood Count 7.9 K/mm3 (4.4-11.0)
[2019-09-08 14:14] LABS: Prothrombin Time (Protime)PT. 12.9 SECONDS (11.7-14.9)
[2019-09-08 14:15] LABS: Partial Thromboplast Time 30.9 Seconds (24.1-36.2)
[2019-09-08 14:25] LABS: Anion Gap 5 (5-15); BUN 15 mg/dL (7-18); Calcium,Total 9.1 mg/dL (8.5-10.1); Chloride 106 mmol/L (98-107); EST Glomerular Filtration Rate 61 mL/min (>60); Est Glom Filt Rate - Afr Amer 73 mL/min (>60); Glucose 85 mg/dL (74-106); Potassium 4.5 mmol/L (3.5-5.1); Sodium Level 140 mmol/L (136-145)
[2019-09-19 07:03] VITALS: BMI 50.9
--- NOTE | 2019-09-19 07:53 | HP.PCM_ITS ---
History and Physical Date of Admission: 09/19/19 HPI History of Present Illness Details: Mrs. Castro is a very pleasant 59-year-old nondiabetic female with morbid obesity, former [id number] smoker, quit September 07, 2017, hypertension, hyperlipidemia, previous smoking history, coronary artery disease status post coronary stenting on 07/23/00. At that time she underwent angioplasty and stenting at [facility] attempting to place a 3.5X9 Niroyal stent which appeared to be successful but then occluded, required intra-aortic balloon pump placement followed by emergent status post bypass surgery x1 with saphenous vein graft to the RCA by Dr. Garrett on 07/23/2000. In addition she has obstructive sleep apnea, former patient of Dr. Landeros's. She was referred here for ongoing cardiac care. For some reason, she has been treated with Ranexa chronically. Patient's most recent heart catheterization took place on 05/03/2012 at [facility] at which time she had angiographically normal left main, small caliber nonobstructive LAD, nonobstructive left circumflex, atretic RCA and widely patent saphenous vein graft to the RCA. Her most recent carotid Doppler to place on 11/16/2018 which showed nonobstructive disease bilaterally. The patient reportedly had pulmonary function test at [facility] about 2 years ago and reportedly were normal. Patient states that she was in her normal health up until recently when she is developed progressively worsening dyspnea on exertion as well as midsternal chest pressure, somewhat similar to her previous anginal symptoms requiring angioplasty in 1999. She recently underwent right and left knee replacement, the most recent of which occurred in June 2019. She has been somewhat sedentary. 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 Due to her symptoms she underwent and a stress echocardiogram on 09/07/2019. This test was considered to be an abnormal, adequate, treadmill echocardiogram positive for ischemia by echocardiographic criteria with evidence of possible inferior basal and posterior basal hypokinesis at peak exercise. She denies chest, arm, jaw, or neck discomfort today. However, she continues to have shortness of breath with exertion and chest pain with exertion at home. She denies symptoms of palpitations, lightheadedness, dizziness, near syncope, or syncopal episodes. She denies edema or claudication issues. She denies orthopnea, PND, fever, chills, blood in urine, blood in stool, myalgia, or unexplainable fatigue. 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 Is patient in pain?: No Allergies No Known Allergies Allergy (Verified 08/15/19 15:15) Medications Albuterol Inhaler [Ventolin Hfa (SP)] 2 puff INHALATION Q4H PRN PRN 11/08/18 [History Confirmed 08/15/19] Ascorbic Acid [Vitamin C] 1,000 mg PO DAILY 11/08/18 [History Confirmed 08/15/19] Aspirin 81 mg PO DAILY 11/08/18 [History Confirmed 08/15/19] Atorvastatin Calcium [Lipitor] 40 mg PO QHS 11/08/18 [History Confirmed 08/15/19] Lisinopril [Zestril] 10 mg PO DAILY 11/08/18 [History Confirmed 08/15/19] Multivitamins,Therapeutic [Multivitamin] 1 tab PO DAILY 11/08/18 [History Confirmed 08/15/19] Omeprazole [Prilosec] 20 mg PO DAILY 11/08/18 [History Confirmed 08/15/19] Sertraline HCl [Zoloft] 100 mg PO DAILY 11/08/18 [History Confirmed 08/15/19] buPROPion tablets [Wellbutrin tablets] 50 mg PO BID 11/08/18 [History Confirmed 08/15/19] ranolazine ER 1,000 mg tablet,extended release,12 hr 1,000 mg PO BID #180 tab 08/15/19 [Rx Confirmed 08/15/19] Plavix 75mg PO Daily PFSH Medical History Atherosclerotic heart disease of [place] coronary artery with other forms of angina pectoris (Chronic) Obstructive sleep apnea (Chronic) Palpitations (Chronic) Chest pain (Acute) Morbid obesity (Chronic) Left carotid bruit (Chronic) Hypertension (Chronic) Hyperlipidemia (Chronic) Chronic bronchitis (Chronic) Smoking history (Chronic) 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 Father , Age 83 CVA (cerebral vascular accident), Onset Age: 73 Heart disease Social History (Updated 08/15/19 @ 15:49 by Casey Flores MD) Smoking Status: Former smoker quit date: 09/07/17 ROS Const Const: Positive for other exertional chest discomfort. negative for fatigue, weakness, body ache, fever(s), headache(s), chills, frequent falls, night sweats, daytime sleepiness, difficulty sleeping, excessive sweating, weight gain, weight loss, increased appetite, poor appetite or anorexia Eyes Eyes: Negative for blind spots, loss of peripheral vision, transient loss of vision, blurry vision, change in vision, double vision, floaters, tunnel vision or other ENT ENT: Negative for headache(s), dizziness, hearing loss, tinnitus, Nosebleed/epistaxis, balance problems, post nasal drip, lip swelling, tongue swe lling, bleeding gums, hoarseness, neck pain, dry mouth or other Cardio Chest Pain: Yes (Has had for awhile, on Ranexa. ) Frequency: daily (for past week or two, before that not as often. ) Onset: at rest, other (spontaneous) Location: mid sternal (left midsternal border), left chest Duration: minutes (longest 15 minutes) Exacerbation: other (spontaneous) Relieving: other (spontaneous) Palpitations: Yes (If extremely tired, feels fluttering.) feels like its: fast, skipping Edema: None Muscle aches with walking: None Resp Respiratory: Positive for SOB with activity. Negative for SOB at rest, SOB orthopnea\SOB lying down, Cough, Coughing up blood/hemoptysis, chest congestion, pain on inspiration, snoring, stridor, wheezing, crackles, paroxysmal nocturnal dyspnea or other GI GI: Negative nausea, vomiting, heartburn, constipation, belching, bloating, cramping, vomiting blood/hematemesis, bright, red blood in stools, black,tarry stools, loose stools, Difficulty Swallowing or other : Negative for hematuria, frequent nighttime urination/ nocturia, erectile dysfunction or abnormal vaginal bleeding Musc Musc: Negative for muscle aches/ myalgia, muscle weakness, joint pain or balance problems Skin Skin: Negative redness, non-healing lesions, rash, unusual bruising, skin ulcer, wounds, jaundice or other Neuro Neuro: Negative for dizziness, lightheadedness, near syncope, syncope, ortho static symptoms, frequent falls, headache(s), weakness, confusion, memory loss, restless legs, blurry vision, double vision, vertigo, seizures, lack of coordination or other Paulino Hematologic/Lymphatic: Negative for easy bleeding, easy bruising, enlarged lymph nodes or other Endo Endo: Negative for fatigue, cold intolerance, heat intolerance, excessive sweating, flushing, increased thirst/drinking, increased hunger, hair loss, hair growth or other Psych Psych: Negative for anxiety, depression, thoughts of harming anyone, thoughts of harming yourself, visual hallucinations, panic attacks or audible hallucinations Allergy Allergy/Immunology: Negative for throat swelling, Negative for tongue swelling, Negative for hives, Negative for rash, Negative for lip swelling Cardiology Exam Const Appearance: cooperative, healthy appearing and no acute distress Nutritional Appearance: well nourished Orientation: alert, oriented x3 and oriented to person Head Head: normal to inspection, normocephalic and atraumatic Nose: external nose normal Face and Sinus: face symmetric Mouth: oral mucosae normal Eyes General: appearance normal, both eyes and all related structures Eyelids: eyelids normal Conjunctivae: conjunctivae normal Pupils: PERRL and normal by confrontation EOM: EOM intact bilaterally Neck Neck: normal visual inspection and full ROM Carotids: normal carotid upstroke Chest Chest inspection: normal inspection of the chest Auscultation: Bilateral: Clear to Auscultation Cardio Palpation: normal PMI Rate: regular rate Rhythm: regular rhythm Heart sounds: S1 normal and S2 normal GI GI: normal to inspection, no hepatosplenomegaly and bowel sounds present Neuro General: alert, awake, oriented x3, CN's II-XI intact bilaterally and moves all extremities Skin Skin: no rashes or lesions noted Extremities Pulses: Normal: Right Femoral Pulse, Left Femoral Pulse, Right Dorsalis Pedis Pulse, Left Dorsalis Pedis Pulse, Right Posterior Tibial Pulse, Left Posterior Tibial Pulse, Right Radial Pulse, Left Radial Pulse Lower Extremity Edema: None: Bilateral Psych Psychological: normal affect Assessment & Plan 1. Atherosclerotic heart disease of [place] coronary artery with other forms of angina pectoris I25.118 Plan Given her previous history of coronary artery disease with stenting and bypass and abnormal stress echocardiogram, she will proceed with left heart catheterization. Based on results, further recommendation will be made. 2. Chest pain R07.9 Plan As noted above, she will proceed with left heart catheterization. 3. Hyperlipidemia E78.5 Plan She will continue with current statin medication. 4. Obstructive sleep apnea G47.33 Plan 4. Obstructive sleep apnea: Recommend that we refer the patient Dr. Villavicencio or Dr. Novoa for ongoing CPAP management. Patient is compliant with her CPAP. 5. Severe obesity: Should the patient's cardiac work-up be negative, I would recommend that she be referred to doctor Montiel at [facility] or another bariatric surgeon to assist with bariatric surgery. Thank you for allowing us to participate in the patients plan of care, if you have any questions please do not hesitate to call. This note was generated using a voice recognition system and there may be incorrect words, spelling or punctuation that were not noted when reviewing the office note prior to saving.
--- NOTE | 2019-09-19 11:24 | HP.PCM_ITS ---
Problem List (1) Chest pain Status: Acute (2) Atherosclerotic heart disease of [place] coronary artery with other forms of angina pectoris Status: Chronic (3) Hyperlipidemia Status: Chronic (4) Hypertension Status: Chronic (5) S/P CABG x 1 Status: Chronic Comment: Single vessel CABG: SVG to the RCA per Dr. Henderson @ [place], 07/23/2000 (6) Stented coronary artery Status: Chronic Comment: 3.5 X 9mm Niroyal stent to ostial RCA: pt subsequently developed chest pain and occlusion of the stent. Pt was taken to or for emergent CABG X1.07/23/00 , [facility]. History and Physical Date of Admission: 09/19/19 History and Physical (Generic) Patient Name: MCKAYLA MAURER Date of : 62 Patient Status: Surgical Day Care Attending Provider: Casey Flores Date: 09/19/19 07:53 Initialization Date: 09/19/19 07:53 History and Physical Date of Admission: 09/19/19 HPI History of Present Illness Details: Mrs. Maurer is a very pleasant 59-year-old nondiabetic female with morbid obesity, former [id number] smoker, quit September 07, 2017, hypertension, hyperlipidemia, previous smoking history, coronary artery disease status post coronary stenting on 07/23/00. At that time she underwent angioplasty and stenting at [facility] attempting to place a 3.5X9 Niroyal stent which appeared to be successful but then occluded, required intra-aortic balloon pump placement followed by emergent status post bypass surgery x1 with saphenous vein graft to the RCA by Dr. Garrett on 07/23/2000. In addition she has obstructive sleep apnea, former patient of Dr. La. She was referred here for ongoing cardiac care. For some reason, she has been treated with Ranexa chronically. Patient's most recent heart catheterization took place on 05/03/2012 at [facility] at which time she had angiographically normal left main, small caliber nonobstructive LAD, nonobstructive left circumflex, atretic RCA and widely patent saphenous vein graft to the RCA. Her most recent carotid Doppler to place on 11/16/2018 which showed nonobstructive disease bilaterally. The patient reportedly had pulmonary function test at [facility] about 2 years ago and reportedly were normal. Patient states that she was in her normal health up until recently when she is developed progressively worsening dyspnea on exertion as well as midsternal chest pressure, somewhat similar to her previous anginal symptoms requiring angioplasty in 1999. She recently underwent right and left knee replacement, the most recent of which occurred in June 2019. She has been somewhat sedentary. 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 This test was considered to be an abnormal, adequate, treadmill echocardiogram positive for ischemia by echocardiographic criteria with evidence of possible inferior basal and posterior basal hypokinesis at peak exercise. She denies chest, arm, jaw, or neck discomfort today. However, she continues to have shortness of breath with exertion and chest pain with exertion at home. She denies symptoms of palpitations, lightheadedness, dizziness, near syncope, or syncopal episodes. She denies edema or claudication issues. She denies orthopnea, PND, fever, chills, blood in urine, blood in stool, myalgia, or unex plainable fatigue. 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 Is patient in pain?: No Allergies No Known Allergies Allergy (Verified 08/15/19 15:15) Medications Albuterol Inhaler [Ventolin Hfa (SP)] 2 puff INHALATION Q4H PRN PRN 11/08/18 [History Confirmed 08/15/19] Ascorbic Acid [Vitamin C] 1,000 mg PO DAILY 11/08/18 [History Confirmed 08/15/19] Aspirin 81 mg PO DAILY 11/08/18 [History Confirmed 08/15/19] Atorvastatin Calcium [Lipitor] 40 mg PO QHS 11/08/18 [History Confirmed 08/15/19] Lisinopril [Zestril] 10 mg PO DAILY 11/08/18 [History Confirmed 08/15/19] Multivitamins,Therapeutic [Multivitamin] 1 tab PO DAILY 11/08/18 [History Confirmed 08/15/19] Omeprazole [Prilosec] 20 mg PO DAILY 11/08/18 [History Confirmed 08/15/19] Sertraline HCl [Zoloft] 100 mg PO DAILY 12/18/18 [History Confirmed 08/15/19] buPROPion tablets [Wellbutrin tablets] 50 mg PO BID 11/08/18 [History Confirmed 08/15/19] ranolazine ER 1,000 mg tablet,extended release,12 hr 1,000 mg PO BID #180 tab 08/15/19 [Rx Confirmed 08/15/19] Plavix 75mg PO Daily PFSH Medical History Atherosclerotic heart disease of [place] coronary artery with other forms of angina pectoris (Chronic) Obstructive sleep apnea (Chronic) Palpitations (Chronic) Chest pain (Acute) Morbid obesity (Chronic) Left carotid bruit (Chronic) Hypertension (Chronic) Hyperlipidemia (Chronic) Chronic bronchitis (Chronic) Smoking history (Chronic) 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 Father , Age 83 CVA (cerebral vascular accident), Onset Age: 73 Heart disease Social History (Updated 08/15/19 @ 15:49 by Casey Flores MD) Smoking Status: Former smoker quit date: 09/07/17 ROS Const Const: Positive for other exertional chest discomfort. negative for fatigue, weakness, body ache, fever(s), headache(s), chills, frequent falls, night sweats, daytime sleepiness, difficulty sleeping, excessive sweating, weight gain, weight loss, increased appetite, poor appetite or anorexia Eyes Eyes: Negative for blind spots, loss of peripheral vision, transient loss of vision, blurry vision, change in vision, double vision, floaters, tunnel vision or other ENT ENT: Negative for headache(s), dizziness, hearing loss, tinnitus, Nosebleed/epistaxis, balance problems, post nasal drip, lip swelling, tongue swelling, bleeding gums, hoarseness, neck pain, dry mouth or other Cardio Chest Pain: Yes (Has had for awhile, on Ranexa. ) Frequency: daily (for past week or two, before that not as often. ) Onset: at rest, other (spontaneous) Location: mid sternal (left midsternal border), left chest Duration: minutes (longest 15 minutes) Exacerbation: other (spontaneous) Relieving: other (spontaneous) Palpitations: Yes (If extremely tired, feels fluttering.) feels like its: fast, skipping Edema: None Muscle aches with walking: None Resp Respiratory: Positive for SOB with activity. Negative for SOB at rest, SOB orthopnea\SOB lying down, Cough, Coughing up blood/hemoptysis, chest congestion, pain on inspiration, snoring, stridor, wheezing, crackles, paroxysmal nocturnal dyspnea or other GI GI: Negative nausea, vomiting, heartburn, constipation, belching, bloating, cramping, vomiting blood/hematemesis, bright, red blood in stools, black,tarry stools, loose stools, Difficulty Swallowing or other : Negative for hematuria, frequent nighttime urination/ nocturia, erectile dysfunction or abnormal vaginal bleeding Musc Musc: Negative for muscle aches/ myalgia, muscle weakness, joint pain or balance problems Skin Skin: Negative redness, non-healing lesions, rash, unusual bruising, skin ulcer, wounds, jaundice or other Neuro Neuro: Negative for dizziness, lightheadedness, near syncope, syncope, orthostatic symptoms, frequent falls, headache(s), weakness, confusion, memory loss, restless legs, blurry vision, double vision, vertigo, seizures, lack of coordination or other Paulino Hematologic/Lymphatic: Negative for easy bleeding, easy bruising, enlarged lymph nodes or other Endo Endo: Negative for fatigue, cold intolerance, heat intolerance, excessive sweating, flushing, increased thirst/drinking, increased hunger, hair loss, hair growth or other Psych Psych: Negative for anxiety, depression, thoughts of harming anyone, thoughts of harming yourself, visual hallucinations, panic attacks or audible hallucinations Allergy Allergy/Immunology: Negative for throat swelling, Negative for tongue swelling, Negative for hives, Negative for rash, Negative for lip swelling Cardiology Exam Const Appearance: cooperative, healthy appearing and no acute distress Nutritional Appearance: well nourished Orientation: alert, oriented x3 and oriented to person Head Head: normal to inspection, normocephalic and atraumatic Nose: external nose normal Face and Sinus: face symmetric Mouth: oral mucosae normal Eyes General: appearance normal, both eyes and all related structures Eyelids: eyelids normal Conjunctivae: conjunctivae normal Pupils: PERRL and normal by confrontation EOM: EOM intact bilaterally Neck Neck: normal visual inspection and full ROM Carotids: normal carotid upstroke Chest Chest inspection: normal inspection of the chest Auscultation: Bilateral: Clear to Auscultation Cardio Palpation: normal PMI Rate: regular rate Rhythm: regular rhythm Heart sounds: S1 normal and S2 normal GI GI: normal to inspection, no hepatosplenomegaly and bowel sounds present Neuro General: alert, awake, oriented x3, CN's II-XI intact bilaterally and moves all extremities Skin Skin: no rashes or lesions noted Extremities Pulses: Normal: Right Femoral Pulse, Left Femoral Pulse, Right Dorsalis Pedis Pulse, Left Dorsalis Pedis Pulse, Right Posterior Tibial Pulse, Left Posterior Tibial Pulse, Right Radial Pulse, Left Radial Pulse Lower Extremity Edema: None: Bilateral Psych Psychological: normal affect Assessment & Plan 1. Atherosclerotic heart disease of [place] coronary artery with other forms of angina pectoris I25.118 Plan Given her previous history of coronary artery disease with stenting and bypass and abnormal stress echocardiogram, she will proceed with left heart catheterization. Based on results, further recommendation will be made. 2. Chest pain R07.9 Plan As noted above, she will proceed with left heart catheterization. 3. Hyperlipidemia E78.5 Plan She will continue with current statin medication. 4. Obstructive sleep apnea G47.33 Plan 4. Obstructive sleep apnea: Recommend that we refer the patient Dr. Villavicencio or Dr. Novoa for ongoing CPAP management. Patient is compliant with her CPAP. 5. Severe obesity: Should the patient's cardiac work-up be negative, I would recommend that she be referred to doctor Montiel at [facility] or another bariatric surgeon to assist with bariatric surgery. Thank you for allowing us to participate in the patients plan of care, if you have any questions please do not hesitate to call. This note was generated using a voice recognition system and there may be incorrect words, spelling or punctuation that were not noted when reviewing the office note prior to saving. Attending addendum: Patient seen and examined on the date of procedure, no interim changes noted. Agree with above. Left heart catheterization with grafts to follow. Code Visit Inpatient E&M: 75953 Init Hosp L2
--- NOTE | 2019-09-19 11:47 | CL.D_ITS ---
Patient Name: MCKAYLA MAURER Study Date: 09/19/2019 Performing: Casey Flores MD Ht: 64.96 inches 165 cm : 1960 Wt: 304.74 lbs 138.23 kg Age: 59 Gender: female BSA: 2.36 PROCEDURE(S) PERFORMED XI09-RCH/COR/LV/CABG CLINICAL PROFILE AND INDICATIONS Indications: New Onset Angina <= 2 months, Stable Known CAD, Cardiac Transplantation evaluation - postoperative Heart Failure: None Stress/Imaging Date: 09/07/2019Stress Echocardiogram: Positive Low Risk Comorbidities/Risk Factors: Hypertension Dyslipidemia Prior [place] Prior PCI Prior CABG CONCLUSIONS Normal LV size, wall motion,and systolic function Normal Left Ventricular systolic function LVEF: by LV gram 55 % Segmented LV systolic dysfunction- Mild RECOMMENDATIONS Management as per referring Doorkeeper Manual sheath removal, asa/plavix for graft preservation. Increased lisinopril to 20mg mg po qd DESCRIPTION OF PROCEDURE The patient arrived to the procedure lab. The risks and benefits of the procedure as well as a full d escription of our services here and current unavailability of surgical backup were fully explained to the patient and/or their significant other prior to the catheterization. The Timeout was completed, verifying the correct patient and procedure. The patient's procedural site was prepped and draped in the usual fashion. Local anesthetic was given subcutaneously to right groin region with Lidocaine 2%. Using a modified Seldinger technique, arterial access was obtained via the right femoral artery, a 4 Fr sheath was inserted Left Coronary Artery selective angiography was performed in multiple views us ing a 4 Fr. JL5 catheter. Right Coronary Artery selective angiography was then performed in multiple views using a 4 Fr. AR MOD 2 catheter. Saphenous Vein graft to the RCA selective angiography was perf ormed in multiple views using a 4 Fr. AR MOD 2 catheter. Left Ventriculography was performed in GRANT projection using a 4 Fr. Pigtail catheter. LV to AO pullback pressures were then rec orded. CORONARY ANGIOGRAPHY DOMINANCE: Right Dominant LEFT HEART ASSESSMENT Left Ventricular Ejection Fraction: by LV Gram 55 % Inferior Basal Hypokinesis - Mild Normal Left Ventricular systolic function LVEDP: 17 mmHg Elevated Left Ventricular End Diastolic Pressure LEFT MAIN: Angiographically normal LEFT ANTERIOR DESCENDING ARTERY: Angiographically normal CIRCUMFLEX ARTERY: Angiographically normal RIGHT CORONARY ARTERY: OSTIAL RCA: Instent restenosis 75 % GRAFTS: Saphenous Vein graft to the RCA is patent COMPLICATIONS No Complications PROCEDURE MEDICATIONS Oxygen: 2 L/min via nasal cannula Baby Aspirin (81mg) 1 Tabs PO @ 09/19/2019 07:16:44 Plavix 75 mg PO 09/19/2019 07:16:54 SUMMARY OF HEMODYNAMIC DATA Time AIR REST ECG 07:13:06 AO 130/70 (92) SA 11:30:31 LV 129/-14, 18 11:39:33 LV 127/-14, 17 11:39:39 LVp 132/-14, 19 11:39:55 AOp 125/63 (88) 11:40:00 Signed By Casey Flores MD On 09/19/2019 11:47:27 AM Casey Flores MD
== END 2019-09-19 16:08 | disposition home or self-care (01) ==
PROVIDERS: Family Provider Family Medicine; Referring Provider Internal Medicine Cardiovascular Disease; Visit Provider Internal Medicine Cardiovascular Disease
DX: Z01.810 Encounter for preprocedural cardiovascular examination (principal); I25.118 Atherosclerotic heart disease of native coronary artery with other forms of angina pectoris; E78.5 Hyperlipidemia, unspecified; I10 Essential (primary) hypertension; E66.01 Morbid (severe) obesity due to excess calories; G47.33 Obstructive sleep apnea (adult) (pediatric); Z96.653 Presence of artificial knee joint, bilateral; Z95.1 Presence of aortocoronary bypass graft; Z95.5 Presence of coronary angioplasty implant and graft; Z87.891 Personal history of nicotine dependence; Z79.82 Long term (current) use of aspirin; Z79.899 Other long term (current) drug therapy
CPT/HCPCS: 36415; 71046; 80048; 85025; 85610; 85730; 93459; J7040; Q9967; C1769; C1894

== ENCOUNTER → 2019-10-17 12:50 | Outpatient (CLI) | payer OTHER, SELFPAY ==
[2019-08-15 15:04] VITALS: BMI 50.9
[2019-09-19 07:03] VITALS: BMI 50.9
--- NOTE | 2019-10-17 13:46 | CT_ITS ---
STUDY: LOW DOSE CT LUNG CANCER SCREENING REASON FOR EXAM: Female, 59 years old. RADIATION DOSAGE (If Supplied By Facility): CTDIvol = ( 3.40 ) mGy, DLP = ( 115.28 ) mGycm TECHNIQUE: No contrast was administered. Low dose technique was utilized (average mAS-38 and kVp 120). 1.25 mm axial source images with a slice interval of 1.25-mm were reconstructed in lung windows. 2.5 mm axial source images with a slice interval of 2.5-mm were reconstructed in lung windows. 5.0 mm axial source images with a slice interval of 5.0-mm were reconstructed in soft tissue windows. Nodule measured using lung windows on PACS and/or independent workstation with automated measurement of minimum and maximum diameter. Nodule measurement reported as average diameter rounded to the nearest whole number. Growth is defined as an increase ins size of greater than 1.5 mm. COMPARISON: None. This examination reveals no evidence of any nodule in either lung field. No retrosternal, paratracheal or hilar adenopathy seen. No pleural effusion or pneumothorax identified. CT/Low Dose CT Lung Screening IMPRESSION: Negative low dose CT scan of the chest IMPORTANT NOTES FOR USE: ACR Lung-RADS Version 1.0 Assessment Categories Release Date: March 19, 2014 Category: Coded 0-4 bases on nodule(s) with highest degree of suspicion. Negative screen is defined as categories 1 and 2; a positive screen is defined as categories 3 and 4. Category 3 and 4A nodules that are unchanged on interval CT should be coded as category 2, and individuals returned to screening in 12 months. Category 4X: Category 3 or 4 nodules with additional imaging findings that increase the suspicion of lung cancer, such as spiculation, GGN that doubles in size in 1 year, enlarged lymph notes, etc. Category Modifiers: S (significant finding unrelated to lung cancer) and C (prior history of treated lung cancer) may be added to the 0-4 Lung-RADS Electronically Signed: Bashir Ferguson, at 15:01 EST Tel , Service support ,
== END ==
PROVIDERS: Family Provider Family Medicine; Referring Provider Nurse Practitioner Family; Visit Provider Nurse Practitioner Family
DX: Z12.2 Encounter for screening for malignant neoplasm of respiratory organs (principal); Z87.891 Personal history of nicotine dependence
CPT/HCPCS: G0297

== ENCOUNTER 2020-04-11 05:59 | Day surgery (SDC) | payer OTHER, SELFPAY ==
[2019-12-06 11:29] VITALS: BMI 50.9
[2020-04-11] VITALS (7 sets, daily range): BP systolic 104–122; BP diastolic 64–71; PULSE 55–64; RESP 16; TEMP 36.2–37.1; O2SAT 97–100; BMI 51.7
--- NOTE | 2020-04-11 | EMB_PTH ---
PATIENT: MCKAYLA MAURER LOC: [facility] [place] U[place][id number] AGE/SX: 59/F ROOM: RE04/11/[address]: Dr. Estefani Marsh MD : 1960 BED: DIS: 04/11/2020 SPEC #: [id number] RECD: 04/11/20 10:06 STATUS: BETHEL WAGNER #: [id number] EDU: 04/11/20 00:[address]: Estefani Marsh DEPT: SURGICAL PATHOLOGY RECD BY: Ibrahima Barrientos ENTERED: 04/11/20 10:07 SP TYPE: ENDOM BX/C MARI DR: Owen Cardenas Tissues: Endometrium, NOS Procedures: Surgery Specimen Level IV HEADER OPERATION: Hysteroscopy, D & C Symphion PRE-OP DIAGNOSIS: Postmenopausal bleeding; thickened endometrium TISSUE SUBMITTED: Endometrial curettings MICROSCOPIC DIAGNOSIS Endometrial curettings: Simple endometrial hyperplasia without atypia. Fragments of myometrium. SJ:nataly 04/12/20 COMMENT Case has been reviewed in consultation with Dr. Pacheco who concurs with the above diagnosis. IDC:AM MICROSCOPIC DESCRIPTION Slides are reviewed. GROSS DESCRIPTION Received in fixative is one container labeled with the patient's name and designated endometrial curettings. The specimen consists of multiple irregular fragments of raines soft tissue that in aggregate measure 3 x 2.5 x 0.3 cm. The specimen is totally submitted in one cassette. / SJ:nataly 04/11/20 TC:5 CPT: 25310
[2020-04-11 06:31] LABS: Hematocrit 36.3 % (37-47); Mean Corp Hgb Conc 33.1 g/dL (32-36); Mean Corpuscular Hgb 31.5 pg (27.0-32.0); Mean Corpuscular Volume 95.3 fL (81-99); Mean Platelet Vol. 10.3 fl (6.2-12.0); Platelet Count 233 K/mm3 (150-450); RBC Distribution Width CV 13.1 % (11.6-14.6); RBC Distribution Width SD 45.1 fl (35.1-43.9); Red Blood Count 3.81 M/mm3 (4.2-5.4); White Blood Count 7.5 K/mm3 (4.4-11.0)
[2020-04-11] MEDS: Lactated Ringers 1,000 ML 100 ML IV (06:37)
[2020-04-11] MEDS: Ketorolac 15 MG/ML Vial IV (06:40)
[2020-04-11] MEDS: Acetaminophen 500 MG Tablet 1000 MG PO (06:40)
[2020-04-11] MEDS: Lubricating Jelly 60 GM Tube 30 GM TOPICAL (07:40)
--- NOTE | 2020-04-11 07:57 | PCM.DC.D&C ---
Discharge Diet: No Restrictions Discharge Activity: Return to Normal Activity, May Shower, May Take a Tub Bath - in 2 weeks. Return to work on:: 04/15/20 May shower in (days): 1 May resume sexual activity in: 2 weeks Call your doctor if your incision/area has: Sudden Increased Bleeding, Foul Smelling Discharge Call your doctor if you observe: Fever of 101 or Higher Allergies/Adverse Reactions: Allergies No Known Allergies Allergy (Verified 04/05/20 15:09) Medications to take at Discharge Albuterol Inhaler [Ventolin Hfa] 2 puff INHALATION Q4H PRN PRN 11/08/18 Ascorbic Acid [Vitamin C] 1,000 mg PO DAILY 11/08/18 Aspirin 81 mg PO DAILY 11/08/18 Atorvastatin Calcium [Lipitor] 40 mg PO QHS 11/08/18 Multivitamins,Therapeutic [Multivitamin] 1 tab PO DAILY 11/08/18 Omeprazole [Prilosec] 20 mg PO DAILY 11/08/18 Sertraline HCl [Zoloft] 100 mg PO DAILY 11/08/18 buPROPion tablets [Wellbutrin tablets] 50 mg PO BID 11/08/18 lisinopril 20 mg tablet 20 mg PO DAILY #30 tab 10/03/19 clopidogrel 75 mg tablet 75 mg PO DAILY #90 tab 12/07/19 ranolazine 1,000 mg tablet,extended release,12 hr 1,000 mg PO BID #180 tab 12/07/19 Orders to be completed after discharge: CORONAVIRUS 19, SONDRA Time Frame: 04/10/20, Facility: [facility], Location: Laboratory Primary Care Physician: Owen Cardenas [Primary Care Provider] - Test Results: Test results from this visit will be discussed in further detail at your follow-up appointment, if applicable. Please Follow Up With: Estefani Marsh MD - [phone] When: 2-4 weeks (virtual visit ok) or as needed
--- NOTE | 2020-04-11 07:58 | PCM.OPRPT ---
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 The weighted speculum was placed in the vagina and the anterior lip of the cervix was grasped with a single-tooth tenaculum. A paracervical block was administered with [1% lidocaine with 1-100,000 epinephrine solution]. The cervix was dilated serially with Hegar dilators. The Symphion hysteroscope was placed into the uterine cavity and the above findings were noted. Bilateral tubal ostia [were] identified. The Symphion resection device was readied and used to do a visual D&C and remove the endometrial poly completely. The instruments were removed from the vagina. The specimen was handed off and sent to pathology. All sponge and needle counts were correct. Vaginal sweep was performed by me. The patient was awakened and taken to the recovery room in stable condition. Calculated hysteroscopic fluid deficit was 550 cc of normal saline. Findings: Normal-appearing cervix and vagina. Endometrial cavity with a large polyp that seems to be attached to the anterior fundus. Bilateral ostia are normal. Otherwise atrophic endometrium. No other focal abnormalities noted. Grafts/Implants Used: none - Complications none - Admit VTE Documentation VTE Present on Admission: No VTE Mechan Device Prophylaxis: SCD's VTE Pharm Prophylaxis ordered?: No Reason prophylaxis not ordered:: Procedure Not Indicated
--- NOTE | 2020-04-11 08:18 | PCM.HP.BLA ---
History and Physical Date of Admission: 04/11/20 HPI: The patient is a 59 year old female presenting for pre-operative visit. She is scheduled for?Hysteroscopy D&C, for?postmenopausal bleeding and endometrial thickening on?04/11/2020. ??Procedure discussed along with risks, benefits and complications. ?Other alternatives discussed for management. Consent form signed??Yes.? PAST MEDICAL HISTORY PAST MEDICAL HISTORY Diagnosis Date ? Adrenal adenoma ? ? repeat ct in 07/07 ? Anxiety ? ? Arthritis ? ? fingers ? CAD (coronary artery disease) ? ? Dr. Schultz ? Chronic bronchitis (HCC) 05/03/2018 ? Depression ? ? Heartburn ? ? HTN (hypertension) ? ? Hyperlipidemia ? ? Migraine ? ? Morbid obesity (HCC) 05/03/2018 ? Seasonal allergies ? ? Sleep apnea ? ? ? PAST SURGICAL HISTORY PAST SURGICAL HISTORY Procedure Laterality Date ? ACHILLES TENDON SURGERY HX Right 09/27/2018 ? CABG (1) VEIN GRAFT & ARTERIAL GRAFT ? 1999 ? EXCIS TENDON SHEATH LESN,HAND/FINGR ? 07/04/2014 ? Right index finger digital muscous cyst excision ? FOOT SURGERY HX Left ? ? excision ganglion cyst ? REMOVAL GALLBLADDER ? 2000 ? Cholecystectomy ? REMOVAL OF TONSILS,<12 Y/O ? 1966 ? Tonsillectomy alone ? REVISE MEDIAN N/CARPAL TUNNEL SURG ? 07/04/2014 ? Carpal tunnel decomp right ? ? CURRENT MEDICATIONS Current Outpatient Medications Medication Sig Dispense Refill ? LOW-DOSE ASPIRIN ORAL Take by mouth. ? ? ? buPROPion (WELLBUTRIN) 100 mg tablet Take 0.5 tablets by mouth twice daily. 90 tablet 3 ? sertraline (ZOLOFT) 100 mg tablet Take 1 tablet by mouth once daily. 90 tablet 3 ? omeprazole (PRILOSEC) 20 mg capsule Take 1 capsule by mouth once daily. 90 capsule 3 ? lisinopril (ZESTRIL, PRINIVIL) 10 mg tablet Take 1 tablet by mouth once daily. (Patient taking differently: Take 20 mg by mouth once daily. ) 90 tablet 3 ? atorvastatin (LIPITOR) 40 mg tablet Take 1 tablet by mouth daily at bedtime. For cholesterol. 90 tablet 3 ? clopidogrel (PLAVIX) 75 mg tablet Take 1 tablet by mouth once daily. ? ? ? ranolazine SR (RANEXA) 1,000 mg tab ER 12 hr Take 1 tablet by mouth twice daily. 60 tablet 1 ? albuterol HFA (VENTOLIN HFA) 90 mcg/actuation inhaler Inhale 2 Puffs as instructed every 4 hours as needed for Wheezing/Shortness of Breath. 1 Inhaler 0 ? Ascorbic Acid (VITAMIN C) 1,000 mg tablet Take 1,000 mg by mouth once daily. ? ? ? Multivitamin capsule Take 1 capsule by mouth once daily. ? ? ? benzonatate (TESSALON PERLES) 100 mg capsule Take 1 capsule by mouth three times daily as needed. (Patient not taking: Reported on 03/04/2020 ) 30 capsule 0 ? No current facility-administered medications for this visit.? ? ALLERGIES:?Patient has no known allergies. ? PERSONAL HISTORY:? SOCIAL HISTORY Social History ? Tobacco Use ? Smoking status: Former Smoker ? ? Packs/day: 1.00 ? ? Years: 30.00 ? ? Pack years: 30.00 ? ? Types: Cigarettes ? ? Last attempt to quit: 09/07/2017 ? ? Years since quittin.5 ? Smokeless tobacco: Former User Substance Use Topics ? Alcohol use: No ? ? 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 Drug use: No ? FAMILY HISTORY:? FAMILY HISTORY FAMILY HISTORY Problem Relation Age of Onset ? Alzheimer's Disease Mother ?heart attack, galcoma, htn ? Glaucoma Mother ? ? Ischemic Heart Disease Mother ? ? Diabetes Father ?cad, prostate cancer ? Stroke Father ? ? Ischemic Heart Disease Father ? ? Cervical Cancer Sister 35 ?cervical cancer, blood disease ? other (Other) Sister 53 ?hemochromatosis ? Alcohol/Drug Son ? ? REVIEW OF SYMPTOMS: GENERAL: denies fevers or chills ENDOCRINOLOGY: has not been on steroids Cardiology : denies palpitations or chest pain Respiratory: denies SOB or cough Hematology: denies history of prolonged bleeding or easy bruising or VTE Allergy: Denies history of personal or family history of allergy to anesthesia ? ? PHYSICAL EXAMINATION: ? VITALS:?Blood pressure 122/84, pulse 60, resp. rate 18, height 5' 4.5 (1.638 m), weight (!) 305 lb (138.3 kg). ? GENERAL:??The patient is well nourished, well hydrated in no acute distress. ?, The patient is oriented to time, place, and person. NECK:?Supple. No lynphadenopathy, normal thyroid, no thyromegaly. LUNGS:?Clear to auscultation bilaterally. no wheezes, rhonchi or rales HEART:?Regular rate and rhythm, Normal heart sounds and No murmurs or gallops ? IMPRESSION:?PMB, thickened endometrium ? PLAN:???The risks/benefits/alternatives and personal involved for the planned?hystrescopy with D&C and polyp resection?were reviewed with the patient. Her questions were answered to her satisfaction and she desires to proceed. ?Consent was signed. ?I reviewed with her postop instructions and expectations. ? ? I have reviewed and updated past medical and surgical history, medications and allergies. This H&P was completed in the office on 04/05/2020.
== END 2020-04-11 09:06 | disposition home or self-care (01) ==
LOC: SDC 06:00 → AC 06:01
PROVIDERS: Referring Provider Obstetrics & Gynecology; Visit Provider Obstetrics & Gynecology
PROC: 0UB98ZZ Excision of Uterus, Via Natural or Artificial Opening Endoscopic (ICD-10-PCS; CPT 58558; principal; 2020-04-11 07:15)
DX: N85.01 Benign endometrial hyperplasia (principal); E66.01 Morbid (severe) obesity due to excess calories; E78.5 Hyperlipidemia, unspecified; F32.9 Major depressive disorder, single episode, unspecified; F41.9 Anxiety disorder, unspecified; G43.909 Migraine, unspecified, not intractable, without status migrainosus; G47.30 Sleep apnea, unspecified; I10 Essential (primary) hypertension; I25.10 Atherosclerotic heart disease of native coronary artery without angina pectoris; Z79.02 Long term (current) use of antithrombotics/antiplatelets; Z79.899 Other long term (current) drug therapy; Z87.891 Personal history of nicotine dependence; M19.049 Primary osteoarthritis, unspecified hand; Z95.5 Presence of coronary angioplasty implant and graft; F10.21 Alcohol dependence, in remission; Z68.43 Body mass index [BMI] 50.0-59.9, adult; Z11.59 Encounter for screening for other viral diseases
CPT/HCPCS: 00952; 58558; 36415; 85027; 87635; 88305; G2023; J7120; J2405; U0004

== ENCOUNTER → 2020-06-24 20:15 | Outpatient (CLI) | payer OTHER, SELFPAY ==
[2020-05-07 15:06] VITALS: BMI 50.9
[2020-06-17 09:39] VITALS: BMI 51.2
== END ==
PROVIDERS: Referring Provider Internal Medicine Critical Care Medicine; Visit Provider Internal Medicine Critical Care Medicine
DX: G47.33 Obstructive sleep apnea (adult) (pediatric) (principal)
CPT/HCPCS: 95811

== ENCOUNTER 2020-07-04 15:00 | Outpatient (RCR) | payer OTHER, SELFPAY ==
[2020-06-17 09:39] VITALS: BMI 51.2
== END 2020-07-22 23:59 ==
LOC: NS 15:00
PROVIDERS: Visit Provider Internal Medicine Cardiovascular Disease
DX: Z71.3 Dietary counseling and surveillance (principal); E66.01 Morbid (severe) obesity due to excess calories; Z68.43 Body mass index [BMI] 50.0-59.9, adult
CPT/HCPCS: 97802

== ENCOUNTER 2020-08-15 14:00 | Outpatient (RCR) | payer OTHER, SELFPAY ==
[2020-06-17 09:39] VITALS: BMI 51.2
== END 2020-08-21 23:59 ==
LOC: NS 14:00
PROVIDERS: Visit Provider Internal Medicine Cardiovascular Disease
DX: Z71.3 Dietary counseling and surveillance (principal); E66.01 Morbid (severe) obesity due to excess calories; Z68.43 Body mass index [BMI] 50.0-59.9, adult
CPT/HCPCS: 97803

== ENCOUNTER 2020-09-05 15:00 | Outpatient (RCR) | payer OTHER, SELFPAY ==
[2020-08-13 05:32] VITALS: BMI 49.1
== END 2020-09-21 23:59 ==
LOC: NS 15:00
PROVIDERS: Visit Provider Internal Medicine Cardiovascular Disease
DX: Z71.3 Dietary counseling and surveillance (principal); E66.01 Morbid (severe) obesity due to excess calories; Z68.43 Body mass index [BMI] 50.0-59.9, adult
CPT/HCPCS: 97803

== ENCOUNTER 2020-09-23 17:05 | Outpatient (RCR) | payer OTHER, SELFPAY ==
[2020-08-13 05:32] VITALS: BMI 49.1
== END 2020-09-23 23:59 | disposition home or self-care (01) ==
LOC: NS 17:05
PROVIDERS: Visit Provider Internal Medicine Cardiovascular Disease
DX: Z71.3 Dietary counseling and surveillance (principal); E66.01 Morbid (severe) obesity due to excess calories; Z68.43 Body mass index [BMI] 50.0-59.9, adult
CPT/HCPCS: 97803

== ENCOUNTER 2020-10-09 21:46 | Emergency (ER) | payer OTHER, SELFPAY ==
[2020-08-13 05:32] VITALS: BMI 49.1
[2020-10-09 21:47] VITALS: BP 141/89; PULSE 66; RESP 16; TEMP 36.4; O2SAT 98; BMI 46.7
--- NOTE | 2020-10-09 22:15 | EKG12_ITS ---
Test Reason : DYSRHYTHMIA Blood Pressure : / mmHG Vent. Rate : 055 BPM Atrial Rate : 055 BPM P-R Int : 158 ms QRS Dur : 098 ms QT Int : 470 ms P-R-T Axes : 024 009 028 degrees QTc Int : 449 ms Sinus bradycardia Incomplete right bundle branch block Borderline ECG Confirmed by EDITH CARPENTER, ILIANA ([id number]), news editor KATHIA SELBY ([id number]) on 10/14/2020 9:20:48 A M Referred By: KRYSTAL Confirmed By:ERVIN SHARMA MD
--- NOTE | 2020-10-09 22:21 | ED.RN ---
NO OLD EKGS IN MUSE
--- NOTE | 2020-10-09 22:30 | RAD_ITS ---
STUDY: X-RAY CHEST REASON FOR EXAM: Female, 60 years old. SOB TECHNIQUE: Single AP portable view of the chest. COMPARISON: 09/08/2019. FINDINGS: The lungs are clear and expanded. There is no demonstrated pleural abnormality. Normal size heart. Normal mediastinum and sharon. Normal visualized pulmonary arteries. Normal visualized aortic arch and descending thoracic aorta. Normal visualized thoracic spine. Normal visualized ribs, clavicles, and shoulders. There is no demonstrated abnormality of the visualized soft tissue structures of the upper abdomen. RAD/Chest 1 View (Portable) IMPRESSION: Normal x-ray examination of the chest. Electronically Signed: Francesca Haines MD at 22:59 EST Tel , Service support ,
[2020-10-09 22:40] LABS: Absolute Lymphocyte Count 2.41 X10^3/uL (0.83-4.51); Absolute Neutrophil Count 1.9 X10^3/uL (2.0-7.7); Basophil# 0.01 X10^3/uL; Basophil% 0.2 % (0-1); Eosinophil# 0.09 X10^3/uL; Eosinophils% 1.9 % (0-5); Hemoglobin 12.9 g/dL (12.0-15.0); Lymphocyte # 2.41 X10^3/ul (4.0); Mean Corp Hgb Conc 33.1 g/dL (32-36); Mean Corpuscular Hgb 31.2 pg (27.0-32.0); Mean Corpuscular Volume 94.2 fL (81-99); Mean Platelet Vol. 10.6 fl (6.2-12.0); Monocyte# 0.36 X10^3/uL; Monocyte% 7.5 % (0-10); NRBC Flagged by Analyzer 0 % (0-5); Neutrophil # 1.94 X10^3/uL (2.7-7.7); Neutrophil % 40.2 % (47-70); Platelet Count 185 K/mm3 (150-450); RBC Distribution Width CV 12.4 % (11.6-14.6); Red Blood Count 4.14 M/mm3 (4.2-5.4); White Blood Count 4.8 K/mm3 (4.4-11.0)
--- NOTE | 2020-10-09 22:47 | ED.DCSUM_ITS ---
History of Present Illness Chief Complaint: Shortness of Breath Informant: Patient Onset: Days Context: Gradual Onset Current Severity: Mild Maximum Severity: Mild Narrative: Patient present secondary to cough and shortness of breath. She states she developed symptoms of Covid last , 7 days ago. She was tested last weekend and got results back on Wednesday that she is positive. She presents to the ER tonight because of her slight increased cough and shortness of breath. She does have cardiac history and when she spoke with her PCP they wanted her to come in to ensure her heart was okay. She had low-grade fever. She complains of body aches and feeling very fatigued. - Past Medical History (1) Atherosclerotic heart disease of [place] coronary artery with other forms of angina pectoris Status: Chronic (2) Hyperlipidemia Status: Chronic (3) Hypertension Status: Chronic (4) Obstructive sleep apnea Status: Chronic (5) S/P CABG x 1 Status: Chronic Comment: Single vessel CABG: SVG to the RCA per Dr. Henderson @ [facility], 07/23/2000 (6) Stented coronary artery Status: Chronic Comment: 3.5 X 9mm [place] stent to ostial RCA: pt subsequently developed chest pain and occlusion of the stent. Pt was taken to or for emergent CABG X1.07/23/00 , [facility]. Past Medical History - Allergies and Home Meds Allergies/Adverse Reactions: Allergies No Known Allergies Allergy (Verified 10/09/20 21:48) Primary Care Physician: Owen Cardenas [Primary Care Provider] - Prior records reviewed: Yes Surgical History: - - Patient underwent emergency cardiac surgery in 1999, in association with placement of coronary artery stents x2. She underwent cholecystectomy in 2000. She is also undergone tonsillectomy. A right carpal tunnel release was also performed in the past. Lives: Spouse/ Significant Other Smoking Status: Former smoker - Family History Paternal Family History: Family History (Last Reviewed 08/13/20 @ 06:55 by Radha Perales) Mother No problems noted. Father CVA (cerebral vascular accident), Onset Age: 73 Heart disease Grandfather Cancer Family History: Reports: - Maternal Family History: Family History (Last Reviewed 08/13/20 @ 06:55 by Radha Perales) Mother No problems noted. Father CVA (cerebral vascular accident), Onset Age: 73 Heart disease Grandfather Cancer Family History: Reports: - Review of Systems General: Reports: Fever Eyes: Denies: Visual changes - bilaterally ENT: Denies: Bilateral ear pain Cardiovascular: Denies: Chest pain Respiratory: Reports: Dyspnea, Cough, Sputum - Clear sputum Gastrointestinal: Denies: Abdominal pain, Vomiting, Diarrhea Musculoskeletal: Reports: Myalgias Skin: Denies: Rash Hematologic: Denies: Easy bruising, Easy bleeding Allergy: Denies: Uticaria Physical Exam Vital Signs/Narrative: Vital Signs Temp Pulse Resp BP Pulse Ox 10/09/20 21:47 97.5 F L 66 16 141/89 H 98 Inital Vital Signs reviewed: Yes General: Well nourished, Well developed Head: Normocephalic ENT: Moist mucous membranes Neck: Supple Cardiovascular: Regular rate, Regular rhythm Respiratory: No distress, CTA bilaterally Abdomen: Soft, Nontender, Normal bowel sounds Extremities: Nontender Skin: Normal color Neurological: Alert, Oriented x3 Psychological: Normal affect Diagnostic/Tx/Re-eval Chest X-Ray - ED: 1 View, Read by ED Physician, Chronic Changes Impressions Chest X-Ray 10/09/20 22:30 IMPRESSION: Normal x-ray examination of the chest. Electronically Signed: Francesca Haines MD at 22:59 EST Tel , Service support , 10/09/20 22:30 Chest 1 View (Portable) [RAD] Stat Laboratory Results 10/09/20 10/09/20 10/09/20 22:20 22:20 22:20 WBC 4.8 RBC 4.14 L Hgb 12.9 Hct 39.0 MCV 94.2 MCH 31.2 MCHC 33.1 RDW Std Deviation 43.0 RDW Coeff of [place] 12.4 Plt Count 185 MPV 10.6 Immature Gran % (Auto) 0.200 Neut % (Auto) 40.2 L Lymph % (Auto) 50.0 H [place] % (Auto) 7.5 Eos % (Auto) 1.9 Baso % (Auto) 0.2 Absolute Neuts (auto) 1.9 L Absolute Lymphs (auto) 2.41 Nucleated RBC % 0 D-Dimer Quant (PE/DVT) 0.54 H* Sodium 141 Potassium 3.8 Chloride 108 H Carbon Dioxide 26.0 Anion Gap 7 BUN 15 Creatinine 1.00 Estim Creat Clear Calc 52.31 Est GFR (MDRD) Af Amer 73 Est GFR (MDRD) Non-Af 60 BUN/Creatinine Ratio 15.0 Glucose 92 Calcium 8.7 Troponin I < 0.015 - EKG Initial EKG Interpretation: Sinus Bradycardia - Sinus at 55 with incomplete right bundle branch block. No acute ischemia. Nonspecific diffuse T wave flattening. - Medical Decision Making Patient was observed on monitor tech throughout her ED stay. No arrhythmias noted. She has not been hypoxic. Test results discussed with her at bedside. D-dimer is normal when age-adjusted. Troponin negative. No evidence of infiltrate on chest x-ray. We did discuss obtaining a pulse ox at home so she can monitor her oxygen levels. She was given return instructions. ED Disposition - Plan for ED Patient: Disposition: Home or Assisted Living Diagnosis: COVID-19 Instructions: Coronavirus Disease 2019 (COVID-19) Referrals: Owen Cardenas [Primary Care Provider] - As Needed
[2020-10-09 22:58] LABS: Anion Gap 7 (5-15); BUN 15 mg/dL (7-18); Calcium,Total 8.7 mg/dL (8.5-10.1); Chloride 108 mmol/L (98-107); EST Glomerular Filtration Rate 60 mL/min (>60); Est Glom Filt Rate - Afr Amer 73 mL/min (>60); Estimated Creatinine Clearance 52.31 ml/min; Glucose 92 mg/dL (74-106); Potassium 3.8 mmol/L (3.5-5.1); Sodium Level 141 mmol/L (136-145)
[2020-10-09 23:11] LABS: D-Dimer Quantitative (DVT/PE) 0.54 FEU/ug/m (0.27-0.49)
[2020-10-09 23:38] VITALS: BP 132/74; PULSE 60; RESP 18; O2SAT 99
== END 2020-10-09 23:39 | disposition home or self-care (01) ==
PROVIDERS: Emergency Provider Emergency Medicine
DX: U07.1 COVID-19 (principal); E78.5 Hyperlipidemia, unspecified; I10 Essential (primary) hypertension; Z79.82 Long term (current) use of aspirin; Z95.1 Presence of aortocoronary bypass graft; Z95.5 Presence of coronary angioplasty implant and graft
CPT/HCPCS: 71045; 80048; 84484; 85025; 85379; 93005; 99284

== ENCOUNTER → 2020-11-28 09:12 | Outpatient (CLI) | payer OTHER, SELFPAY ==
--- NOTE | 2020-11-28 09:20 | RAD_ITS ---
STUDY: X-RAY - ESOPHAGUS (BARIUM SWALLOW) WITH FLUOROSCOPY REASON FOR EXAM: Female, 60 years old. CHOKING EPISODES X3-4 MONTHS RANDOMLY, ACID REFLUX, BYPASS IN 1999 TECHNIQUE: 14 view(s) of the esophagus were obtained following swallowing of barium. FLUOROSCOPY TIME (if supplied): (0:27) minutes/seconds COMPARISON: None. FINDINGS: There is no demonstrated esophageal foreign body. There is no demonstrated stricture or mucosal abnormality. Normal gastroesophageal junction, without a demonstrated hiatal hernia. The patient ingested a 12 mm tablet of barium without any difficulty. Normal visualized aortic arch and descending thoracic aorta. Normal visualized pulmonary parenchyma. Normal visualized osseous structures of the thorax. RAD/Esophagus Dual Contrast IMPRESSION: Normal plain film x-ray examination (barium swallow) of the esophagus. Electronically Signed: Joshua Schofield, at 15:31 EST , Service support ,
== END ==
PROVIDERS: Referring Provider Nurse Practitioner Adult Health; Visit Provider Nurse Practitioner Adult Health
DX: R05 Cough (principal); K21.9 Gastro-esophageal reflux disease without esophagitis; R13.10 Dysphagia, unspecified
CPT/HCPCS: 74221

== ENCOUNTER → 2021-01-28 16:15 | Outpatient (CLI) | payer OTHER, SELFPAY ==
[2020-12-27 15:39] VITALS: BMI 44.1
[2021-01-28 15:38] VITALS: BMI 45.3
--- NOTE | 2021-01-28 16:20 | CT_ITS ---
STUDY: LOW DOSE CT LUNG CANCER SCREENING REASON FOR EXAM: Female, 60 years old. Lung cancer screening -- and gt;30 pack yr history; former smoker; asymptomatic RADIATION DOSAGE (If Supplied By Facility): CTDIvol = ( 4.02 ) mGy, DLP = ( 143.17 ) mGycm TECHNIQUE: No contrast was administered. Low dose technique was utilized (average mAS-38 and kVp 120). 1.25 mm axial source images with a slice interval of 1.25-mm were reconstructed in lung windows. 2.5 mm axial source images with a slice interval of 2.5-mm were reconstructed in lung windows. 5.0 mm axial source images with a slice interval of 5.0-mm were reconstructed in soft tissue windows. Nodule measured using lung windows on PACS and/or independent workstation with automated measurement of minimum and maximum diameter. Nodule measurement reported as average diameter rounded to the nearest whole number. Growth is defined as an increase ins size of greater than 1.5 mm. COMPARISON: CT lung cancer screening exam dated October 17, 2019 FINDINGS: Total lung nodules (excluding granulomas): None Emphysema: Mild emphysematous changes are present bilaterally most prominent in the upper lobes. No demonstrated hyperinflation. Endobronchial lesion: None Mediastinal nodes: None Normal aeration of both lungs. No consolidation or pulmonary edema is present. There is no demonstrated pleural abnormality. Sternal cerclage wires are present from a prior sternotomy. Normal heart size. No pericardial effusion is present. The right coronary artery stent is present. Normal mediastinum. Normal hilar regions. Normal unenhanced pulmonary arteries. There is atherosclerotic tortuosity of the aortic arch and descending thoracic aorta. Normal osseous structures. There is no demonstrated abnormality of the visualized upper abdomen. CT/Low Dose CT Lung Screening IMPRESSION: 1. Mild emphysema 2. Lung-RADS category 1 - Continue annual screening with LDCT in 12 months. IMPORTANT NOTES FOR USE: ACR Lung-RADS Version 1.0 Assessment Categories Release Date: March 19, 2014 Category: Coded 0-4 bases on nodule(s) with highest degree of suspicion. Negative screen is defined as categories 1 and 2; a positive screen is defined as categories 3 and 4. Category 3 and 4A nodules that are unchanged on interval CT should be coded as category 2, and individuals returned to screening in 12 months. Category 4X: Category 3 or 4 nodules with additional imaging findings that increase the suspicion of lung cancer, such as spiculation, GGN that doubles in size in 1 year, enlarged lymph notes, etc. Category Modifiers: S (significant finding unrelated to lung cancer) and C (prior history of treated lung cancer) may be added to the 0-4 Lung-RADS Electronically Signed: Bertram Ramos MD at 17:48 EST , Service support ,
== END ==
PROVIDERS: Referring Provider Nurse Practitioner Family; Visit Provider Nurse Practitioner Family
DX: Z12.2 Encounter for screening for malignant neoplasm of respiratory organs (principal); Z87.891 Personal history of nicotine dependence
CPT/HCPCS: 71271

== ENCOUNTER 2022-02-17 16:46 | Outpatient (CLI) | payer OTHER, SELFPAY ==
--- NOTE | 2022-02-17 16:49 | CT_ITS ---
STUDY: LOW DOSE CT LUNG CANCER SCREENING REASON FOR EXAM: Female, 61 years old. Lung cancer screening -- and gt;30 pk yr hx;former smoker; asymptomatic RADIATION DOSAGE (If Supplied By Facility): CTDIvol = ( 4.02 ) mGy, DLP = ( 136.42 ) mGycm TECHNIQUE: No contrast was administered. Low dose technique was utilized (average mAS-38 and kVp 120). 1.25 mm axial source images with a slice interval of 1.25-mm were reconstructed in lung windows. 2.5 mm axial source images with a slice interval of 2.5-mm were reconstructed in lung windows. 5.0 mm axial source images with a slice interval of 5.0-mm were reconstructed in soft tissue windows. Nodule measured using lung windows on PACS and/or independent workstation with automated measurement of minimum and maximum diameter. Nodule measurement reported as average diameter rounded to the nearest whole number. Growth is defined as an increase ins size of greater than 1.5 mm. COMPARISON: Comparison is made with prior study dated 01/28/2021. NODULES: No suspicious nodules are seen. Emphysema: Stable mild degree of emphysematous changes more prominent in the upper lobes. Endobronchial lesion: None Aorta: Unremarkable Coronary arteries: Prior CABG. Heart: Prior CABG. Pulmonary artery: Unremarkable Mediastinal nodes: Unremarkable Other chest and abdominal findings: CT/Low Dose CT Lung Screening IMPRESSION: Lung-RADS category 2 - Continue annual screening with LDCT in 12 months. IMPORTANT NOTES FOR USE: ACR Lung-RADS Version 1.1 Assessment Categories Release Date: 2018 Category: Coded 0-4 bases on nodule(s) with highest degree of suspicion. Negative screen is defined as categories 1 and 2; a positive screen is defined as categories 3 and 4. Category 3 and 4A nodules that are unchanged on interval CT should be coded as category 2, and individuals returned to screening in 12 months. Category 4X: Category 3 or 4 nodules with additional imaging findings that increase the suspicion of lung cancer, such as spiculation, GGN that doubles in size in 1 year, enlarged lymph notes, etc. Category Modifiers: S (significant finding unrelated to lung cancer) Electronically Signed: Joshua Schofield MD at 8:25 EDT ,
== END 2022-02-17 23:59 | disposition home or self-care (01) ==
LOC: CT 16:48
PROVIDERS: Referring Provider Nurse Practitioner Family; Visit Provider Nurse Practitioner Family
DX: Z87.891 Personal history of nicotine dependence (principal); Z12.2 Encounter for screening for malignant neoplasm of respiratory organs
CPT/HCPCS: 71271

== ENCOUNTER 2022-02-23 16:43 | Emergency (ER) | payer OTHER, SELFPAY ==
[2022-02-23 16:43] VITALS: BP 156/80; PULSE 67; RESP 15; TEMP 35.8; O2SAT 98; BMI 55.7
[2022-02-23 16:46] VITALS: BP 156/80; PULSE 67; RESP 15; TEMP 35.8; O2SAT 98
--- NOTE | 2022-02-23 17:48 | RAD_ITS ---
STUDY: X-RAY CHEST REASON FOR EXAM: Female, 61 years old. CHEST PAIN pain TECHNIQUE: XR Chest 1 View COMPARISON: 10.09.20 FINDINGS: There is no demonstrated pleural abnormality. There are multiple median sternotomy wires. Normal size heart. Normal mediastinum and sharon. Normal visualized pulmonary arteries. Normal visualized aortic arch and descending thoracic aorta. Normal visualized thoracic spine. Normal visualized ribs, clavicles, and shoulders. There is no demonstrated abnormality of the visualized soft tissue structures of the upper abdomen. RAD/Chest 1 View (Portable) IMPRESSION: There are no acute findings. Electronically Signed: Kashmir Damon MD at 19:06 EDT ,
--- NOTE | 2022-02-23 17:49 | EKG12_ITS ---
Test Reason : Blood Pressure : / mmHG Vent. Rate : 064 BPM Atrial Rate : 064 BPM P-R Int : 160 ms QRS Dur : 094 ms QT Int : 420 ms P-R-T Axes : 061 005 068 degrees QTc Int : 433 ms Normal sinus rhythm Nonspecific T wave abnormality Abnormal ECG Confirmed by HUGH CARPENTER, ASHOK ([id number]), photo editor NADIA VANCE ([id number]) on 02/26/2022 11:27:17 AM Referred By: GALILEO Confirmed By:ASHOK REESE MD
[2022-02-23] MEDS: Ondansetron 4 MG/2 ML Vial IV (18:05)
[2022-02-23 18:19] LABS: Absolute Lymphocyte Count 0.75 X10^3/uL (0.83-4.51); Absolute Neutrophil Count 8.4 X10^3/uL (2.0-7.7); Basophil# 0.02 X10^3/uL; Basophil% 0.2 % (0-1); Eosinophil# 0.04 X10^3/uL; Eosinophils% 0.4 % (0-5); Hematocrit 41.1 % (37-47); Hemoglobin 13.9 g/dL (12.0-15.0); Lymphocyte # 0.75 X10^3/ul (0.83-4.51); Lymphocyte % 7.7 % (19-41); Mean Corp Hgb Conc 33.8 g/dL (32-36); Mean Corpuscular Hgb 32.3 pg (27.0-32.0); Mean Corpuscular Volume 95.4 fL (81-99); Mean Platelet Vol. 10.4 fl (6.2-12.0); Monocyte# 0.44 X10^3/uL; Monocyte% 4.5 % (0-10); NRBC Flagged by Analyzer 0 % (0-5); Neutrophil # 8.44 X10^3/uL (2.7-7.7); Neutrophil % 86.9 % (47-70); Platelet Count 252 K/mm3 (150-450); RBC Distribution Width CV 12.6 % (11.6-14.6); RBC Distribution Width SD 44.2 fl (35.1-43.9); Red Blood Count 4.31 M/mm3 (4.2-5.4); White Blood Count 9.7 K/mm3 (4.4-11.0)
[2022-02-23 18:33] LABS: AST(SGOT) 12 U/L (15-37); Alanine Aminotransfer ALT/SGPT 22 U/L (13-56); Albumin, Serum 3.6 g/dL (3.2-5.0); Alkaline Phosphatase 92 U/L (45-117); Anion Gap 5 (5-15); BUN 19 mg/dL (7-18); BUN/Creat Ratio 18.4 RATIO (10-20); Bilirubin, Direct 0.27 mg/dL (0.00-0.30); Calcium,Total 9.1 mg/dL (8.5-10.1); Chloride 104 mmol/L (98-107); Creatinine, Serum 1.03 mg/dL (0.55-1.02); EST Glomerular Filtration Rate 58 mL/min (>60); Est Glom Filt Rate - Afr Amer 70 mL/min (>60); Estimated Creatinine Clearance 50.16 ml/min; Globulin 3.7 g/dL (2.2-4.2); Glucose 110 mg/dL (74-106); Lipase 111 U/L (73-393); Potassium 4.2 mmol/L (3.5-5.1); Protein, Total 7.3 g/dL (6.4-8.2); Sodium Level 137 mmol/L (136-145)
[2022-02-23 18:46] LABS: D-Dimer Quantitative (DVT/PE) < 0.27 FEU/ug/m (0.27-0.49)
--- NOTE | 2022-02-23 18:57 | EX.ED.DYSGE1 ---
HPI History of Present Illness Chief Complaint: Nausea/Vomiting Informant: patient Onset/Context/Timing Onset: Today Narrative Narrative: Patient presents secondary to nausea and vomiting. 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 She states this morning she felt well. Around 1230 she became nauseated and sweaty. She vomited. Due to her cardiac history 911 was called. EKG and blood sugar were checked and unremarkable. Patient signed off and did not want transported. Patient states this afternoon she is had 3 more episodes of vomiting. She has slight pain in her mid back. No fever or chills. No diarrhea. 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 Chest pain Chronic bronchitis Encounter for screening for malignant neoplasm of lung in former smoker who quit in past 15 years with 30 pack year history or greater Essential hypertension Hyperlipidemia Left carotid bruit Morbid obesity Obstructive sleep apnea Palpitations Smoking history Home Medications albuterol sulfate 2 puff INHALATION Q4H PRN PRN 11/08/18 [History Last Taken Unknown] ascorbic acid (vitamin C) 1,000 mg PO DAILY 11/08/18 [History Last Taken Unknown] aspirin 81 mg PO DAILY 11/08/18 [History Last Taken 09/19/19] atorvastatin 40 mg PO QHS 11/08/18 [History Last Taken Unknown] multivitamin with folic acid 1 tab PO DAILY 11/08/18 [History Last Taken Unknown] triamcinolone acetonide 55 mcg nasal spray aerosol 2 spray INTRANASAL DAILY 05/07/20 [History Last Taken Unknown] cholecalciferol (vitamin D3) 25 mcg (1,000 unit) tablet 25 mcg PO DAILY 12/27/20 [History Last Taken Unknown] pantoprazole 20 mg tablet,delayed release 20 mg PO QAM tab 12/27/20 [History Last Taken Unknown] clopidogrel 75 mg tablet 75 mg PO DAILY #90 tab 10/22/21 [Rx Last Taken Unknown] ranolazine 1,000 mg tablet,extended release,12 hr 1,000 mg PO BID #180 tab 10/22/21 [Rx Last Taken Unknown] bupropion HCl 150 mg 24 hr tablet, extended release 150 mg PO QAM 02/17/22 [History Last Taken Unknown] fluoxetine 20 mg capsule 20 mg PO BID 02/17/22 [History Last Taken Unknown] ondansetron 4 mg PO Q8H PRN #10 tab 02/23/22 [Rx Last Taken Unknown] Allergy/AdvReac Type Severity Reaction Status Date / Time No Known Allergies Allergy Verified 02/23/22 16:46 Family History Mother , age 82 No problems noted. 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) Stented coronary artery (07/23/00) Social History Smoking Status: Former smoker quit date: 09/07/17 pack-years: 35 Tobacco: How many years used: 35 Electronic Cigarette Use: with nicotine and without nicotine how long ago did patient quit smokin years second hand exposure: No quit status: quit date established counseling given: provider counseling substance use type: does not use ROS ROS ED Constitutional Constitutional ED: Denies chills or fever(s) Eyes Eyes: Denies change in vision ENT ENT ED: Denies sore throat Cardiovascular Cardiovascular: Denies chest pain or palpitations Respiratory/Chest Respiratory/Chest: Denies cough or dyspnea Gastrointestinal Gastrointestinal: Reports nausea and vomiting; Denies abdominal pain or diarrhea Genitourinary Genitourinary ED: Denies dysuria Musculoskeletal Musculoskeletal: Reports back pain Integumentary Denies rash Neurologic Neurologic: Denies headache(s) or weakness Allergic/Immunologic Allergic/Immunologic ED: Denies urticaria EXAM Physical Exam Const Vital Signs: 02/23/22 16:43 02/23/22 16:46 Temperature 96.5 F L 96.5 F L Temperature Source Temporal Temporal Pulse Rate 67 67 Respiratory Rate 15 15 Blood Pressure 156/80 H 156/80 H Blood Pressure Mean 105 105 Pulse Ox 98 98 Oxygen Delivery Method Room Air Room Air Positive well nourished and well developed General Appearance ED: well developed HEENT Reports moist mucous membranes Eyes PERRL and EOMs intact bilaterally Neck supple Chest Wall inspection of chest normal and palpation of chest normal Resp normal respiratory effort and clear to auscultation bilaterally Cardio regular rate and regular rhythm GI normal to inspection, nondistended, normoactive bowel sounds and non-tender Auscultation: hypoactive bowel sounds Palpation: soft Extremity normal to inspection Neuro oriented x3 Sensorium / Orientation: alert Psych mental status grossly normal Skin no rashes or lesions noted MDM MDM MDM Narrative Medical decision making narrative: Patient given IV fluids and Zofran. EKG, lab work obtained. Portable chest x-ray ordered. Lab Data Attestation: I reviewed the patient's lab results. Labs: Laboratory Results - last 24 hr 02/23/22 02/23/22 02/23/22 18:05 18:05 18:05 WBC 9.7 RBC 4.31 Hgb 13.9 Hct 41.1 MCV 95.4 MCH 32.3 H MCHC 33.8 RDW Std Deviation 44.2 H RDW Coeff of [place] 12.6 Plt Count 252 MPV 10.4 Immature Gran % (Auto) 0.300 Neut % (Auto) 86.9 H Lymph % (Auto) 7.7 L [place] % (Auto) 4.5 Eos % (Auto) 0.4 Baso % (Auto) 0.2 Absolute Neuts (auto) 8.4 H Absolute Lymphs (auto) 0.75 L Nucleated RBC % 0 D-Dimer Quant (PE/DVT) < 0.27 L Sodium 137 Potassium 4.2 Chloride 104 Carbon Dioxide 28.0 Anion Gap 5 BUN 19 H Creatinine 1.03 H Estim Creat Clear Calc 50.16 Est GFR (MDRD) Af Amer 70 Est GFR (MDRD) Non-Af 58 L BUN/Creatinine Ratio 18.4 Glucose 110 H Calcium 9.1 Total Bilirubin 0.80 Direct Bilirubin 0.27 AST 12 L ALT 22 Alkaline Phosphatase 92 Troponin I High Sens Total Protein 7.3 Albumin 3.6 Globulin 3.7 Lipase 111 02/23/22 18:05 WBC RBC Hgb Hct MCV MCH MCHC RDW Std Deviation RDW Coeff of [place] Plt Count MPV Immature Gran % (Auto) Neut % (Auto) Lymph % (Auto) [place] % (Auto) Eos % (Auto) Baso % (Auto) Absolute Neuts (auto) Absolute Lymphs (auto) Nucleated RBC % D-Dimer Quant (PE/DVT) Sodium Potassium Chloride Carbon Dioxide Anion Gap BUN Creatinine Estim Creat Clear Calc Est GFR (MDRD) Af Amer Est GFR (MDRD) Non-Af BUN/Creatinine Ratio Glucose Calcium Total Bilirubin Direct Bilirubin AST ALT Alkaline Phosphatase Troponin I High Sens < 3 L Total Protein Albumin Globulin Lipase Radiography Chest X-Ray - ED: 1 View, Read by ED Physician and Chronic Changes Diagnostic Testing: Clinical Impression(s) from Imaging Studies Chest X-Ray 02/23/22 17:48 IMPRESSION: There are no acute findings. Electronically Signed: Kashmir Damon MD at 19:06 EDT , EKG Initial EKG: Attestation: I personally reviewed and interpreted this EKG as follows: Interpretation: Sinus Rhythm (Sinus at 64 with diffuse T wave flattening. This is unchanged compared to prior study of September 2020.) Treatment and Re-Evaluation Narrative: Laboratory tests reviewed with patient. No significant findings noted with negative troponin. Chest x-ray reveals chronic changes only per my interpretation. EKG reveals no ischemia. Nausea is improved with Zofran. I will write her prescription for home as needed. Return instructions provided. Discharge Plan Triage Chief Complaint: Nausea/Vomiting ED Provider: Loreto Rivera Dx/Rx/DC Orders Clinical Impression: Vomiting Instructions: ED Vomiting (Adult) Prescriptions: New ondansetron 4 mg tablet,disintegrating 4 mg PO Q8H PRN (Reason: nausea and vomiting) Qty: 10 RF: 0 No Action triamcinolone acetonide [Nasacort] 55 mcg aerosol,spray 2 spray INTRANASAL DAILY RF: 0 pantoprazole 20 mg tablet,delayed release (DR/EC) 20 mg PO QAM RF: 0 cholecalciferol (vitamin D3) 25 mcg (1,000 unit) tablet 25 mcg PO DAILY RF: 0 bupropion HCl [Wellbutrin XL] 150 mg tablet extended release 24 hr 150 mg PO QAM RF: 0 fluoxetine [Prozac] 20 mg capsule 20 mg PO BID RF: 0 atorvastatin 40 MG tablet 40 mg PO QHS RF: 0 ascorbic acid (vitamin C) 1,000 MG tablet extended release 1,000 mg PO DAILY RF: 0 aspirin 81 MG tablet,chewable 81 mg PO DAILY RF: 0 albuterol sulfate 1 INHALER inhaler 2 puff INHALATION Q4H PRN PRN (Reason: Sob &/Or Wheezing) RF: 0 multivitamin with folic acid 1 TABLET tablet 1 tab PO DAILY RF: 0 clopidogrel [Plavix] 75 mg tablet 75 mg PO DAILY Qty: 90 RF: 3 ranolazine 1,000 mg tablet extended release 12 hr 1,000 mg PO BID Qty: 180 RF: 3 Primary Care Provider: Owen Cardenas Referrals: Owen Cardenas [Primary Care Provider] - 1 Week if not improving Disposition Disposition: Home, Self Care
[2022-02-23 19:11] LABS: Troponin-I HS < 3 pg/mL (3.0-54.0)
[2022-02-23 19:32] VITALS: BP 133/67; PULSE 69; RESP 16; TEMP 36.9; O2SAT 98
== END 2022-02-23 19:34 | disposition home or self-care (01) ==
PROVIDERS: Emergency Provider Emergency Medicine; Visit Provider Emergency Medicine
DX: R11.2 Nausea with vomiting, unspecified (principal); I25.10 Atherosclerotic heart disease of native coronary artery without angina pectoris; Z87.891 Personal history of nicotine dependence; Z95.5 Presence of coronary angioplasty implant and graft
CPT/HCPCS: 71045; 80048; 80076; 83690; 84484; 85025; 85379; 93005; 96374; 99284; J7040; J2405

== ENCOUNTER → 2022-04-28 | Outpatient (CLI) | payer OTHER, SELFPAY ==
--- NOTE | 2022-04-28 06:19 | CDU_ITS ---
Reason For Study: carotid bruit Rt. Velocities/BP Lt. Velocities/BP Prox CCA 78.6/21.3 cm/sec. Prox CCA 102.3/22.5 cm/sec. Mid CCA 70.8/18.6 cm/sec. Mid CCA 94.9/26.2 cm/sec. Dist CCA 60.4/14.7 cm/sec. Dist CCA 72.8/17.6 cm/sec. Prox ICA 46.0/13.4 cm/sec. Prox ICA 48.3/16.3 cm/sec. Mid ICA 28.7/11.1 cm/sec. Mid ICA 70.4/23.7 cm/sec. Dist ICA 58.0/24.5 cm/sec. Dist ICA 55.6/24.1 cm/sec. Rt. ICA/CCA = .8. Lt. ICA/CCA = .7. Prox ECA 82.6/12.1 cm/sec. Prox ECA 92.5/10.2 cm/sec. Rt. Vert. 50.9/17.9 cm/sec. Lt. Vert. 40.9/10.2 cm/sec. Right Extracranial There is homogeneous, smooth atherosclerotic plaque noted in the right common carotid artery. There is intimal thickening but no significant atherosclerotic plaque noted in the right internal carotid artery. There is heterogeneous, smooth atherosclerotic plaque noted in the right external carotid artery. Antegrade flow is noted in the right vertebral artery. Left Extracranial There is intimal thickening but no significant atherosclerotic plaque noted in the left common carotid artery. There is heterogeneous, irregular atherosclerotic plaque noted in the left internal carotid artery. There is intimal thickening but no significant atherosclerotic plaque noted in the left external carotid artery. Antegrade flow is noted in the left vertebral artery. Procedure Carotid Duplex [id number]. This is a Carotid Duplex examination using B-mode, color flow and specral Doppler. The exam was diagnostic. Exam performed in department. VL/Carotid Duplex Ultrasound Interpretation Summary Intimal thickening of the proximal right internal carotid artery with less than 50% stenosis Less than 50% stenosis right external carotid artery Regular calcific plaque at the proximal left internal carotid artery with less than 50% stenosis Less than 50% stenosis left external carotid artery Patent and antegrade vertebral arteries bilaterally Ordering Physician: Miya Solorio Performed By: Ovi Ortiz RVT
--- NOTE | 2022-04-28 09:04 | STRESSREP ---
Stress Test Report Date: 04-28-2022 Procedure: Pharmacologic stress nuclear imaging study Indications: Chest pain; shortness of breath/dyspnea; CAD; PCI; CABG Consent: Per the patient Procedure: The patient underwent pharmacologic (Regadenoson 0.4mg ) evaluation with a peak heart rate of 79 beats per minute (49%predicted maximal heart rate) and a peak blood pressure of 124/82 mmHg. The baseline ECG demonstrated normal sinus rhythm; nonspecific ST/T wave abnormality. The peak pharmacologic ECG demonstrated continued nonspecific ST/T wave abnormality. There were no cardiac dysrhythmias pretest, during pharmacologic infusion, or recovery. There was no complaint of chest discomfort during pharmacologic infusion or recovery. The examination was discontinued secondary to completion of protocol. Impression: 1. Pharmacologic (Regadenoson) evaluation 2. Peak pharmacologic ECG with continued nonspecific ST/T wave abnormality. 3. There were no cardiac dysrhythmias pretest, during pharmacologic infusion, or recovery. 4. Nuclear images pending Myocardial perfusion imaging study: Technique: The patient was injected with 14.7 millicuries of technetium 99m Cardiolite and subsequently rest SPECT Cardiolite nuclear imaging was obtained in the horizontal long, vertical long, and short axis views. The patient underwent pharmacologic (Regadenoson) evaluation with a peak heart rate of 79 beats per minute (49% percent predicted maximal heart rate) and a peak blood pressure of 124/82 mmHg. The patient was injected with 44.9 millicuries of technetium 99m Cardiolite and subsequently stress SPECT Cardiolite nuclear imaging was obtained in the horizontal long, vertical long, and short axis views. A gated Cardiolite study at peak stress was obtained. Interpretation: Rest and stress SPECT Cardiolite nuclear imaging status post realignment, normalization, and attenuation correction demonstrate relative uniform tracer uptake and myocardial perfusion appearing within normal limits. There is end systolic thickening and brightening. The gated Cardiolite study demonstrates myocardial thickening and inward wall motion. The reported LVEF is 67%. Impression: 1. Rest and stress SPECT Cardiolite nuclear imaging demonstrate relative uniform tracer uptake and myocardial perfusion appearing within normal limits. 2. The gated Cardiolite study reports an LVEF of 67%. This note was generated with [employer] software. It may contain incorrect words, spelling, and punctuation that were not noted in checking the note before signing.
== END | disposition home or self-care (01) ==
PROVIDERS: Visit Provider Nurse Practitioner Gerontology
DX: R07.89 Other chest pain (principal); I25.118 Atherosclerotic heart disease of native coronary artery with other forms of angina pectoris; R53.83 Other fatigue; R06.00 Dyspnea, unspecified; R09.89 Other specified symptoms and signs involving the circulatory and respiratory systems
CPT/HCPCS: 78452; 93017; 93880; A9500; A4216; J2785

== ENCOUNTER → 2022-06-29 | Outpatient (CLI) | payer OTHER, SELFPAY ==
[2022-06-29 14:11] LABS: Free T3 2.1 pg/mL (2.18-3.98); T4 Free Direct 0.82 ng/dL (0.76-1.46); Thyroid Stim Hormone (TSH) 2.83 uIU/mL (0.358-3.74)
== END | disposition home or self-care (01) ==
LOC: LAB 12:35
PROVIDERS: Visit Provider Nurse Practitioner Gerontology
DX: R53.83 Other fatigue (principal)
CPT/HCPCS: 36415; 84439; 84443; 84481

== ENCOUNTER 2022-10-31 18:15 | Emergency (ER) | payer OTHER, SELFPAY ==
[2022-10-31 18:16] VITALS: BP 121/72; PULSE 70; RESP 22; TEMP 36.9; O2SAT 95; BMI 54.6
--- NOTE | 2022-10-31 18:34 | EDS_ITS ---
HPI History of Present Illness Chief Complaint: Shortness of Breath Detail of Chief Complaint: Fever and cough and shortness of breath Informant: patient Narrative Narrative: Patient presents to the emergency department complaint of fever and cough and shortness of breath that initially started 5 days ago. Patient was seen in urgent care 4 days ago and had a negative COVID and influenza test. Patient complains of fatigue and having a hard time staying awake. 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 She denies chest pain. Cough mostly nonproductive. She has minimal headache. She denies body aches. She denies sore throat. 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 Chest pain Chronic bronchitis Encounter for screening for malignant neoplasm of lung in former smoker who quit in past 15 years with 30 pack year history or greater Essential hypertension Hyperlipidemia Left carotid bruit Morbid obesity Obstructive sleep apnea Palpitations Smoking history Home Medications albuterol sulfate 90 mcg/actuation aerosol inhaler 2 puff inhalation Q4H PRN PRN Sob &/Or Wheezing 11/08/18 [History Last Taken Unknown] ascorbic acid (vitamin C) 1,000 mg tablet,extended release 1,000 mg PO DAILY 11/08/18 [History Last Taken Unknown] aspirin 81 mg chewable tablet 81 mg PO DAILY 11/08/18 [History Last Taken 09/19/19] atorvastatin 40 mg tablet 40 mg PO QHS 11/08/18 [History Last Taken Unknown] multivitamin with folic acid 400 mcg tablet 1 tab PO DAILY 11/08/18 [History Last Taken Unknown] triamcinolone acetonide 55 mcg nasal spray aerosol (Nasacort) 2 spray intranasal DAILY 05/07/20 [History Last Taken Unknown] cholecalciferol (vitamin D3) 25 mcg (1,000 unit) tablet 25 mcg PO DAILY 12/27/20 [History Last Taken Unknown] bupropion HCl 150 mg 24 hr tablet, extended release (Wellbutrin XL) 150 mg PO Q AM 02/17/22 [History Last Taken Unknown] sertraline 100 mg tablet 100 mg PO DAILY 06/29/22 [History Last Taken Unknown] clopidogrel 75 mg tablet (Plavix) 75 mg PO DAILY #90 tabs 10/19/22 [Rx Last Take n Unknown] benzonatate 200 mg capsule 200 mg PO TID PRN cough #20 caps 10/31/22 [Rx Last Taken Unknown] levofloxacin 750 mg tablet 750 mg PO DAILY #6 tabs 10/31/22 [Rx Last Taken Unknown] ranolazine 1,000 mg tablet,extended release,12 hr (Ranexa) 1,000 mg PO BID 10/31/22 [History Last Taken Unknown] Allergy/AdvReac Type Severity Reaction Status Date / Time No Known Allergies Allergy Verified 10/31/22 19:00 Family History Mother , age 82 No problems noted. 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) Stented coronary artery (07/23/00) Social History Smoking Status: Former smoker quit date: 09/07/17 pack-years: 35 Tobacco: How many years used: 35 Electronic Cigarette Use: with nicotine and without nicotine how long ago did patient quit smokin second hand exposure: No alcohol intake: former year quit: 2010 substance use type: does not use caffeine: Yes Type: coffee Number of servings: 2 ROS ROS ED Review of Systems ROS Unobtainable: other Constitutional Constitutional ED: Reports lethargy; Denies chills, fever(s), sweats or weight loss Eyes Eyes: Denies blurry vision, change in vision or diplopia ENT ENT ED: Denies rhinorrhea or sore throat Cardiovascular Cardiovascular: Denies chest pain, orthopnea or racing heartbeat Respiratory/Chest Respiratory/Chest: Reports cough, dyspnea and dyspnea on exertion; Denies orthopnea or sputum Gastrointestinal Gastrointestinal: Denies abdominal pain, diarrhea, nausea or vomiting Genitourinary Genitourinary ED: Denies dysuria, hematuria or urinary frequency Musculoskeletal Musculoskeletal: Denies arthralgias, back pain, myalgias or neck pain Integumentary Denies abscess, Abrasions or rash Neurologic Neurologic: Reports headache(s); Denies weakness Psychiatric Psychiatric: Denies anxiety, depression or suicidal thoughts Endocrine Endocrinology: Denies polydipsia, polyphagia or polyuria Hematologic/Lymphatic Hematologic/Lymphatic: Denies easy bleeding, easy bruising or lymphadenopathy Allergic/Immunologic Allergic/Immunologic ED: Denies mouth swelling, tongue swelling or urticaria EXAM Physical Exam Const Vital Signs: 10/31/22 18:16 10/31/22 19:02 10/31/22 19:04 Temperature 98.5 F 98 F Temperature Source Temporal Temporal Pulse Rate 70 66 Respiratory Rate 22 H 23 H Respiratory Effort Short of Breath Labored Respiratory Depth Shallow Respiratory Pattern Normal Blood Pressure 121/72 H 140/71 H Blood Pressure Mean 88 94 Pulse Ox 95 93 Oxygen Delivery Method Room Air Room Air Room Air 10/31/22 19:12 Temperature Temperature Source Pulse Rate 65 Respiratory Rate 25 H Respiratory Effort Respiratory Depth Respiratory Pattern Blood Pressure 140/71 H Blood Pressure Mean 94 Pulse Ox 93 Oxygen Delivery Method Room Air Positive well nourished and well developed General Appearance ED: well developed and NAD HEENT Reports TM's clear and moist mucous membranes normocephalic and atraumatic; Negative for trauma or tenderness Tympanic Membrane ED: Yes TM's clear Eyes PERRL and EOMs intact bilaterally General Eye ED: Negative for pale conjunctiva or scleral icterus Neck no lymphadenopathy, supple and no JVD General: Negative for tenderness Chest Wall inspection of chest normal and palpation of chest normal Chest: Negative for tenderness Resp normal respiratory effort and clear to auscultation bilaterally Effort and Inspection: Negative for respiratory distress or pain with movement Auscultation: Negative for rhonchi, wheezes or diminished lung sounds Cardio regular rate, regular rhythm, S1 normal heart sound, S2 normal heart sound and no murmurs Peripheral Pulses: pulses 2+ throughout GI normal to inspection, nondistended, normoactive bowel sounds, soft to palpation, non-tender, non-distended and no masses Back/Spine no CVA tenderness and no thoracic nor lumbar tenderness Extremity normal to inspection General Extremety ED: Negative for edema General Extremity: Negative for edema Neuro oriented x3, CN's II-XII intact bilaterally, no sensory deficits noted and gait normal Sensorium / Orientation: awake, alert, oriented to person, oriented to place and oriented to time Motor Exam: strength 5/5 throughout and strength abnormal Psych mental status grossly normal Skin no rashes or lesions noted and no wounds MDM MDM MDM Narrative Medical decision making narrative: IV line established on arrival. CBC with differential count of 12.9. Chemistries unremarkable. Lactate was normal. Chest x-ray obtained showed a left lower lobe infiltrate. Patient was started on Levaquin 750 mg IV. COVID and influenza were negative. At this point hemodynamically she is stable and she is not hypoxic. She can be discharged to home with a prescription for Levaquin. Patient also has a albuterol inhaler that she can use as needed for wheezing. Patient advised to follow-up with her primary care physician within next 3 to 5 days. She is advised to return if increasing shortness of breath or condition should worsen anyway. Patient has a pulse oximeter at home and she is advised to return if her O2 saturation drops below 90%. Lab Data Attestation: I reviewed the patient's lab results. Labs: Laboratory Results - last 24 hr 10/31/22 10/31/22 10/31/22 18:25 18:25 18:25 WBC 12.9 H RBC 4.13 L Hgb 13.3 Hct 39.5 MCV 95.6 MCH 32.2 H MCHC 33.7 RDW Std Deviation 45.2 H RDW Coeff of [place] 12.7 Plt Count 260 MPV 10.7 Immature Gran % (Auto) 0.300 Neut % (Auto) 83.6 H Lymph % (Auto) 9.6 L [place] % (Auto) 6.2 Eos % (Auto) 0.1 Baso % (Auto) 0.2 Absolute Neuts (auto) 10.8 H Absolute Lymphs (auto) 1.24 Nucleated RBC % 0 Sodium 135 L Potassium 3.9 Chloride 103 Carbon Dioxide 25.0 Anion Gap 7 BUN 13 Creatinine 0.97 Estim Creat Clear Calc 52.59 Est GFR (MDRD) Af Amer 75 Est GFR (MDRD) Non-Af 62 BUN/Creatinine Ratio 13.4 Glucose 142 H Lactic Acid 1.3 Calcium 9.1 Radiography Diagnostic Testing: Clinical Impression(s) from Imaging Studies Chest X-Ray 10/31/22 18:50 IMPRESSION: Left lower lobe pneumonia. Electronically Signed: Rafael Calvillo MD at 19:29 EST , 1 view chest x-ray obtained interpreted by myself left lower lobe infiltrate. Radiology was in agreement. EKG Initial EKG: Attestation: I personally reviewed and interpreted this EKG as follows: Comments: Sinus rhythm with a ventricular rate of 65 bpm with incomplete right bundle branch block and nonspecific ST changes Discharge Plan Triage Chief Complaint: Shortness of Breath Other Complaint: Fever Headache ED Provider: Ryland Salcedo Dx/Rx/DC Orders Clinical Impression: Pneumonia Instructions: ED Pneumonia (Adult) Prescriptions: New levofloxacin 750 mg tablet 750 mg PO DAILY Qty: 6 0RF benzonatate 200 mg capsule 200 mg PO TID PRN (Reason: cough) Qty: 20 0RF No Action triamcinolone acetonide [Nasacort] 55 mcg aerosol,spray 2 spray INTRANASAL DAILY Rx Instructions: administer into each nostril cholecalciferol (vitamin D3) 25 mcg (1,000 unit) tablet 25 mcg PO DAILY bupropion HCl [Wellbutrin XL] 150 mg tablet extended release 24 hr 150 mg PO QAM sertraline 100 mg tablet 100 mg PO DAILY atorvastatin 40 MG tablet 40 mg PO QHS ascorbic acid (vitamin C) 1,000 MG tablet extended release 1,000 mg PO DAILY aspirin 81 MG tablet,chewable 81 mg PO DAILY albuterol sulfate 1 INHALER inhaler 2 puff INHALATION Q4H PRN PRN (Reason: Sob &/Or Wheezing) multivitamin with folic acid 1 TABLET tablet 1 tab PO DAILY ranolazine [Ranexa] 1,000 mg tablet extended release 12 hr 1,000 mg PO BID clopidogrel [Plavix] 75 mg tablet 75 mg PO DAILY Qty: 90 3RF Primary Care Provider: Owen Cardenas Referrals: Owen Cardenas [Primary Care Provider] - Disposition Disposition: Home, Self Care
--- NOTE | 2022-10-31 18:50 | RAD_ITS ---
EXAM: XR CHEST, 2 VIEWS CLINICAL INDICATION: cough, dyspnea TECHNIQUE: Frontal and lateral views of the chest. This report was created using [employer] report generation technology. COMPARISON: 02/23/2022 FINDINGS: LUNGS AND PLEURAL SPACES: Opacity in the left lower lobe compatible with pneumonia. No pneumothorax. No effusion. HEART: Unremarkable. Cardiac silhouette not enlarged. MEDIASTINUM: Central airways and mediastinal contour are unremarkable. BONES/JOINTS: Unremarkable. SOFT TISSUES: Unremarkable. RAD/Chest PA and Lateral IMPRESSION: Left lower lobe pneumonia. Electronically Signed: Rafael Calvillo MD at 19:29 EST ,
[2022-10-31 18:55] LABS: Absolute Lymphocyte Count 1.24 X10^3/uL (0.83-4.51); Absolute Neutrophil Count 10.8 X10^3/uL (2.0-7.7); Basophil# 0.02 X10^3/uL; Basophil% 0.2 % (0-1); Eosinophil# 0.01 X10^3/uL; Eosinophils% 0.1 % (0-5); Hematocrit 39.5 % (37-47); Hemoglobin 13.3 g/dL (12.0-15.0); Lymphocyte # 1.24 X10^3/ul (0.83-4.51); Lymphocyte % 9.6 % (19-41); Mean Corp Hgb Conc 33.7 g/dL (32-36); Mean Corpuscular Hgb 32.2 pg (27.0-32.0); Mean Corpuscular Volume 95.6 fL (81-99); Mean Platelet Vol. 10.7 fl (6.2-12.0); Monocyte% 6.2 % (0-10); NRBC Flagged by Analyzer 0 % (0-5); Neutrophil # 10.77 X10^3/uL (2.7-7.7); Neutrophil % 83.6 % (47-70); Platelet Count 260 K/mm3 (150-450); RBC Distribution Width CV 12.7 % (11.6-14.6); RBC Distribution Width SD 45.2 fl (35.1-43.9); Red Blood Count 4.13 M/mm3 (4.2-5.4); White Blood Count 12.9 K/mm3 (4.4-11.0)
--- NOTE | 2022-10-31 18:57 | EKG12_ITS ---
Test Reason : SOB Blood Pressure : / mmHG Vent. Rate : 065 BPM Atrial Rate : 065 BPM P-R Int : 148 ms QRS Dur : 094 ms QT Int : 374 ms P-R-T Axes : 066 012 108 degrees QTc Int : 388 ms Normal sinus rhythm Incomplete right bundle branch block Nonspecific ST and T wave abnormality Abnormal ECG Confirmed by YOLANDA CARPENTER, JOAN ([id number]), medical editor KATHIA SELBY ([id number]) on 11/03/2022 11:22:55 AM Referred By: MERCEDES Confirmed By:JOAN GUERRERO MD
[2022-10-31] MEDS: 0.9% Normal Saline 1,000 ML 999 ML IV (19:00)
[2022-10-31 19:02] VITALS: O2SAT 95
[2022-10-31 19:04] VITALS: BP 140/71; PULSE 66; RESP 23; TEMP 36.6; O2SAT 93
[2022-10-31 19:04] LABS: BUN 13 mg/dL (7-18); BUN/Creat Ratio 13.4 RATIO (10-20); Calcium,Total 9.1 mg/dL (8.5-10.1); Creatinine, Serum 0.97 mg/dL (0.55-1.02); EST Glomerular Filtration Rate 62 mL/min (>60); Est Glom Filt Rate - Afr Amer 75 mL/min (>60); Estimated Creatinine Clearance 52.59 ml/min; Glucose 142 mg/dL (74-106)
[2022-10-31 19:05] LABS: Anion Gap 7 (5-15); Chloride 103 mmol/L (98-107); Potassium 3.9 mmol/L (3.5-5.1); Sodium Level 135 mmol/L (136-145)
[2022-10-31 19:12] VITALS: BP 140/71; PULSE 65; RESP 25; O2SAT 93
[2022-10-31 19:12] LABS: Lactic Acid 1.3 mmol/L (0.4-1.9)
[2022-10-31] MEDS: levoFLOXacin IV 750 MG/150 ML BAG 100 MG IV (20:13)
[2022-10-31 20:14] VITALS: BP 136/65; PULSE 64; RESP 18; O2SAT 95
[2022-10-31 20:23] VITALS: BP 136/75; PULSE 65; RESP 25; O2SAT 94
== END 2022-10-31 21:54 | disposition home or self-care (01) ==
PROVIDERS: Emergency Provider Emergency Medicine; Visit Provider Emergency Medicine
DX: J18.9 Pneumonia, unspecified organism (principal); J42 Unspecified chronic bronchitis; F10.21 Alcohol dependence, in remission; E66.01 Morbid (severe) obesity due to excess calories; I10 Essential (primary) hypertension; Z20.822 Contact with and (suspected) exposure to COVID-19; R51.9 Headache, unspecified; I25.10 Atherosclerotic heart disease of native coronary artery without angina pectoris; E78.5 Hyperlipidemia, unspecified; G47.33 Obstructive sleep apnea (adult) (pediatric); Z79.82 Long term (current) use of aspirin; Z79.02 Long term (current) use of antithrombotics/antiplatelets; Z79.899 Other long term (current) drug therapy; Z87.891 Personal history of nicotine dependence
CPT/HCPCS: 71046; 80048; 83605; 85025; 87040; 87428; 93005; 96365; 96366; 99284; J7030; A4216

== ENCOUNTER 2023-05-24 20:25 | Emergency (ER) | payer OTHER, SELFPAY ==
[2023-05-24 20:26] VITALS: BP 153/76; PULSE 77; RESP 14; TEMP 36.4; O2SAT 97; BMI 51.2
[2023-05-24] MEDS: 0.9% Normal Saline 1,000 ML 999 ML IV (22:48)
[2023-05-24 23:07] LABS: Absolute Lymphocyte Count 4.18 X10^3/uL (0.83-4.51); Absolute Neutrophil Count 4.5 X10^3/uL (2.0-7.7); Basophil# 0.04 X10^3/uL; Basophil% 0.4 % (0-1); Eosinophil# 0.19 X10^3/uL; Hematocrit 39.4 % (37-47); Hemoglobin 12.5 g/dL (12.0-15.0); Lymphocyte # 4.18 X10^3/ul (0.83-4.51); Mean Corp Hgb Conc 31.7 g/dL (32-36); Mean Corpuscular Hgb 31.1 pg (27.0-32.0); Mean Platelet Vol. 10.4 fl (6.2-12.0); Monocyte# 0.76 X10^3/uL; Monocyte% 7.8 % (0-10); NRBC Flagged by Analyzer 0 % (0-5); Neutrophil % 46.4 % (47-70); Platelet Count 256 K/mm3 (150-450); RBC Distribution Width CV 12.9 % (11.6-14.6); Red Blood Count 4.02 M/mm3 (4.2-5.4); White Blood Count 9.7 K/mm3 (4.4-11.0)
[2023-05-24 23:17] LABS: Prothrombin Time (Protime)PT. 13.1 SECONDS (11.7-14.9)
[2023-05-24 23:18] LABS: Partial Thromboplast Time 30.3 Seconds (24.1-36.2)
[2023-05-24 23:33] LABS: Anion Gap 3 (5-15); BUN 16 mg/dL (7-18); BUN/Creat Ratio 14.8 RATIO (10-20); Calcium,Total 9.4 mg/dL (8.5-10.1); Chloride 108 mmol/L (98-107); Creatinine, Serum 1.08 mg/dL (0.55-1.02); EST Glomerular Filtration Rate 55 mL/min (>60); Est Glom Filt Rate - Afr Amer 66 mL/min (>60); Estimated Creatinine Clearance 47.24 ml/min; Glucose 101 mg/dL (74-106); Potassium 4.7 mmol/L (3.5-5.1); Sodium Level 141 mmol/L (136-145)
[2023-05-24 23:35] LABS: Lactic Acid 3.1 mmol/L (0.4-1.9)
[2023-05-24 23:50] VITALS: BP 122/66; BP 136/73; BP 140/87; PULSE 65; PULSE 67
[2023-05-25 01:18] VITALS: BP 136/73; PULSE 65; RESP 15; O2SAT 97
--- NOTE | 2023-05-25 01:18 | EX.ED.DYSGE1 ---
HPI History of Present Illness Chief Complaint: GI Bleed Informant: patient and friend Narrative Narrative: Patient is a 62-year-old female with past medical history of hypertension and CAD with 2 cardiac stents placed roughly 20 years ago currently on Plavix. She states that this morning/day she has had 3 or 4 bowel movements and each 1 has been bright red blood in color. Other than the Plavix she denies any history of blood thinner use or bleeding disorder. She states there is no associated pain with this. She denies any nausea vomiting fevers or chills. She denies any lightheadedness or dizziness. 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 Chest pain Chronic bronchitis Encounter for screening for malignant neoplasm of lung in former smoker who quit in past 15 years with 30 pack year history or greater Essential hypertension Hyperlipidemia Left carotid bruit Morbid obesity Obstructive sleep apnea Palpitations Smoking history Home Medications albuterol sulfate 90 mcg/actuation aerosol inhaler 2 puff inhalation Q4H PRN PRN Sob &/Or Wheezing 11/08/18 [History Last Taken Unknown] ascorbic acid (vitamin C) 1,000 mg tablet,extended release 1,000 mg PO DAILY 11/08/18 [History Last Taken Unknown] aspirin 81 mg chewable tablet 81 mg PO DAILY 11/08/18 [History Last Taken 09/19/19] multivitamin with folic acid 400 mcg tablet 1 tab PO DAILY 11/08/18 [History Last Taken Unknown] triamcinolone acetonide 55 mcg nasal spray aerosol (Nasacort) 2 spray intranasal DAILY 05/07/20 [History Last Taken Unknown] cholecalciferol (vitamin D3) 25 mcg (1,000 unit) tablet 25 mcg PO DAILY 12/27/20 [History Last Taken Unknown] bupropion HCl 150 mg 24 hr tablet, extended release (Wellbutrin XL) 150 mg PO QAM 02/17/22 [History Last Taken Unknown] sertraline 100 mg tablet 100 mg PO DAILY 06/29/22 [History Last Taken Unknown] benzonatate 200 mg capsule 200 mg PO TID PRN cough #20 caps 10/31/22 [Rx Last Taken Unknown] atorvastatin 40 mg tablet 40 mg PO QHS #90 tabs 01/08/23 [Rx Last Taken Unknown] clopidogrel 75 mg tablet (Plavix) 75 mg PO DAILY #90 tabs 01/08/23 [Rx Last Taken Unknown] ranolazine 1,000 mg tablet,extended release,12 hr 1,000 mg PO BID #180 tabs 01/08/23 [Rx Last Taken Unknown] Allergy/AdvReac Type Severity Reaction Status Date / Time No Known Allergies Allergy Verified 01/08/23 13:58 Family History Mother , age 82 No problems noted. 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) Stented coronary artery (07/23/00) Social History Smoking Status: Former smoker quit date: 09/07/17 pack-years: 35 Tobacco: How many years used: 35 Electronic Cigarette Use: with nicotine and without nicotine how long ago did patient quit smokin second hand exposure: No alcohol intake: former year quit: 2010 substance use type: does not use caffeine: Yes Type: coffee Number of servings: 2 ROS ROS ED Constitutional Constitutional ED: Denies chills or fever(s) Eyes Eyes: Denies change in vision ENT ENT ED: Denies sore throat Cardiovascular Cardiovascular: Denies chest pain or palpitations Respiratory/Chest Respiratory/Chest: Denies cough or dyspnea Gastrointestinal Gastrointestinal: Reports other Details: Positive hematochezia ; Denies abdominal pain, diarrhea, nausea or vomiting Genitourinary Genitourinary ED: Denies dysuria or hematuria Musculoskeletal Musculoskeletal: Denies back pain or myalgias Integumentary Denies rash Neurologic Neurologic: Denies headache(s) or weakness Hematologic/Lymphatic Hematologic/Lymphatic: Denies easy bleeding or easy bruising EXAM Physical Exam Const Vital Signs: 05/24/23 20:26 05/24/23 23:50 Temperature 97.6 F L Temperature Source Temporal Pulse Rate 77 Pulse Rate [Lying] 67 Pulse Rate [Sitting (for 1 minute prior to obtaining)] 65 Pulse Rate [Standing (for 1 minute prior to obtaining)] 67 Respiratory Rate 14 Blood Pressure 153/76 H Blood Pressure [Lying] 122/66 H Blood Pressure [Sitting (for 1 minute prior to obtaining)] 136/73 H Blood Pressure [Standing (for 1 minute prior to obtaining)] 140/87 H Blood Pressure Mean 101 Blood Pressure Mean [Lying] 84 Blood Pressure Mean [Sitting (for 1 minute prior to obtaining)] 94 Blood Pressure Mean [Standing (for 1 minute prior to obtaining)] 104 Pulse Ox 97 Oxygen Delivery Method Room Air Positive well nourished, well developed and obese General Appearance ED: well developed Nutritional Appearance: obese HEENT Reports moist mucous membranes Eyes PERRL and EOMs intact bilaterally General Eye ED: Negative for pale conjunctiva or scleral icterus Neck supple Neck Narrative: No nuchal rigidity or meningeal signs Resp normal respiratory effort and clear to auscultation bilaterally Cardio regular rate and regular rhythm Rate: other Other Details: Radial pulses are plus 2 out of 4 bilaterally are equal and symmetric GI non-distended GI Narrative: Abdomen is obese soft and nondistended with normoactive bowel sounds. There is mild pain with palpation in the left lower quadrant without voluntary guarding or rigidity. No pulsatile mass or fluid wave Auscultation: normoactive bowel sounds Palpation: soft Narrative: No external hemorrhoid or anal fissure noted. Rectal tone is normal. No internal masses noted. Stool is shanda bright red blood Extremity normal to inspection Neuro oriented x3, CN's II-XII intact bilaterally and no sensory deficits noted Sensorium / Orientation: alert Motor Exam: strength 5/5 throughout Psych mental status grossly normal Skin no rashes or lesions noted Skin Narrative: Capillary refills less than 3 seconds MDM MDM MDM Narrative Medical decision making narrative: Patient presented to the ER with stable vitals. She is on Plavix but not a true thinners such as Eliquis and Coumadin or Xarelto. With recurrent bright red blood and mild pain in the left lower quadrant is concerned she is having a diverticular bleed especially as physical exam does not reveal external hemorrhoid anal fissure or internal hemorrhoid. Secondary to this basic labs were obtained to ensure she does not require a blood transfusion and a CTA was obtained to check for the source of bleeding. Lab work reveals stable H&H and normal BUN going against upper GI bleed. CTA did not reveal any obvious cause of the bleeding. At this time patient is hemodynamically stable and she is not requiring a blood transfusion. Therefore do not feel she needs admitted to the hospital for an emergent colonoscopy. She was given return precautions and agrees to this but at this time as vitals are stable and H&H stable she can have outpatient GI follow-up and colonoscopy and will be discharged from the ER History & Record Review Discussion w/independent historian: Patient and Friend Lab Data Attestation: I reviewed the patient's lab results. Labs: Laboratory Results - last 24 hr 05/24/23 22:50 WBC 9.7 RBC 4.02 L Hgb 12.5 Hct 39.4 MCV 98.0 MCH 31.1 MCHC 31.7 L RDW Std Deviation 46.0 H RDW Coeff of [place] 12.9 Plt Count 256 MPV 10.4 Immature Gran % (Auto) 0.400 Neut % (Auto) 46.4 L Lymph % (Auto) 43.0 H [place] % (Auto) 7.8 Eos % (Auto) 2.0 Baso % (Auto) 0.4 Absolute Neuts (auto) 4.5 Absolute Lymphs (auto) 4.18 Nucleated RBC % 0 PT 13.1 INR 1.0 APTT 30.3 Sodium 141 Potassium 4.7 Chloride 108 H Carbon Dioxide 30.0 Anion Gap 3 L BUN 16 Creatinine 1.08 H Estim Creat Clear Calc 47.24 Est GFR (MDRD) Af Amer 66 Est GFR (MDRD) Non-Af 55 L BUN/Creatinine Ratio 14.8 Glucose 101 Lactic Acid 3.1 H* Calcium 9.4 Radiography Diagnostic Testing: Clinical Impression(s) from Imaging Studies Abdomen/Pelvis CTA 05/25/23 22:44 IMPRESSION: 1. No evidence of GI bleeding. 2. Fat-containing right adrenal mass measuring 3.5 x 2.1 cm stable in size since 10/17/2019. 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 3. Cholecystectomy. 4. Cortical scarring right kidney. 5. Scattered atherosclerotic calcifications of the aorta and iliac vessels. No significant stenosis. Electronically Signed: Ismael Luis MD at 0:27 EDT , Discharge Plan Triage Chief Complaint: GI Bleed ED Provider: Ian Mixon Dx/Rx/DC Orders Clinical Impression: GI (gastrointestinal bleed), CAD (coronary artery disease), Hyperlipidemia, Essential hypertension Instructions: ED Lower GI Bleeding (Stable) Prescriptions: No Action triamcinolone acetonide [Nasacort] 55 mcg aerosol,spray 2 spray INTRANASAL DAILY Rx Instructions: administer into each nostril cholecalciferol (vitamin D3) 25 mcg (1,000 unit) tablet 25 mcg PO DAILY bupropion HCl [Wellbutrin XL] 150 mg tablet extended release 24 hr 150 mg PO QAM sertraline 100 mg tablet 100 mg PO DAILY clopidogrel [Plavix] 75 mg tablet 75 mg PO DAILY Qty: 90 3RF ranolazine 1,000 mg tablet extended release 12 hr 1,000 mg PO BID Qty: 180 3RF atorvastatin 40 mg tablet 40 mg PO QHS Qty: 90 3RF ascorbic acid (vitamin C) 1,000 MG tablet extended release 1,000 mg PO DAILY aspirin 81 MG tablet,chewable 81 mg PO DAILY albuterol sulfate 1 INHALER inhaler 2 puff INHALATION Q4H PRN PRN (Reason: Sob &/Or Wheezing) multivitamin with folic acid 1 TABLET tablet 1 tab PO DAILY benzonatate 200 mg capsule 200 mg PO TID PRN (Reason: cough) Qty: 20 0RF Primary Care Provider: Owen Cardenas Referrals: Owen Cardenas MD [Primary Care Provider] - Activity Restrictions/Additional Instructions: Your blood pressure remained stable with lying sitting and standing and your blood volume is normal. Your CTA of the abdomen and pelvis revealed no obvious kinds of infection or cause of the bleeding. Based on your exam and history this is most likely a diverticular bleed which should subside spontaneously. In order to help this please do not take aspirin and Plavix or nonsteroidal anti-inflammatories which are Advil Motrin Aleve for the next 3 to 5 days. If you develop increasing pain a fever over 100.4 bleeding without bowel movement or lightheadedness/passing out please return for repeat evaluation Disposition Disposition: Home, Self Care Discharge Date/Time: 05/25/23 02:17
[2023-05-25 02:14] VITALS: PULSE 77; RESP 15
[2023-05-25 02:56] LABS: Reflex Lactate? Y
--- NOTE | 2023-05-25 22:44 | CT_ITS ---
EXAM: CT ANGIOGRAPHY ABDOMEN AND PELVIS WITHOUT AND WITH INTRAVENOUS CONTRAST CLINICAL INDICATION: lower GI bleed TECHNIQUE: Helically acquired angiography images were obtained of the abdomen and pelvis without and with intravenous contrast. This CT exam was performed using one or more of the following dose reduction techniques: automated exposure control, adjustment of the mA and/or kV according to patient size, and/or use of iterative reconstruction technique. MIP reconstructed images were created and reviewed. CONTRAST: 100 cc of Isovue-[id number] IV. RADIATION DOSE: CTDIvol = 37.03 mGy, DLP = 1311.73 mGy-cm COMPARISON: Low-dose CT of the chest 10/17/2019. FINDINGS: VASCULATURE: AORTA: Scattered atherosclerotic calcifications of the aorta and iliac vessels. Normal caliber abdominal aorta. No dissection. CELIAC TRUNK AND MESENTERIC ARTERIES: No acute findings. No occlusion or significant stenosis. No dissection. RENAL ARTERIES: No acute findings. No occlusion or significant stenosis. No dissection. ILIAC ARTERIES: See above. LOWER THORAX: Unremarkable. Lung bases are clear. No cardiomegaly. No significant pericardial effusion. ABDOMEN: LIVER: Unremarkable. Homogeneous. No focal mass. GALLBLADDER AND BILE DUCTS: Cholecystectomy. No intra- or extrahepatic biliary ductal dilation. PANCREAS: Unremarkable. No focal cystic or solid mass. SPLEEN: Unremarkable. Normal size without focal cystic or solid mass. ADRENALS: Right adrenal mass measuring 3.5 x 2.1 cm transverse dimension. In retrospect this was also seen on the prior CT scan. Areas within it measure -15 Hounsfield units suggesting fat. KIDNEYS AND URETERS: Cortical scarring right kidney. No hydronephrosis. STOMACH AND BOWEL: Unremarkable. No stomach or bowel distention. No focal inflammatory change. PELVIS: APPENDIX: Normal appendix. BLADDER: Unremarkable. REPRODUCTIVE: Unremarkable as visualized. No mass. ABDOMEN and PELVIS: INTRAPERITONEAL SPACE: Unremarkable. No ascites or other fluid collection. No free air. BONES/JOINTS: Unremarkable. No suspicious lytic or blastic abnormality. SOFT TISSUES: Unremarkable. No discrete abdominal or pelvic wall hernia. LYMPH NODES: Unremarkable. No enlarged lymph nodes. CT/CTA Abd/Pelvis W/WO Contrast IMPRESSION: 1. No evidence of GI bleeding. 2. Fat-containing right adrenal mass measuring 3.5 x 2.1 cm stable in size since 10/17/2019. 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 3. Cholecystectomy. 4. Cortical scarring right kidney. 5. Scattered atherosclerotic calcifications of the aorta and iliac vessels. No significant stenosis. Electronically Signed: Ismael Luis MD at 0:27 EDT ,
== END 2023-05-25 02:17 | disposition home or self-care (01) ==
PROVIDERS: Emergency Provider Emergency Medicine; PCP Family Medicine; Visit Provider Emergency Medicine
DX: K92.2 Gastrointestinal hemorrhage, unspecified (principal); I25.10 Atherosclerotic heart disease of native coronary artery without angina pectoris; E78.5 Hyperlipidemia, unspecified; I10 Essential (primary) hypertension; G47.33 Obstructive sleep apnea (adult) (pediatric); E66.9 Obesity, unspecified; Z87.891 Personal history of nicotine dependence; Z95.5 Presence of coronary angioplasty implant and graft; Z79.01 Long term (current) use of anticoagulants
CPT/HCPCS: 74174; 80048; 83605; 85025; 85610; 85730; 99284; Q9967; A4216

== ENCOUNTER → 2024-08-10 | Outpatient (CLI) | payer OTHER, SELFPAY ==
--- NOTE | 2024-08-10 18:56 | CT_ITS ---
STUDY: LOW DOSE CT LUNG CANCER SCREENING REASON FOR EXAM: Female, 64 years old. Smoker quit 2016 RADIATION DOSAGE (If Supplied By Facility): CTDIvol = ( 3.02 ) mGy, DLP = ( 115.51 ) mGycm TECHNIQUE: No contrast was administered. Low dose technique was utilized (average mAS-38 and kVp 120). 1.25 mm axial source images with a slice interval of 1.25-mm were reconstructed in lung windows. 2.5 mm axial source images with a slice interval of 2.5-mm were reconstructed in lung windows. 5.0 mm axial source images with a slice interval of 5.0-mm were reconstructed in soft tissue windows. COMPARISON: Comparison is made with prior study dated February 17, 2022. NODULES: No suspicious nodules seen. Emphysema: Stable mild with emphysematous changes more prominent in the upper lobes. Endobronchial lesion: None Aorta: Minimal plaque formation at the level of the aortic arch. CORONARY ARTERIES: Coronary artery calcification is not seen. Prior CABG. Heart: Prior CABG Pulmonary artery: Unremarkable Mediastinal nodes: Unremarkable Other chest and abdominal findings: CT/Low Dose CT Lung Screening IMPRESSION: Lung-RADS category 2 - Continue annual screening with LDCT in 12 months. IMPORTANT NOTES FOR USE: ACR Lung-RADS Version 1.1 Assessment Categories Release Date: 2018 Category: Coded 0-4 bases on nodule(s) with highest degree of suspicion. Negative screen is defined as categories 1 and 2; a positive screen is defined as categories 3 and 4. Category 3 and 4A nodules that are unchanged on interval CT should be coded as category 2, and individuals returned to screening in 12 months. Category 4X: Category 3 or 4 nodules with additional imaging findings that increase the suspicion of lung cancer, such as spiculation, GGN that doubles in size in 1 year, enlarged lymph notes, etc. Category Modifiers: S (significant finding unrelated to lung cancer) Electronically Signed: Joshua Schofield MD at 10:42 EDT ,
== END | disposition home or self-care (01) ==
PROVIDERS: PCP Family Medicine; Referring Provider Nurse Practitioner Acute Care; Visit Provider Nurse Practitioner Acute Care
DX: F17.210 Nicotine dependence, cigarettes, uncomplicated (principal); G47.33 Obstructive sleep apnea (adult) (pediatric)
CPT/HCPCS: 71271; 95810